=== PATIENT | male | born 1960 | race Caucasian/White ===

== ENCOUNTER → 2020-06-22 09:36 | Outpatient (BNVA) | payer BC, SELFPAY | PROVIDERS: PCP Family Medicine; Referring Provider Internal Medicine Cardiovascular Disease; Visit Provider Internal Medicine | DX: E11.59 Type 2 diabetes mellitus with other circulatory complications (principal); I25.10 Atherosclerotic heart disease of native coronary artery without angina pectoris | CPT/HCPCS: 99204 ==

== ENCOUNTER → 2020-12-21 09:16 | Outpatient (BNVA) | payer BC, SELFPAY | PROVIDERS: PCP Family Medicine; Visit Provider Internal Medicine | DX: E11.59 Type 2 diabetes mellitus with other circulatory complications (principal); I25.10 Atherosclerotic heart disease of native coronary artery without angina pectoris; N18.2 Chronic kidney disease, stage 2 (mild); Z79.4 Long term (current) use of insulin | CPT/HCPCS: 99214 ==

== ENCOUNTER 2021-04-12 10:28 | Emergency (ER) | payer BC, SELFPAY ==
[2021-04-12 10:37] VITALS: BP 150/84; PULSE 87; RESP 16; TEMP 36.6; O2SAT 97; BMI 29.2
--- NOTE | 2021-04-12 10:51 | XR_ITS ---
WS: [id number] XR chest 1V portable [id number] REASON FOR EXAM: dyspnea FINDINGS: Mild tortuosity thoracic aorta. Normal heart size. Calcified granulomatous disease in both hemithoraces. No acute pulmonary parenchymal or pleural abnormality. Bony thorax intact. XR/XR chest 1V portable [id number] IMPRESSION: No acute chest abnormality.
--- NOTE | 2021-04-12 10:52 | ECG_ITS ---
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1960 Requested By: Julio Meneses Order Number: [id number] Reading MD: EVELIA JACOME Measurements Intervals [place] Rate: 83 P: 26 DC: 160 QRS: 4 QRSD: 113 T: 90 QT: 381 QTc: 449 Interpretive Statements SINUS RHYTHM POSSIBLE LEFT VENTRICULAR HYPERTROPHY [VOLTAGE CRITERIA PLUS LAE OR QRS WIDENING] ANTERIOR MYOCARDIAL INFARCTION , OF INDETERMINATE AGE [40+ ms Q WAVE AND/OR ST/T ABNORMALITY IN V3/V4] INFERIOR MYOCARDIAL INFARCTION , PROBABLY OLD [40+ ms Q WAVE AND/OR ST/T ABNORMALITY IN II/aVF] No previous ECG available for comparison Electronically Signed On 04-12-2021 18:15:03 THERAPIST PHYSICAL by EVELIA JACOME [id number]
--- NOTE | 2021-04-12 10:52 | CT_ITS ---
WS: [id number] CT HEAD TECHNIQUE: Noncontrast CT of the head obtained from the skullbase to the vertex. CLINICAL INFORMATION: Symptoms of Acute Stroke COMPARISON: None. DLP: 1057.[address] scans at [facility] use at least one of these dose optimization techniques: automated e xposure control; mA and/or kV adjustment per patient size (includes targeted exams where dose is matc hed to clinical indication); or iterative reconstruction. FINDINGS: No evidence of intracranial hemorrhage or mass effect. Ventricular system and basal cisterns are velasquez nt. Mild small vessel changes with mild parenchymal volume loss. Chronic lacunar infarct left caudate . Lacunar infarct right ricardo radiata likely chronic. Normal posterior fossa. No extra-axial fluid c ollections. No evidence of mass or mass effect. Paranasal sinuses and mastoid air cells are well aerated. .Normal visualized soft tissues. CT/CT head wo con* [id number] IMPRESSION: 1. No evidence of intracranial hemorrhage or mass effect. 2. Mild small vessel changes with mild parenchymal volume loss. 3. Chronic appearing lacunar infarcts left caudate and right ricardo radiata 4. No other significant findings Notified Julio Glasgow DO at 04/12/2021 11:33 AM.
[2021-04-12 12:02] LABS: Basophils # 0.1 10^3/uL (0.0-0.1); Basophils % 0.7 %; Eosinophils # 0.5 10^3/uL (0.0-0.8); Eosinophils % 5.5 %; Hematocrit 40.6 % (42.0-52.0); Hemoglobin 12.9 g/dL (11.7-16.6); Lymphocytes # 1.6 10^3/uL (0.8-4.8); Lymphocytes % 18.2 %; Mean Corpuscular HGB Conc 31.8 g/dL (30.0-36.0); Mean Corpuscular Hemoglobin 28.7 pg (28.0-34.0); Mean Corpuscular Volume 90.2 fl (80-94); Mean Platelet Volume 9.5 fL (7.4-10.4); Monocytes # 0.7 10^3/uL (0.2-0.9); Monocytes % 7.8 %; Neutrophils # 6.08 10^3/uL (1.8-7.7); Neutrophils % 67.6 %; Nucleated Red Blood Cells % 0 %; Platelet Count 345 10^3/cmm (130-400); Red Cell Distribution Width 13.4 % (12.1-15.1)
--- NOTE | 2021-04-12 12:16 | ED_ITS ---
HPI - Neuro Symptoms/Deficit General: Chief Complaint: Neuro Symptoms/Deficit Stated Complaint: RIGHT HAND/ FOOT COLD NOT WORKING, SLURRED SPEACH Time Seen by Provider: 04/12/21 10:51 History of Present Illness: HPI Narrative: 60-year-old male presents to the e mergency room with a right-sided weakness of the face arm and leg most significant in the arm. He has a little slurring of his words as well. This began suddenly a little over 2 days ago. Symptoms have been waxing and waning since then he comes in today not because it is particularly worsened but because they have persistence. He is not previously distracted he is aware of patient does have a history of hypertension and diabetes. He is awake and alert and ambulatory see stroke score. He has not noticed anything that makes it better or worse he does take aspirin daily. Significant other is present with him at the bedside states he still has a little bit of slurring of his words. Onset (ago): day(s) (2) Timing confirmed by: spouse Location: speech, right arm and right leg History of same: No Severity: moderate Quality: weak Relieving factors: none Exacerbating factors: none Context: gradual onset On Anticoagulants: No Associated symptoms: Reports weakness; Deny chest pain, cough, diaphoresis, fevers/chills, headache(s), anorexia, malaise, nausea, seizures, short of breath, syncope, tingling, vertigo or vomiting Treatments Prior to Arrival: Aspirin (81 mg daily) Review of Systems Const: Denies: malaise or diaphoresis ENMT: Denies: throat pain, ear or mastoid pain, nasal discharge or nasal congestion Card: Denies: chest pain or syncope Resp: Denies: dyspnea, productive cough or non-productive cough GI: Denies: nausea or vomiting : Denies: flank pain, dysuria, urinary frequency or urinary urgency Skin/Breast: Denies: rash or pruritus Neuro: Denies: headache(s) or vertigo PFSH ED PFSH: Medical History Coronary atherosclerosis Diabetes mellitus HTN (hypertension) Hyperlipidemia Surgical History History of back surgery S/P PTCA (percutaneous transluminal coronary angioplasty) X3 Family History Mother Myocardial infarction Father Myocardial infarction Brother Myocardial infarction Grandfather Heart disease Grandmother Heart disease Social History History of recent travel: No NIH stroke score NIHSS: Level Of Consciousness - 1a: 0 Level Of Consciousness Questions - 1b: Both Correct Level Of Consciousness Commands - 1c: Both Correct Best Gaze - 2: Normal Visual [place] - 3: No Visual Loss Facial Palsy - 4: Partial Paralysis Motor Arm Right - 5: Drift Motor Arm Left - 5: No Drift Motor Leg Right - 6: Drift Motor Leg Left - 6: No Drift Limb Ataxia - 7: Present In Two Limbs Sensory - 8: Mild To Moderate Loss Best Language - 9: No Aphasia Dysarthia - 10: Mild/Moderate Dysarthia Extinction And Inattention - 11: 0 Score: Total Score: 8 Physical Exam Const: COMMON NORMALS: no acute distress GENERAL APPEARANCE: cooperative and comfortable ORIENTATION/CONSCIOUSNESS: Yes awake, Yes oriented to person, Yes oriented to place and Yes oriented to time HENMT: COMMON NORMALS: normocephalic, atraumatic and hearing grossly normal bilaterally HEAD & SCALP: normocephalic and atraumatic Neck/C-Spine: COMMON NORMALS: no JVD Resp: COMMON NORMALS: normal respiratory effort, No retractions, No use of accessory muscles and clear to auscultation bilaterally AUSCULTATION: clear to auscultation bilaterally Cardio: COMMON NORMALS: no JVD, regular rate, regular rhythm and No murmurs present (Cardio) RATE: regular rate RHYTHM: regular rhythm GI: COMMON NORMALS: Soft to palpation and No hepatosplenomegaly present AUSCULTATION: Yes normoactive bowel sounds PALPATION: Yes Soft to palpation, No Tenderness to palpation present (GI), No Guarding due to palpation present (GI) and Yes No hepatosplenomegaly present Extremity: COMMON NORMALS: normal to inspection, capillary refill normal, no clubbing, cyanosis or edema, no calf tenderness and no pedal edema Neuro: SENSORIUM/ORIENTATION: Yes oriented to person, Yes oriented to place and Yes oriented to time Skin: COMMON NORMALS: no rashes or lesions noted GENERAL SKIN EXAM: no rashes or lesions noted Course Vital Signs: Vital signs: Vital Signs Temperature 97.8 F 04/12/21 10:37 Pulse Rate 82 04/12/21 14:20 Respiratory Rate 17 04/12/21 14:20 Blood Pressure 134/89 04/12/21 14:20 Pulse Oximetry 94 04/12/21 14:20 MDM - Neuro Symptoms/Deficit MDM Narrative: Medical decision making narrative: Labs and imaging reviewed. Discussed with Dr. Owen who is on-call. She recommends in cases like this that she will frequently increase the aspirin which we did. Additionally were going to change him from hydrochlorothiazide to amlodipine. He does have a stroke score of 8 but he is fairly functional at this point. Unfortunately is already 2 days outs is not really much that can be done in terms of admission to the hospital. We will make arrangements to get outpatient work-up and have him follow-up with Dr. Owen also referred to PT. Lab Data: Labs: Lab Results 04/12/21 04/12/21 04/12/21 11:50 11:52 11:52 WBC 9.0 10^3/uL 10^3/ uL (4.0-10.0) RBC 4.50 10^6/uL 10^6 /uL (4.1-5.3) Hgb 12.9 g/dL g/dL (11.7-16.6) Hct 40.6 % L % (42.0-52.0) MCV 90.2 fl fl (80-94) MCH 28.7 pg pg (28.0-34.0) MCHC 31.8 g/dL g/dL (30.0-36.0) RDW 13.4 % % (12.1-15.1) Plt Count 345 10^3/cmm 10^3 /cmm (130-400) MPV 9.5 fL fL (7.4-10.4) Neut % (Auto) 67.6 % % Lymph % (Auto) 18.2 % % [place] % (Auto) 7.8 % % Eos % (Auto) 5.5 % % Baso % (Auto) 0.7 % % Neut # (Auto) 6.08 10^3/uL 10^3 /uL (1.8-7.7) Lymph # (Auto) 1.6 10^3/uL 10^3/ uL (0.8-4.8) [place] # (Auto) 0.7 10^3/uL 10^3/ uL (0.2-0.9) Eos # (Auto) 0.5 10^3/uL 10^3/ uL (0.0-0.8) Baso # (Auto) 0.1 10^3/uL 10^3/ uL (0.0-0.1) Nucleated RBC % (a uto) 0 % % Nucleated RBCs # 0.0 /100WBC /100W BC PT 13.40 SECONDS SEC ONDS (12.1-14.9) INR 0.99 (0.8-1.2) APTT 28.8 SECONDS SECO NDS (23.9-36.7) Sodium Potassium Chloride Carbon Dioxide Anion Gap BUN Creatinine GFR Calculation Glucose POC Glucose 124 mg/dL H mg/dL (70-110) Calculated Osmolal ity Calcium Total Bilirubin AST ALT Alkaline Phosphata se Total Protein Albumin Globulin 04/12/21 11:52 WBC RBC Hgb Hct MCV MCH MCHC RDW Plt Count MPV Neut % (Auto) Lymph % (Auto) [place] % (Auto) Eos % (Auto) Baso % (Auto) Neut # (Auto) Lymph # (Auto) [place] # (Auto) Eos # (Auto) Baso # (Auto) Nucleated RBC % (a uto) Nucleated RBCs # PT INR APTT Sodium 142 mmol/L mmol/L (136-145) Potassium 3.5 mmol/L mmol/L (3.5-5.1) Chloride 105 mmol/L mmol/L (98-107) Carbon Dioxide 22 mmol/L mmol/L (22-29) Anion Gap 18.5 (5-19) BUN 21 mg/dL mg/dL (8-23) Creatinine 1.5 mg/dL H mg/dL (0.7-1.2) GFR Calculation 47.7 mL/min L mL/ min (90-130) Glucose 126 mg/dL H mg/dL (65-115) POC Glucose Calculated Osmolal ity 299 mOsm/kg H mOs m/kg (285-295) Calcium 8.8 mg/dL mg/dL (8.5-10.5) Total Bilirubin 0.3 mg/dL mg/dL (0.15-1.2) AST 17 U/L U/L (0-40) ALT 18 U/L U/L (0-41) Alkaline Phosphata se 44 IU/L IU/L (40-130) Total Protein 6.9 g/dL g/dL (6.6-8.7) Albumin 4.3 g/dL g/dL (3.5-5.2) Globulin 2.6 g/dL g/dL (1.3-4.6) Discharge Plan Discharge Patient Disposition: Home Clinical Impression: CVA (cerebral vascular accident), HTN (hypertension), Hyperlipidemia, Diabetes mellitus, Coronary artery disease due to type 2 diabetes mellitus, Chronic kidney disease, stage II (mild) Condition: Stable Prescriptions: New amlodipine 5 mg tablet 5 mg PO DAILY Qty: 30 RF: 0 aspirin 325 mg capsule 325 mg PO DAILY Qty: 30 RF: 0 Discontinued aspirin [Adult Low Dose Aspirin] 81 mg tablet,delayed release (DR/EC) 81 mg PO QAM RF: 0 hydrochlorothiazide 25 mg tablet 25 mg PO QAM RF: 0 No Action atorvastatin 40 mg tablet 40 mg PO BEDTIME RF: 0 clopidogrel [Plavix] 75 mg tablet 75 mg PO QAM RF: 0 isosorbide mononitrate 30 mg tablet extended release 24 hr 30 mg PO QAM RF: 0 metformin 850 mg tablet 850 mg PO BID RF: 0 multivitamin Tablet 1 tab PO QAM RF: 0 pantoprazole 20 mg tablet,delayed release (DR/EC) 20 mg PO QAM RF: 0 metoprolol tartrate 50 mg tablet See Rx Instructions .ROUTE .COMPLEX RF: 0 Nitrostat 0.3 mg Tablet, Sublingual 0.3 mg SUBLINGUAL Q5M PRN (Reason: Chest Pain) RF: 0 Aleve 220 mg Tablet 440 mg PO Q12H PRN (Reason: Pain) RF: 0 losartan 100 mg tablet 100 mg PO QAM RF: 0 Basaglar KwikPen U-100 Insulin 100 unit/mL (3 mL) insulin pen 60 unit SUBCUT QAM RF: 0 fenofibrate nanocrystallized 145 mg tablet 145 mg PO QAM RF: 0 Victoza 3-Jesús 0.6 mg/0.1 mL (18 mg/3 mL) pen injector 1.8 mg SUBCUT QAM RF: 0 Discharge Orders: Discharge ED (Routine); Ordered 04/12/21 Ordered By: Julio Glasgow Referrals: Nikolas Baxter MD [Primary Care Provider] - Discharge Diet: Usual diet Discharge Activity: Resume usual activity Patient Instructions: Opioid Safety Activity Restrictions/Additional Instructions: assistant inventory manager will make arrangements for you for you to have an MRI of the head with and without contrast, echocardiogram, carotid ultrasound, and 48-hour Holter monitor. You should follow-up with your primary care doctor within the week to reevaluate and to follow-up on the results of these tests. Coding Level of Care Code ED Addiction Medicine Physician for Chg Fwd Exam Comprehensive
[2021-04-12 12:21] LABS: INR 0.99 (0.8-1.2); Partial Thromboplastin Time 28.8 SECONDS (23.9-36.7)
[2021-04-12 12:37] LABS: Alanine Aminotransferase 18 U/L (0-41); Albumin Level 4.3 g/dL (3.5-5.2); Alkaline Phosphatase 44 IU/L (40-130); Anion Gap 18.5 (5-19); Aspartate Amino Transferase 17 U/L (0-40); Blood Urea Nitrogen 21 mg/dL (8-23); Calcium 8.8 mg/dL (8.5-10.5); Carbon Dioxide 22 mmol/L (22-29); Chloride 105 mmol/L (98-107); Globulin 2.6 g/dL (1.3-4.6); Glomerular Filtration Rate 47.7 mL/min (90-130); Glucose 126 mg/dL (65-115); Osmolality Calculated 299 mOsm/kg (285-295); Potassium 3.5 mmol/L (3.5-5.1); Sodium 142 mmol/L (136-145); Total Bilirubin 0.3 mg/dL (0.15-1.2); Total Protein 6.9 g/dL (6.6-8.7)
[2021-04-12 13:38] LABS: Glucose Point of Care 124 mg/dL (70-110)
[2021-04-12 14:20] VITALS: BP 134/89; PULSE 82; RESP 17; O2SAT 94
--- NOTE | 2021-04-15 11:12 | DCPLANNER ---
telephonic case manager had message to schedule an outpatient CVA, MRI, echo and carotid duplex, and 48 hour holter. telephonic case manager faxed signed order to centralized scheduling and to [facility]. Centralized scheduling and heart care will call patient with appointment information.
--- NOTE | 2021-04-16 11:40 | DCPLANNER ---
Addendum entered by Leslie Deleon 06/27/21 07:50: Patient had an MRI Scheduled for 05.16.21 - patient did attend appointment Patient had an echo, a carotid duplex scheduled for 05.30.21 - patient did attend both appointments. Addendum entered by Leslie Deleon 04/26/21 14:13: Patient has an MRI scheduled for April at 11:45. Patient has an echo scheduled for Sunday, May 30, 2021 at 9:30 Patient has a carotid duplex scheduled for Sunday, May 30, 2021 at 10:15. Patient had a holter monitor appointment scheduled for 04.25.21 at [facility] - patient did attend appointment. Addendum entered by Leslie Deleon 04/26/21 11:49: Patient was seen and evaluated with therapy services. Original Note: manager gallery had message to refer patient to physical therapy, occupational therapy and speech therapy. manager gallery fazed signed order to the [facility]. Patients information will be printed and reviewed, clinic will call patient with appointment information.
== END 2021-04-12 14:21 | disposition home or self-care (01) ==
PROVIDERS: Emergency Provider Family Medicine; PCP Family Medicine
DX: I63.9 Cerebral infarction, unspecified (principal); E78.49 Other hyperlipidemia; I25.10 Atherosclerotic heart disease of native coronary artery without angina pectoris; I12.9 Hypertensive chronic kidney disease with stage 1 through stage 4 chronic kidney disease, or unspecified chronic kidney disease; E11.22 Type 2 diabetes mellitus with diabetic chronic kidney disease; N18.2 Chronic kidney disease, stage 2 (mild); Z79.84 Long term (current) use of oral hypoglycemic drugs; Z79.02 Long term (current) use of antithrombotics/antiplatelets
CPT/HCPCS: 36416; 70450; 71045; 80053; 82962; 85025; 85610; 85730; 93005; 99283

== ENCOUNTER 2021-04-25 06:00 | Outpatient (RCR) | payer BC, SELFPAY | END 2021-04-29 23:59 | disposition home or self-care (01) | LOC: TPT 06:00 | PROVIDERS: PCP Family Medicine; Referring Provider Family Medicine; Visit Provider Family Medicine | DX: I69.90 Unspecified sequelae of unspecified cerebrovascular disease (principal) | CPT/HCPCS: 97163 ==

== ENCOUNTER 2021-04-30 06:00 | Outpatient (RCR) | payer BC, SELFPAY | END 2021-05-27 23:59 | disposition home or self-care (01) | LOC: TPT 06:00 | PROVIDERS: PCP Family Medicine; Referring Provider Family Medicine; Visit Provider Family Medicine | DX: I69.30 Unspecified sequelae of cerebral infarction (principal) | CPT/HCPCS: 97110 ==

== ENCOUNTER 2021-05-28 06:00 | Outpatient (RCR) | payer BC, SELFPAY | END 2021-05-30 23:59 | disposition home or self-care (01) | LOC: TPT 06:00 | PROVIDERS: PCP Family Medicine; Referring Provider Family Medicine; Visit Provider Family Medicine | DX: I69.90 Unspecified sequelae of unspecified cerebrovascular disease (principal) | CPT/HCPCS: 97110; 97164 ==

== ENCOUNTER 2021-05-28 08:18 | Outpatient (CLI) | payer BC, SELFPAY ==
--- NOTE | 2021-05-28 08:46 | USCV_ITS ---
Fuad Priest Age: 60 Gender: M : 1960 Exam Date: 05/28/2021 09:46 Ordering Phys: Julio Glasgow DO Technologist: Jose L Duran Exam Location: [facility] [place] Indication: cva Risk Factors: Previous Vascular Surgery: Right Brachial BP: / Left Brachial BP: / Right Left Velocity (cm/s) Spectral Plaque Velocity (cm/s) Spectral Plaque Syst/Diast Broadening Syst/Diast Broadening 84.00/ 11.70 Prox CCA 83.20 / 18.40 66.70/ 13.20 Mid CCA 76.90 / 21.70 70.30/ 16.40 Distal CCA 88.70 / 25.60 76.50/ 17.20 Prox ICA 88.60 / 28.70 52.90/ 15.60 Mid ICA 88.60 / 25.60 57.10/ 18.70 Distal ICA 58.00 / 18.00 101.80 ECA 91.70 0.79 ICA/CCA 1.15 Antegrade Vertebral Antegrade 47.00/ 14.40 cm/s 29.90/ 12.80 cm/s Tri Subclavian Tri 68.90 66.80 FINDINGS Minimal intimal thickening in the common carotid and internal carotid arteries bilaterally. Anterior flow in the vertebral arteries bilaterally. Normal Doppler flow velocities in all the extracranial vessels mentioned above CONCLUSIONS Minimal intimal thickening in the common carotid and internal carotid arteries bilaterally. No unstable plaques or any significant stenosis, based on the above findings Dr Devonte Corbett MD [facility] (Electronically Signed) Final Date: 29 May 2021 08:44 S
--- NOTE | 2021-05-28 08:46 | USCV_ITS ---
Fuad Priest Age: 60 Gender: M : 1960 Exam Date: 05/28/2021 09:08 Ordering Phys: Julio Glasgow DO Technologist: Jose L Duran Exam Location: [facility] [place] Indication: cva BP: 122 / 77 HR: 88 Rhythm: Sinus Technical Quality: Adequate MEASUREMENTS (Male / Female) Normal Values 2D ECHO LV Diastolic Diameter PLAX 5.0 cm 4.2 - 5.9 / 3.9 - 5.3 cm LV Systolic Diameter PLAX 3.9 cm IVS Diastolic Thickness 1.2 cm 0.6 - 1.0 / 0.6 - 0.9 cm IVS Systolic Thickness 1.6 cm LVPW Diastolic Thickness 1.1 cm 0.6 - 1.0 / 0.6 - 0.9 cm LVPW Systolic Thickness 1.9 cm LVOT Diameter 2.1 cm LV Ejection Fraction 2D Teich 43.1 % LV Ejection Fraction MOD 2C 64.0 % LV Ejection Fraction 2C AL 64.2 % LA Diameter 3.5 cm LA Width 4.0 cm LA Height 4.8 cm RA Width 3.1 cm RA Height 4.1 cm Aorta at Sinotubular Diameter 2.7 cm M-MODE Aortic Annulus Diameter 3.0 cm LA Ao Ratio MM 1.1 MV E Point Septal Separation 0.9 cm DOPPLER AV Peak Velocity 165.0 cm/s LVOT Peak Velocity 94.0 cm/s AV Area Cont Eq vti 2.2 cm squared AV Area Cont Eq pk 1.9 cm squared MV Area PHT 4.3 cm squared Mitral E to A Ratio 0.7 MV E' Velocity 52.0 cm/s Mitral E to LV E' Septal Ratio 12.7 Right Atrial Pressure 3.0 mmHg RV Acceleration Time 0.1 s RV Ejection Time 0.3 s RV AcT/ET 0.4 FINDINGS Left Ventricle Mild diffuse dyskinesia of the left ventricle with an ejection fraction of around 50%. Grade I/IV diastolic dysfunction (abnormal relaxation filling pattern), normal to mildly elevated filling pressures. Right Ventricle The right ventricle is normal in size and function. Right Atrium The right atrium is normal in size. Left Atrium Mildly increased left atrial size. Mitral Valve Thickened mitral valve. Mild mitral annular calcification. Trace mitral valve regurgitation. Aortic Valve Thickened aortic valve. Tricuspid Valve No gross abnormalities noted Pulmonic Valve Pulmonic valve not well visualized. Pericardium Normal pericardium without effusion. Aorta Normal ascending aorta dimension. CONCLUSIONS Mild diffuse dyskinesia of the left ventricle with an ejection fraction of around 50%. Grade I/IV diastolic dysfunction (abnormal relaxation filling pattern), normal to mildly elevated filling pressures. Mildly increased left atrial size. Thickened mitral valve. Mild mitral annular calcification. Trace mitral valve regurgitation. Thickened aortic valve. There is no pericardial effusion. There are no intracardiac masses. No previous study is available for comparison. Dr Devonte Corbett MD [facility] (Electronically Signed) Final Date: 28 May 2021 17:41 S
== END 2021-05-28 08:19 | disposition home or self-care (01) ==
PROVIDERS: PCP Family Medicine; Visit Provider Family Medicine
DX: I63.9 Cerebral infarction, unspecified (principal); I08.0 Rheumatic disorders of both mitral and aortic valves; I65.23 Occlusion and stenosis of bilateral carotid arteries
CPT/HCPCS: 93306; 93880

== ENCOUNTER 2021-06-05 13:24 | Outpatient (CLI) | payer BC, SELFPAY ==
--- NOTE | 2021-06-05 13:39 | MR_ITS ---
WS: [id number] MRI HEAD WITH CONTRAST TECHNIQUE: Sagittal T1, T2 axial, T2 axial FLAIR, axial susceptibility weighted imaging, axial diffus ion weighted images, and coronal T2 images were obtained. Pre and post-T1 axial and post T1 coronal i mages. ADC and FSPGR images. CLINICAL INFORMATION: CVA COMPARISON: CT head April 12, 2021 FINDINGS: No evidence of restricted diffusion to suggest acute ischemia. Ventricular system and basal cisterns are patent. Tiny focus of partially restricted diffusion in the LEFT medullary olive measuring 3 mm. Small amount of associated T2 hyperintensity in this area. This may represent T2 shine through. No en hancement. This likely represents late subacute to chronic ischemia. No significant brainstem atrophy . No other foci of restricted diffusion to suggest acute ischemia. Tiny chronic lacunar infarcts LEFT c erebellum. Normal vascular flow voids at the skull base. No extra-axial fluid collections. Chronic la cunar infarcts in the LEFT ricardo radiata and RIGHT lateral basal ganglia. This is unchanged since th e prior CT. Mild mucosal thickening in the paranasal sinuses. Mastoid air cells well aerated. Normal vascular santo w voids at the skull base. No hemosiderin on susceptibly weighted images. Normal optic chiasm and pit uitary infundibulum. Mild symmetric atrophy temporal lobes and hippocampal formations. No abnormal gadolinium enhancement. Normal visualized dural venous sinuses. MR/MR head wo/w con [id number] IMPRESSION: 1. Tiny 3 mm focus of partially restricted diffusion in the anterior LEFT medu llary olive suspicious for subacute to early chronic ischemia. No enhancement. No brainstem atrophy. 2. Otherwise no evidence of restricted diffusion to suggest acute ischemia. 3. Mild small vessel changes with mild parenchymal volume loss. 4. Chronic lacunar infarcts in the LEFT ricardo radiata and RIGHT lateral basal ganglia unchanged since the prior CT. 5. Chronic lacunar infarcts in the LEFT cerebellum. 6. No abnormal gadolinium enhancement. 7. Mild symmetric atrophy temporal lobes and hippocampal formations.
[2021-06-05] MEDS: gadobenate dimeglumine 20 mL vial IV (15:46)
== END 2021-06-05 13:25 | disposition home or self-care (01) ==
LOC: RAD 13:27
PROVIDERS: PCP Family Medicine; Visit Provider Family Medicine
DX: I63.81 Other cerebral infarction due to occlusion or stenosis of small artery (principal); G31.9 Degenerative disease of nervous system, unspecified
CPT/HCPCS: 70553

== ENCOUNTER → 2021-06-17 10:22 | Outpatient (BNVA) | payer BC, SELFPAY | PROVIDERS: PCP Family Medicine; Visit Provider Family Medicine | DX: E11.9 Type 2 diabetes mellitus without complications (principal); N18.2 Chronic kidney disease, stage 2 (mild); I25.10 Atherosclerotic heart disease of native coronary artery without angina pectoris; E78.5 Hyperlipidemia, unspecified; Z76.89 Persons encountering health services in other specified circumstances; I12.9 Hypertensive chronic kidney disease with stage 1 through stage 4 chronic kidney disease, or unspecified chronic kidney disease | CPT/HCPCS: 80053; 80061; 83036; 85025 ==

== ENCOUNTER 2021-08-13 02:39 | Emergency (ER) | payer BC, SELFPAY ==
[2021-08-13 02:42] VITALS: BP 166/89; PULSE 87; RESP 16; TEMP 36.7; O2SAT 93; BMI 30.8
[2021-08-13 03:20] VITALS: BP 166/90; PULSE 92; RESP 20; O2SAT 94
--- NOTE | 2021-08-13 03:20 | W.ED.SOB ---
HPI - SOB/Dyspnea General: Chief Complaint: Shortness of Breath/Dyspnea Stated Complaint: SOB Time Seen by Provider: 08/13/21 03:20 History of Present Illness: HPI Narrative: Is a 60-year-old gentleman with history of hypertension, hyperlipidemia, stroke, CAD, diabetes who presents to the emergency department due to shortness of breath. He reports onset of symptoms while drinking a glass of milk. He had a choking episode and subsequently had gurgling sensation in his chest. Initially intensity of symptoms were moderate to severe however is now slowly beginning to improve. Prior to this he was at his baseline health. He does have a history of stroke which may be contributing. No other specific changes in health, exacerbating, or alleviating factors identified. Onset (ago): hour(s) Context: choking/aspiration Review of Systems General: Reports: 10 or more systems reviewed and unremarkable except in HPI and below PFSH ED PFSH: Medical History Coronary atherosclerosis Diabetes mellitus HTN (hypertension) Hyperlipidemia Surgical History History of back surgery S/P PTCA (percutaneous transluminal coronary angioplasty) X3 Family History Mother Myocardial infarction Father Myocardial infarction Brother Myocardial infarction Grandfather Heart disease Grandmother Heart disease Social History Smoking and tobacco status: never smoked Alcohol intake: never History of recent travel: No Physical Exam Const: COMMON NORMALS: alert GENERAL APPEARANCE: cooperative and well developed HENMT: COMMON NORMALS: normocephalic and atraumatic HEAD & SCALP: normocephalic and atraumatic THROAT: posterior oropharynx normal Eye: COMMON NORMALS: conjunctivae normal CONJUNCTIVA: Yes conjunctivae normal SCLERA: sclerae normal Neck/C-Spine: COMMON NORMALS: supple GENERAL: Yes trachea midline Resp: EFFORT & INSPECTION: Yes able to speak in complete sentences AUSCULTATION: rhonchi lower bilaterally Cardio: COMMON NORMALS: regular rate and regular rhythm RATE: regular rate RHYTHM: regular rhythm GI: COMMON NORMALS: Soft to palpation PALPATION: Yes Soft to palpation and No Tenderness to palpation present (GI) PERCUSSION: normal to percussion Extremity: GENERAL: Yes normal exam except as noted and No edema Neuro: COMMON NORMALS: moves all extremities SENSORIUM/ORIENTATION: Yes alert and No Orientation impaired Psych: COMMON NORMALS: mental status grossly normal and Normal thought process present THOUGHT PROCESS: Normal thought process present Course ED course: - Patient was seen and evaluated by me at bedside - Patient placed on cardiac monitors, IV access obtained - Initial evaluation notable for exam as above - xrays personally interpreted by me - Imaging notable for patchy bibasilar infiltrate concerning for pneumonia given clinical context - Upon serial reexamination after treatment the patient was improved - Based on patient history, evaluation, and testing as interpreted the most likely cause of the patient's condition is aspiration pneumonia - The results of ED evaluation were discussed with the patient including prescriptions and/or symptomatic cares (if applicable) including appropriate and responsible use, followup plan, and return precautions. The patient verbalized understanding and felt safe for discharge. - Patient discharged in satisfactory condition. Note: Click bubbles or prepopulated noel in note writing are used for assistance with data collection and billing and are inherently more limited than narrative and other text portions of this note. Please use narrative for additional clinical history and defer to narrative/free test for any case of contradictory information. If information appears in only free text or click bubble it should be considered present or absent as reported. Please contact note contract technical writer for clarifications of clinical information or contradictory information. MDM is a brief summary, contradictory or erroneous seeming information should be clarified and full note should be reviewed. Vital Signs: Vital signs: Vital Signs Temperature 98.0 F 08/13/21 02:42 Pulse Rate 80 08/13/21 06:02 Respiratory Rate 18 08/13/21 06:02 Blood Pressure 185/115 08/13/21 06:02 Pulse Oximetry 98 08/13/21 06:02 MDM - SOB/Dyspnea Medical Decision Making 60-year-old male presenting after choking episode with concern over aspiration pneumonia. Clinical exam consistent with such. Patient is not tachycardic and not requiring supplemental oxygen. Patient comfortable with outpatient management, will be prescribed antibiotics. Medical Records I reviewed the patient's medical records. Lab Data I reviewed the patient's lab results. Labs/Radiology: Radiology Impressions Chest X-Ray 08/13/21 03:33 IMPRESSION: Pulmonary vascular congestion with patchy bibasilar airspace opacities, which may reflect atelectasis versus aspiration or pneumonia. Discharge Plan Discharge Patient Disposition: Home Clinical Impression: Aspiration pneumonitis, Shortness of breath Condition: Stable Prescriptions: New amoxicillin-pot clavulanate 875-125 mg tablet 1 tab PO BID Qty: 20 0RF albuterol sulfate 90 mcg/actuation HFA aerosol inhaler 2 inh inhalation Q4H PRN (Reason: shortness of breath or wheezing) Qty: 8.5 0RF No Action atorvastatin 40 mg tablet 40 mg PO BEDTIME 0RF clopidogrel [Plavix] 75 mg tablet 75 mg PO QAM 0RF isosorbide mononitrate 30 mg tablet extended release 24 hr 30 mg PO QAM 0RF metformin 850 mg tablet 850 mg PO BID 0RF multivitamin Tablet 1 tab PO QAM 0RF pantoprazole 20 mg tablet,delayed release (DR/EC) 20 mg PO QAM 0RF metoprolol tartrate 50 mg tablet See Rx Instructions PO BID Qty: 270 2RF Rx Instructions: TAKE 2 TABLETS IN THE MORNING AND 1 TABLET IN THE EVENING Nitrostat 0.3 mg Tablet, Sublingual 0.3 mg SUBLINGUAL Q5M PRN (Reason: Chest Pain) 0RF Aleve 220 mg Tablet 440 mg PO Q12H PRN (Reason: Pain) 0RF losartan 100 mg tablet 100 mg PO QAM 0RF fenofibrate nanocrystallized 145 mg tablet 145 mg PO QAM 0RF Victoza 3-Jesús 0.6 mg/0.1 mL (18 mg/3 mL) pen injector 1.8 mg SUBCUT QAM 0RF amlodipine 5 mg tablet 5 mg PO DAILY Qty: 30 0RF aspirin 325 mg capsule 325 mg PO DAILY Qty: 30 0RF Basaglar KwikPen U-100 Insulin 100 unit/mL (3 mL) insulin pen 55 unit SUBCUT QAM 0RF Discharge Orders: Discharge ED (Routine); Ordered 08/13/21 Ordered By: Vasile Kidd Referrals: John Paul Fox DO [Primary Care Provider] - Discharge Diet: Usual diet Discharge Activity: Increase activity as tolerated Patient Instructions: Pneumonitis (ED), How to Use an Incentive Spirometer (ED), Shortness of Breath (ED) Activity Restrictions/Additional Instructions: Thank you for visiting the emergency department. You were seen and evaluated for concern of choking episode. You likely have inflammation/infection along tissue related to aspiration. Will be given a prescription for antibiotics, inhaler, and also please use an incentive spirometer. Please follow-up with your primary care provider. Return to the emergency department for worsening symptoms or anything else that you are concerned about and feel needs emergency department evaluation. Coding Level of Care Code ED Professor Of Art for Rob Haile
--- NOTE | 2021-08-13 03:33 | XRR_ITS ---
PROCEDURE INFORMATION: Exam: XR Chest Exam date and time: 08/13/2021 4:02 AM Age: 60 years old Clinical indication: Dyspnea; Patient HX: Choked on milk, since has a gurgling sound when breathing; Additional info: Aspiration TECHNIQUE: Imaging protocol: XR of the chest. Views: 2 views. COMPARISON: CR XR chest 1V portable [id number] 04/12/2021 11:23 AM FINDINGS: Lungs: Patchy bibasilar airspace opacities. Pulmonary vascular congestion. Pleural spaces: Unremarkable. No pleural effusion. No pneumothorax. Heart/Mediastinum: Unremarkable. No cardiomegaly. Bones/joints: Unremarkable. XR/XR chest 2V* [id number] IMPRESSION: Pulmonary vascular congestion with patchy bibasilar airspace opacities, which may reflect atelectasis versus aspiration or pneumonia.
--- NOTE | 2021-08-13 03:33 | ECG_ITS ---
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 Measurements Intervals [place] Rate: 90 P: 31 ND: 175 QRS: -3 QRSD: 117 T: 103 QT: 390 QTc: 478 Interpretive Statements SINUS RHYTHM LEFT VENTRICULAR HYPERTROPHY AND ST-T CHANGE [VOLTAGE CRITERIA PLUS ST/T ABNORMALITY] POSSIBLE ANTERIOR MYOCARDIAL INFARCTION , OF INDETERMINATE AGE [30 ms Q WAVE IN V3/V4, OR R < 0.2 mV IN V4] Compared to ECG 04/12/2021 10:58:44 ST (T wave) deviation now present Myocardial infarct finding still present Electronically Signed On 08-13-2021 17:16:59 CDT by Tony Donnelly M.D. [id number]
[2021-08-13 06:02] VITALS: BP 185/115; PULSE 80; RESP 18; O2SAT 98
== END 2021-08-13 06:03 | disposition home or self-care (01) ==
PROVIDERS: Emergency Provider Emergency Medicine; PCP Family Medicine
DX: R06.02 Shortness of breath (principal); J69.0 Pneumonitis due to inhalation of food and vomit; E11.9 Type 2 diabetes mellitus without complications; I10 Essential (primary) hypertension; E78.5 Hyperlipidemia, unspecified; Z79.82 Long term (current) use of aspirin
CPT/HCPCS: 71046; 93005; 99283

== ENCOUNTER 2021-09-04 07:00 | Inpatient (IN) | payer BC, SELFPAY ==
[2021-09-04] VITALS (14 sets, daily range): BP systolic 106–141; BP diastolic 59–84; PULSE 89–113; RESP 13–27; TEMP 36.8; O2SAT 92–98; BMI 41.5; BMI 30.7
--- NOTE | 2021-09-04 07:22 | ECG_ITS ---
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 Measurements Intervals [place] Rate: 88 P: 27 UT: 164 QRS: 4 QRSD: 117 T: 91 QT: 374 QTc: 455 Interpretive Statements SINUS RHYTHM POSSIBLE LEFT ATRIAL ENLARGEMENT [-0.1mV P-WAVE IN V1/V2] POSSIBLE ANTERIOR MYOCARDIAL INFARCTION , OF INDETERMINATE AGE [30 ms Q WAVE IN V3/V4, OR R < 0.2 mV IN V4] POSSIBLE INFERIOR MYOCARDIAL INFARCTION , OF INDETERMINATE AGE [30 ms Q WAVE IN II/aVF] Compared to ECG 08/13/2021 03:21:33 Left ventricular hypertrophy no longer present ST (T wave) deviation no longer present Myocardial infarct finding still present Electronically Signed On 09-04-2021 20:13:17 CDT by Devonte Corbett M.D. [id number]
--- NOTE | 2021-09-04 07:22 | XR_ITS ---
WS: [id number] Exam: XR chest 1V portable [id number] Date/Time of Exam: 09/04/2021 7:41 AM Reason For Exam: Chest pain Comparison 08/13/2021. The lungs are clear and fully expanded. Mild cardiac enlargement. No pleural effusions. The mediastin um and osseous thorax are unremarkable. XR/XR chest 1V portable [id number] IMPRESSION: 1. Mild cardiac enlargement. No acute process.
--- NOTE | 2021-09-04 07:38 | ED_ITS ---
HPI - Chest Pain General: Chief Complaint: Chest Pain Stated Complaint: chest pain Time Seen by Provider: 09/04/21 07:02 Source: patient Mode of arrival: ambulatory Limitations: no limitations History of Present Illness: 61-year-old male presents emergency room with complaint of chest pain. Patient has a known history of coronary disease previously had stents he is also had a stroke a few months ago with right-sided weakness that has largely resolved. Over the last 3 days he has used 10 nitroglycerin tablets. He has noticed increasing frequency of onset of chest pain with exertion and decreasing levels of exertion required to bring about his chest pain. The intensity is remained the same and with each episode he is able to take a single nitro tablet and it resolves and only recurs if he really exerts himself but has gotten to the point where he cannot walk more than 50 feet even inside of his home without precipitating an episode of chest pain. Pain does not radiate he does get etc. exceedingly short of breath for his level of activity as well. Gets mildly nauseous. Patient has a history of hypertension and diabetes. His last stents were somewhere in the range of 10+ years ago. He has not been following up with cardiology recently. He was recently treated with outpatient antibiotics for a pneumonia which seems to have mostly resolved he does not have any shortness of breath while at rest. He also has noted recent onset of orthopnea. He last took a nitro around 6 AM today MD complaint: chest pain Pertinent past history: coronary artery disease Onset (ago): day(s) (3) Timing of current episode: episodic Prior episodes: Yes Onset: during exertion Pain location: substernal and left chest Severity: moderate Quality: tightness, aching and heaviness Relieving factors: nitroglycerin Exacerbating factors: exertion Context: recent illness Associated symptoms: Reports dyspnea; Deny abdominal pain, diaphoresis, fever(s), nausea, palpitations or vomiting Treatment prior to arrival: nitroglycerin Review of Systems Const: Reports: fatigue and malaise; Denies: fever(s), chills or diaphoresis ENMT: Denies: throat pain, ear or mastoid pain, nasal discharge or nasal congestion Card: Reports: chest pain and orthopnea; Denies: palpitations, irregular heart rhythm, edema or dyspnea on exertion Resp: Reports: dyspnea; Denies: productive cough, non-productive cough or wheezing GI: Denies: abdominal pain, nausea or vomiting : Denies: flank pain, difficulty urinating, dysuria, urinary frequency or urinary urgency Skin/Breast: Denies: rash or pruritus PFSH ED PFSH: Medical History Cardiac arrest due to underlying cardiac condition Cerebrovascular accident (CVA) associated with severe acute respiratory syndrome coronavirus 2 (SARS-CoV-2) infection Chronic kidney disease, stage II (mild) Coronary atherosclerosis Diabetes mellitus GERD (gastroesophageal reflux disease) HTN (hypertension) Hyperlipidemia Surgical History History of back surgery S/P PTCA (percutaneous transluminal coronary angioplasty) X3 Family History Mother Myocardial infarction Father Myocardial infarction Brother Myocardial infarction Grandfather Heart disease Grandmother Heart disease Social History Smoking and tobacco status: never smoked Alcohol intake: never History of recent travel: No Physical Exam Const: GENERAL APPEARANCE: cooperative and comfortable OR IENTATION/CONSCIOUSNESS: Yes awake, Yes oriented to person, Yes oriented to place and Yes oriented to time HENMT: COMMON NORMALS: normocephalic, atraumatic and hearing grossly normal bilaterally HEAD & SCALP: normocephalic and atraumatic Neck/C-Spine: COMMON NORMALS: no JVD Resp: COMMON NORMALS: normal respiratory effort, No retractions, No use of accessory muscles and clear to auscultation bilaterally AUSCULTATION: clear to auscultation bilaterally Cardio: COMMON NORMALS: no JVD, regular rate, regular rhythm and No murmurs present (Cardio) RATE: regular rate RHYTHM: regular rhythm GI: COMMON NORMALS: Soft to palpation and No hepatosplenomegaly present AUSCULTATION: Yes normoactive bowel sounds PALPATION: Yes Soft to palpation, No Tenderness to palpation present (GI), No Guarding due to palpation present (GI) and Yes No hepatosplenomegaly present Extremity: COMMON NORMALS: normal to inspection, capillary refill normal, no clubbing, cyanosis or edema, no calf tenderness and no pedal edema Neuro: SENSORIUM/ORIENTATION: Yes oriented to person, Yes oriented to place and Yes oriented to time Skin: COMMON NORMALS: no rashes or lesions noted GENERAL SKIN EXAM: no rashes or lesions noted Course Vital Signs: Vital signs: Vital Signs Temperature 98.3 F 09/13/21 15:29 Pulse Rate 92 09/13/21 15:29 Respiratory Rate 16 09/13/21 15:29 Blood Pressure 119/77 09/13/21 15:29 Pulse Oximetry 90 09/13/21 15:29 MDM - Chest Pain Medical Decision Making Patient has escalating angina discussed with hospitalist. Troponin is elevated as well we will consult cardiology admit orders written Medical Records I reviewed the patient's medical records. Lab Data I reviewed the patient's lab results. : 09/12/21 10:00 09/13/21 03:04 Radiology Impressions Chest X-Ray 09/08/21 09:24 IMPRESSION: Mild hazy atelectasis in the lung bases. The aeration of the lungs has improved since previous radiograph. Laboratory Results WBC 11.1 10^3/uL (4.0-10.0) H 09/04/21 07:50 RBC 2.78 10^6/uL (4.1-5.3) L 09/04/21 07:50 Hgb 8.0 g/dL (11.7-16.6) L 09/04/21 07:50 Hct 24.9 % (42.0-52.0) L 09/04/21 07:50 MCV 89.6 fl (80-94) 09/04/21 07:50 MCH 28.8 pg (28.0-34.0) 09/04/21 07:50 MCHC 32.1 g/dL (30.0-36.0) 09/04/21 07:50 RDW 14.5 % (12.1-15.1) 09/04/21 07:50 Plt Count 348 10^3/cmm (130-400) 09/04/21 07:50 MPV 10.2 fL (7.4-10.4) 09/04/21 07:50 Neut % (Auto) 69.4 % 09/04/21 07:50 Lymph % (Auto) 18.5 % 09/04/21 07:50 [place] % (Auto) 8.4 % 09/04/21 07:50 Eos % (Auto) 2.7 % 09/04/21 07:50 Baso % (Auto) 0.6 % 09/04/21 07:50 Reticulocyte % (Auto) 3.6 % (0.5-2.0) H 09/04/21 07:50 Neut # (Auto) 7.72 10^3/uL (1.8-7.7) H 09/04/21 07:50 Lymph # (Auto) 2.1 10^3/uL (0.8-4.8) 09/04/21 07:50 [place] # (Auto) 0.9 10^3/uL (0.2-0.9) 09/04/21 07:50 Eos # (Auto) 0.3 10^3/uL (0.0-0.8) 09/04/21 07:50 Baso # (Auto) 0.1 10^3/uL (0.0-0.1) 09/04/21 07:50 Nucleated RBC % (auto) 0 % 09/04/21 07:50 Nucleated RBCs # 0.0 /100WBC 09/04/21 07:50 Haptoglobin 216.0 mg/L (30-200) H 09/04/21 07:50 APTT 31.2 SECONDS (23.9-36.7) 09/04/21 07:50 Sodium 141 mmol/L (136-145) 09/04/21 07:50 Potassium 3.9 mmol/L (3.5-5.1) 09/04/21 07:50 Chloride 106 mmol/L (98-107) 09/04/21 07:50 Carbon Dioxide 24 mmol/L (22-29) 09/04/21 07:50 Anion Gap 14.9 (5-19) 09/04/21 07:50 BUN 29 mg/dL (8-23) H 09/04/21 07:50 Creatinine 1.6 mg/dL (0.7-1.2) H 09/04/21 07:50 GFR Calculation 44.2 mL/min (90-130) L 09/04/21 07:50 Glucose 97 mg/dL (65-115) 09/04/21 07:50 POC Glucose 80 mg/dL (70-110) 09/04/21 11:11 Calculated Osmolality 298 mOsm/kg (285-295) H 09/04/21 07:50 Calcium 9.3 mg/dL (8.5-10.5) 09/04/21 07:50 Iron 34 ug/dL (59-158) L 09/04/21 07:50 TIBC 363 mcg/dl 09/04/21 07:50 % Saturation 9.3 % (20-50) L 09/04/21 07:50 Unsat Iron Binding 329 ug/dL (112-347) 09/04/21 07:50 Total Bilirubin 0.4 mg/dL (0.15-1.2) 09/04/21 07:50 AST 20 U/L (0-40) 09/04/21 07:50 ALT 13 U/L (0-41) 09/04/21 07:50 Alkaline Phosphatase 35 IU/L (40-130) L 09/04/21 07:50 Troponin T Baseline 239 ng/L (0-15) H* 09/04/21 07:50 Troponin T 120 Minute 246.2 ng/L (0-15) H 09/04/21 09:50 Delta Troponin T 7.2 ABS# (0-10) 09/04/21 09:50 Troponin T Hi Sens 6Hr 250.9 ng/L (0-15) H 09/04/21 14:40 Troponin T Hi Sens 6Hr Delta 11.9 ng/L (0-12) 09/04/21 14:40 Total Protein 6.7 g/dL (6.6-8.7) 09/04/21 07:50 Albumin 4.3 g/dL (3.5-5.2) 09/04/21 07:50 Globulin 2.4 g/dL (1.3-4.6) 09/04/21 07:50 Vitamin B12 570 pg/mL (232-1245) 09/04/21 07:50 Folate 19.7 ng/mL (4.5-32.2) 09/04/21 09:50 TSH 1.89 uIU/mL (0.27-4.20) 09/04/21 09:50 Blood Type O Positive 09/04/21 09:50 Rho(D) Type Positive 09/04/21 09:50 Antibody Screen Negative 09/04/21 09:50 Crossmatch See Detail 09/04/21 09:50 Discharge Plan Discharge Patient Disposition: Admitted As Inpatient Admit Provider: Nas Marks Clinical Impression: NSTEMI (non-ST elevated myocardial infarction), Diabetes mellitus, Chronic kidney disease, stage II (mild), HTN (hypertension) Condition: Stable Discharge Diet: Cardiac, Diabetic and Soft Mechanical Discharge Activity: Resume usual activity and Increase activity as tolerated Coding Level of Care Code ED Sales And Merchandising Associate for Juniorg Fwd Exam Comprehensive
[2021-09-04 08:01] LABS: Basophils # 0.1 10^3/uL (0.0-0.1); Basophils % 0.6 %; Eosinophils # 0.3 10^3/uL (0.0-0.8); Eosinophils % 2.7 %; Hematocrit 24.9 % (42.0-52.0); Lymphocytes # 2.1 10^3/uL (0.8-4.8); Lymphocytes % 18.5 %; Mean Corpuscular HGB Conc 32.1 g/dL (30.0-36.0); Mean Corpuscular Hemoglobin 28.8 pg (28.0-34.0); Mean Corpuscular Volume 89.6 fl (80-94); Mean Platelet Volume 10.2 fL (7.4-10.4); Monocytes # 0.9 10^3/uL (0.2-0.9); Monocytes % 8.4 %; Neutrophils # 7.72 10^3/uL (1.8-7.7); Neutrophils % 69.4 %; Nucleated Red Blood Cells % 0 %; Platelet Count 348 10^3/cmm (130-400); Red Blood Count 2.78 10^6/uL (4.1-5.3); Red Cell Distribution Width 14.5 % (12.1-15.1); White Blood Count 11.1 10^3/uL (4.0-10.0)
[2021-09-04] MEDS: aspirin 81 mg Chew Tablet 324 MG PO (08:03)
[2021-09-04 08:25] LABS: Alanine Aminotransferase 13 U/L (0-41); Albumin Level 4.3 g/dL (3.5-5.2); Alkaline Phosphatase 35 IU/L (40-130); Anion Gap 14.9 (5-19); Aspartate Amino Transferase 20 U/L (0-40); Blood Urea Nitrogen 29 mg/dL (8-23); Calcium 9.3 mg/dL (8.5-10.5); Carbon Dioxide 24 mmol/L (22-29); Chloride 106 mmol/L (98-107); Globulin 2.4 g/dL (1.3-4.6); Glomerular Filtration Rate 44.2 mL/min (90-130); Glucose 97 mg/dL (65-115); Osmolality Calculated 298 mOsm/kg (285-295); Potassium 3.9 mmol/L (3.5-5.1); Sodium 141 mmol/L (136-145); Total Bilirubin 0.4 mg/dL (0.15-1.2); Total Protein 6.7 g/dL (6.6-8.7)
[2021-09-04 08:27] LABS: Troponin(5th) Baseline 239 ng/L (0-15)
--- NOTE | 2021-09-04 09:19 | PC.NURSE ---
This RN received report from STELLA Berumen at this time. This RN will assume care at this time.
--- NOTE | 2021-09-04 09:22 | ECG_ITS ---
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 Measurements Intervals [place] Rate: 88 P: 9 MN: 161 QRS: -7 QRSD: 120 T: 131 QT: 377 QTc: 457 Interpretive Statements SINUS RHYTHM POSSIBLE LEFT ATRIAL ENLARGEMENT [-0.1mV P-WAVE IN V1/V2] POSSIBLE ANTERIOR MYOCARDIAL INFARCTION , OF INDETERMINATE AGE [30 ms Q WAVE IN V3/V4, OR R < 0.2 mV IN V4] INFERIOR MYOCARDIAL INFARCTION , OF INDETERMINATE AGE [40+ ms Q WAVE AND/OR ST/T ABNORMALITY IN II/aVF] MODERATE T-WAVE ABNORMALITY, CONSIDER LATERAL ISCHEMIA [-0.1+ mV T-WAVE IN I/aVL/V5/V6] Compared to ECG 09/04/2021 07:19:09 T-wave abnormality now present Possible ischemia now present Myocardial infarct finding still present Electronically Signed On 09-04-2021 20:19:36 CDT by Devonte Corbett M.D. [id number]
[2021-09-04 09:23] LABS: Iron 34 ug/dL (59-158); Percent Saturation 9.3 % (20-50); Total Iron Binding Capacity 363 mcg/dl; Unsaturated Iron Binding 329 ug/dL (112-347)
[2021-09-04] MEDS: nitroglycerin 1 gm/inch oint Pkt 0.5 INCH TOPICAL (09:29)
[2021-09-04] MEDS: pantoprazole 40 mg SDV IVP ×2 (09:29→19:57)
--- NOTE | 2021-09-04 09:33 | PC.NURSE ---
Rounded on pt at this time. Pt aaox4 pt has family at bedside and admitting doctor at bedside. Will continue to monitor.
[2021-09-04 09:38] LABS: Vitamin B12 570 pg/mL (232-1245)
--- NOTE | 2021-09-04 09:50 | P.CONIM_ITS ---
Providers/Reason For Consult Consulting Physician/Specialty*: Cardiovascular medicine Reason for Consult*: Chest pain, elevated troponin Requesting Physician: Debbie Attending Physician: Selina Primary Care Provider: John Paul Fox DO History of Present Illness History of Present Illness Fuad Priest is a 61 year old male with who has a history of coronary artery disease and had 3 stents placed several years ago while he was living in [place]. He is also a diabetic with dyslipidemia. He was well until 3 days ago when he started getting short of breath and having chest pain with very little exertion. It was relieved with rest and nitroglycerin. He has no stamina. He has been short of breath when he tries to lie flat. He has had multiple nitroglycerin over the last several days. He tells me that he has lisa en at least 10 in the last 3 days. He also told me that he has had some blood per rectum a week or so ago. He had 3 episodes of this. He has been given Nitropaste, 4 aspirin and is being started on heparin. His first troponin is 239. His EKG is unremarkable and is stable from previous tracings. It shows some left ventricular hypertrophy with an old anterior wall WA and a possible old inferior wall WA. His last echo was May 28 of this year showing mild global hypokinesis with an ejection fraction of 50%. Today his hemoglobin is 8 which is down by 4 points from several months ago. His creatinine is also 1.6 with a glomerular filtration rate of 44. He is free of any pain now after having been given aspirin, Nitropaste. The heparin has yet to be started. He is on amlodipine, aspirin, Plavix, statin, long-acting nitrate, angiotensin receptor héctor and a beta-héctor at home. He apparently had a stroke not too long ago but has recovered fully. He is also about a week and a half out from an episode of pneumonia. Review of Systems Narrative: His review of systems is negative with the exception of what is available in the history of present illness. Medications/Allergies Home Medications Medication Instructions Recorded Confirmed Last Taken Type atorvastatin 40 mg tablet 40 mg PO BEDTIME 05/12/19 09/04/21 09/03/21 History clopidogrel 75 mg tablet (Plavix) 75 mg PO QAM 05/12/19 09/04/21 09/04/21 04:45 History isosorbide mononitrate 30 mg 30 mg PO QAM 05/12/19 09/04/21 09/04/21 04:45 History tablet,extended release 24 hr metformin 850 mg tablet 850 mg PO BID 05/12/19 09/04/21 09/04/21 04:54 History multivitamin 1 tab PO QAM 05/12/19 09/04/21 09/04/21 History pantoprazole 20 mg tablet,delayed 20 mg PO QAM 05/12/19 09/04/21 09/04/21 04:45 History release fenofibrate nanocrystallized 145 145 mg PO QAM 04/12/21 09/04/21 09/04/21 04:54 History mg tablet liraglutide 0.6 mg/0.1 mL (18 mg/3 1.8 mg SUBCUT QAM 04/12/21 09/04/21 09/04/21 History mL) subcutaneous pen injector ([email or web address] 3-Jesús) losartan 100 mg tablet 100 mg PO QAM 04/12/21 09/04/21 09/04/21 04:45 History naproxen sodium 220 mg tablet 440 mg PO Q12H PRN 04/12/21 09/04/21 04/11/21 History (Aleve) nitroglycerin 0.3 mg sublingual 0.3 mg SUBLINGUAL Q5M PRN 04/12/21 09/04/21 09/04/21 06:00 History tablet (Nitrostat) insulin glargine 100 unit/mL (3 55 unit SUBCUT QAM ml 07/16/21 09/04/21 09/04/21 History mL) subcutaneous pen (Cj Frazier U-100 Insulin) metoprolol tartrate 50 mg tablet See Rx Instructions PO BID #270 tab 07/29/21 09/04/21 09/04/21 04:45 Rx 100 mg albuterol sulfate 90 mcg/actuation 2 puff INHALATION Q4H PRN 09/04/21 09/04/21 Unknown History aerosol inhaler amlodipine 5 mg tablet 5 mg PO QAM 09/04/21 09/04/21 09/04/21 04:45 History aspirin 325 mg tablet 325 mg PO QAM 09/04/21 09/04/21 09/04/21 04:45 History cholecalciferol (vitamin D3) 125 125 mcg PO QAM 09/04/21 09/04/21 09/04/21 History mcg (5,000 unit) tablet (Vitamin D3) Allergies Allergy/AdvReac Type Severity Reaction Status Date / Time No Known Allergies Allergy Verified 09/04/21 09:07 PFSH Acute PFSH: Medical History (Updated 09/04/21 @ 09:57 by Kingsley Bolton MD) Cerebrovascular accident (CVA) associated with severe acute respiratory syndrome coronavirus 2 (SARS-CoV-2) infection Coronary atherosclerosis Diabetes mellitus HTN (hypertension) Hyperlipidemia Unstable angina Surgical History (Updated 09/04/21 @ 09:57 by Kingsley Bolton MD) History of back surgery S/P PTCA (percutaneous transluminal coronary angioplasty) X3 Family History Mother Myocardial infarction Father Myocardial infarction Brother Myocardial infarction Grandfather Heart disease Grandmother Heart disease Social History Smoking and tobacco status: never smoked Alcohol intake: never History of recent travel: No Vitals/I&O/Wt Last Vital Signs Temp 98.2 F 09/04/21 07:07 Pulse 94 09/04/21 08:03 Resp 13 09/04/21 08:03 BP 118/68 09/04/21 08:03 Pulse Ox 98 09/04/21 08:03 Weight last 48 hrs Weight 220 lb Physical Exam Narrative: GENERAL: Currently is comfortable at rest without any chest pain and no shortness of breath HEENT: Exam within normal limits. NECK: Supple without jugular vein distention. The carotid upstroke is normal without bruits. BACK: Exam normal. LUNGS: Clear. HEART: Regular rate and rhythm. ABDOMEN: Benign without organomegaly or tenderness. EXTREMITIES: No edema. NEUROLOGIC: Exam normal. SKIN: Unremarkable. Data : 09/04/21 07:50 09/04/21 07:50 A&P Assessment and plan (1) Chronic kidney disease, stage II (mild): Status: Acute (2) Coronary atherosclerosis: Status: Acute Qualifiers: Coronary Disease-Associated Artery/Lesion type: wrangell artery Three Affiliated vs. transplanted heart: wrangell heart Associated angina: without angina Qualified Code(s): I25.10 - Atherosclerotic heart disease of wrangell coronary artery without angina pectoris (3) Diabetes mellitus: Status: Acute (4) Hyperlipidemia: Status: Acute (5) HTN (hypertension): Status: Acute (6) Unstable angina: Status: Acute (7) S/P PTCA (percutaneous transluminal coronary angioplasty): Status: Acute Plan He will be admitted and placed on the standard medications for unstable angina. He will need coronary angiography but prior to that he needs some red blood cells. Once we get his hemoglobin up, he will undergo angiography and then subsequently an evaluation of his GI tract may take place. Tentatively, I have scheduled him for angiography for tomorrow morning at 830. 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 transplanted heart: wrangell heart Associated angina: without angina Diabetes mellitus E11.9 Hyperlipidemia E78.5 HTN (hypertension) I10 Unstable angina I20.0 S/P PTCA (percutaneous transluminal coronary angioplasty) Z98.61
[2021-09-04] MEDS: sodium chloride 0.9% 1,000 ML 50 ML IV ×2 (10:15→19:58)
[2021-09-04 10:26] LABS: Troponin 5 2HR 246.2 ng/L (0-15); Troponin 5 2HR Delta 7.2 ABS# (0-10)
[2021-09-04] MEDS: diphenhydrAMINE 50 mg Capsule PO (10:30)
[2021-09-04 11:14] LABS: Glucose Point of Care 80 mg/dL (70-110)
[2021-09-04 11:20] LABS: Reticulocyte % 3.6 % (0.5-2.0)
[2021-09-04] MEDS: heparin 5,000 unit/mL INJ 1 mL IV (11:20)
[2021-09-04 11:23] LABS: Folate Level 19.7 ng/mL (4.5-32.2)
--- NOTE | 2021-09-04 11:25 | PM.HP ---
Providers/Chief Complaint Primary Care Provider: John Paul Fox DO Chief Complaint: chest pain History of Present Illness Fuad Priest is a 61 year old male presenting to the emergency department with complaints of chest discomfort. He reports that his substernal, pressure, radiating to his jaw, alleviated with rest as well as sublingual nitroglycerin. It is reproduced with exertion. He has had escalating episodes over the last 3 days. He was recently in the emergency department with pneumonia, August 13. Prior to that he had had a stroke in March of this year. He reports no chest discomfort at this current point in time. He had a dark stool in the last week that appeared to have blood in it. He denies any prior history of bleeding. Last colonoscopy was 6 years ago and had no significant findings. He has not had a history of an EGD or an ulcer. He has been taking Aleve lately, once a day for arthritic complaints. In the emergency department a unit of blood has been ordered. Nitroglycerin paste has been applied. Heparin drip is been ordered, Protonix ordered. Review of Systems General: Reports: 10 or more systems reviewed and unremarkable except in HPI and below Const: Denies: fever(s) or chills Eyes: Denies: change in vision ENMT: Denies: throat pain Card: Reports: chest pain and dyspnea on exertion Resp: Reports: dyspnea GI: Reports: hematochezia and melena; Denies: abdominal pain, nausea or vomiting : Denies: flank pain Musc: Denies: neck pain Skin/Breast: Denies: rash Neuro: Denies: headache(s) Psych: Denies: anxiety Endo: Denies: polyuria Dennis/Lymph: Denies: easy bruising All/Imm: Denies: urticaria Medications/Allergies Home Medications Medication Instructions Recorded Confirmed Last Taken Type atorvastatin 40 mg tablet 40 mg PO BEDTIME 05/12/19 09/04/21 09/03/21 History clopidogrel 75 mg tablet (Plavix) 75 mg PO QAM 05/12/19 09/04/21 09/04/21 04:45 History isosorbide mononitrate 30 mg 30 mg PO QAM 05/12/19 09/04/21 09/04/21 04:45 History tablet,extended release 24 hr metformin 850 mg tablet 850 mg PO BID 05/12/19 09/04/21 09/04/21 04:54 History multivitamin 1 tab PO QAM 05/12/19 09/04/21 09/04/21 History pantoprazole 20 mg tablet,delayed 20 mg PO QAM 05/12/19 09/04/21 09/04/21 04:45 History release fenofibrate nanocrystallized 145 145 mg PO QAM 04/12/21 09/04/21 09/04/21 04:54 History mg tablet liraglutide 0.6 mg/0.1 mL (18 mg/3 1.8 mg SUBCUT QAM 04/12/21 09/04/21 09/04/21 History mL) subcutaneous pen injector (Victoza 3-Jesús) losartan 100 mg tablet 100 mg PO QAM 04/12/21 09/04/21 09/04/21 04:45 History naproxen sodium 220 mg tablet 440 mg PO Q12H PRN 04/12/21 09/04/21 04/11/21 History (Aleve) nitroglycerin 0.3 mg sublingual 0.3 mg SUBLINGUAL Q5M PRN 04/12/21 09/04/21 09/04/21 06:00 History tablet (Nitrostat) insulin glargine 100 unit/mL (3 55 unit SUBCUT QAM ml 07/16/21 09/04/21 09/04/21 History mL) subcutaneous pen (Basaglar KwikPen U-100 Insulin) metoprolol tartrate 50 mg tablet See Rx Instructions PO BID #270 tab 07/29/21 09/04/21 09/04/21 04:45 Rx 100 mg albuterol sulfate 90 mcg/actuation 2 puff INHALATION Q4H PRN 09/04/21 09/04/21 Unknown History aerosol inhaler amlodipine 5 mg tablet 5 mg PO QAM 09/04/21 09/04/21 09/04/21 04:45 History aspirin 325 mg tablet 325 mg PO QAM 09/04/21 09/04/21 09/04/21 04:45 History cholecalciferol (vitamin D3) 125 125 mcg PO QAM 09/04/21 09/04/21 09/04/21 History mcg (5,000 unit) tablet (Vitamin D3) Allergies Allergy/AdvReac Type Severity Reaction Status Date / Time No Known Allergies Allergy Verified 09/04/21 09:07 PFSH Acute PFSH: Medical History (Updated 09/04/21 @ 11:36 by Nas Marks MD) Cerebrovascular accident (CVA) associated with severe acute respiratory syndrome coronavirus 2 (SARS-CoV-2) infection Chronic kidney disease, stage II (mild) Coronary atherosclerosis Diabetes mellitus GERD (gastroesophageal reflux disease) HTN (hypertension) Hyperlipidemia Unstable angina Surgical History History of back surgery S/P PTCA (percutaneous transluminal coronary angioplasty) X3 Family History Mother Myocardial infarction Father Myocardial infarction Brother Myocardial infarction Grandfather Heart disease Grandmother Heart disease Social History (Updated 09/04/21 @ 11:31 by Nas Marks MD) Smoking and tobacco status: never smoked Alcohol intake: never Substance/Drug Use: never History of recent travel: No Vitals/I&O/Wt Last Vital Signs Temp 98.2 F 09/04/21 07:07 Pulse 94 09/04/21 08:03 Resp 13 09/04/21 08:03 BP 118/68 09/04/21 08:03 Pulse Ox 98 09/04/21 08:03 Weight last 48 hrs Weight 99.79 kg Physical Exam Narrative: General no distress, conversant, denies pain HEENT: Pupils equally round. Atraumatic normocephalic. Oropharynx clear. Neck is supple no lymphadenopathy thyromegaly Cardiovascular regular rate and rhythm without murmur, no S3 or S4 Lungs clear no wheezing or crackles Abdomen is soft nontender positive bowel sounds. No obvious organomegaly exams deferred Extremities no cyanosis clubbing or edema Skin no rash Neuro no focal deficits. Data : 09/04/21 07:50 09/04/21 07:50 Other Labs: EKG demonstrate heart rate of 88, normal axis, left atrial enlargement, flipped T waves laterally Echocardiogram EF 50% 1/4 diastolic dysfunction Chest x-ray no infiltrate Haptoglobin 216 LFTs normal with the exception of alk phos at 35 slightly low Baseline troponin 239 with repeat to 46 Percent iron saturation 9.3% Calcium 9.3 Vitamin B12 and folate normal A&P Assessment and plan (1) NSTEMI (non-ST elevated myocardial infarction): Patient presenting with unstable angina features. He has past history of atherosclerotic disease. Troponin is quite high. Continue aspirin, Plavix, statin, beta-héctor. Nitroglycerin ointment added. Heparin drip, cautiously secondary to anemia. He had a stool with blood within the last week. Transfuse 1 unit packed red blood cells, with repeat hemoglobin following. Secondary to unstable angina, significant anemia, potential bleed on heparin drip he will be placed in the ICU initially. Status: Acute (2) Unstable angina: See above Status: Acute (3) Anemia: Significant anemia. Past colonoscopy 6 to 7 years ago reported to be normal. He has been taking anti-inflammatories. This is likely to be upper GI bleeding. Stop anti-inflammatories entirely. Initiate Protonix 40 mg IV every 12 hours Transfusion secondary to unstable angina, 1 unit with repeat hemoglobin following. Transfuse more as needed if recurrent chest discomfort and hemoglobin less than 9. Check stool Hemoccult, monitor closely for any recurrent bleeding. Status: Acute (4) Chronic kidney disease, stage II (mild): Hold anti-inflammatory Continue ARB for now, reevaluating lab tomorrow prior to administration. Status: Acute (5) Diabetes mellitus: Sliding scale insulin, consistent carb diet Status: Acute Plan History of hypertension, hyperlipidemia, CVA. Continue chronic medications Multiple other medical problems as outlined in past medical history Full code Heparin will suffice for DVT prophylaxis Attestations Medical Necessity Statement*: Will need greater than 2 midnight stay secondary to non-ST elevation myocardial infarction, anemia with need for transfusion and cardiac evaluation. Coding Level of Care Code Acute [employer] for [facility] Diagnoses NSTEMI (non-ST elevated myocardial infarction) I21.4 Unstable angina I20.0 Anemia D64.9 Chronic kidney disease, stage II (mild) N18.2 Diabetes mellitus E11.9
--- NOTE | 2021-09-04 13:22 | ECG_ITS ---
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 Measurements Intervals [place] Rate: 99 P: 38 NE: 150 QRS: 10 QRSD: 119 T: 108 QT: 370 QTc: 476 Interpretive Statements SINUS RHYTHM MODERATE INTRAVENTRICULAR CONDUCTION DELAY [110+ ms QRS DURATION] ST DEVIATION AND MODERATE T-WAVE ABNORMALITY, CONSIDER LATERAL ISCHEMIA [-0.1+ mV T-WAVE IN I/aVL/V5/V6] Compared to ECG 09/04/2021 10:21:49 Intraventricular conduction delay now present Myocardial infarct finding no longer present T-wave abnormality still present Possible ischemia still present Electronically Signed On 09-04-2021 20:20:19 CDT by Devonte Corbett M.D. [id number]
[2021-09-04 13:53] LABS: Thyroid Stimulating Hormone 1.89 uIU/mL (0.27-4.20)
[2021-09-04] MEDS: heparin drip 25,000 UNIT/500 ML PREMIX 55.88 UNIT IV (14:29)
[2021-09-04 15:08] LABS: Troponin 5 6HR 250.9 ng/L (0-15); Troponin 5 6HR Delta 11.9 ng/L (0-12)
[2021-09-04 16:59] LABS: Partial Thromboplastin Time 31.2 SECONDS (23.9-36.7)
--- NOTE | 2021-09-04 19:54 | PC.NURSE ---
To floor Pt brought to floor via gurney by ER staff. Pt ambulated from gurney to bed with supervision. PT is denying chest pain and shortness of breath. Pt is alert and oriented. VSS. Pt oriented to room and call light is in reach.
[2021-09-04] MEDS: nitroglycerin 1 gm/inch oint Pkt 1 INCH TOPICAL ×2 (19:57→23:57)
[2021-09-04] MEDS: atorvastatin 40 mg Tablet PO (19:57)
[2021-09-04] MEDS: metoprolol tartrate 50 mg Tablet PO (19:58)
[2021-09-04 20:23] LABS: Glucose Point of Care 143 mg/dL (70-110)
--- NOTE | 2021-09-04 20:41 | PC.NURSE ---
Patient becoming very restless and anxious. Informed Dr Bhat as he is present in ICU at this time. Received verbal order to give Restoril 15mg PO for sleep and restlessness. RBVO
[2021-09-04] MEDS: temazepam 15 mg Capsule PO (20:57)
--- NOTE | 2021-09-04 21:46 | PC.NURSE ---
Patient remain anxious at this time. Reports feeling sensitive to all the alarms here in ICU . Unable to relax as yet. Restoril given as ordered and documented. Instructed patient on Restoril uses and side effects. Patient verbalized complete understanding. Will continue to monitor.
[2021-09-04 22:29] LABS: Hematocrit 25.5 % (42.0-52.0); Hemoglobin 8.5 g/dL (11.7-16.6)
[2021-09-04 22:39] LABS: Partial Thromboplastin Time 59.5 SECONDS (23.9-36.7)
[2021-09-05] VITALS (66 sets, daily range): BP systolic 74–142; BP diastolic 14–96; PULSE 89–152; RESP 16–32; O2SAT 80–100
[2021-09-05] MEDS: amlodipine 5 mg Tablet PO (05:19)
[2021-09-05] MEDS: fenofibrate 145 mg Tablet PO (05:20)
[2021-09-05] MEDS: metoprolol tartrate 50 mg Tablet 100 MG PO (05:20)
[2021-09-05] MEDS: clopidogrel 75 mg Tablet PO (05:20)
[2021-09-05] MEDS: pantoprazole 40 mg SDV IVP ×2 (05:20→18:11)
[2021-09-05] MEDS: nitroglycerin 1 gm/inch oint Pkt 1 INCH TOPICAL (05:21)
[2021-09-05] MEDS: losartan 50 mg Tablet 100 MG PO (05:21)
[2021-09-05] MEDS: heparin drip 25,000 UNIT/500 ML PREMIX 28 UNIT IV (05:22)
[2021-09-05 06:29] LABS: Basophils # 0.1 10^3/uL (0.0-0.1); Basophils % 0.6 %; Eosinophils # 0.4 10^3/uL (0.0-0.8); Eosinophils % 3.6 %; Hematocrit 29.6 % (42.0-52.0); Hemoglobin 9.2 g/dL (11.7-16.6); Lymphocytes # 1.9 10^3/uL (0.8-4.8); Lymphocytes % 16.8 %; Mean Corpuscular HGB Conc 31.1 g/dL (30.0-36.0); Mean Corpuscular Hemoglobin 28.6 pg (28.0-34.0); Mean Corpuscular Volume 91.9 fl (80-94); Mean Platelet Volume 10.8 fL (7.4-10.4); Monocytes # 0.9 10^3/uL (0.2-0.9); Monocytes % 8.2 %; Neutrophils # 7.72 10^3/uL (1.8-7.7); Neutrophils % 70.4 %; Nucleated Red Blood Cells % 0 %; Platelet Count 371 10^3/cmm (130-400); Red Blood Count 3.22 10^6/uL (4.1-5.3)
[2021-09-05 06:49] LABS: Partial Thromboplastin Time 45.8 SECONDS (23.9-36.7)
--- NOTE | 2021-09-05 08:00 | PC.NURSE ---
Nurse willy BNP d/t previous hemolyzed specimen. Willy nicely. Specimen unremarkable.
--- NOTE | 2021-09-05 09:14 | XACV_ITS ---
Exam Room: [facility] Ht: 130 cm Wt: 100 kg BSA: 1.98 m2 Gender: Male : 1960 Any Known Allergies: No known allergies Exam Priority: Routine Indication(s): - Non-ST elevation VT Procedure(s): Procedure Description: Diagnostic procedure Procedure Description: PCI procedure Procedure Description: Left Heart Catheterization Procedure Description: Left ventriculography Procedure Description: Drug Eluting Coronary Stent Procedure Description: Miscellaneous Procedure Description: ACT Procedure Description: Coronary Angiography Diagnostic Cath Status: Urgent Diagnostic Findings * This patient has a history of coronary disease with at least 1 stent placed in the LAD in the distant past. He has been having increasing angina over the last several weeks along with rather profound shortness of breath with minimal exercise. He came into the emergency room yesterday with shortness of breath at rest and chest pain with walking only 2 or 3 steps. He also had a 4 g drop in his hemoglobin from 12 g to 8 g over the last several weeks. He did admit having some blood per rectum about a week ago. He described it as purple. We gave him some red blood cells and planned coronary angiography today. He did have a positive troponin. * His right coronary artery is occluded shortly after its origin. It is assumed to be a nondominant vessel given the large size of the circumflex and the circumflex appearance is that of a dominant vessel. There is no collateral flow to the distal right coronary artery from the LAD or the circumflex. * His left main is largely uneventful. The circumflex appears to be the dominant vessel and gives off a very large proximal marginal branch and then several small distal marginal branches. There are minor luminal irregularities of the circumflex but no significant lesions. * The LAD is significantly diseased in the ostial and proximal portion prior to where there is a previously placed stent in the midportion. The stent is patent with some in-stent restenosis in the distal portion. Beyond the stent there is just a trickle of blood flow to the distal LAD. The distal LAD is a very small vessel probably less than 1 mm in diameter. The flow in the LAD is extremely poor. PCI Status: Urgent PCI LVEF Assessed: Yes PCI Indication: NSTE - ACS Interventional Findings * Patient is not a surgical candidate since there is no collateral flow to the distal right and it cannot be visualized. The circumflex does not need to be bypassed given no significant lesions. The LAD is too small to bypass since beyond the stent it is a tiny little vessel. I therefore chose to try to stent the more proximal LAD, proximal to the existing stent to get better inflow. This was the only hope he had for some improvement. Additionally, his left ventricular function is so poor that this adds to any negative consideration for open heart surgery. * I was concerned about the outflow from the mid LAD. I had initially I thought about a bare-metal stent (primarily due to an unknown bleeding episode in his GI tract), but given the sluggishness of flow I chose a drug-eluting stent hoping to keep it open. The procedure went relatively well. I placed a 30 mm x 3 mm stent. There seemed to be reasonable flow through the stents but once again poor flow to the mid to distal LAD. Patient tolerated this well but appeared to be getting more short of breath likely due to volume overload from the contrast material. We sat him up fairly quickly and removed the sheath from the radial artery. As soon as he got in the chair he began to complain of chest pain, severe shortness of breath and became diaphoretic. It was clear that he either had flash pulmonary edema or had occluded the vessel. * After this and because of the significant worsening of shortness of breath and respiratory distress, I had anesthesia intubate him so that we could lie him flat and look at the vessel again. Once this was accomplished I placed the sheath in the right groin and visualized the LAD. It was occluded within the existing stents. I did a plain old balloon angioplasty on several occasions and opened the stent. I also performed a balloon angioplasty distal to the stent to try to get the smaller vessel open with some distal flow. This seemed to work initially but the blood clot returned and the vessel closed. He then became bradycardic and had a cardiac arrest. We did CPR and were able to get back a rhythm and rate. I tried several more times to balloon angioplasty the area of closure. I would intermittently get flow reestablished but then it would close again. Finally, I started him on some Aggrastat and ended the procedure. He had 1 more episode of cardiac arrest prior to leaving the catheterization laboratory.. * I kept his informed throughout the entire procedure while we were in the catheterization laboratory and also on the way to the ICU. * During the resuscitation, in addition to the Aggrastat, he received several doses of epinephrine and was started on a norepinephrine drip. Decision for PCI with Surgical Consult: No PCI for Multi-vessel Disease: No Conclusions 1. Severe underlying two-vessel coronary artery disease with recent non-ST segment elevation VT in the distribution of the LAD. Severe left ventricular dysfunction with ejection fraction 25% and elevated end-diastolic pressure of at least 50 mmHg. Stenting of the LAD resulted in acute closure of the LAD, significant congestive heart failure, flash pulmonary edema and cardiac arrest. Patient was resuscitated and taken to the ICU. Family made aware. Recommendations * Medical therapy after resuscitation. Interventional RX Recommendation: PCI w/o planned CABG Diagnostic RX Recommendation: PCI w/o planned CABG Anticoagulation: Heparin LV EDP: 50 mmHg Ventriculography Ejection Fraction: 25.0 % Left Ventriculography Findings: * Severe hypokinesis of the anterolateral wall, anterobasal wall, mid inferior wall and inferior base. Pressures Phase:Rest AO : 159 / 93 ( 100 ) @ 10:56:00 AM 149 / 59 ( 82 ) @ 10:56:00 AM 173 / 84 ( 102 ) @ 10:56:00 AM / ( 6 ) @ 11:02:00 AM 130 / 74 ( 99 ) @ 11:05:00 AM 139 / 100 ( 113 ) @ 11:05:00 AM / ( 3 ) @ 11:09:00 AM 106 / 83 ( 95 ) @ 11:21:00 AM 105 / 94 ( 97 ) @ 11:24:00 AM 1 / -1 ( 0 ) @ 12:00:00 PM 0 / -1 ( 0 ) @ 12:00:00 PM 106 / 75 ( 88 ) @ 12:04:00 PM 70 / 59 ( 65 ) @ 12:13:00 PM 74 / 64 ( 69 ) @ 12:13:00 PM 75 / 64 ( 69 ) @ 12:13:00 PM 84 / 71 ( 77 ) @ 12:18:00 PM 91 / 71 ( 80 ) @ 12:21:00 PM 83 / 65 ( 73 ) @ 12:24:00 PM 52 / 37 ( 48 ) @ 12:29:00 PM 36 / 32 ( 34 ) @ 12:32:00 PM 124 / 112 ( 119 ) @ 12:35:00 PM 171 / 139 ( 156 ) @ 12:38:00 PM 30 / 1 ( 9 ) @ 12:42:00 PM LV : 137 / 17 / 55 @ 10:54:00 AM 142 / 32 / 61 @ 10:55:00 AM 148 / 36 / 43 @ 10:55:00 AM 145 / 47 / 18 @ 10:56:00 AM 142 / 42 / 71 @ 11:04:00 AM 114 / 10 / 48 @ 11:05:00 AM 139 / 41 / 76 @ 11:05:00 AM Valves Phase:DefaultPhase AV : 0.0 @ 11:54:05 AM AV Mean Gradient: 0.0 @ 11:54:05 AM Clinical Evaluation EBL: 5mL-10mL Procedural Details Procedure Consent Obtained. Admit Source: In Patient. Current Diagnosis : NSTEMI. Pre-Procedure Time Out. Identified patient by full name and date of as verbalized by the patient/guarantor. Does the consent match the physician's order: Yes. The risks, benefits, and alternatives of sedation and/or procedure were discussed by physician. The patient agrees to continue. Procedure started. [facility] Clinical Fraility Score: 3: Managing Well. Senior Accountant Analyst Indications: New Onset Angina. Chest Pain Symptom Assessment: Atypical Angina. Cardiovascular Instability: No, stable. Correct patient, site and procedure confirmed by cath team. Current diagnosis: NSTEMI. PERRLA. Strong, equal hand customer service dispatcher bilaterally. Lungs clear x 5 lobes. IV Site on Arrival: 18 gauge in the right anticubital. IV Fluids: 0.9% NaCl at KVO. 0 mL infused prior to laboratory director. Pre Procedural Pulses: bilateral dorsalis pedis was Doppled. Pre Procedural Pulses: bilateral posterior tibial was Doppled. Pre Procedural Pulses: bilateral radial was 3+. Oxygen started at 3liters/min via nasal canula. right groin was prepped with chloroprep then draped in the usual sterile fashion. right radial was prepped with chloroprep then draped in the usual sterile fashion. Physician notified. IV Site on Arrival: 20 gauge in the left forearm. Baseline sample Acquired. HR: 93 BPM. Equipment: 5F - Femoral. Heparinized Saline (2 units/mL), 1000 mL bag. Cardiac Cath Pack. ACIST Manifold Kit Model BT 2000. Equipment: 6F - Radial. Physician arrived. Physician scrubbed in. Immediate Pre-Procedure Time Out. Correct Patient: Yes; Correct Procedure: Yes; Correct Site: Yes; Correct Patient Position: Yes; Correct Supplies: Yes; Dried Flammable Prep: Yes; Blood Products Available: N/A;. Lidocaine 1% infiltrated to the right radial. Arterial access obtained. A 6 martiniquais TIG catheter in over wire. EDP Sample taken: LV 137/17,55; HR: 101 BPM; SpO2: 98%. EDP Sample taken: LV 148/36,43; HR: 111 BPM; SpO2: 96%. EDP Sample taken: LV 142/32,61; HR: 97 BPM; SpO2: 96%. Pullback taken: LV 145/47,18; AO 173/84(102); Mean: 0mmHg, Peak to Peak: 0mmHg, SEP: 41sec/min; HR: 105 BPM; SpO2: 97%. Multiple views taken of right coronary artery. Catheter redirected to the LCA. Multiple views taken of left coronary artery. Catheter removed over the standard wire. A 6 martiniquais Angled Pig catheter in over wire. EDP Sample taken: LV 142/42,71; HR: 108 BPM; SpO2: 96%. LV gram performed in SUÁREZ @ 10 mL/second for a total of 30 mL. Patient EF: Abnormal. EDP Sample taken: LV 139/41,76; HR: 100 BPM; SpO2: 93%. Pullback taken: LV 114/10,48; AO 139/100(113); Mean: 0mmHg, Peak to Peak: 0mmHg, SEP: 1sec/min; HR: 93 BPM; SpO2: 93%. Catheter removed over the standard wire. Physician review of films. A CRD 6F JR4 100cm Diagnostic Catheter was advanced over the wire and used for Right coronary angiography. Multiple views taken of right coronary artery. Catheter removed over the standard wire. 6 martiniquais XB 3.5 guide catheter was inserted over the wire. Guide seated in the LCA. Inventory is CRD 6 FR XB 3.5 GUIDE. Inventory is TR 180cm Runthrough NS extra floppy 0.014 wire. Inventory: Endoflator. Runthrough guidewire was advanced through the guide catheter to lesion in the prox LAD. Guidewire advanced across lesion. Inflation number : 1 A AB TREK 3.00X25 RX BALLOON was prepped and advanced across the Prox LAD , then inflated to 12 JULISSA for 0:26 seconds. Results checked. Inflation number: 2 The AB TREK 3.00X25 RX BALLOON was reinflated across the Prox LAD, to 12 JULISSA for 0:23 seconds. Results checked. Balloon out. Inflation Number : 3 A MDT R GEOVANI 3.0X30 NICOLE -Lot Number# [id number] was prepped and advanced across the Prox LAD. The stent was deployed at 12 JULISSA for 0:31 seconds. EXP 12-30-23. Results checked. Stent balloon out. Wire out. Results checked. Guide catheter out. Physician review of films. Physician scrubbed out. A TR Band was successful obtaining hemostatsis at the Right Radial artery insertion site. TR band placed. Hemostasis obtained. Post Procedure: Pulses reassessed and unchanged. PERRLA. Strong, equal hand customer service dispatcher bilaterally. No VTE prophylaxis required. Medication's Wasted: Nitro = 49.8 mg. Medication's Wasted: Heparin = 1000 UNITS. Medication's Wasted: Lidocaine 1% = 3 mL. Total IV fluids: 70 mL. Contrast type used: Visipaque 320 mgI/mL, 100 mL bottle. [id number]. Post-op diagnosis: NONSTEMI. Complications: NONE. Estimated blood loss: 5mL-10mL. Responsiveness - Normal response to verbal stimuli; alert and oriented, PERRLA. Airway - Unaffected, no intervention required; spontaneous ventilation. Circulation: W/N/L, pulses unchanged. Nausea/Vomiting: No. Procedure completed. Patient transferred by wheelchair to ICU. Vital chart was stopped. Patient devloped crushing chest pain. Placed back on the table for emergen cath. Patient redraped and rescrubbed. Anesthesia here to sedate and monitor the patient. 16 fr Auguste Placed per nursing. Anesthesia to intubate. Procedure started. RT arrived for 12 LEAD ekg and manage vent settings. Physician scrubbed in. Lidocaine 1% infiltrated to the right groin. Inventory: engine pilot x2. XB3.5 guide. Arterial access obtained. 6 martiniquais XB 3.5 guide catheter was inserted over the wire. Invetory: Lamar wire. Lamar guidewire was advanced through the guide catheter to lesion in the prox LAD. Guidewire advanced across lesion. Inflation number : 4 A AB TREK 3.00X20 RX BALLOON was prepped and advanced across the Prox LAD , then inflated to 12 JULISSA for 0:11 seconds. Inflation number: 5 The AB TREK 3.00X20 RX BALLOON was reinflated across the Prox LAD, to 12 JULISSA for 0:12 seconds. Inflation number: 6 The AB TREK 3.00X20 RX BALLOON was reinflated across the Prox LAD, to 12 JULISSA for 0:15 seconds. Results checked. Balloon out over the wire. Inflation number : 1 A AB TREK 2.50X30 RX BALLOON was prepped and advanced across the Mid LAD1 , then inflated to 10 JULISSA for 0:11 seconds. Inflation number: 2 The AB TREK 2.50X30 RX BALLOON was reinflated across the Mid LAD, to 10 JULISSA for 0:11 seconds. Inflation number: 3 The AB TREK 2.50X30 RX BALLOON was reinflated across the Mid LAD, to 10 JULISSA for 0:11 seconds. Inflation number: 4 The AB TREK 2.50X30 RX BALLOON was reinflated across the Mid LAD, to 8 JULISSA for 0:11 seconds. Inflation number: 5 The AB TREK 2.50X30 RX BALLOON was reinflated across the Mid LAD, to 8 JULISSA for 0:15 seconds. Results checked. Balloon out over the wire. Results checked. ACT drawn. Results 290 seconds. Therapeutic limits - pre-heparin administration 90-150 seconds and monitoring heparin during a vascular procedure >250 seconds. Results checked. Inflation number: 6 The AB TREK 2.50X30 RX BALLOON was reinflated across the Mid LAD, to 10 JULISSA for 0:31 seconds. Results checked. Balloon out over the wire. Inflation number: 7 The AB TREK 3.00X20 RX BALLOON was reinflated across the Prox LAD, to 12 JULISSA for 0:20 seconds. Inflation number: 8 The AB TREK 3.00X20 RX BALLOON was reinflated across the Prox LAD, to 12 JULISSA for 0:21 seconds. Results checked. CPR STARTED. Pulse check. Organized rhythm with a pulse. MD out to update . MD scrubbed back in. Attempting to gain accurate o2 sat. Circular Saw Edge Fuser here to record at this point. ABG drawn. Sent with RT for analysis. Balloon and wire out. Guide catheter out. Physician review of films. Physician scrubbed out. MD discussion with the . A Suture was successful obtaining hemostatsis at the Right Femoral artery insertion site. Sheath(s) sutured into position with 2-0 silk and sterile 4x4's and Op-site applied over the site. No oozing or signs and symptoms of hematoma noted. Arterial sheath flushed and connected to tranducer and pressure bag with heparinized saline. Post Procedure: Pulses reassessed and unchanged. PERRLA. Strong, equal hand customer service dispatcher bilaterally. No VTE prophylaxis required. Fluoro: 16:09. [id number]. Responsiveness - PERRLA. Intubated per Anesthesia. ASSESSED BY ANESTHESIA. Airway - Intubated. Maintained and assessed per Anesthesia. Circulation: W/N/L, pulses unchanged. Nausea/Vomiting: No. Procedure completed. Patient transferred by bed to ICU. Vital chart was stopped. Access Site Site: Right Radial artery Sheath Size: 6 Fr Hemostasis Method: TR Band Hemostasis Success: Successful Site: Right Femoral artery Sheath Size: 6 Fr Hemostasis Method: Suture Hemostasis Success: Successful Intra/Post-Procedure Events Cardiac Arrest: Yes Procedure Medications Start: 9:45 AM Stop: 9:45 AM Medication: Versed Amount: 1 mg Route: I.V. Start: 9:45 AM Stop: 9:45 AM Medication: Fentanyl Amount: 50 mcg Route: I.V. Start: 9:48 AM Stop: 9:48 AM Medication: Versed Amount: 1 mg Route: I.V. Start: 9:53 AM Stop: 9:53 AM Medication: Nitrogylcerin Amount: 200 mcg Route: I.A. Start: 10:00 AM Stop: 10:00 AM Medication: Fentanyl Amount: 25 mcg Route: I.V. Start: 10:01 AM Stop: 10:01 AM Medication: Versed Amount: 1 mg Route: I.V. Start: 10:06 AM Stop: 10:06 AM Medication: Heparin Amount: 5000 units Route: I.V. Start: 10:26 AM Stop: 10:26 AM Medication: Versed Amount: 1 mg Route: I.V. Start: 10:34 AM Stop: 10:34 AM Medication: Fentanyl Amount: 25 mcg Route: I.V. Start: 10:35 AM Stop: 10:35 AM Medication: Lasix (furosemide) Amount: 40 mg Route: I.V. Start: 11:07 AM Stop: 11:07 AM Medication: Heparin Amount: 3000 units Route: I.V. Start: 11:32 AM Stop: 11:32 AM Medication: Atropine Amount: 1 mg Route: I.V. Start: 11:34 AM Stop: 11:34 AM Medication: Epinephrine Amount: 1 mg Route: I.V. Start: 11:40 AM Stop: 11:40 AM Medication: Aggrastat 12.5 mg/250 mL Amount: 50 ml Route: I.V. bolus Start: 11:41 AM Stop: 11:41 AM Medication: Aggrastat 12.5 mg/250 mL Amount: 17.9 ml/hr Route: I.VKrysta wills I, the attending physician, have reviewed and verified all procedure medications. Yes, all medications given per verbal order History/Risk Factors Hypertension: Yes Dyslipidemia: Yes Peripheral Arterial Disease (PAD): No Myocardial Infarction (VT): Yes Obesity: Yes Renal Disease: No Tobacco Use: Never Prior Interventions PCI: Yes CABG: No Valve Surgery: No Report Signatures Finalized by Dr. Kingsley Bolton MD on 09/05/2021 01:27 PM
[2021-09-05 09:34] LABS: Glucose Point of Care 107 mg/dL (70-110)
--- NOTE | 2021-09-05 09:37 | PC.NURSE ---
Giuseppe, Technical Illustrator RN, arrived to transport pt for cath. Informed Giuseppe that lab called less than 3 minutes ago to report second BNP draw hemolyzed also and lab en route to redraw. Last Creatine drawn yesterday AM. Results provided.
--- NOTE | 2021-09-05 10:47 | ECG_ITS ---
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 Measurements Intervals Callahan Rate: P: VA: QRS: QRSD: T: QT: QTc: Interpretive Statements NO FURTHER INTERPRETATION POSSIBLE ATYPICAL ECG WARNING: DATA QUALITY MAY AFFECT INTERPRETATION Compared to ECG 09/04/2021 13:53:13 Sinus rhythm no longer present Intraventricular conduction delay no longer present T-wave abnormality no longer present Possible ischemia no longer present Electronically Signed On 09-06-2021 17:02:14 CDT by Tony Donnelly M.D. [id number]
--- NOTE | 2021-09-05 11:36 | PM.PN ---
Subjective Subjective: Fuad was seen early this morning. He denied any chest discomfort overnight. Was awaiting his angiogram. No shortness of breath. Denies any wheezing. Medications: Reviewed: Yes Vitals/I&O/Wt Last Vital Signs Temp 98.2 F 09/04/21 11:45 Pulse 100 09/05/21 08:30 Resp 16 09/05/21 08:30 BP 116/68 09/05/21 06:00 Pulse Ox 94 09/05/21 08:30 09/04/21 09/05/21 09/05/21 22:59 06:59 14:59 Intake Total 492.391 / 492.391 251.342 / 743.733 Output Total 600 / 600 Balance 492.391 / 492.391 -348.658 / 143.733 Weight last 48 hrs Weight 99.79 kg Weight 99.79 kg Weight 99.79 kg Physical Exam Narrative: General no distress Neck is supple no lymphadenopathy thyromegaly Cardiovascular regular rate and rhythm without murmur, no S3 or S4 Lungs clear no wheezing or crackles Abdomen is soft nontender positive bowel sounds. No obvious organomegaly Extremities no cyanosis clubbing or edema Skin no rash Data : 09/05/21 06:13 09/04/21 07:50 Micro: Microbiology 09/05/21 04:40 Occult Blood (FIT) - Final Stool Routine Collection A&P Assessment and plan (1) NSTEMI (non-ST elevated myocardial infarction): Patient presenting with unstable angina features. He has past history of atherosclerotic disease. Troponin is quite high. Continue aspirin, Plavix, statin, beta-héctor. Nitroglycerin given as well. Heparin drip, cautiously secondary to anemia. He had a stool with blood within the last week. He was transfused 1 unit of packed red blood cells on September 04 Secondary to unstable angina, significant anemia, potential bleed on heparin drip he was placed in the ICU. Ornamental Bronze Worker has been consulted. Angiogram being performed today. Status: Acute (2) Unstable angina: See above Status: Acute (3) Anemia: Significant anemia. Past colonoscopy 6 to 7 years ago reported to be normal. He has been taking anti-inflammatories. This is likely to be upper GI bleeding. Stop anti-inflammatories entirely. Initiate Protonix 40 mg IV every 12 hours Transfusion secondary to unstable angina, 1 unit Hemoglobin responded appropriately. Stool Hemoccult negative. Percent iron saturation low. Status: Acute (4) Chronic kidney disease, stage II (mild): Hold anti-inflammatory Hold ARB currently Status: Acute (5) Diabetes mellitus: Sliding scale insulin, consistent carb diet Status: Acute Plan History of hypertension, hyperlipidemia, CVA. Continue chronic medications Multiple other medical problems as outlined in past medical history Full code Heparin will suffice for DVT prophylaxis Attestations Medical Necessity Statement*: Needs continued hospital stay for definitive evaluation of unstable angina. Coding Level of Care Code Acute Veneer Manufacturer for Chg Fwd Diagnoses NSTEMI (non-ST elevated myocardial infarction) I21.4 Unstable angina I20.0 Anemia D64.9 Chronic kidney disease, stage II (mild) N18.2 Diabetes mellitus E11.9
[2021-09-05 11:43] LABS: ABG PCO2 41.1 mmHg (35-45); ABG PH Result 7.21 (7.35-7.45); Arterial Blood Gas Hematocrit 26.8 % (42-52); Base Excess ABG -10.5 mmol/L (-2.0-2.0); Blood Gas Sample Type Arterial; Carboxyhemoglobin 0.7 %THgb (0.4-20.1); HCO3 ABG 16.6 mmol/L (22-26); HGB O2 Sat 97.4 % (95-100); Ionized Calcium Level - ABG 1.2 mmol/L (1.1-1.4); Methemoglobin 0.6 % (0.4-1.5); Oxygen Saturation ABG 98.7; Potassium Level - ABG 5.5 mmol/L (3.5-5.0); Total Hemoglobin 8.7 g/dL (14-18)
[2021-09-05 11:44] LABS: Alveolar-Arterial Oxygen Gradi 70.1 mmHg (5-10); Blood Gas Operator Identificat CAK; Blood Gas Sample Site Not specified; Oxygen Device VENT
--- NOTE | 2021-09-05 12:14 | XRR_ITS ---
PROCEDURE INFORMATION: Exam: XR Chest Exam date and time: 09/05/2021 12:19 PM Age: 61 years old Clinical indication: Device placement; Ett placement (vent status); Additional info: Verification of vent placement TECHNIQUE: Imaging protocol: XR of the chest. Views: 1 view. COMPARISON: CR XR chest 1V portable [id number] 09/04/2021 7:35 AM FINDINGS: Tubes, catheters and devices: Endotracheal tube 6 cm above the celine. Lungs: There is bilateral perihilar and right lower lobe interstitial congestion. Pleural spaces: Left lower lobe opacity possible pleural effusion. No pneumothorax. Heart/Mediastinum: Unremarkable. No cardiomegaly. Bones/joints: Unremarkable. XR/XR chest 1V portable [id number] IMPRESSION: 1. Bilateral perihilar and right lower lobe interstitial congestion new since prior 2. Endotracheal tube is above the celine. 3. Left lower lobe opacity possible pleural effusion
--- NOTE | 2021-09-05 12:14 | ANES.PREANE2 ---
Pre-Anesthetic Assessment Height/Weight: Height 1.8 m Weight 99.79 kg Temp Pulse Resp BP Pulse Ox 98.2 F 100 16 116/68 94 09/04/21 11:45 09/05/21 08:30 09/05/21 08:30 09/05/21 06:00 09/05/21 08:30 Operation Date: 09/05/21 08:30 Proposed Procedures p Cardiac Catheterization, Left Ventriculography, coronary angiography(Left) - Kingsley Bolton MD Anesthetic Plan ASA status: 5E Other Pertinent Information Called to hospital laboratory technician for emergent intubation of patient having acute NV after intervention. Patient intubated, RSI with propofol, succinylcholine, and phenylephrine. MAP kept above 65 with normal rate and rhythm. During case patient coded. Senior Administrative Services Officer aborted and started CPR w/ ROSC after 2 minutes compression, epinephrine, atropine. Patient taken to the ICU on ventilator with full monitors, phenylephrine drip, and hand ventilated by respiratory therapist. On arrival to ICU patient became asystolic again. CPR initiated in ICU. Medications/Allergies Home Medications Medication Instructions Recorded Confirmed Last Taken Type atorvastatin 40 mg tablet 40 mg PO BEDTIME 05/12/19 09/04/21 09/03/21 History clopidogrel 75 mg tablet (Plavix) 75 mg PO QAM 05/12/19 09/04/21 09/04/21 04:45 History isosorbide mononitrate 30 mg 30 mg PO QAM 05/12/19 09/04/21 09/04/21 04:45 History tablet,extended release 24 hr metformin 850 mg tablet 850 mg PO BID 05/12/19 09/04/21 09/04/21 04:54 History multivitamin 1 tab PO QAM 05/12/19 09/04/21 09/04/21 History pantoprazole 20 mg tablet,delayed 20 mg PO QAM 05/12/19 09/04/21 09/04/21 04:45 History release fenofibrate nanocrystallized 145 145 mg PO QAM 04/12/21 09/04/21 09/04/21 04:54 History mg tablet liraglutide 0.6 mg/0.1 mL (18 mg/3 1.8 mg SUBCUT QAM 04/12/21 09/04/21 09/04/21 History mL) subcutaneous pen injector (Victoza 3-Jesús) losartan 100 mg tablet 100 mg PO QAM 04/12/21 09/04/21 09/04/21 04:45 History naproxen sodium 220 mg tablet 440 mg PO Q12H PRN 04/12/21 09/04/21 04/11/21 History (Aleve) nitroglycerin 0.3 mg sublingual 0.3 mg SUBLINGUAL Q5M PRN 04/12/21 09/04/21 09/04/21 06:00 History tablet (Nitrostat) insulin glargine 100 unit/mL (3 55 unit SUBCUT QAM ml 07/16/21 09/04/21 09/04/21 History mL) subcutaneous pen (Basaglar KwikPen U-100 Insulin) metoprolol tartrate 50 mg tablet See Rx Instructions PO BID #270 tab 07/29/21 09/04/21 09/04/21 04:45 Rx 100 mg albuterol sulfate 90 mcg/actuation 2 puff INHALATION Q4H PRN 09/04/21 09/04/21 Unknown History aerosol inhaler amlodipine 5 mg tablet 5 mg PO QAM 09/04/21 09/04/21 09/04/21 04:45 History aspirin 325 mg tablet 325 mg PO QAM 09/04/21 09/04/21 09/04/21 04:45 History cholecalciferol (vitamin D3) 125 125 mcg PO QAM 09/04/21 09/04/21 09/04/21 History mcg (5,000 unit) tablet (Vitamin D3) Allergies Allergy/AdvReac Type Severity Reaction Status Date / Time No Known Allergies Allergy Verified 09/04/21 09:07 Current Medications Generic Name Dose Route Start Last Admin Trade Name Freq PRN Reason Stop Dose Admin Amlodipine Besylate 5 mg 09/05/21 06:00 09/05/21 05:19 Amlodipine 5 Mg Tablet PO 5 mg QAM ISSAC Administration Atorvastatin Calcium 40 mg 09/04/21 21:00 09/04/21 19:57 Atorvastatin 40 Mg Tablet PO 40 mg BEDTIME ISSAC Administration Clopidogrel Bisulfate 75 mg 09/05/21 06:00 09/05/21 05:20 Clopidogrel 75 Mg Tablet PO 75 mg QAM ISSAC Administration Heparin Sodium (Porcine) 0 unit 09/04/21 08:48 09/04/21 11:20 Heparin 5,000 Unit/Ml Inj 1 Ml IV 5,000 unit PRN PRN Administration Heparin weight-base protocol Protocol Heparin Sodium/Sodium Chloride 25,000 unit in 500 mls @ 0 mls/hr 09/04/21 09:00 09/05/21 05:30 Heparin Drip IV 0 unit/kg/hr .Q0M ISSAC 0 mls/hr Titration Protocol Per Protocol Sodium Chloride 1,000 mls @ 50 mls/hr 09/04/21 18:32 09/04/21 19:58 Sodium Chloride 0.9% IV 50 mls/hr .Q20H ISSAC Administration Insulin Human Lispro 0 unit 09/04/21 18:32 09/05/21 09:43 Insulin Lispro 100 Unit/1 Ml SUBCUT Not Given WM&BEDTIME ISSAC Protocol Metoprolol Tartrate 100 mg 09/05/21 06:00 09/05/21 05:20 Metoprolol Tartrate 50 Mg Tablet PO 100 mg QAM ISSAC Administration Metoprolol Tartrate 50 mg 09/04/21 21:00 09/04/21 19:58 Metoprolol Tartrate 50 Mg Tablet PO 50 mg BEDTIME ISSAC Administration Nitroglycerin 1 inch 09/04/21 18:32 09/05/21 05:21 Nitroglycerin 1 Gm/Inch Oint Pkt TOPICAL 1 inch Q6H ISSAC Administration Pantoprazole Sodium 40 mg 09/04/21 18:32 09/05/21 05:20 Pantoprazole 40 Mg Sdv IVP 40 mg Q12H ISSAC Administration PFSH Anesthesia Medical History (Updated 09/04/21 @ 11:36 by Nas Marks MD) Cerebrovascular accident (CVA) associated with severe acute respiratory syndrome coronavirus 2 (SARS-CoV-2) infection Chronic kidney disease, stage II (mild) Coronary atherosclerosis Diabetes mellitus GERD (gastroesophageal reflux disease) HTN (hypertension) Hyperlipidemia Unstable angina Surgical History History of back surgery S/P PTCA (percutaneous transluminal coronary angioplasty) X3 Family History Mother Myocardial infarction Father Myocardial infarction Brother Myocardial infarction Grandfather Heart disease Grandmother Heart disease Social History (Updated 09/04/21 @ 11:31 by Nas Marks MD) Smoking and tobacco status: never smoked Alcohol intake: never Substance/Drug Use: never History of recent travel: No Data Anesthesia : 09/05/21 06:13 09/04/21 07:50 Short CBC 09/04/21 09/04/21 09/05/21 Range/Units 07:50 22:13 06:13 WBC 11.1 H 11.0 H (4.0-10.0) 10^3/uL Hgb 8.0 L 8.5 L 9.2 L (11.7-16.6) g/dL Hct 24.9 L 25.5 L 29.6 L (42.0-52.0) % MCV 89.6 91.9 (80-94) fl Plt Count 348 371 (130-400) 10^3/cmm Neut % (Auto) 69.4 70.4 % Neut # (Auto) 7.72 H 7.72 H (1.8-7.7) 10^3/uL BMP 09/04/21 09/05/21 09/05/21 07:50 06:13 08:35 Sodium 141 Cancelled Cancelled Potassium 3.9 Cancelled Cancelled Chloride 106 Cancelled Cancelled Carbon Dioxide 24 Cancelled Cancelled BUN 29 H Cancelled Cancelled Creatinine 1.6 H Cancelled Cancelled Glucose 97 Cancelled Cancelled Calcium 9.3 Cancelled Cancelled Cardiac Enzymes 09/04/21 09/04/21 09/04/21 Range/Units 07:50 09:50 14:40 Troponin T Baseline 239 H* (0-15) ng/L Troponin T 120 Minute 246.2 H (0-15) ng/L Delta Troponin T 7.2 (0-10) ABS# Troponin T Hi Sens 6Hr 250.9 H (0-15) ng/L Troponin T Hi Sens 6Hr Delta 11.9 (0-12) ng/L Liver Function 09/04/21 Range/Units 07:50 Total Bilirubin 0.4 (0.15-1.2) mg/dL AST 20 (0-40) U/L ALT 13 (0-41) U/L Alkaline Phosphatase 35 L (40-130) IU/L Albumin 4.3 (3.5-5.2) g/dL Blood Bank 09/04/21 09:50 Blood Type O Positive Rho(D) Type Positive Antibody Screen Negative Coags 09/04/21 09/04/21 09/05/21 07:50 22:13 06:13 APTT 31.2 59.5 H D 45.8 H ABG 09/05/21 11:33 Specimen Type Arterial Sample Site Not specified ABG pH 7.21 L ABG pCO2 41.1 ABG pO2 122.0 H ABG HCO3 16.6 L ABG O2 Saturation 98.7 ABG Base Excess -10.5 L A-a O2 Gradient 70.1 H O2 Delivery Device Vent FiO2 100.0 Tidal Volume 0.50 PEEP 5.0 Microbiology 09/05/21 04:40 Occult Blood (FIT) - Final Stool Routine Collection Cardiac Studies: Echocardiogram 05/28/21 Holter Monitor 04/25/21
[2021-09-05 12:40] LABS: ABG PCO2 44.3 mmHg (35-45); ABG PH Result 7.26 (7.35-7.45); Alveolar-Arterial Oxygen Gradi 77.2 mmHg (5-10); Arterial Blood Gas Hematocrit 26.1 % (42-52); Blood Gas Operator Identificat glc; Blood Gas Sample Site Femoral, right; Blood Gas Sample Type Arterial; Carboxyhemoglobin 0.8 %THgb (0.4-20.1); HCO3 ABG 19.7 mmol/L (22-26); HGB O2 Sat 89.2 % (95-100); Ionized Calcium Level - ABG 1.1 mmol/L (1.1-1.4); Methemoglobin 0.3 % (0.4-1.5); Oxygen Device AMBU; Oxygen Saturation ABG 90.3; Potassium Level - ABG 3.9 mmol/L (3.5-5.0); Total Hemoglobin 8.5 g/dL (14-18)
[2021-09-05 13:07] LABS: Anion Gap 21.4 (5-19); Blood Urea Nitrogen 22 mg/dL (8-23); Calcium 7.3 mg/dL (8.5-10.5); Carbon Dioxide 20 mmol/L (22-29); Chloride 107 mmol/L (98-107); Glomerular Filtration Rate 44.2 mL/min (90-130); Glucose 189 mg/dL (65-115); Osmolality Calculated 308 mOsm/kg (285-295); Potassium 3.4 mmol/L (3.5-5.1); Sodium 145 mmol/L (136-145)
--- NOTE | 2021-09-05 13:55 | PM.CCNAC ---
Critical Care Event Note The patient had a code activation, in the angiogram suite. I visited with the electronics processor, as well as anesthesiologist that were there. He had been intubated during this timeframe, and had 1 to 2 minutes of CPR, treated for PEA with epinephrine. LAD stent that I just been placed had gone down, required ballooning but distally the vessel did not have blood flow. Ejection fraction was significantly decreased around 35%. On transitioning over to the ICU, asystole was identified and code was reinitiated. Please see code sheet. During this time rhythm was PEA, and he received multiple rounds of epinephrine. He also received bicarbonate. Chest x-ray done after code demonstrated no pneumothorax. Upon ROSC, he required initiation of norepinephrine and epinephrine drips. ABG performed demonstrated some metabolic acidosis. Following stabilization, a central line was placed emergently in the left groin. I was able to verbally discuss the risks and benefits with his briefly. I discussed that as he was on Aggrastat following the procedure there would be high risk of bleeding. Decision was made to go forth, and central line left groin placed with ultrasound without any obvious complication. Now awaiting repeat laboratory. Plan on repeating ABG in 1 to 2 hours. Monitor neurologic status closely for any for meaningful response. Secondary to his multiple comorbidities, concern of occluded LAD, GI bleeding on presentation with anemia requiring transfusion, on anticoagulants, he was not thought to be a candidate for postcode hypothermia. The high probability of a clinically significant, sudden or life threatening deterioration of the patient's [cardiovascular, respiratory system(s) required my full and direct attention, intervention and personal management. The critical care time is as shown. This time is in addition to time spent performing any reported procedures but includes the following: [x] Data and vital sign review and interpretation [x] Patient assessment, examination and intervention [x] Documentation [x] Medication orders and management Critical Care Time Code activated: Yes Critical Care Time (min): 95 Procedures Central Line Placement^ Left Femoral: Time out performed: Yes Patient placed on monitor/pulse ox: Yes prep: mask, gown and gloves Central line prep: Chlorhexidine scrub Ultrasound used for placement: Yes Central line lumen inserted: triple Post procedure: sutured in place, good blood return, all ports aspirated, flushed, capped and sterile dressing applied Patient tolerated procedure: well and no complications Complications: none Coding Level of Care Code Acute [employer] Counter Person for Chg Fwd
[2021-09-05] MEDS: sodium chloride 0.9% 1,000 ML 50 ML IV (14:36)
--- NOTE | 2021-09-05 14:40 | PC.NURSE ---
Epi gtt off @ 8072.
[2021-09-05 15:08] LABS: Glucose Point of Care 185 mg/dL (70-110)
[2021-09-05 15:32] LABS: Basophils % 0.2 %; Eosinophils % 0.1 %; Hemoglobin 8.7 g/dL (11.7-16.6); Lymphocytes # 1.1 10^3/uL (0.8-4.8); Lymphocytes % 4.8 %; Mean Corpuscular HGB Conc 32.2 g/dL (30.0-36.0); Mean Corpuscular Hemoglobin 29.1 pg (28.0-34.0); Mean Corpuscular Volume 90.3 fl (80-94); Mean Platelet Volume 10.2 fL (7.4-10.4); Monocytes # 1.3 10^3/uL (0.2-0.9); Monocytes % 5.7 %; Neutrophils # 20.39 10^3/uL (1.8-7.7); Neutrophils % 88.5 %; Nucleated Red Blood Cells % 0 %; Platelet Count 460 10^3/cmm (130-400); Red Blood Count 2.99 10^6/uL (4.1-5.3); Red Cell Distribution Width 14.7 % (12.1-15.1); White Blood Count 23.1 10^3/uL (4.0-10.0)
[2021-09-05 15:51] LABS: Alanine Aminotransferase 150 U/L (0-41); Albumin Level 3.5 g/dL (3.5-5.2); Alkaline Phosphatase 41 IU/L (40-130); Anion Gap 20.1 (5-19); Aspartate Amino Transferase 169 U/L (0-40); Blood Urea Nitrogen 24 mg/dL (8-23); Calcium 8.1 mg/dL (8.5-10.5); Carbon Dioxide 22 mmol/L (22-29); Chloride 104 mmol/L (98-107); Globulin 2.3 g/dL (1.3-4.6); Glomerular Filtration Rate 41.2 mL/min (90-130); Glucose 261 mg/dL (65-115); Magnesium 1.7 mg/dL (1.7-2.3); Osmolality Calculated 307 mOsm/kg (285-295); Potassium 4.1 mmol/L (3.5-5.1); Sodium 142 mmol/L (136-145); Total Bilirubin 0.4 mg/dL (0.15-1.2); Total Protein 5.8 g/dL (6.6-8.7)
[2021-09-05] MEDS: propofol 1,000 MG/100 ML INJ 11.98 MG IV (16:00)
--- NOTE | 2021-09-05 16:01 | PC.CHAP ---
Pastoral Care Encounter/Spiritual Assessment Type of Contact [] Declined fountain attendant visit [] Patient/Family/Request visit [] Outpatient visit [] Follow-up visit [] Physician referral [X] Code/Alert [] Routine visit [] Staff referral [] Actively dying [] Patient sleeping [X] Family support [] [] Out of room [] Palliative care [] [] Receiving care in room [] Pre-surgical visit [] Trauma [] Long length of stay [X] ICU visit [] Other: Relational/Emotional Strength [] Patient feels connected with others/family/visitors/staff [] Distress [] Loneliness/isolation [] Abandonment Spirituality of Patient [] Person of [place] [] Attends Mormon of their [place] [] Believes in Prayer [] Reads Bible or Caodaism materials [] There are Spiritual issues to be addressed Wound Care Specialist Interventions [X] Prayer [X] Active listening [X] Non-anxious presence [X] Spiritual/emotional support [] Crisis/trauma care [] Spiritual counseling [] Bereavement support [] Provided bereavement packet [] Provided Bible/devotional materials [] Provided toy/stuffed animal, coloring book to patient or family member [] Provided Communion [] Anointing/Dale [] Salvation [] Completed spiritual assessment [] Other: Impact on Illness or Injury [] Angry [] Fearful [] Anxious [] Often cries [] Exhaustion [] Unable to work [] Unable to attend zoroastrianism [] Unable to walk/stand [] Unable to read [] Unable to drive [] Unable to eat/drink [] Unable to sleep [] Unable to be with family [X] Patient intubated [X] Other: Patient coded during procedure, back in ICU.. Summary Wound Care Specialist responded to code, in ICU waiting room. Patient's in-laws soon arrived and one daughter on her way from [place]. Daughter arrived late afternoon. Wound Care Specialist spend much of the afternoon with family. Prayed with family for God's will to be done. Patient and family people of sailaja. Wound Care Specialist inquired of any needs, none at the time of fountain attendant going off duty. Encourage family with words of hope and offer to contact fountain attendant if needs arise. Time spent with patient Off and on about 4 hours.
[2021-09-05 16:48] LABS: ABG PCO2 34.4 mmHg (35-45); ABG PH Result 7.37 (7.35-7.45); PO2 ABG 71.8 mmHg (80.0-100.0)
[2021-09-05 16:49] LABS: Base Excess ABG -5.1 mmol/L (-2.0-2.0); HCO3 ABG 19.7 mmol/L (22-26); Oxygen Saturation ABG 94.7
[2021-09-05 16:50] LABS: Blood Gas Drawn By KINCH; Blood Gas Vent Mode AC/VC
[2021-09-05 16:52] LABS: Alveolar-Arterial Oxygen Gradi 31.3 mmHg (5-10); Arterial Blood Gas Hematocrit 26.1 % (42-52); Blood Gas Allen Test Pos; Blood Gas Operator Identificat CAK; Blood Gas Sample Site ARTLINE; Blood Gas Sample Type Arterial; Carboxyhemoglobin 0.8 %THgb (0.4-20.1); HGB O2 Sat 93.5 % (95-100); Ionized Calcium Level - ABG 1.2 mmol/L (1.1-1.4); Methemoglobin 0.5 % (0.4-1.5); Oxygen Device VENT; Total Hemoglobin 8.5 g/dL (14-18)
[2021-09-05 17:36] LABS: Glucose Point of Care 197 mg/dL (70-110)
[2021-09-05] MEDS: insulin lispro 100 unit/1 mL SUBCUT ×2 (18:09→22:53)
--- NOTE | 2021-09-05 19:00 | PC.NURSE ---
Current IV rates: Levophed-3 mcg/min Propofol-30 mcg/kg/min Fentanyl-30 mcgs/hr All infusing in left femoral central line. NS at 50 mls/hr infusing in right AC. Left inner FA-PIID.
--- NOTE | 2021-09-05 20:05 | XRR_ITS ---
PROCEDURE INFORMATION: Exam: XR Chest Exam date and time: 09/05/2021 8:11 PM Age: 61 years old Clinical indication: Device placement; Ng tube; Additional info: Og placement TECHNIQUE: Imaging protocol: XR of the chest. Views: 1 view. COMPARISON: CR XR chest 1V portable [id number] 09/05/2021 12:19 PM FINDINGS: Tubes, catheters and devices: Endotracheal tube tip seen in place 2.9 cm above the celine. Enteric tube tip below the diaphragm over the gastric bubble. Lungs: Patchy bilateral ground-glass airspace opacities may reflect pulmonary edema. Pleural spaces: Unremarkable. No pleural effusion. No pneumothorax. Heart/Mediastinum: Cardiomegaly. Bones/joints: Unremarkable. XR/XR chest 1V portable [id number] IMPRESSION: 1. Endotracheal tube tip seen in place 2.9 cm above the celine. 2. Enteric tube tip below the diaphragm over the gastric bubble. 3. Cardiomegaly. 4. Patchy bilateral ground-glass airspace opacities may reflect pulmonary edema.
--- NOTE | 2021-09-05 20:25 | PC.NURSE ---
Levophed bagged scanned at 2020 in hopes to document this shift's titrations but software not allowing. Bag currently hanging and scanned at this time is same bag hung during CODE.
--- NOTE | 2021-09-05 20:26 | PC.NURSE ---
CODE 1153-Pt arriving to ICU from label sewer via bed accompanied by labor relations specialist team and anesthesia. 1155-Pt arriving in ICU 8-[place]tole. Chest compression started. Code blue called overhead. 1156-No pulse palpable. Dr Marks arrived to lead code. 1156-1 mg Epi administered per Dr Marks. 1158-Pulse check. No pulse detected. Compressions resumed. 1159-1 mg Epi administered. 1 amp of BiCarb administered. 1200-PEA. Compressions resumed. 1201-1 mg Epi administered. 1202-Pulse check indicated no pulse detected. Compressions resumed. 1203-1 mg Epi administered. 1204-Pulse check indicated no pulse detected. Compressions resumed. 1205-1 amp of BiCarb administered. 1206-Pulse check. Femoral pulse palpated. Carotid palpated. 1207-BP197/145. HR 152. 1215-Norepi gtt started at 5mcg/min. 1218-Norepi gtt rate increased to 7.5 mcg/min. BP 96/64. HR 131. 1219-Norepi gtt rate increased to 10 mcg/min. 1220-1 amp of BiCarb administered. Norepi gtt rate increased to 12.5 mcg/min. BP 101/82. HR 119. 1222-250 ml NS bolus administered. Norepi gtt rate increased to 15 mcg/min. 1229-Ept gtt started at 2 mcg/min.
[2021-09-05 22:16] LABS: Glucose Point of Care 179 mg/dL (70-110)
[2021-09-05] MEDS: atorvastatin 40 mg Tablet PO (22:53)
[2021-09-05] MEDS: propofol 1,000 MG/100 ML INJ 17.96 MG IV (23:01)
[2021-09-06] VITALS (104 sets, daily range): BP systolic 97–132; BP diastolic 62–88; PULSE 100–123; RESP 18–32; TEMP 36.7–37.4; O2SAT 87–95
[2021-09-06] MEDS: propofol 1,000 MG/100 ML INJ 14.97 MG IV ×4 (02:09→17:43)
[2021-09-06 03:26] LABS: ABG PCO2 33.5 mmHg (35-45); ABG PH Result 7.44 (7.35-7.45); Arterial Blood Gas Hematocrit 23.6 % (42-52); Base Excess ABG -1.4 mmol/L (-2.0-2.0); Blood Gas Allen Test Pos; Blood Gas Sample Type Arterial; HCO3 ABG 22.6 mmol/L (22-26); PO2 ABG 55.9 mmHg (80.0-100.0)
[2021-09-06 03:27] LABS: Blood Gas Operator Identificat MONRO; Blood Gas Sample Site Not specified; Oxygen Device VENT
[2021-09-06 06:00] LABS: Basophils % 0.1 %; Hematocrit 23.2 % (42.0-52.0); Hemoglobin 7.6 g/dL (11.7-16.6); Lymphocytes # 0.9 10^3/uL (0.8-4.8); Lymphocytes % 6.7 %; Mean Corpuscular HGB Conc 32.8 g/dL (30.0-36.0); Mean Corpuscular Hemoglobin 28.7 pg (28.0-34.0); Mean Corpuscular Volume 87.5 fl (80-94); Mean Platelet Volume 10.5 fL (7.4-10.4); Monocytes # 1.2 10^3/uL (0.2-0.9); Monocytes % 8.7 %; Neutrophils # 11.39 10^3/uL (1.8-7.7); Neutrophils % 84.2 %; Nucleated Red Blood Cells % 0 %; Platelet Count 331 10^3/cmm (130-400); Red Blood Count 2.65 10^6/uL (4.1-5.3); Red Cell Distribution Width 14.8 % (12.1-15.1); White Blood Count 13.5 10^3/uL (4.0-10.0)
[2021-09-06 06:24] LABS: Alanine Aminotransferase 123 U/L (0-41); Albumin Level 3.4 g/dL (3.5-5.2); Alkaline Phosphatase 35 IU/L (40-130); Anion Gap 16.9 (5-19); Aspartate Amino Transferase 236 U/L (0-40); Blood Urea Nitrogen 27 mg/dL (8-23); Calcium 8.2 mg/dL (8.5-10.5); Carbon Dioxide 22 mmol/L (22-29); Chloride 108 mmol/L (98-107); Globulin 2.1 g/dL (1.3-4.6); Glomerular Filtration Rate 36.2 mL/min (90-130); Glucose 152 mg/dL (65-115); Osmolality Calculated 304 mOsm/kg (285-295); Potassium 3.9 mmol/L (3.5-5.1); Sodium 143 mmol/L (136-145); Total Bilirubin 0.2 mg/dL (0.15-1.2); Total Protein 5.5 g/dL (6.6-8.7)
[2021-09-06] MEDS: pantoprazole 40 mg SDV IVP ×2 (06:33→17:43)
[2021-09-06] MEDS: clopidogrel 75 mg Tablet PO (06:33)
--- NOTE | 2021-09-06 07:00 | XRR_ITS ---
PROCEDURE INFORMATION: Exam: XR Chest Exam date and time: 09/06/2021 4:38 AM Age: 61 years old Clinical indication: Condition or disease; Lung condition and disease; Respiratory failure; Status not specified; Patient HX: F/u resp failure. Intubated. TECHNIQUE: Imaging protocol: XR of the chest. Views: 1 view. COMPARISON: CR (CHEST, ) 09/05/2021 8:11 PM FINDINGS: Tubes, catheters and devices: Endotracheal and feeding tubes. The endotracheal tube terminates 3.1 cm above the celine. Lungs: Interstitial prominence and asymmetric airspace disease, right greater than left. Pleural spaces: Pleural effusions with asymmetric obscuration of the left hemidiaphragm. Heart/Mediastinum: Cardiomegaly and mediastinal widening. Bones/joints: Degenerative change. XR/XR chest 1V portable [id number] IMPRESSION: 1. Interstitial prominence and asymmetric airspace disease, right greater than left. 2. Pleural effusions with asymmetric obscuration of the left hemidiaphragm. 3. Additional findings as described above.
--- NOTE | 2021-09-06 07:34 | P.CONIM_ITS ---
Providers/Reason For Consult Consulting Physician/Specialty*: Karen Alegria DO, telenephrology Reason for Consult*: Acute kidney injury, chronic kidney disease Requesting Physician: Nas Marks MD Attending Physician: Nas Marks MD Primary Care Provider: John Paul Fox DO History of Present Illness History of Present Illness Fuad Priest is a 61 year old male presented for evaluation of chest pain, dark stools. + NSTEMI. Cardiac cath, cardiac arrest. Initially on pressors, now off. Review of Systems Narrative: unable to obtain Medications/Allergies Home Medications Medication Instructions Recorded Confirmed Last Taken Type atorvastatin 40 mg tablet 40 mg PO BEDTIME 05/12/19 09/04/21 09/03/21 History clopidogrel 75 mg tablet (Plavix) 75 mg PO QAM 05/12/19 09/04/21 09/04/21 04:45 History isosorbide mononitrate 30 mg 30 mg PO QAM 05/12/19 09/04/21 09/04/21 04:45 History tablet,extended release 24 hr metformin 850 mg tablet 850 mg PO BID 05/12/19 09/04/21 09/04/21 04:54 History multivitamin 1 tab PO QAM 05/12/19 09/04/21 09/04/21 History pantoprazole 20 mg tablet,delayed 20 mg PO QAM 05/12/19 09/04/21 09/04/21 04:45 History release fenofibrate nanocrystallized 145 145 mg PO QAM 04/12/21 09/04/21 09/04/21 04:54 History mg tablet liraglutide 0.6 mg/0.1 mL (18 mg/3 1.8 mg SUBCUT QAM 04/12/21 09/04/21 09/04/21 History mL) subcutaneous pen injector (Victoza 3-Jesús) losartan 100 mg tablet 100 mg PO QAM 04/12/21 09/04/21 09/04/21 04:45 History naproxen sodium 220 mg tablet 440 mg PO Q12H PRN 04/12/21 09/04/21 04/11/21 History (Aleve) nitroglycerin 0.3 mg sublingual 0.3 mg SUBLINGUAL Q5M PRN 04/12/21 09/04/21 09/04/21 06:00 History tablet (Nitrostat) insulin glargine 100 unit/mL (3 55 unit SUBCUT QAM ml 07/16/21 09/04/21 09/04/21 History mL) subcutaneous pen (Basaglar KwikPen U-100 Insulin) metoprolol tartrate 50 mg tablet See Rx Instructions PO BID #270 tab 07/29/21 09/04/21 09/04/21 04:45 Rx 100 mg albuterol sulfate 90 mcg/actuation 2 puff INHALATION Q4H PRN 09/04/21 09/04/21 Unknown History aerosol inhaler amlodipine 5 mg tablet 5 mg PO QAM 09/04/21 09/04/21 09/04/21 04:45 History aspirin 325 mg tablet 325 mg PO QAM 09/04/21 09/04/21 09/04/21 04:45 History cholecalciferol (vitamin D3) 125 125 mcg PO QAM 09/04/21 09/04/21 09/04/21 History mcg (5,000 unit) tablet (Vitamin D3) Allergies Allergy/AdvReac Type Severity Reaction Status Date / Time No Known Allergies Allergy Verified 09/04/21 09:07 Current Medications Generic Name Dose Route Start Last Admin Trade Name Freq PRN Reason Stop Dose Admin Aspirin 81 mg 09/05/21 09:00 09/05/21 14:26 Aspirin 81 Mg Ec Tablet PO Not Given DAILY ISSAC Atorvastatin Calcium 40 mg 09/04/21 21:00 09/05/21 22:53 Atorvastatin 40 Mg Tablet PO 40 mg BEDTIME ISSAC Administration Clopidogrel Bisulfate 75 mg 09/05/21 06:00 09/06/21 06:33 Clopidogrel 75 Mg Tablet PO 75 mg QAM ISSAC Administration Heparin Sodium (Porcine) 0 unit 09/04/21 08:48 09/04/21 11:20 Heparin 5,000 Unit/Ml Inj 1 Ml IV 5,000 unit PRN PRN Administration Heparin weight-base protocol Protocol Heparin Sodium/Sodium Chloride 25,000 unit in 500 mls @ 0 mls/hr 09/04/21 09:00 09/05/21 05:30 Heparin Drip IV 0 unit/kg/hr .Q0M ISSAC 0 mls/hr Titration Protocol Per Protocol Propofol 1,000 mg in 100 mls @ 0 mls/hr 09/05/21 11:45 09/06/21 02:09 Diprivan IV 25 mcg/kg/min .Q0M ISSAC 14.97 mls/hr Administration Protocol Per Protocol Fentanyl 2,500 mcg/ Sodium 250 mls @ 0 mls/hr 09/05/21 11:45 09/06/21 01:05 Chloride IV 35 mcg/hr .Q0M ISSAC 3.5 mls/hr Titration Protocol Per Protocol Norepinephrine Bitartrate 4 mg 254 mls @ 0 mls/hr 09/05/21 12:00 09/05/21 20:50 / Dextrose IV 3 mcg/min .Q0M ISSAC 11.43 mls/hr Titration Protocol Per Protocol Insulin Human Lispro 0 unit 09/04/21 18:32 09/05/21 22:53 Insulin Lispro 100 Unit/1 Ml SUBCUT 4 unit WM&BEDTIME ISSAC Administration Protocol Pantoprazole Sodium 40 mg 09/04/21 18:32 09/06/21 06:33 Pantoprazole 40 Mg Sdv IVP 40 mg Q12H ISSAC Administration PFSH Acute PFSH: Medical History (Updated 09/06/21 @ 12:12 by Karen Alegria DO) Cardiac arrest due to underlying cardiac condition Cerebrovascular accident (CVA) associated with severe acute respiratory syndrome coronavirus 2 (SARS-CoV-2) infection Chronic kidney disease, stage II (mild) Coronary atherosclerosis Diabetes mellitus GERD (gastroesophageal reflux disease) HTN (hypertension) Hyperlipidemia Unstable angina Surgical History History of back surgery S/P PTCA (percutaneous transluminal coronary angioplasty) X3 Family History Mother Myocardial infarction Father Myocardial infarction Brother Myocardial infarction Grandfather Heart disease Grandmother Heart disease Social History Smoking and tobacco status: never smoked Alcohol intake: never Substance/Drug Use: never History of recent travel: No Vitals/I&O/Wt Last Vital Signs Temp 98.2 F 09/04/21 11:45 Pulse 108 H 09/06/21 06:15 Resp 20 H 09/06/21 06:00 BP 119/77 09/06/21 06:15 Pulse Ox 92 09/06/21 06:15 09/05/21 09/06/21 09/06/21 22:59 06:59 14:59 Intake Total 107.62 / 1039.287 79.085 / 1118.372 Output Total 1000 / 1000 300 / 1300 Balance -892.38 / 39.287 -220.915 / -181.628 Weight last 48 hrs Weight 107.955 kg Weight 99.79 kg Weight 99.79 kg Data : 09/06/21 05:00 09/06/21 05:00 Micro: Microbiology 09/05/21 04:40 Occult Blood (FIT) - Final Stool Routine Collection ABG Interpretation 1: 09/05/21 09/05/21 09/05/21 11:33 12:14 16:35 ABG pH 7.21 L 7.26 L 7.37 ABG pCO2 41.1 44.3 34.4 L ABG pO2 122.0 H 66.0 L 71.8 L ABG HCO3 16.6 L 19.7 L 19.7 L ABG O2 Saturation 98.7 90.3 94.7 ABG Base Excess -10.5 L -7.0 L -5.1 L 09/06/21 03:14 ABG pH 7.44 ABG pCO2 33.5 L ABG pO2 55.9 L ABG HCO3 22.6 ABG O2 Saturation ABG Base Excess -1.4 My Interpretation: Mild resp alkalosis A&P Assessment and plan (1) Acute kidney injury: Status: Acute Plan evaluated via telemedicine with assistance of RN at bedside 1. Acute kidney injury: ischemic, contrast, recent use of NSAIDs. Nonoliguric, current urine output 45 ml/hr 2. Chronic kidney disease: baseline serum Cr 1.5 mg/dL 3. Anemia: iron deficient Recommend: discontinue ARB for now. Continue supportive care. Consult Attestations Medical Necessity Statement: critically ill in ICU Time Spent in Patient Care: 16 - 35 minutes Coding Level of Care Code Acute Locomotive Operator for [facility] Fwd Diagnoses Acute kidney injury N17.9
--- NOTE | 2021-09-06 08:18 | PM.PN ---
Subjective Subjective: Jayesh had an eventful day yesterday. He went to the [facility] and had a stent placed in his proximal LAD. He is not a surgical candidate due to the small nature of the LAD with virtually no flow from the mid vessel down. His right coronary artery is closed and his circumflex is open. Going in he had an ejection fraction of about 25 to 30% with global hypokinesis and evidence of heart failure. Before he left the [facility] the stent occluded and he had chest pain, pulmonary edema and had a cardiac arrest. The arrest occurred twice in the [facility] and then twice upon arriving back in the ICU. Multiple rounds of ACLS protocols were initiated. Patient ended up 1 vasoactive amines to control blood pressure. Rather remarkably he has survived this. Yesterday afternoon he was moving and opening his eyes and following some commands. Overnight the epinephrine and norepinephrine had been weaned off. The patient is making good urine output. He is still intubated but is awake and will respond to commands. Blood pressure and heart rate have been stable. This morning's blood pressure 119/77 with a heart rate of 108. Currently the drips are propofol and fentanyl. Vitals/I&O/Wt Last Vital Signs Temp 98.2 F 09/04/21 11:45 Pulse 108 H 09/06/21 06:15 Resp 21 H 09/06/21 08:04 BP 119/77 09/06/21 06:15 Pulse Ox 93 09/06/21 08:04 09/05/21 09/06/21 09/06/21 22:59 06:59 14:59 Intake Total 107.62 / 1039.287 79.085 / 1118.372 Output Total 1000 / 1000 300 / 1300 Balance -892.38 / 39.287 -220.915 / -181.628 Weight last 48 hrs Weight 238 lb Weight 220 lb Weight 220 lb Physical Exam Narrative: GENERAL: In general he remains intubated and sedated but will move, open his eyes and follow some simple commands. HEENT: Exam within normal limits. NECK: Supple without jugular vein distention. The carotid upstroke is normal without bruits. BACK: Exam normal. LUNGS: Clear. HEART: Regular rate and rhythm. ABDOMEN: Benign without organomegaly or tenderness. EXTREMITIES: No edema. NEUROLOGIC: Exam not done.. SKIN: Unremarkable. Data : 09/06/21 05:00 09/06/21 05:00 Micro: Microbiology 09/05/21 04:40 Occult Blood (FIT) - Final Stool Routine Collection A&P Assessment and plan (1) Anemia: Status: Acute (2) NSTEMI (non-ST elevated myocardial infarction): Status: Acute (3) Chronic kidney disease, stage II (mild): Status: Acute (4) S/P PTCA (percutaneous transluminal coronary angioplasty): Status: Acute (5) Unstable angina: Status: Acute (6) Coronary artery disease due to type 2 diabetes mellitus: Status: Acute (7) Diabetes mellitus: Status: Acute (8) Coronary atherosclerosis: Status: Acute Qualifiers: Coronary Disease-Associated Artery/Lesion type: [place] artery [place] vs. transplanted heart: [place] heart Associated angina: without angina Qualified Code(s): I25.10 - Atherosclerotic heart disease of [place] coronary artery without angina pectoris (9) Hyperlipidemia: Status: Acute (10) HTN (hypertension): Status: Acute (11) Cardiac arrest due to underlying cardiac condition: Status: Acute Plan Routine post cardiac arrest care. Attestations Medical Necessity Statement*: ICU care required for post cardiac arrest management Coding Level of Care Code Established Pt Acute Project Consultant for [facility] Patient Type Established History Comprehensive Exam Comprehensive Medical Decision Making High Complexity Diagnoses Anemia D64.9 NSTEMI (non-ST elevated myocardial infarction) I21.4 Chronic kidney disease, stage II (mild) N18.2 S/P PTCA (percutaneous transluminal coronary angioplasty) Z98.61 Unstable angina I20.0 Coronary artery disease due to type 2 diabetes mellitus E11.59; I25.10 Diabetes mellitus E11.9 Coronary atherosclerosis I25.10 Coronary Disease-Associated Artery/Lesion type: [place] artery [place] vs. transplanted heart: [place] heart Associated angina: without angina Hyperlipidemia E78.5 HTN (hypertension) I10 Cardiac arrest due to underlying cardiac condition I46.2
[2021-09-06] MEDS: FUROsemide 10 mg/mL SDV 10mL 60 MG IVP (09:08)
[2021-09-06] MEDS: aspirin 81 mg EC Tablet PO (09:08)
[2021-09-06 09:38] LABS: Glucose Point of Care 157 mg/dL (70-110)
[2021-09-06] MEDS: insulin lispro 100 unit/1 mL SUBCUT ×4 (09:40→21:19)
--- NOTE | 2021-09-06 10:26 | PC.CHAP ---
Pastoral Care Encounter/Spiritual Assessment Type of Contact [] Declined production mechanic tin cans visit [] Patient/Family/Request visit [] Outpatient visit [] Follow-up visit [] Physician referral [] Code/Alert [x] Routine visit [] Staff referral [] Actively dying [x] Patient sleeping [] Family support [] [] Out of room [] Palliative care [] [x] Receiving care in room [] Pre-surgical visit [] Trauma [] Long length of stay [x] ICU visit [x] Other: vent Relational/Emotional Strength [] Patient feels connected with others/family/visitors/staff [] Distress [] Loneliness/isolation [] Abandonment Spirituality of Patient [] Person of [place] [] Attends Orthodox of their [place] [] Believes in Prayer [] Reads Bible or Pentecostal materials [] There are Spiritual issues to be addressed Wrap Checker Interventions [x] Prayer [] Active listening [] Non-anxious presence [] Spiritual/emotional support [] Crisis/trauma care [] Spiritual counseling [] Bereavement support [] Provided bereavement packet [] Provided Bible/devotional materials [] Provided toy/stuffed animal, coloring book to patient or family member [] Provided Communion [] Anointing/[place] [] Salvation [x] Completed spiritual assessment [] Other: Impact on Illness or Injury [] Angry [] Fearful [] Anxious [] Often cries [] Exhaustion [] Unable to work [] Unable to attend yarsanism [] Unable to walk/stand [] Unable to read [] Unable to drive [] Unable to eat/drink [] Unable to sleep [] Unable to be with family [] Patient intubated [] Other: Summary Time spent with patient
--- NOTE | 2021-09-06 10:35 | ANE.PACU2 ---
Inpatient post-anesthesia follow up: Vital signs: Temperature 98.2 F Pulse Rate 108 Respiratory Rate 21 Blood Pressure 119/77 Pulse Oximetry 93 Oxygen Delivery Me thod [ Room Air Current Rate & Del matt] Oxygen Delivery Me thod Mechanical Ventila tion Oxygen Flow Rate 2 Fraction of Inspir ed Oxygen 40 Additional Comments: Doing remarkably well after ROSC.
--- NOTE | 2021-09-06 10:45 | P.PN_ITS ---
Subjective Subjective: Fuad is sedated on the ventilator. I discussed his case with nursing in detail, and we will discuss his case again with family when they are available. Nursing indicates that he is able to follow some directions, and can awaken when sedation is lessened. Events of yesterday noted. Medications: Reviewed: Yes Vitals/I&O/Wt Last Vital Signs Temp 98.2 F 09/04/21 11:45 Pulse 116 H 09/06/21 10:30 Resp 21 H 09/06/21 08:04 BP 118/79 09/06/21 10:30 Pulse Ox 92 09/06/21 10:30 09/05/21 09/06/21 09/06/21 22:59 06:59 14:59 Intake Total 107.62 / 1039.287 79.085 / 1118.372 100 / 100 Output Total 1000 / 1000 300 / 1300 Balance -892.38 / 39.287 -220.915 / -181.628 100 / 100 Weight last 48 hrs Weight 107.955 kg Weight 99.79 kg Weight 99.79 kg Physical Exam Narrative: General intubated and sedated. Urine output adequate at 1300 mils HEENT: Endotracheal tube and orogastric tube noted Neck is supple no lymphadenopathy thyromegaly Cardiovascular tachycardic, without murmur Lungs clear no wheezing or crackles Abdomen is soft nontender positive bowel sounds. No obvious organomegaly : Auguste noted. Extremities no cyanosis clubbing or edema. Central line left groin. Skin no rash Neurologic: Can move all 4 extremities when awakened, and follow some directions Data : 09/06/21 05:00 09/06/21 05:00 Micro: Microbiology 09/05/21 04:40 Occult Blood (FIT) - Final Stool Routine Collection A&P Assessment and plan (1) Cardiac arrest due to underlying cardiac condition: After undergoing angiogram yesterday patient had cardiac arrest and ACLS protocols were initiated. This occurred in [facility], and again in the ICU. Multiple doses of epinephrine, bicarbonate and were given for PEA. He was intubated, and drips of epinephrine and norepinephrine were required. Following code sedation was held, and patient was able to follow directions and respond appropriately to stimulation. Coronary anatomy, evidence of angiogram as documented by cardiology. Etiology of arrest was likely LAD closure, pulmonary edema. Status: Acute (2) Respiratory failure: On ventilator, FiO2 40% with 8 of PEEP with adequate oxygenation currently. Not appropriate for extubation secondary to significant pulmonary edema seen on chest x-ray which I reviewed. 60 mg of Lasix will be given IV. To see if appropriate diuresis occurs. Likely will need blood transfusion today, which could complicate fluid overload as well. Status: Acute (3) NSTEMI (non-ST elevated myocardial infarction): Patient presenting with unstable angina features. He has past history of atherosclerotic disease. Troponin is quite high. Continue aspirin, Plavix, statin. Beta-héctor held secondary to hypotension Continue heparin drip cautiously He was transfused 1 unit of packed red blood cells on September 04 Appreciate cardiology consultation Angiogram was performed September 05 with deployment of LAD stent. See notation regarding cardiac arrest above. Ejection fraction estimated to be around 30%, but may have worsened with the of cardiac events described above. Status: Acute (4) Unstable angina: See above Status: Acute (5) Anemia: Significant anemia. Past colonoscopy 6 to 7 years ago reported to be normal. He has been taking anti-inflammatories. This is likely to be upper GI bleeding. I stopped anti-inflammatories on admission. Continue Protonix 40 mg IV every 12 hours Transfusion secondary to unstable angina, 1 unit on admission Hemoglobin 7.6 this morning in the setting of fluid overload. We will try to diurese and repeat hemoglobin early this afternoon. May need another transfusion considering underlying cardiac disease and recent code. Stool Hemoccult negative when tested here, but he clearly gives a history of blood in his stool 4 to 5 days prior to admission. Percent iron saturation low. Status: Acute (6) Chronic kidney disease, stage II (mild): Hold anti-inflammatory Hold ARB currently Now with component of acute kidney injury following code. Nephrology has been consulted to follow along, help with fluid management, and intervene if needed. Status: Acute (7) Diabetes mellitus: Sliding scale insulin, consistent carb diet Status: Acute Plan History of hypertension, hyperlipidemia, CVA. Continue chronic medications Multiple other medical problems as outlined in past medical history Full code Heparin will suffice for DVT prophylaxis Attestations Medical Necessity Statement*: Needs continued hospitalization secondary respiratory failure, cardiac arrest, anemia, non-ST elevation myocardial i nfarction. Critical Care Time: The high probability of a clinically significant, sudden or life threatening deterioration of the patient's [cardiac, renal, pulmonary system(s) required my full and direct attention, intervention and personal management. The critical care time is as shown. This time is in addition to time spent performing any reported procedures but includes the following: [x] Data and vital sign review and interpretation [x] Patient assessment, examination and intervention [x] Documentation [x] Medication orders and management Critical Care Time (min): 40 Coding Level of Care Code Acute Reed Polisher for [facility] Diagnoses NSTEMI (non-ST elevated myocardial infarction) I21.4 Unstable angina I20.0 Anemia D64.9 Chronic kidney disease, stage II (mild) N18.2 Diabetes mellitus E11.9 Cardiac arrest due to underlying cardiac condition I46.2 Respiratory failure J96.90
[2021-09-06 11:30] LABS: Glucose Point of Care 168 mg/dL (70-110)
[2021-09-06 13:26] LABS: Hematocrit 23.9 % (42.0-52.0); Hemoglobin 7.8 g/dL (11.7-16.6)
[2021-09-06 13:43] LABS: Anion Gap 17.5 (5-19); Blood Urea Nitrogen 25 mg/dL (8-23); Calcium 8.2 mg/dL (8.5-10.5); Carbon Dioxide 24 mmol/L (22-29); Chloride 103 mmol/L (98-107); Glomerular Filtration Rate 38.6 mL/min (90-130); Glucose 149 mg/dL (65-115); Osmolality Calculated 299 mOsm/kg (285-295); Potassium 3.5 mmol/L (3.5-5.1); Sodium 141 mmol/L (136-145)
[2021-09-06] MEDS: sodium chloride 0.9% (100 ml) 100 ML 25 ML (15:56)
[2021-09-06 17:34] LABS: Glucose Point of Care 141 mg/dL (70-110)
[2021-09-06] MEDS: atorvastatin 40 mg Tablet PO (20:51)
[2021-09-06 21:07] LABS: Glucose Point of Care 153 mg/dL (70-110)
[2021-09-06] MEDS: propofol 1,000 MG/100 ML INJ 20.96 MG IV (23:40)
[2021-09-07] VITALS (99 sets, daily range): BP systolic 95–133; BP diastolic 60–83; PULSE 118–128; RESP 10–26; TEMP 37.2–37.7; O2SAT 86–100
[2021-09-07 03:29] LABS: Basophils # 0.1 10^3/uL (0.0-0.1); Basophils % 0.3 %; Eosinophils # 0.1 10^3/uL (0.0-0.8); Eosinophils % 0.4 %; Hematocrit 25.5 % (42.0-52.0); Hemoglobin 8.4 g/dL (11.7-16.6); Lymphocytes # 1.3 10^3/uL (0.8-4.8); Lymphocytes % 8.5 %; Mean Corpuscular HGB Conc 32.9 g/dL (30.0-36.0); Mean Corpuscular Hemoglobin 28.3 pg (28.0-34.0); Mean Corpuscular Volume 85.9 fl (80-94); Mean Platelet Volume 10.2 fL (7.4-10.4); Monocytes # 1.6 10^3/uL (0.2-0.9); Monocytes % 10.3 %; Neutrophils # 12.36 10^3/uL (1.8-7.7); Nucleated Red Blood Cells % 0 %; Platelet Count 304 10^3/cmm (130-400); Red Blood Count 2.97 10^6/uL (4.1-5.3); Red Cell Distribution Width 15.4 % (12.1-15.1); White Blood Count 15.5 10^3/uL (4.0-10.0)
[2021-09-07 03:32] LABS: ABG PH Result 7.42 (7.35-7.45); Arterial Blood Gas Hematocrit 21.9 % (42-52); Base Excess ABG -2.1 mmol/L (-2.0-2.0); Blood Gas Sample Site Not specified; Blood Gas Sample Type Arterial; HCO3 ABG 22.1 mmol/L (22-26); Oxygen Device VENT; PO2 ABG 63.3 mmHg (80.0-100.0)
[2021-09-07 03:47] LABS: Alanine Aminotransferase 108 U/L (0-41); Albumin Level 3.5 g/dL (3.5-5.2); Alkaline Phosphatase 37 IU/L (40-130); Anion Gap 17.9 (5-19); Aspartate Amino Transferase 269 U/L (0-40); Carbon Dioxide 22 mmol/L (22-29); Chloride 106 mmol/L (98-107); Globulin 2.6 g/dL (1.3-4.6); Glomerular Filtration Rate 34.1 mL/min (90-130); Glucose 172 mg/dL (65-115); Potassium 3.9 mmol/L (3.5-5.1); Sodium 142 mmol/L (136-145); Total Bilirubin 0.3 mg/dL (0.15-1.2); Total Protein 6.1 g/dL (6.6-8.7)
[2021-09-07] MEDS: propofol 1,000 MG/100 ML INJ 23.95 MG IV ×2 (04:14→09:22)
[2021-09-07 04:35] LABS: Blood Urea Nitrogen 27 mg/dL (8-23); Calcium 8.4 mg/dL (8.5-10.5); Osmolality Calculated 303 mOsm/kg (285-295)
[2021-09-07] MEDS: clopidogrel 75 mg Tablet PO (05:50)
[2021-09-07] MEDS: pantoprazole 40 mg SDV IVP ×2 (05:51→17:35)
--- NOTE | 2021-09-07 07:00 | XRR_ITS ---
PROCEDURE INFORMATION: Exam: XR Chest Exam date and time: 09/07/2021 4:06 AM Age: 61 years old Clinical indication: Shortness of breath; Patient HX: F/u resp failure. Patient intubated. TECHNIQUE: Imaging protocol: XR of the chest. Views: 1 view. COMPARISON: CR XR chest 1V portable [id number] 09/06/2021 4:38 AM FINDINGS: Tubes, catheters and devices: Transcutaneous pacemaker leads overlie the right hemithorax and left heart border. An endotracheal tube is placed with its tip approximately 3.5 cm from the celine. EKG leads overlie the chest. A nasogastric tube is present with its tip at least in the proximal stomach. Lungs: Hazy and strandy opacities are present lower hemithoraces bilaterally and there is indistinctness of the pulmonary vasculature, findings compatible with cardiac decompensation or volume overload. Pleural spaces: The hemidiaphragms are obscured likely secondary to bilateral pleural effusions. Heart/Mediastinum: See Lungs finding. Bones/joints: Unremarkable. XR/XR chest 1V portable [id number] IMPRESSION: 1. Indistinct pulmonary vasculature and hazy and patchy opacities predominant the lower hemithoraces, findings suggesting cardiac decompensation or volume overload. 2. Probable small bilateral pleural effusions 3. Endotracheal tube tip 3.5 cm from the celine. Nasogastric tube at least in proximal stomach.
--- NOTE | 2021-09-07 07:24 | PM.PN ---
Subjective Subjective: remains intubated Vitals/I&O/Wt Last Vital Signs Temp 99.2 F 09/07/21 05:59 Pulse 121 H 09/07/21 06:00 Resp 16 09/07/21 05:52 BP 113/73 09/07/21 05:30 Pulse Ox 93 09/07/21 05:52 09/06/21 09/07/21 09/07/21 22:59 06:59 14:59 Intake Total 1556.770 / 1851.103 184.789 / 2035.892 Output Total 1750 / 1750 150 / 1900 Balance -193.230 / 101.103 34.789 / 135.892 Weight last 48 hrs Weight 105.959 kg Weight 107.955 kg Data : 09/07/21 03:12 09/07/21 03:12 Micro: Microbiology 09/06/21 00:14 Gram Stain - Final Sputum - Endotracheal Tube Aspirate CXR: Radiologist's impression: Lungs: Hazy and strandy opacities are present lower hemithoraces bilaterally and there is indistinctness of the pulmonary vasculature, findings compatible with cardiac decompensation or volume overload. Pleural spaces: The hemidiaphragms are obscured likely secondary to bilateral pleural effusions. A&P Assessment and plan (1) Respiratory failure: Status: Acute Plan evaluated via telemedicine with assistance of RN at bedside 1. Acute kidney injury: ischemic, contrast, recent use of NSAIDs. Nonoliguric. 2. Chronic kidney disease: baseline serum Cr 1.5 mg/dL 3. Anemia: iron deficient 4. pulmonary edema, CAD Recommend: continue intermittent IV lasix Attestations Medical Necessity Statement*: critically ill in ICU Time Spent in Patient Care: 16 - 35 minutes Coding Level of Care Code Acute Bacteriologist Pharmaceutical for [facility] Fwd Diagnoses Respiratory failure J96.90
[2021-09-07 07:26] LABS: Glucose Point of Care 173 mg/dL (70-110)
[2021-09-07] MEDS: FUROsemide 10 mg/mL SDV 4mL 40 MG IVP ×2 (07:48→20:43)
[2021-09-07] MEDS: insulin lispro 100 unit/1 mL SUBCUT ×4 (07:48→20:44)
[2021-09-07] MEDS: aspirin 81 mg EC Tablet PO (07:49)
[2021-09-07 10:51] LABS: Bilirubin Urine Neg (Negative); Blood Urine 3+ (Negative); Glucose Urine UA Norm (Normal); Ketones Urine 1+ (Negative); Leukocyte Esterase Urine Negative (Negative); Nitrate Urine Negative (Negative); Protein Urine Neg (Negative); Urine Appearance Clear (CLEAR); Urine Color Yellow (Yellow); Urobilinogen Urine Norm (Negative); pH Urine 5 (5-7)
[2021-09-07 10:53] LABS: Bacteria Urine 2+ /hpf; Mucus Urine 1+ /hpf; RBC Urine 25-40 /hpf (0-2); Squamous Epithelial Cell Urine RARE /hpf (0-5); WBC Urine 0-4 /hpf (0-5)
[2021-09-07 10:56] LABS: Add Urine Culture? Yes
[2021-09-07 11:23] LABS: Glucose Point of Care 186 mg/dL (70-110)
--- NOTE | 2021-09-07 14:20 | PM.PN ---
Subjective Subjective: Seen and examined this morning. Patient is intubated sedated in the ICU. He does awaken and follow commands. Also answers questions in yes or no by nodding his head. He states he is in pain. We will go up on the fentanyl little bit. 450 urine output overnight. Responded well to Lasix. Vitals/I&O/Wt Last Vital Signs Temp 99.0 F 09/07/21 12:45 Pulse 120 H 09/07/21 12:45 Resp 14 09/07/21 13:38 BP 118/75 09/07/21 12:45 Pulse Ox 95 09/07/21 13:38 09/06/21 09/07/21 09/07/21 22:59 06:59 14:59 Intake Total 1556.770 / 1851.103 184.789 / 2035.892 281.698 / 281.698 Output Total 1750 / 1750 150 / 1900 Balance -193.230 / 101.103 34.789 / 135.892 281.698 / 281.698 Weight last 48 hrs Weight 105.959 kg Weight 107.955 kg Physical Exam Narrative: General: Intubated sedated Cardio: Sinus tachycardia, normal S1-S2, Respiratory: Good bilateral air entry, no wheezes no rhonchi appreciated, clear to auscultation bilaterally GI: Abdomen soft, nontender, nondistended, bowel sounds + Extremities: Trace edema bilateral lower extremities, central line left groin Data : 09/07/21 03:12 09/07/21 03:12 Micro: Microbiology 09/06/21 00:14 Gram Stain - Final Sputum - Endotracheal Tube Aspirate Sputum Culture - Preliminary A&P Assessment and plan (1) Acute kidney injury: Status: Acute (2) Respiratory failure: Status: Acute (3) Cardiac arrest due to underlying cardiac condition: Status: Acute (4) Anemia: Status: Acute (5) NSTEMI (non-ST elevated myocardial infarction): Status: Acute (6) Chronic kidney disease, stage II (mild): Status: Acute (7) S/P PTCA (percutaneous transluminal coronary angioplasty): Status: Acute (8) Unstable angina: Status: Acute (9) Establishing care with new doctor, encounter for: Status: Acute (10) Coronary artery disease due to type 2 diabetes mellitus: Status: Acute (11) Diabetes mellitus: Status: Acute (12) Coronary atherosclerosis: Status: Acute Qualifiers: Coronary Disease-Associated Artery/Lesion type: [place] artery [place] vs. transplanted heart: [place] heart Associated angina: without angina Qualified Code(s): I25.10 - Atherosclerotic heart disease of [place] coronary artery without angina pectoris (13) Hyperlipidemia: Status: Acute (14) HTN (hypertension): Status: Acute Plan #Cardiac arrest secondary to NSTEMI, CAD #Vent dependent respiratory failure #Anemia, GI bleed, blood in stool #JOSE on CKD after ACLS code #Diabetes mellitus #History of stroke March 2021 ? Patient came to the hospital complaining of chest discomfort which was substernal. Nitro was applied heparin drip was started. Patient was admitted for NSTEMI. He did receive 1 unit of blood. He was placed in ICU initially. He went for angiogram the next day. During the procedure patient had cardiac arrest. ACLS code was run and he was treated for PEA with epinephrine. LAD stent had just been placed had gone down and required ballooning but distally the vessel did not have blood flow. EF 35%. On transitioning over to ICU asystole was identified and code was reinitiated. ROSC was achieved. Patient was in a metabolic acidosis postcode. He was intubated. He was following commands and therefore hypothermia was not initiated. He required vasopressors which are now turned off. Due to increasing pulmonary edema and oliguria patient was not extubated yesterday. Nephrology was consulted. Lasix was given. -Today patient's chest x-ray still shows significant volume overload. Urine output however has improved. He had 450 cc urine output overnight. Nephrology has recommended to use intermittent Lasix as patient is responding well to it. ? Continue sliding scale insulin for diabetes ? Keep patient intubated today. Once volume status improves I will do a weaning trial. We did put him on pressure support earlier today and he seemed to be doing okay on it. ? We will repeat echo closer to discharge to assess EF. He will most likely require LifeVest at discharge ? Cardiology on board and following the case closely. Recommendations appreciated ? Hemoglobin 8.4 today. Continue to monitor. ? We will update family today ? RN updated Full code Attestations Medical Necessity Statement*: Intubated sedated in ICU. Coding Level of Care Code Acute Child Health Associate for [facility] Diagnoses Acute kidney injury N17.9 Respiratory failure J96.90 Cardiac arrest due to underlying cardiac condition I46.2 Anemia D64.9 NSTEMI (non-ST elevated myocardial infarction) I21.4 Chronic kidney disease, stage II (mild) N18.2 S/P PTCA (percutaneous transluminal coronary angioplasty) Z98.61 Unstable angina I20.0 Establishing care with new doctor, encounter for Z76.89 Coronary artery disease due to type 2 diabetes mellitus E11.59; I25.10 Diabetes mellitus E11.9 Coronary atherosclerosis I25.10 Coronary Disease-Associated Artery/Lesion type: [place] artery [place] vs. transplanted heart: [place] heart Associated angina: without angina Hyperlipidemia E78.5 HTN (hypertension) I10
[2021-09-07] MEDS: propofol 1,000 MG/100 ML INJ 17.96 MG IV ×2 (16:10→22:27)
[2021-09-07 17:18] LABS: Glucose Point of Care 186 mg/dL (70-110)
--- NOTE | 2021-09-07 18:15 | P.PN_ITS ---
Subjective Subjective: Cardiology coverage Patient presented with acute coronary syndrome, that is post PCI of the LAD ,status post repeated cardiac resuscitation Patient remains intubated. Has been having recurrent decompensated heart failure. Currently seems to be stable hemodynamically. Seems to be responding to the verbal commands appropriately, while awake Telemetry shows normal sinus rhythm Medications: Medication Review Details: Current Medications Acetaminophen (Acetaminophen 325 Mg Tablet) 650 mg PO Q6H PRN PRN Reason: MILD PAIN Albuterol Sulfate (Albuterol 8 Gm Mdi) 2 puff INHALATION Q4H PRN PRN Reason: shortness of breath or wheezing Albuterol/Ipratropium (Ipratropium-Albuterol 3 Ml Neb) 3 ml INHALATION Q4H PRN PRN Reason: SHORTNESS OF BREATH Aspirin (Aspirin 81 Mg Ec Tablet) 81 mg PO DAILY [facility] Last Admin: 09/07/21 07:49 Dose: 81 mg Documented by: Atorvastatin Calcium (Atorvastatin 40 Mg Tablet) 40 mg PO BEDTIME [facility] Last Admin: 09/06/21 20:51 Dose: 40 mg Documented by: Clopidogrel Bisulfate (Clopidogrel 75 Mg Tablet) 75 mg PO QAM [facility] Last Admin: 09/07/21 05:50 Dose: 75 mg Documented by: Dextrose (Dextrose 50% Syringe 50 Ml) 25 ml IVP ONCE PRN; Protocol PRN Reason: hypoglycemia protocol Dextrose (Dextrose 50% Syringe 50 Ml) 50 ml IVP PRN PRN; Protocol PRN Reason: hypoglycemia protocol Furosemide (Furosemide 10 Mg/Ml Sdv 4ml) 40 mg IVP Q12H [facility] Last Admin: 09/07/21 07:48 Dose: 40 mg Documented by: Glucagon (Glucagon 1 Mg/Ml Inj 1 Ml) 1 mg IM ONCE PRN; Protocol PRN Reason: Adult Acute Hypoglycemia Prot. Heparin Sodium (Porcine) (Heparin 5,000 Unit/Ml Inj 1 Ml) 0 unit IV PRN PRN; Protocol PRN Reason: Heparin weight-base protocol Last Admin: 09/04/21 11:20 Dose: 5,000 unit Documented by: Heparin Sodium/Sodium Chloride (Heparin Drip) 25,000 unit in 500 mls @ 0 mls/hr IV .Q0M [facility]; Protocol Last Titration: 09/05/21 05:30 Dose: 0 unit/kg/hr, 0 mls/hr Documented by: Dextrose (D5w) 500 mls @ 100 mls/hr IV ONCE PRN; Protocol PRN Reason: Adult Acute Hypoglycemia Prot Propofol (Diprivan) 1,000 mg in 100 mls @ 0 mls/hr IV .Q0M ISSAC; Protocol Last Admin: 09/07/21 16:10 Dose: 30 mcg/kg/min, 17.96 mls/hr Documented by: Fentanyl 2,500 mcg/ Sodium (Chloride) 250 mls @ 0 mls/hr IV .Q0M ISSAC; Protocol Last Admin: 09/07/21 13:03 Dose: 75 mcg/hr, 7.5 mls/hr Documented by: Norepinephrine Bitartrate 4 mg (/ Dextrose) 254 mls @ 0 mls/hr IV .Q0M ISSAC; Protocol Last Titration: 09/06/21 07:00 Dose: 0 mcg/min, 0 mls/hr Documented by: Insulin Human Lispro (Insulin Lispro 100 Unit/1 Ml) 0 unit SUBCUT WM&BEDTIME ISSAC; Protocol Last Admin: 09/07/21 17:27 Dose: 6 unit Documented by: Ondansetron HCl (Ondansetron 2 Mg/Ml Sdv 2 Ml) 4 mg IVP Q6H PRN PRN Reason: NAUSEA AND VOMITING Pantoprazole Sodium (Pantoprazole 40 Mg Sdv) 40 mg IVP Q12H [facility] Last Admin: 09/07/21 17:35 Dose: 40 mg Documented by: Vitals/I&O/Wt Last Vital Signs Temp 99.0 F 09/07/21 12:45 Pulse 121 H 09/07/21 16:45 Resp 14 09/07/21 18:05 BP 122/77 09/07/21 16:45 Pulse Ox 97 09/07/21 18:05 09/07/21 09/07/21 09/07/21 06:59 14:59 22:59 Intake Total 184.789 / 2035.892 293.083 / 293.083 Output Total 150 / 1900 600 / 600 Balance 34.789 / 135.892 293.083 / 293.083 -600 / -306.917 Weight last 48 hrs Weight 233 lb 9.6 oz Weight 238 lb Physical Exam Narrative: GENERAL: The patient is intubated and somewhat sedated. Opens his eyes to the verbal commands HEENT: Moderate pallor with no icterus or lymphadenopathy.Oral cavity: There are no mucous membrane lesions. NECK: Trachea appears to be central. No masses noted. No JVD or thyromegaly appreciated. RESPIRATORY: Chest is symmetrical. No intercostals muscle retraction or any accessory muscle activation. There is no chest wall tenderness. Breath sounds are heard bilaterally. No rales or rhonchi heard. No evidence of any consolidation. BREASTS: Deferred. HEART: The heart sounds are normal. No S3 or S4. Short systolic murmur in the left sternal border. No diastolic murmur No pericardial rub ABDOMEN: No vessel pulsations or distention. No tenderness. No organomegaly appreciated. Bowel sounds are normally heard. : Deferred. RECTAL: Deferred. LYMPHATIC: No lymphadenopathy noted in the neck. EXTREMITIES: No edema or cyanosis. No clubbing. MUSCULOSKELETAL: No acute joint deformities or swelling SKIN: There are no significant rashes or ecchymosis NEUROPSYCHIATRIC: The patient is intubated and sedated. Moves all extremities. Data : 09/07/21 03:12 09/07/21 03:12 Micro: Microbiology 09/06/21 00:14 Gram Stain - Final Sputum - Endotracheal Tube Aspirate Sputum Culture - Preliminary A&P Assessment and plan (1) NSTEMI (non-ST elevated myocardial infarction): Status post PCI of the LAD. Cardiac catheterization revealed a nondominant ri ght coronary artery. Mild disease in circumflex artery. High-grade lesion in the LAD, status post PCI. Currently seems to be stable hemodynamically. May currently on the current medications Status: Acute (2) Respiratory failure: This could be multifactorial. CHF is a major contributing factor. We will continue the careful diuresis. Possible extubation tomorrow Status: Acute (3) Cardiac arrest due to underlying cardiac condition: Currently the patient has stable rhythm and vital signs. Myocardial to current measures. Status: Acute (4) Acute kidney injury superimposed on chronic kidney disease: The kidney function seems to have stabilized. Status: Acute (5) Diabetes mellitus: Continue with aggressive treatment measures. Status: Acute (6) Hyperlipidemia: May continue on the current medications. Status: Acute (7) HTN (hypertension): Currently normotensive. Status: Acute Plan Other problems are GI bleed Anemia Leukocytosis I will continue on the current measures. We will closely monitor the hemoglobin. May need GI work-up once extubated Attestations Medical Necessity Statement*: Patient requires continued hospital stay for close monitoring and further management Coding Level of Care Code Acute Software Design Manager for Chg Fwd History Expanded Problem Focused Exam Detailed Medical Decision Making Moderate Complexity Diagnoses NSTEMI (non-ST elevated myocardial infarction) I21.4 Cardiac arrest due to underlying cardiac condition I46.2 Acute kidney injury superimposed on chronic kidney disease N17.9; N18.9 Diabetes mellitus E11.9 Hyperlipidemia E78.5 HTN (hypertension) I10 Respiratory failure J96.90
[2021-09-07 20:41] LABS: Glucose Point of Care 169 mg/dL (70-110)
[2021-09-07] MEDS: atorvastatin 40 mg Tablet PO (20:43)
--- NOTE | 2021-09-07 22:58 | USCV_ITS ---
Fuad Priest Age: 61 Gender: M : 1960 Exam Date: 09/07/2021 23:24 Ordering Phys: Marky Bhat MD Technologist: Delfino Fernandes Exam Location: [facility]_ Indication: no pedal pulse Risk Factors: Previous Vascular Surgery: RIGHT LEFT BP: 109.0 / 71.00 BP: 91.00/ 66.00 0 Waveform Velocity (cm/s) Velocity (cm/s) Waveform 82.0 Iliac Prox 74.9 76.9 Iliac Mid 76.2 61.5 Iliac Distal 73.6 58.0 DIP FILLER 69.7 64.1 SFA Prox 56.5 SFA Mid 41.9 65.7 35.9 SFA Dist 40.8 30.9 POP 78.9 81.5 VALVE SETTER 80.2 34.2 DPA 30.8 1.0 LIAT 1.0 FINDINGS Triphasic arterial Doppler waveforms bilaterally Normal Doppler flow velocities bilaterally Resting LIAT 1.0 on both sides CONCLUSIONS No evidence of any significant arterial obstruction, based on the above findings. Dr Devonte Corbett MD [facility] (Electronically Signed) Final Date: 08 September 2021 09:29 S
[2021-09-08] VITALS (93 sets, daily range): BP systolic 77–141; BP diastolic 58–91; PULSE 110–127; RESP 10–26; TEMP 36.9–37.2; O2SAT 88–100; BMI 31.9
[2021-09-08 03:43] LABS: Basophils # 0.1 10^3/uL (0.0-0.1); Basophils % 0.4 %; Eosinophils # 0.2 10^3/uL (0.0-0.8); Eosinophils % 1.3 %; Hematocrit 24.6 % (42.0-52.0); Hemoglobin 7.7 g/dL (11.7-16.6); Lymphocytes # 1.2 10^3/uL (0.8-4.8); Lymphocytes % 9.1 %; Mean Corpuscular HGB Conc 31.3 g/dL (30.0-36.0); Mean Corpuscular Hemoglobin 27.9 pg (28.0-34.0); Mean Corpuscular Volume 89.1 fl (80-94); Mean Platelet Volume 10.4 fL (7.4-10.4); Monocytes # 1.2 10^3/uL (0.2-0.9); Monocytes % 9.1 %; Neutrophils # 10.61 10^3/uL (1.8-7.7); Neutrophils % 79.4 %; Nucleated Red Blood Cells % 0 %; Platelet Count 277 10^3/cmm (130-400); Red Blood Count 2.76 10^6/uL (4.1-5.3); Red Cell Distribution Width 15.4 % (12.1-15.1); White Blood Count 13.4 10^3/uL (4.0-10.0)
[2021-09-08 04:03] LABS: Alanine Aminotransferase 74 U/L (0-41); Albumin Level 3.2 g/dL (3.5-5.2); Alkaline Phosphatase 37 IU/L (40-130); Anion Gap 19.7 (5-19); Aspartate Amino Transferase 128 U/L (0-40); Blood Urea Nitrogen 34 mg/dL (8-23); Calcium 8.6 mg/dL (8.5-10.5); Carbon Dioxide 23 mmol/L (22-29); Chloride 106 mmol/L (98-107); Globulin 2.9 g/dL (1.3-4.6); Glomerular Filtration Rate 30.6 mL/min (90-130); Glucose 167 mg/dL (65-115); Magnesium 2.2 mg/dL (1.7-2.3); Osmolality Calculated 311 mOsm/kg (285-295); Potassium 3.7 mmol/L (3.5-5.1); Sodium 145 mmol/L (136-145); Total Bilirubin 0.3 mg/dL (0.15-1.2); Total Protein 6.1 g/dL (6.6-8.7)
[2021-09-08] MEDS: propofol 1,000 MG/100 ML INJ 17.96 MG IV ×2 (04:38→10:07)
[2021-09-08] MEDS: pantoprazole 40 mg SDV IVP ×2 (05:43→17:34)
[2021-09-08] MEDS: clopidogrel 75 mg Tablet PO (05:43)
[2021-09-08 06:07] LABS: Glucose Point of Care 181 mg/dL (70-110)
[2021-09-08 07:03] LABS: Glucose Point of Care 182 mg/dL (70-110)
--- NOTE | 2021-09-08 07:28 | P.PN_ITS ---
Subjective Subjective: remains sedated on ventilator Vitals/I&O/Wt Last Vital Signs Temp 98.5 F 09/08/21 05:30 Pulse 110 H 09/08/21 05:30 Resp 15 09/08/21 06:00 BP 125/81 09/07/21 22:15 Pulse Ox 95 09/08/21 06:00 09/07/21 09/08/21 09/08/21 22:59 06:59 14:59 Intake Total 100 / 393.083 100 / 493.083 Output Total 900 / 900 250 / 1150 Balance -800 / -506.917 -150 / -656.917 Weight last 48 hrs Weight 103.873 kg Weight 105.959 kg Physical Exam Extremity: NARRATIVE EXTREMITY EXAM: no edema Data : 09/08/21 03:15 09/08/21 03:15 Micro: Microbiology 09/06/21 00:14 Gram Stain - Final Sputum - Endotracheal Tube Aspirate Sputum Culture - Preliminary A&P Assessment and plan (1) Acute kidney injury superimposed on chronic kidney disease: Status: Acute Plan evaluated via telemedicine with assistance of RN at bedside 1. Acute kidney injury: stable: ischemic, contrast, recent use of NSAIDs. Nonoliguric. I/O neg 2. Chronic kidney disease: baseline serum Cr 1.5 mg/dL 3. Anemia: iron deficient 4. pulmonary edema, CAD Recommend: continue intermittent IV lasix Attestations Medical Necessity Statement*: critically ill in ICU Coding Level of Care Code Acute Legal Secretary Receptionist for [facility] Fwd Diagnoses Acute kidney injury superimposed on chronic kidney disease N17.9; N18.9
[2021-09-08] MEDS: FUROsemide 10 mg/mL SDV 4mL 40 MG IVP ×2 (08:01→18:32)
[2021-09-08] MEDS: aspirin 81 mg EC Tablet PO (08:01)
[2021-09-08] MEDS: insulin lispro 100 unit/1 mL SUBCUT ×4 (08:02→21:33)
--- NOTE | 2021-09-08 09:24 | XRR_ITS ---
PROCEDURE INFORMATION: Exam: XR Chest Exam date and time: 09/08/2021 9:26 AM Age: 61 years old Clinical indication: Pain and device placement; Ett placement (vent status); Chest pressure; Additional info: Chest pain TECHNIQUE: Imaging protocol: XR of the chest. Views: 1 view. COMPARISON: CR (CHEST, ) 09/07/2021 4:06 AM FINDINGS: Tubes, catheters and devices: An endotracheal tube and nasogastric tube project in satisfactory position. Lungs: There is mild hazy atelectasis in the lung bases which has significantly improved. Pleural spaces: Unremarkable. No pleural effusion. No pneumothorax. Heart/Mediastinum: Unremarkable. No cardiomegaly. Bones/joints: Unremarkable. XR/XR chest 1V portable [id number] IMPRESSION: Mild hazy atelectasis in the lung bases. The aeration of the lungs has improved since previous radiograph.
[2021-09-08 10:37] LABS: Glucose Point of Care 187 mg/dL (70-110)
--- NOTE | 2021-09-08 13:01 | P.PN_ITS ---
Subjective Subjective: Intubated sedated. Urine output 1150 overnight. Negative balance now. X-ray appears better. Vitals/I&O/Wt Last Vital Signs Temp 98.6 F 09/08/21 09:41 Pulse 113 H 09/08/21 12:15 Resp 10 L 09/08/21 11:41 BP 110/72 09/08/21 12:15 Pulse Ox 96 09/08/21 12:15 09/07/21 09/08/21 09/08/21 22:59 06:59 14:59 Intake Total 100 / 393.083 100 / 493.083 272.481 / 272.481 Output Total 900 / 900 250 / 1150 Balance -800 / -506.917 -150 / -656.917 272.481 / 272.481 Weight last 48 hrs Weight 103.873 kg Weight 105.959 kg Physical Exam Narrative: General: Intubated sedated Cardio: S inus tachycardia, normal S1-S2, Resp iratory: Good bila teral air entry, n o wheezes no rhonc hi appreciated, cl ear to auscultatio n bilaterally GI: Abdomen soft, nont jarvis, nondistende d, bowel sounds + Extremities: Trace edema bilateral l ower extremities, central line left groin Data : 09/08/21 03:15 09/08/21 03:15 Micro: Microbiology 09/06/21 00:14 Gram Stain - Final Sputum - Endotracheal Tube Aspirate Sputum Culture - Final 09/07/21 08:55 Urine Culture - Preliminary Urine,Clean Catch A&P Assessment and plan (1) Acute kidney injury superimposed on chronic kidney disease: Status: Acute (2) Acute kidney injury: Status: Acute (3) Respiratory failure: Status: Acute (4) Cardiac arrest due to underlying cardiac condition: Status: Acute (5) Anemia: Status: Acute (6) NSTEMI (non-ST elevated myocardial infarction): Status: Acute (7) Chronic kidney disease, stage II (mild): Status: Acute (8) S/P PTCA (percutaneous transluminal coronary angioplasty): Status: Acute (9) Unstable angina: Status: Acute (10) Coronary artery disease due to type 2 diabetes mellitus: Status: Acute (11) Hyperlipidemia: Status: Acute (12) HTN (hypertension): Status: Acute Plan #Cardiac arrest secondary to NSTEMI, CAD #Vent dependent respiratory failure #Anemia, GI bleed, blood in stool #JOSE on CKD after ACLS code #Diabetes mellitus #History of stroke March 2021 ? Patient came to the hospital complaining of chest discomfort which was substernal.? Nitro was applied heparin drip was started.? Patient was admitted for NSTEMI.? He did receive 1 unit of blood.? He was placed in ICU initially.? He went for angiogram the next day.? During the procedure patient had cardiac arrest.? ACLS code was run and he was treated for PEA with epinephrine.? LAD s tent had just been placed had gone down and required ballooning but distally the vessel did not have blood flow.? EF 35%.? On transitioning over to ICU asystole was identified and code was reinitiated.? ROSC was achieved.? Patient was in a metabolic acidosis postcode.? He was intubated.? He was following commands and therefore hypothermia was not initiated.? He required vasopressors which are now turned off.? Due to increasing pulmonary edema and oliguria patient was not extubated yesterday.? Nephrology was consulted.? Lasix was given. -Today patient's chest x-ray appears but confused appears improved compared to yesterday. Urine output has also improved. 1150 in last 24 hours. In negative balance now. ? Plan to wean sedation, weaning trial and potentially extubation today. ? We will repeat echo closer to discharge to assess EF.? He will most likely require LifeVest at discharge ? Cardiology on board and following the case closely.? Recommendations appreciated ? Hemoglobin 8.4 today.? Continue to monitor. ? We will update family today ? RN updated Full code Attestations Medical Necessity Statement*: Intubated sedated eyes intubated, sedated in ICU Coding Level of Care Code Acute Porcelain Turner for [facility] Fwd Diagnoses Acute kidney injury superimposed on chronic kidney disease N17.9; N18.9 Acute kidney injury N17.9 Respiratory failure J96.90 Cardiac arrest due to underlying cardiac condition I46.2 Anemia D64.9 NSTEMI (non-ST elevated myocardial infarction) I21.4 Chronic kidney disease, stage II (mild) N18.2 S/P PTCA (percutaneous transluminal coronary angioplasty) Z98.61 Unstable angina I20.0 Coronary artery disease due to type 2 diabetes mellitus E11.59; I25.10 Hyperlipidemia E78.5 HTN (hypertension) I10
--- NOTE | 2021-09-08 16:00 | PC.RESP ---
pt extubated to 4lpm nc
[2021-09-08 17:03] LABS: Glucose Point of Care 190 mg/dL (70-110)
--- NOTE | 2021-09-08 20:16 | P.PN_ITS ---
Subjective Subjective: Patient remains intubated. Seems to be responding to verbal commands. Telemetry shows sinus tachycardia. Vital signs are stable. He is on FiO2 35%. Medications: Medication Review Details: Current Medications Acetaminophen (Acetaminophen 325 Mg Tablet) 650 mg PO Q6H PRN PRN Reason: MILD PAIN Albuterol Sulfate (Albuterol 8 Gm Mdi) 2 puff INHALATION Q4H PRN PRN Reason: shortness of breath or wheezing Albuterol/Ipratropium (Ipratropium-Albuterol 3 Ml Neb) 3 ml INHALATION Q4H PRN PRN Reason: SHORTNESS OF BREATH Aspirin (Aspirin 81 Mg Ec Tablet) 81 mg PO DAILY [facility] Last Admin: 09/08/21 08:01 Dose: 81 mg Documented by: Atorvastatin Calcium (Atorvastatin 40 Mg Tablet) 40 mg PO BEDTIME [facility] Last Admin: 09/07/21 20:43 Dose: 40 mg Documented by: Clopidogrel Bisulfate (Clopidogrel 75 Mg Tablet) 75 mg PO QAM [facility] Last Admin: 09/08/21 05:43 Dose: 75 mg Documented by: Dextrose (Dextrose 50% Syringe 50 Ml) 25 ml IVP ONCE PRN; Protocol PRN Reason: hypoglycemia protocol Dextrose (Dextrose 50% Syringe 50 Ml) 50 ml IVP PRN PRN; Protocol PRN Reason: hypoglycemia protocol Furosemide (Furosemide 10 Mg/Ml Sdv 4ml) 40 mg IVP Q12H [facility] Last Admin: 09/08/21 18:32 Dose: 40 mg Documented by: Glucagon (Glucagon 1 Mg/Ml Inj 1 Ml) 1 mg IM ONCE PRN; Protocol PRN Reason: Adult Acute Hypoglycemia Prot. Heparin Sodium (Porcine) (Heparin 5,000 Unit/Ml Inj 1 Ml) 0 unit IV PRN PRN; Protocol PRN Reason: Heparin weight-base protocol Last Admin: 09/04/21 11:20 Dose: 5,000 unit Documented by: Heparin Sodium/Sodium Chloride (Heparin Drip) 25,000 unit in 500 mls @ 0 mls/hr IV .Q0M ISSAC; Protocol Last Titration: 09/05/21 05:30 Dose: 0 unit/kg/hr, 0 mls/hr Documented by: Dextrose (D5w) 500 mls @ 100 mls/hr IV ONCE PRN; Protocol PRN Reason: Adult Acute Hypoglycemia Prot Propofol (Diprivan) 1,000 mg in 100 mls @ 0 mls/hr IV .Q0M ISSAC; Protocol Last Titration: 09/08/21 14:45 Dose: 0 mcg/kg/min, 0 mls/hr Documented by: Fentanyl 2,500 mcg/ Sodium (Chloride) 250 mls @ 0 mls/hr IV .Q0M ISSAC; Protocol Last Titration: 09/08/21 12:45 Dose: 0 mcg/hr, 0 mls/hr Documented by: Norepinephrine Bitartrate 4 mg (/ Dextrose) 254 mls @ 0 mls/hr IV .Q0M ISSAC; Protocol Last Titration: 09/06/21 07:00 Dose: 0 mcg/min, 0 mls/hr Documented by: Insulin Human Lispro (Insulin Lispro 100 Unit/1 Ml) 0 unit SUBCUT WM&BEDTIME [facility]; Protocol Last Admin: 09/08/21 16:59 Dose: 6 unit Documented by: Ondansetron HCl (Ondansetron 2 Mg/Ml Sdv 2 Ml) 4 mg IVP Q6H PRN PRN Reason: NAUSEA AND VOMITING Pantoprazole Sodium (Pantoprazole 40 Mg Sdv) 40 mg IVP Q12H [facility] Last Admin: 09/08/21 17:34 Dose: 40 mg Documented by: Vitals/I&O/Wt Last Vital Signs Temp 98.6 F 09/08/21 09:41 Pulse 121 H 09/08/21 19:55 Resp 18 09/08/21 19:55 BP 141/83 09/08/21 18:00 Pulse Ox 92 09/08/21 19:55 09/08/21 09/08/21 09/08/21 06:59 14:59 22:59 Intake Total 100 / 493.083 350.511 / 350.511 Output Total 250 / 1150 650 / 650 Balance -150 / -656.917 350.511 / 350.511 -650 / -299.489 Weight last 48 hrs Weight 229 lb Weight 233 lb 9.6 oz Physical Exam Narrative: GENERAL: The patient is intubated and sedated HEENT: Moderate pallor with no icterus or lymphadenopathy.Oral cavity: There are no mucous membrane lesions. NECK: Trachea appears to be central. No masses noted. No JVD or thyromegaly appreciated. RESPIRATORY: Chest is symmetrical. No intercostals muscle retraction or any accessory muscle activation. There is no chest wall tenderness. Breath sounds are heard bilaterally. No rales or rhonchi heard. No evidence of any consolidation. BREASTS: Deferred. HEART: The heart sounds are normal. No S3 or S4. Short systolic murmur in the left sternal border. No diastolic murmur No pericardial rub ABDOMEN: No vessel pulsations or distention. No tenderness. No organomegaly appreciated. Bowel sounds are normally heard. : Deferred. RECTAL: Deferred. LYMPHATIC: No lymphadenopathy noted in the neck. EXTREMITIES: No edema or cyanosis. No clubbing. MUSCULOSKELETAL: No acute joint deformities or swelling SKIN: There are no significant rashes or ecchymosis NEUROPSYCHIATRIC: The patient is intubated and sedated. Data : 09/08/21 03:15 09/08/21 03:15 Micro: Microbiology 09/06/21 00:14 Gram Stain - Final Sputum - Endotracheal Tube Aspirate Sputum Culture - Final 09/07/21 08:55 Urine Culture - Preliminary Urine,Clean Catch A&P Assessment and plan (1) NSTEMI (non-ST elevated myocardial infarction): Status post PCI of the LAD. Cardiac catheterization revealed a nondominant right coronary artery. Mild disease in circumflex artery. High-grade lesion in the LAD, status post PCI. Currently seems to be stable hemodynamically. May currently on the current medications Status: Acute (2) Respiratory failure: Possible extubation today. Urination is good Status: Acute (3) Cardiac arrest due to underlying cardiac condition: Currently the patient has stable rhythm and vital signs. We will continue on the current measures Status: Acute (4) Acute kidney injury superimposed on chronic kidney disease: The kidney function seems to have stabilized. Status: Acute (5) Diabetes mellitus: Continue with aggressive treatment measures. Status: Acute (6) Hyperlipidemia: May continue on the current medications. Status: Acute (7) Anemia: Hemoglobin seems to be stable. May require further work-up Status: Acute Plan Other problems are GI bleed Leukocytosis Repeat echocardiogram once he is extubated. Consider GDMT based on the echo findings Attestations Medical Necessity Statement*: Patient requires continued hospital stay for close monitoring and further management Coding Level of Care Code Acute Transitional Nurse for Chg Fwd History Expanded Problem Focused Exam Detailed Medical Decision Making Moderate Complexity Diagnoses NSTEMI (non-ST elevated myocardial infarction) I21.4 Respiratory failure J96.90 Cardiac arrest due to underlying cardiac condition I46.2 Acute kidney injury superimposed on chronic kidney disease N17.9; N18.9 Diabetes mellitus E11.9 Hyperlipidemia E78.5 Anemia D64.9
[2021-09-08 21:32] LABS: Glucose Point of Care 194 mg/dL (70-110)
[2021-09-09] VITALS (100 sets, daily range): BP systolic 113–168; BP diastolic 67–100; PULSE 80–121; RESP 14–32; TEMP 36.7–36.9; O2SAT 88–100
[2021-09-09 04:08] LABS: Basophils % 0.2 %; Eosinophils # 0.3 10^3/uL (0.0-0.8); Hematocrit 24.9 % (42.0-52.0); Hemoglobin 7.8 g/dL (11.7-16.6); Lymphocytes # 0.9 10^3/uL (0.8-4.8); Lymphocytes % 7.3 %; Mean Corpuscular HGB Conc 31.3 g/dL (30.0-36.0); Mean Corpuscular Hemoglobin 27.7 pg (28.0-34.0); Mean Corpuscular Volume 88.3 fl (80-94); Mean Platelet Volume 10.4 fL (7.4-10.4); Monocytes # 1.2 10^3/uL (0.2-0.9); Monocytes % 9.4 %; Neutrophils # 10.08 10^3/uL (1.8-7.7); Neutrophils % 80.6 %; Nucleated Red Blood Cells % 0 %; Platelet Count 285 10^3/cmm (130-400); Red Blood Count 2.82 10^6/uL (4.1-5.3); Red Cell Distribution Width 14.9 % (12.1-15.1); White Blood Count 12.5 10^3/uL (4.0-10.0)
[2021-09-09 04:32] LABS: Alanine Aminotransferase 54 U/L (0-41); Albumin Level 3.4 g/dL (3.5-5.2); Alkaline Phosphatase 45 IU/L (40-130); Anion Gap 19.6 (5-19); Aspartate Amino Transferase 69 U/L (0-40); Blood Urea Nitrogen 38 mg/dL (8-23); Calcium 8.9 mg/dL (8.5-10.5); Carbon Dioxide 25 mmol/L (22-29); Chloride 107 mmol/L (98-107); Globulin 3.1 g/dL (1.3-4.6); Glomerular Filtration Rate 38.6 mL/min (90-130); Glucose 177 mg/dL (65-115); Magnesium 2.4 mg/dL (1.7-2.3); Osmolality Calculated 319 mOsm/kg (285-295); Potassium 3.6 mmol/L (3.5-5.1); Sodium 148 mmol/L (136-145); Total Bilirubin 0.5 mg/dL (0.15-1.2); Total Protein 6.5 g/dL (6.6-8.7)
[2021-09-09 07:29] LABS: Glucose Point of Care 182 mg/dL (70-110)
[2021-09-09] MEDS: pantoprazole 40 mg SDV IVP ×2 (07:37→17:47)
[2021-09-09] MEDS: FUROsemide 10 mg/mL SDV 4mL 40 MG IVP (07:37)
[2021-09-09] MEDS: insulin lispro 100 unit/1 mL SUBCUT ×3 (07:37→21:24)
--- NOTE | 2021-09-09 08:22 | PM.PN ---
Subjective Subjective: thirsty, hungry. extubated. throat pain. dec edema. no n/v/f/cp. + cough w/ yellow sputum Medications: Reviewed: Yes Medication Review Details: Current Medications Acetaminophen (Acetaminophen 325 Mg Tablet) 650 mg PO Q6H PRN PRN Reason: MILD PAIN Albuterol Sulfate (Albuterol 8 Gm Mdi) 2 puff INHALATION Q4H PRN PRN Reason: shortness of breath or wheezing Albuterol/Ipratropium (Ipratropium-Albuterol 3 Ml Neb) 3 ml INHALATION Q4H PRN PRN Reason: SHORTNESS OF BREATH Aspirin (Aspirin 81 Mg Ec Tablet) 81 mg PO DAILY [facility] Last Admin: 09/09/21 08:08 Dose: Not Given Documented by: Atorvastatin Calcium (Atorvastatin 40 Mg Tablet) 40 mg PO BEDTIME [facility] Last Admin: 09/08/21 21:32 Dose: Not Given Documented by: Clopidogrel Bisulfate (Clopidogrel 75 Mg Tablet) 75 mg PO QAM [facility] Last Admin: 09/09/21 07:31 Dose: Not Given Documented by: Dextrose (Dextrose 50% Syringe 50 Ml) 25 ml IVP ONCE PRN; Protocol PRN Reason: hypoglycemia protocol Dextrose (Dextrose 50% Syringe 50 Ml) 50 ml IVP PRN PRN; Protocol PRN Reason: hypoglycemia protocol Furosemide (Furosemide 10 Mg/Ml Sdv 4ml) 40 mg IVP Q12H [facility] Last Admin: 09/09/21 07:37 Dose: 40 mg Documented by: Glucagon (Glucagon 1 Mg/Ml Inj 1 Ml) 1 mg IM ONCE PRN; Protocol PRN Reason: Adult Acute Hypoglycemia Prot. Heparin Sodium (Porcine) (Heparin 5,000 Unit/Ml Inj 1 Ml) 0 unit IV PRN PRN; Protocol PRN Reason: Heparin weight-base protocol Last Admin: 09/04/21 11:20 Dose: 5,000 unit Documented by: Heparin Sodium/Sodium Chloride (Heparin Drip) 25,000 unit in 500 mls @ 0 mls/hr IV .Q0M ISSAC; Protocol Last Titration: 09/05/21 05:30 Dose: 0 unit/kg/hr, 0 mls/hr Documented by: Dextrose (D5w) 500 mls @ 100 mls/hr IV ONCE PRN; Protocol PRN Reason: Adult Acute Hypoglycemia Prot Propofol (Diprivan) 1,000 mg in 100 mls @ 0 mls/hr IV .Q0M ISSAC; Protocol Last Titration: 09/08/21 14:45 Dose: 0 mcg/kg/min, 0 mls/hr Documented by: Fentanyl 2,500 mcg/ Sodium (Chloride) 250 mls @ 0 mls/hr IV .Q0M ISSAC; Protocol Last Titration: 09/08/21 12:45 Dose: 0 mcg/hr, 0 mls/hr Documented by: Norepinephrine Bitartrate 4 mg (/ Dextrose) 254 mls @ 0 mls/hr IV .Q0M ISSAC; Protocol Last Titration: 09/06/21 07:00 Dose: 0 mcg/min, 0 mls/hr Documented by: Insulin Human Lispro (Insulin Lispro 100 Unit/1 Ml) 0 unit SUBCUT WM&BEDTIME [facility]; Protocol Last Admin: 09/09/21 07:37 Dose: 6 unit Documented by: Ondansetron HCl (Ondansetron 2 Mg/Ml Sdv 2 Ml) 4 mg IVP Q6H PRN PRN Reason: NAUSEA AND VOMITING Pantoprazole Sodium (Pantoprazole 40 Mg Sdv) 40 mg IVP Q12H [facility] Last Admin: 09/09/21 07:37 Dose: 40 mg Documented by: Vitals/I&O/Wt Last Vital Signs Temp 98.2 F 09/09/21 08:00 Pulse 111 H 09/09/21 08:00 Resp 19 H 09/09/21 08:00 BP 150/86 09/09/21 08:00 Pulse Ox 97 09/09/21 08:00 09/08/21 09/09/21 09/09/21 22:59 06:59 14:59 Output Total 1550 / 1550 600 / 2150 Balance -1550 / -1199.489 -600 / -1799.489 Weight last 48 hrs Weight 102.965 kg Weight 103.873 kg Physical Exam Narrative: comfortable sitting up w/ nc02. nard vs noted heent- nc/at, eomi, anicteric neck supple lungs clear heart reg abd soft, nt, nd, + bs ext 1+ b/l leg edema neuro- a,a, o x 3 Data : 09/09/21 03:25 09/09/21 03:25 Micro: Microbiology 09/06/21 00:14 Gram Stain - Final Sputum - Endotracheal Tube Aspirate Sputum Culture - Final 09/07/21 08:55 Urine Culture - Preliminary Urine,Clean Catch A&P Assessment and plan (1) Acute kidney injury superimposed on chronic kidney disease: Status: Acute Plan evaluated via telemedicine with assistance of RN at bedside 1. Acute kidney injury: stable: ischemic, contrast, recent use of NSAIDs. Nonoliguric. I/O neg -cr improving 2. Chronic kidney disease stage 3a : baseline serum Cr 1.5 mg/dL. 3. hypernatremia - d/c lasix -please start water by mouth or iv -if sob- use metolazone or lasix and water 4. Anemia: iron deficient 5. HTN 6. DM control 7. CAD and CHFrEF Recommend: continue intermittent IV lasix Attestations Medical Necessity Statement*: s/p Cardiac arrest, JOSE, CHF Time Spent in Patient Care: 16 - 35 minutes (>than 50% of time spent in counselling and/or direct pt care on unit). 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
[2021-09-09 09:29] LABS: NT Pro B Type Natriuretic Pept 5625 pg/mL (0-125); Procalcitonin 0.48 ng/mL (0-0.5)
[2021-09-09] MEDS: sodium chloride 0.45% 1,000 ML 50 ML IV (10:24)
[2021-09-09] MEDS: metoprolol tartrate 1 mg/1 mL SDV 5 mL 5 MG IVP (10:25)
[2021-09-09] MEDS: iron sucrose 200 MG in sodium chloride 0.9% (100 ml) 100 ML 220 MG IV (10:40)
--- NOTE | 2021-09-09 11:55 | PC.CHAP ---
Pastoral Care Encounter/Spiritual Assessment Type of Contact [] Declined business travel consultant visit [] Patient/Family/Request visit [] Outpatient visit [] Follow-up visit [] Physician referral [] Code/Alert [x] Routine visit [] Staff referral [] Actively dying [x] Patient sleeping [] Family support [] [] Out of room [] Palliative care [] [] Receiving care in room [] Pre-surgical visit [] Trauma [] Long length of stay [x] ICU visit [] Other: Relational/Emotional Strength [] Patient feels connected with others/family/visitors/staff [] Distress [] Loneliness/isolation [] Abandonment Spirituality of Patient [] Person of Sailaja [] Attends Christianity of their Sailaja [] Believes in Prayer [] Reads Bible or Jain materials [] There are Spiritual issues to be addressed Copra Sampler Interventions [x] Prayer [] Active listening [] Non-anxious presence [] Spiritual/emotional support [] Crisis/trauma care [] Spiritual counseling [] Bereavement support [] Provided bereavement packet [] Provided Bible/devotional materials [] Provided toy/stuffed animal, coloring book to patient or family member [] Provided Communion [] Anointing/[place] [] Salvation [x] Completed spiritual assessment [] Other: Impact on Illness or Injury [] Angry [] Fearful [] Anxious [] Often cries [] Exhaustion [] Unable to work [] Unable to attend caodaism [] Unable to walk/stand [] Unable to read [] Unable to drive [] Unable to eat/drink [] Unable to sleep [] Unable to be with family [] Patient intubated [] Other: Summary Time spent with patient
[2021-09-09 12:15] LABS: Glucose Point of Care 273 mg/dL (70-110)
--- NOTE | 2021-09-09 12:23 | P.PN_ITS ---
Subjective Subjective: He is sitting in bed Medications: Reviewed: Yes Vitals/I&O/Wt Last Vital Signs Temp 98.2 F 09/09/21 08:00 Pulse 110 H 09/09/21 12:15 Resp 17 09/09/21 12:15 BP 145/83 09/09/21 12:15 Pulse Ox 95 09/09/21 12:15 09/08/21 09/09/21 09/09/21 22:59 06:59 14:59 Intake Total 110 / 110 Output Total 1550 / 1550 600 / 2150 Balance -1550 / -1199.489 -600 / -1799.489 110 / 110 Weight last 48 hrs Weight 227 lb Weight 229 lb Physical Exam Const: COMMON NORMALS: no acute distress, patient oriented x3 and alert G ENERAL APPEARANCE: cooperative, comfortable, well kempt and well hydrated HENMT: COMMON NORMALS: hearing grossly normal bilaterally and external ears normal FACE & SINUS: normal facial exam EXTERNAL EAR: Yes external ears normal Eye: COMMON NORMALS: EOMs intact bilaterally and no scleral icterus GENERAL EYE: appearance normal, both eyes and all related structures ALIGNMENT: Yes alignment normal Neck/C-Spine: COMMON NORMALS: supple and no JVD GENERAL: Yes normal visual inspection CAROTIDS: Yes normal carotid upstroke Chest: COMMONS NORMALS: normal inspection of the chest and normal palpation of entire chest wall CHEST: Yes Symmetrical chest wall rise and No tenderness Resp: COMMON NORMALS: clear to auscultation bilaterally EFFORT & INSPECTION: Yes able to speak in complete sentences and No respiratory distress AUSCULTATION: clear to auscultation bilaterally, no crackles, no rales, no rhonchi and no wheezes Cardio: COMMON NORMALS: no JVD, regular rate, regular rhythm, S1 normal heart sound present, S2 normal heart sound present and Peripheral pulses 2+ throughout PALPATION: normal PMI RATE: regular rate RHYTHM: regular rhythm HEART SOUNDS: S1 normal heart sound present, S2 normal heart sound present, no click, no gallops and no murmurs BRUITS: no carotid bruits PERIPHERAL PULSES: Peripheral pulses 2+ throughout, radial pulses present, posterior tibial pulses present and dorsalis pedis present GI: COMMON NORMALS: Soft to palpation AUSCULTATION: Yes normoactive bowel sounds PALPATION: Yes Soft to palpation, No Tenderness to palpation present (GI) and No Rigid due to palpation Extremity: GENERAL: No clubbing, No cyanosis, Yes edema and No pallor Neuro: COMMON NORMALS: patient oriented x3 and no focal motor deficits SENSORIUM/ORIENTATION: Yes alert Psych: COMMON NORMALS: Normal thought process present and speech normal AP PEARANCE: Yes well kempt SPEECH: Yes normal speech MOOD & AFFECT: Yes euthymic mood THOUGHT PROCESS: Normal thought process present THOUGHT CONTENT: Yes Normal thought content present Data : 09/09/21 03:25 09/09/21 17:20 Micro: Microbiology 09/07/21 08:55 Urine Culture - Final Urine,Clean Catch 09/06/21 00:14 Gram Stain - Final Sputum - Endotracheal Tube Aspirate Sputum Culture - Final A&P Assessment and plan (1) NSTEMI (non-ST elevated myocardial infarction): Status post PCI of the LAD. Cardiac catheterization revealed a nondominant right coronary artery. Mild disease in circumflex artery. High-grade lesion in the LAD, status post PCI. Currently seems to be stable hemodynamically. -started on low dose metoprolol. Status: Acute (2) Respiratory failure: Extubation yesterday. Urination good Status: Acute (3) Cardiac arrest due to underlying cardiac condition: Currently the patient has stable rhythm and vital signs. We will continue on the current measures Status: Acute (4) Acute kidney injury superimposed on chronic kidney disease: The kidney function seems to be improving. Status: Acute (5) Diabetes mellitus: Continue with aggressive treatment measures. Status: Acute (6) Hyperlipidemia: May continue on the current medications. Status: Acute (7) Anemia: Hemoglobin seems to be stable. May require further work-up Status: Acute Plan Other problems are GI bleed Leukocytosis Repeat echocardiogram once he is extubated. Consider GDMT based on the echo findings Attestations Medical Necessity Statement*: As per primary team Coding Level of Care Code Acute Guest Relations Associate for [facility] Fwd Diagnoses NSTEMI (non-ST elevated myocardial infarction) I21.4 Respiratory failure J96.90 Cardiac arrest due to underlying cardiac condition I46.2 Acute kidney injury superimposed on chronic kidney disease N17.9; N18.9 Diabetes mellitus E11.9 Hyperlipidemia E78.5 Anemia D64.9
[2021-09-09] MEDS: metoprolol tartrate 25 mg Tablet PO ×2 (12:44→21:24)
[2021-09-09 15:07] LABS: Glucose Point of Care 343 mg/dL (70-110)
--- NOTE | 2021-09-09 16:29 | PM.PN ---
Subjective Subjective: Hospital course, labs appreciated. Examination today sitting up in bed, awake and alert. Asking for something to eat states he is extremely hungry. Asked having cough with minimal swallowing. Denies any pain. Denies any nausea, vomiting, headache. Off pressors. On 2 L saturating 95%. Vitals/I&O/Wt Last Vital Signs Temp 98.2 F 09/09/21 08:00 Pulse 107 H 09/09/21 14:30 Resp 24 H 09/09/21 14:30 BP 125/76 09/09/21 14:30 Pulse Ox 95 09/09/21 14:30 09/09/21 09/09/21 09/09/21 06:59 14:59 22:59 Intake Total 350 / 350 Output Total 600 / 2150 1300 / 1300 Balance -600 / -1799.489 350 / 350 -1300 / -950 Weight last 48 hrs Weight 102.965 kg Weight 103.873 kg Physical Exam Narrative: General: No acute distress, AO x3, weak HEENT: PERRLA, pupils bilaterally equal and reactive Chest: Normal vesicular breath sounds, no added sounds, equal good air entry bilaterally CVS: S1-S2 regular, soft pansystolic murmur at apex, tachycardia, no gallops, no rubs Abdomen: Soft, nontender, no organomegaly, bowel sounds present Neuro: No focal deficits, no facial deformity, AO x3, power 3 /5 in right side Data : 09/09/21 03:25 09/09/21 03:25 Micro: Microbiology 09/07/21 08:55 Urine Culture - Final Urine,Clean Catch A&P Assessment and plan (1) Acute kidney injury superimposed on chronic kidney disease: Nephrology on board. Medical reconciliation done for nephrotoxic drugs. Renal functions trending down to stabilizing. Monitor electrolytes. Poor oral intake. Gentle IV hydration with half NS at 50 cc/h while monitoring for fluid overload. Hold off on further diuresis for today. Repeat BMP in evening. Status: Acute (2) Hypernatremia: Half NS at 50 cc/h for 1 bag. Monitor BMP in evening at 6 PM. Status: Acute (3) NSTEMI (non-ST elevated myocardial infarction): Post PCI. Denies any chest pain. Cardiology on board. Continue with aspirin, Plavix, statin. Start on metoprolol 25 mg twice daily today. Status: Acute (4) S/P PTCA (percutaneous transluminal coronary angioplasty): Status: Acute (5) Anemia: IV iron 200 mg daily for 5 days for 1 g of overall. Iron panel done earlier this admission appreciated. Will transfuse if hemoglobin trends below 8. Status: Acute (6) Respiratory failure: Resolved. Extubated /. Oxygen supplementation keeping saturation over 90%. Status: Acute (7) Cardiac arrest due to underlying cardiac condition: PT/OT/ST Out of bed to chair Status: Acute (8) Chronic kidney disease, stage II (mild): Status: Acute (9) Coronary artery disease due to type 2 diabetes mellitus: Status: Acute (10) Hyperlipidemia: Status: Acute (11) HTN (hypertension): Goal blood pressure less than 140/90 mmHg with mean over 65. Start metoprolol as above. Monitor and titrate medications accordingly. Status: Acute Plan Auguste catheter: Will replace if more than 10 days. Central line in left femoral. Will replace to peripherally for more than 7 days. Analgesia: Tylenol as needed. Glycemic control: Insulin sliding scale at high-dose protocol every 6 hours Nutrition: As per swallow evaluation CODE STATUS: Full code PUD prophylaxis: Protonix DVT prophylaxis: Start on heparin 5000 every 12 hourly. Discharge planning: Home with home health versus SNF once medically stable as per physical therapy evaluation. 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
--- NOTE | 2021-09-09 17:20 | PC.CHAP ---
Pastoral Care Encounter/Spiritual Assessment Type of Contact [] Declined broommaking supervisor visit [] Patient/Family/Request visit [] Outpatient visit [x] Follow-up visit [] Physician referral [] Code/Alert [] Routine visit [] Staff referral [] Actively dying [] Patient sleeping [] Family support [] [] Out of room [] Palliative care [] [] Receiving care in room [] Pre-surgical visit [] Trauma [] Long length of stay [x] ICU visit [] Other: Relational/Emotional Strength [x] Patient feels connected with others/family/visitors/staff [] Distress [] Loneliness/isolation [] Abandonment Spirituality of Patient [x] Person of Sailaja [] Attends Mandaeism of their Sailaja [x] Believes in Prayer [] Reads Bible or Sabianist materials [] There are Spiritual issues to be addressed Earrings Fabricator Interventions [x] Prayer [x] Active listening [x] Non-anxious presence [x] Spiritual/emotional support [] Crisis/trauma care [] Spiritual counseling [] Bereavement support [] Provided bereavement packet [] Provided Bible/devotional materials [] Provided toy/stuffed animal, coloring book to patient or family member [] Provided Communion [] Anointing/[place] [] Salvation [x] Completed spiritual assessment [] Other: Impact on Illness or Injury [] Angry [] Fearful [] Anxious [] Often cries [] Exhaustion [] Unable to work [] Unable to attend sikh [] Unable to walk/stand [] Unable to read [] Unable to drive [] Unable to eat/drink [] Unable to sleep [] Unable to be with family [] Patient intubated [] Other: Summary Patient was sitting up in bed, He wanted to thank God for being with him during his ordeal. Earrings Fabricator and patient joined hands and broommaking supervisor prayed pray of thankfulness and ask for healing and strength for patient. inquired of any other needs, none at this time. Time spent with patient 10 min
[2021-09-09] MEDS: heparin 5,000 unit/mL INJ 1 mL 5000 UNIT SUBCUT (17:47)
[2021-09-09 17:51] LABS: Anion Gap 16.5 (5-19); Blood Urea Nitrogen 38 mg/dL (8-23); Calcium 8.6 mg/dL (8.5-10.5); Carbon Dioxide 27 mmol/L (22-29); Chloride 106 mmol/L (98-107); Glomerular Filtration Rate 47.6 mL/min (90-130); Glucose 255 mg/dL (65-115); Osmolality Calculated 320 mOsm/kg (285-295); Potassium 3.5 mmol/L (3.5-5.1); Sodium 146 mmol/L (136-145)
[2021-09-09] MEDS: atorvastatin 40 mg Tablet PO (21:24)
[2021-09-09 22:08] LABS: Glucose Point of Care 273 mg/dL (70-110)
[2021-09-10] VITALS (62 sets, daily range): BP systolic 104–145; BP diastolic 65–86; PULSE 91–110; RESP 13–27; TEMP 36.7–37.1; O2SAT 92–100
[2021-09-10 02:21] LABS: Glucose Point of Care 177 mg/dL (70-110)
[2021-09-10] MEDS: insulin lispro 100 unit/1 mL SUBCUT ×4 (02:22→21:16)
[2021-09-10 04:19] LABS: Basophils # 0.1 10^3/uL (0.0-0.1); Basophils % 0.6 %; Eosinophils # 0.5 10^3/uL (0.0-0.8); Eosinophils % 4.2 %; Hematocrit 26.4 % (42.0-52.0); Hemoglobin 8.4 g/dL (11.7-16.6); Lymphocytes # 0.9 10^3/uL (0.8-4.8); Lymphocytes % 8.1 %; Mean Corpuscular HGB Conc 31.8 g/dL (30.0-36.0); Mean Corpuscular Hemoglobin 28.1 pg (28.0-34.0); Mean Corpuscular Volume 88.3 fl (80-94); Mean Platelet Volume 10.2 fL (7.4-10.4); Monocytes # 1.3 10^3/uL (0.2-0.9); Monocytes % 12.3 %; Neutrophils # 8.05 10^3/uL (1.8-7.7); Neutrophils % 74.4 %; Nucleated Red Blood Cells % 0.2 %; Platelet Count 303 10^3/cmm (130-400); Red Blood Count 2.99 10^6/uL (4.1-5.3); Red Cell Distribution Width 14.5 % (12.1-15.1); White Blood Count 10.8 10^3/uL (4.0-10.0)
[2021-09-10 04:36] LABS: Alanine Aminotransferase 41 U/L (0-41); Albumin Level 3.3 g/dL (3.5-5.2); Alkaline Phosphatase 59 IU/L (40-130); Anion Gap 14.4 (5-19); Aspartate Amino Transferase 38 U/L (0-40); Blood Urea Nitrogen 37 mg/dL (8-23); Calcium 8.9 mg/dL (8.5-10.5); Carbon Dioxide 28 mmol/L (22-29); Chloride 107 mmol/L (98-107); Chol HDL Ratio 3.84 mg/dL (1.0-5.00); Cholesterol 142 mg/dL (0-200); Globulin 3.3 g/dL (1.3-4.6); Glomerular Filtration Rate 51.5 mL/min (90-130); Glucose 174 mg/dL (65-115); HDL Cholesterol 37 mg/dL (60-100); LDL Cholesterol Calculated 66 mg/dL (50-129); Magnesium 2.7 mg/dL (1.7-2.3); Osmolality Calculated 315 mOsm/kg (285-295); Phosphorus 2.8 mg/dL (2.5-4.5); Potassium 3.4 mmol/L (3.5-5.1); Sodium 146 mmol/L (136-145); Total Bilirubin 0.3 mg/dL (0.15-1.2); Total Protein 6.6 g/dL (6.6-8.7); Triglycerides 196 mg/dL (0-150); VLDL Cholestrol Calculation 39 mg/dL (0-30)
[2021-09-10 04:40] LABS: Estmated Average Glucose 143; Hemoglobin A1C 6.6 % (4.0-6.0)
[2021-09-10] MEDS: heparin 5,000 unit/mL INJ 1 mL 5000 UNIT SUBCUT ×2 (06:05→17:34)
[2021-09-10] MEDS: pantoprazole 40 mg SDV IVP ×2 (06:05→17:34)
--- NOTE | 2021-09-10 08:12 | P.PN_ITS ---
Subjective Subjective: feels better. is starting to eat and drink. no n/v/f/c/vincent/d/leg pains Medications: Reviewed: Yes Medication Review Details: Current Medications Acetaminophen (Acetaminophen 325 Mg Tablet) 650 mg PO Q6H PRN PRN Reason: MILD PAIN Albuterol Sulfate (Albuterol 8 Gm Mdi) 2 puff INHALATION Q4H PRN PRN Reason: shortness of breath or wheezing Albuterol/Ipratropium (Ipratropium-Albuterol 3 Ml Neb) 3 ml INHALATION Q4H PRN PRN Reason: SHORTNESS OF BREATH Aspirin (Aspirin 81 Mg Ec Tablet) 81 mg PO DAILY [facility] Last Admin: 09/09/21 08:08 Dose: Not Given Documented by: Atorvastatin Calcium (Atorvastatin 40 Mg Tablet) 40 mg PO BEDTIME [facility] Last Admin: 09/09/21 21:24 Dose: 40 mg Documented by: Clopidogrel Bisulfate (Clopidogrel 75 Mg Tablet) 75 mg PO QAM [facility] Last Admin: 09/09/21 07:31 Dose: Not Given Documented by: Dextrose (Dextrose 50% Syringe 50 Ml) 25 ml IVP ONCE PRN; Protocol PRN Reason: hypoglycemia protocol Dextrose (Dextrose 50% Syringe 50 Ml) 50 ml IVP PRN PRN; Protocol PRN Reason: hypoglycemia protocol Glucagon (Glucagon 1 Mg/Ml Inj 1 Ml) 1 mg IM ONCE PRN; Protocol PRN Reason: Adult Acute Hypoglycemia Prot. Heparin Sodium (Porcine) (Heparin 5,000 Unit/Ml Inj 1 Ml) 5,000 unit SUBCUT Q12H [facility] Last Admin: 09/10/21 06:05 Dose: 5,000 unit Documented by: Dextrose (D5w) 500 mls @ 100 mls/hr IV ONCE PRN; Protocol PRN Reason: Adult Acute Hypoglycemia Prot Iron Sucrose 200 mg/ Sodium (Chloride) 110 mls @ 220 mls/hr IV Q24H [facility] Stop: 09/13/21 10:29 Last Infusion: 09/09/21 11:10 Dose: Infused Documented by: Potassium Chloride/Sodium Chloride (Sodium Chlor 0.45% +Kcl 20 Meq) 20 meq in 1,000 mls @ 50 mls/hr IV .Q20H [facility] Stop: 09/11/21 03:44 Insulin Human Lispro (Insulin Lispro 100 Unit/1 Ml) 0 unit SUBCUT Q6H [facility]; Protocol Last Admin: 09/10/21 02:22 Dose: 6 unit Documented by: Metoprolol Tartrate (Metoprolol Tartrate 25 Mg Tablet) 50 mg PO BID@0900,2100 ISSAC Ondansetron HCl (Ondansetron 2 Mg/Ml Sdv 2 Ml) 4 mg IVP Q6H PRN PRN Reason: NAUSEA AND VOMITING Pantoprazole Sodium (Pantoprazole 40 Mg Sdv) 40 mg IVP Q12H [facility] Last Admin: 09/10/21 06:05 Dose: 40 mg Documented by: Vitals/I&O/Wt Last Vital Signs Temp 98.4 F 09/09/21 19:00 Pulse 102 H 09/10/21 08:00 Resp 22 H 09/10/21 08:00 BP 132/84 09/10/21 08:00 Pulse Ox 99 09/10/21 08:00 09/09/21 09/10/21 09/10/21 22:59 06:59 14:59 Intake Total 960 / 1310 480 / 1790 Output Total 1300 / 1300 750 / 2050 Balance -340 / 10 -270 / -260 Weight last 48 hrs Weight 101.469 kg Weight 102.965 kg Physical Exam Narrative: comfortable sitting up w/ nc02. nard vs noted heent- nc/at, eomi, anicteric neck supple lungs clear heart reg, tavhycardia abd soft, nt, nd, + bs ext- minimal b/l leg edema neuro- a,a, o x 3 Data : 09/10/21 03:49 09/10/21 03:49 Micro: Microbiology 09/07/21 08:55 Urine Culture - Final Urine,Clean Catch A&P Assessment and plan (1) Acute kidney injury superimposed on chronic kidney disease: Status: Acute Plan evaluated via telemedicine with assistance of RN at bedside 1. Acute kidney injury: stable: ischemic, contrast, recent use of NSAIDs. Nonoliguric. I/O neg -cr improving 2. Chronic kidney disease stage 3a : baseline serum Cr 1.5 mg/dL. -back to baseline 3. hypernatremia - monitor w/ fluids and off of lasix 4. Anemia: iron deficient 5. HTN- well controlled 6. DM control 7. CAD and CHFrEF will see prn time spent 30 min Attestations Medical Necessity Statement*: pascale, hypernatremia- per hiospitalist Time Spent in Patient Care: 16 - 35 minutes (>than 50% of time spent in counselling and/or direct pt care on unit) . 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
[2021-09-10 08:25] LABS: Glucose Point of Care 173 mg/dL (70-110)
[2021-09-10] MEDS: sodium chlor 0.45% +KCl 20 mEq 20 MEQ/1,000 ML BAG 50 MEQ IV (08:28)
[2021-09-10] MEDS: clopidogrel 75 mg Tablet PO (08:28)
[2021-09-10] MEDS: metoprolol tartrate 25 mg Tablet 50 MG PO ×2 (08:28→21:16)
[2021-09-10] MEDS: aspirin 81 mg EC Tablet PO (08:28)
--- NOTE | 2021-09-10 09:45 | PC.CHAP ---
Pastoral Care Encounter/Spiritual Assessment Type of Contact [] Declined solo truck driver visit [] Patient/Family/Request visit [] Outpatient visit [] Follow-up visit [] Physician referral [] Code/Alert [x] Routine visit [] Staff referral [] Actively dying [] Patient sleeping [] Family support [] [] Out of room [] Palliative care [] [] Receiving care in room [] Pre-surgical visit [] Trauma [] Long length of stay [x] ICU visit [] Other: Relational/Emotional Strength [] Patient feels connected with others/family/visitors/staff [] Distress [] Loneliness/isolation [] Abandonment Spirituality of Patient [] Person of Sailaja [] Attends Christianity of their Sailaja [] Believes in Prayer [] Reads Bible or Hindu materials [] There are Spiritual issues to be addressed [employer] S[employer]er Interventions [x] Prayer [x] Active listening [x] Non-anxious presence [x] Spiritual/emotional support [] Crisis/trauma care [] Spiritual counseling [] Bereavement support [] Provided bereavement packet [] Provided Bible/devotional materials [] Provided toy/stuffed animal, coloring book to patient or family member [] Provided Communion [] Anointing/[place] [] Salvation [x] Completed spiritual assessment [] Other: Impact on Illness or Injury [] Angry [] Fearful [] Anxious [] Often cries [] Exhaustion [] Unable to work [] Unable to attend sikhism [] Unable to walk/stand [] Unable to read [] Unable to drive [] Unable to eat/drink [] Unable to sleep [] Unable to be with family [] Patient intubated [] Other: Summary patient setting up in chair... speaking with clarity and feeling stronger... Time spent with patient 5 min
[2021-09-10] MEDS: iron sucrose 200 MG in sodium chloride 0.9% (100 ml) 100 ML 220 MG IV (09:54)
--- NOTE | 2021-09-10 10:30 | PM.PN ---
Subjective Subjective: No acute events overnight. He states he is feeling a lot better. Feeling stronger. Denies any nausea, vomiting, headache. Today states he is feeling hungry and wants to eat. On morning examination patient sitting up in her chair. Medications: Reviewed: Yes Vitals/I&O/Wt Last Vital Signs Temp 98.4 F 09/09/21 19:00 Pulse 91 09/10/21 10:15 Resp 18 09/10/21 10:15 BP 111/77 09/10/21 10:15 Pulse Ox 96 09/10/21 10:15 09/09/21 09/10/21 09/10/21 22:59 06:59 14:59 Intake Total 960 / 1310 480 / 1790 366.667 / 366.667 Output Total 1300 / 1300 750 / 2050 Balance -340 / 10 -270 / -260 366.667 / 366.667 Weight last 48 hrs Weight 101.469 kg Weight 102.965 kg Physical Exam Narrative: General: No acute distress, AO x3, weak HEENT: PERRLA, pupils bilaterally equal and reactive Chest: Normal vesicular breath sounds, no added sounds, equal good air entry bilaterally CVS: S1-S2 regular, soft pansystolic murmur at apex, tachycardia, no gallops, no rubs Abdomen: Soft, nontender, no organomegaly, bowel sounds present Neuro: No focal deficits, no facial deformity, AO x3, power 3 /5 in right side Data : 09/10/21 03:49 09/10/21 03:49 Micro: Microbiology 09/07/21 08:55 Urine Culture - Final Urine,Clean Catch A&P Assessment and plan (1) Acute kidney injury superimposed on chronic kidney disease: Nephrology on board. Medical reconciliation done for nephrotoxic drugs. Renal functions trending down to stabilizing. Improving to 1.4. Monitor electrolytes. Poor oral intake. Continue with gentle IV hydration with half NS at 50 cc/h while monitoring for fluid overload. Hold off on further diuresis for today. BMP every morning Status: Acute (2) Hypernatremia: Half NS at 50 cc/h for 1 bag. Resolving. Most likely secondary to poor oral intake. Status: Acute (3) NSTEMI (non-ST elevated myocardial infarction): Post PCI. Denies any chest pain. Cardiology on board. Continue with aspirin, Plavix, statin. Increase metoprolol to 50 mg twice daily. Status: Acute (4) S/P PTCA (percutaneous transluminal coronary angioplasty): Status: Acute (5) Anemia: IV iron 200 mg daily for 5 days for 1 g of overall. Iron panel done earlier this admission appreciated. Will transfuse if hemoglobin trends below 8. Status: Acute (6) Respiratory failure: Resolved. Extubated 09/08. Oxygen supplementation keeping saturation over 90%. Status: Acute (7) Cardiac arrest due to underlying cardiac condition: PT/OT/ST Out of bed to chair Status: Acute (8) Chronic kidney disease, stage II (mild): Status: Acute (9) Coronary artery disease due to type 2 diabetes mellitus: Status: Acute (10) Hyperlipidemia: Status: Acute (11) HTN (hypertension): Goal blood pressure less than 140/90 mmHg with mean over 65. Start metoprolol as above. Monitor and titrate medications accordingly. Status: Acute Plan Auguste catheter: Will replace if more than 10 days. Central line in left femoral. Will replace to peripherally for more than 7 days. Analgesia: Tylenol as needed. Glycemic control: Insulin sliding scale at high-dose protocol every 6 hours Nutrition: As per swallow evaluation CODE STATUS: Full code PUD prophylaxis: Protonix DVT prophylaxis: Start on heparin 5000 every 12 hourly. Discharge planning: Most likely home with home health. Discussed with patient for possibility of discharge to SNF if he does not improve significantly with physical therapy. For now patient is agreeable. Case management alerted. Transfer out of ICU to [facility]. Plan for day: Out of bed to chair. Diet advance as per swallow evaluation. Physical therapy. Increase metoprolol to 50 mg twice daily. Continue with half NS with 20 mg of potassium at 50 cc/h. Transfer out of ICU. Attestations Medical Necessity Statement*: Requires further for management of postcardiac arrest care in setting of recent non-ST elevation [place] post PCI, resolving acute kidney injury while safe discharge planning is sought. Time Spent in Patient Care: Greater than 35 minutes Coding Level of Care Code Acute Inspector Tester Sorter for [facility] Fwd Diagnoses Acute kidney injury superimposed on chronic kidney disease N17.9; N18.9 Hypernatremia E87.0 NSTEMI (non-ST elevated myocardial infarction) I21.4 S/P PTCA (percutaneous transluminal coronary angioplasty) Z98.61 Anemia D64.9 Respiratory failure J96.90 Cardiac arrest due to underlying cardiac condition I46.2 Chronic kidney disease, stage II (mild) N18.2 Coronary artery disease due to type 2 diabetes mellitus E11.59; I25.10 Hyperlipidemia E78.5 HTN (hypertension) I10
--- NOTE | 2021-09-10 13:06 | P.PN_ITS ---
Subjective Subjective: He is laying in bed, He has started eating some, no chest pain Medications: Reviewed: Yes Vitals/I&O/Wt Last Vital Signs Temp 98.4 F 09/09/21 19:00 Pulse 100 09/10/21 12:15 Resp 21 H 09/10/21 12:15 BP 123/77 09/10/21 12:15 Pulse Ox 94 09/10/21 12:15 09/09/21 09/10/21 09/10/21 22:59 06:59 14:59 Intake Total 960 / 1310 480 / 1790 476.667 / 476.667 Output Total 1300 / 1300 750 / 2050 Balance -340 / 10 -270 / -260 476.667 / 476.667 Weight last 48 hrs Weight 223 lb 11.2 oz Weight 227 lb Physical Exam Const: COMMON NORMALS: no acute distress, patient oriented x3 and alert GENERAL APPEARANCE: cooperative, comfortable, well kempt and well hydrated HENMT: COMMON NORMALS: hearing grossly normal bilaterally and external ears normal FACE & SINUS: normal facial exam EXTERNAL EAR: Yes external ears normal Eye: COMMON NORMALS: EOMs intact bilaterally and no scleral icterus GENERAL EYE: appearance normal, both eyes and all related structures ALIGNMENT: Yes alignment normal Neck/C-Spine: COMMON NORMALS: supple and no JVD GENERAL: Yes normal visual inspection CAROTIDS: Yes normal carotid upstroke Chest: COMMONS NORMALS: normal inspection of the chest and normal palpation of entire chest wall CHEST: Yes Symmetrical chest wall rise and No tenderness Resp: COMMON NORMALS: clear to auscultation bilaterally AUSCULTATION: clear to auscultation bilaterally, no crackles, no rales, no rhonchi and no wheezes Cardio: COMMON NORMALS: no JVD, regular rate, regular rhythm, S1 normal heart sound present, S2 normal heart sound present and Peripheral pulses 2+ throughout PALPATION: normal PMI RATE: regular rate RHYTHM: regular rhythm HEART SOUNDS: S1 normal heart sound present, S2 normal heart sound present and no murmurs BRUITS: no carotid bruits PERIPHERAL PULSES: Peripheral pulses 2+ throughout, radial pulses present, posterior tibial pulses present and dorsalis pedis present GI: COMMON NORMALS: Soft to palpation AUSCULTATION: Yes normoactive bowel sounds PALPATION: Yes Soft to palpation and No Tenderness to palpation present (GI) Extremity: GENERAL: No cyanosis, No edema and No pallor Neuro: COMMON NORMALS: patient oriented x3 and no focal motor deficits SE NSORIUM/ORIENTATION: Yes alert Psych: COMMON NORMALS: Normal thought process present and speech normal APPEARANCE: Yes well kempt SPEECH: Yes normal speech MOOD & AFFECT: Yes euthymic mood THOUGHT PROCESS: Normal thought process present THOUGHT CONTENT: Yes Normal thought content present Data : 09/10/21 03:49 09/10/21 03:49 Micro: Microbiology 09/07/21 08:55 Urine Culture - Final Urine,Clean Catch A&P Assessment and plan (1) NSTEMI (non-ST elevated myocardial infarction): Status post PCI of the LAD. Cardiac catheterization revealed a nondominant righ t coronary artery. Mild disease in circumflex artery. High-grade lesion in the LAD, status post PCI. Currently seems to be stable hemodynamically. -tolerating metoprolol. -continue DAPT, statin. Status: Acute (2) Ischemic cardiomyopathy: LVEF=25% on [facility], plan for limited echo -may change to metoprolol succinate tomorrow -consider adding ACEI/ARB once renal function normalizes. -He will need life vest before discharge. Status: Acute (3) Cardiac arrest due to underlying cardiac condition: Currently the patient has stable rhythm and vital signs. We will continue on the current measures Status: Acute (4) Acute kidney injury superimposed on chronic kidney disease: The kidney function seems to be improving. Status: Acute (5) Diabetes mellitus: Continue with aggressive treatment measures. Status: Acute (6) Hyperlipidemia: May continue on the current medications. Status: Acute (7) Anemia: Hemoglobin seems to be stable. May require further work-up Status: Acute Plan Other problems are GI bleed Leukocytosis Attestations Medical Necessity Statement*: Needs hospital stay for NSTEMI, CHF. s/p cardiac arrest Coding Level of Care Code Acute Manager E Commerce for [facility] Fwd Exam Comprehensive Diagnoses NSTEMI (non-ST elevated myocardial infarction) I21.4 Cardiac arrest due to underlying cardiac condition I46.2 Acute kidney injury superimposed on chronic kidney disease N17.9; N18.9 Diabetes mellitus E11.9 Hyperlipidemia E78.5 Anemia D64.9 Ischemic cardiomyopathy I25.5
[2021-09-10 13:52] LABS: Glucose Point of Care 262 mg/dL (70-110)
[2021-09-10 19:31] LABS: Glucose Point of Care 231 mg/dL (70-110)
--- NOTE | 2021-09-10 20:49 | PC.NURSE ---
Patient transferred to room 260 by wheelchair. Patient handoff to nurse JYOTHI Horn
[2021-09-10 21:05] LABS: Glucose Point of Care 220 mg/dL (70-110)
[2021-09-10] MEDS: atorvastatin 40 mg Tablet PO (21:16)
[2021-09-11] VITALS (11 sets, daily range): BP systolic 120–158; BP diastolic 74–101; PULSE 74–105; RESP 17–18; TEMP 36.6–37.3; O2SAT 91–98
--- NOTE | 2021-09-11 00:13 | PC.NURSE ---
Patient was requesting to have his pereyra catheter removed because it was leaking around the balloon and giving him some discomfort. This nurse was unable to find an order for insertion of pereyra catheter. I spoke to ICU inside finisher, Mabel, to see if she was aware why they had placed the catheter downstairs. STELLA Monroe also looked through the patient's orders and could not find the insertion order as well and stated it may have been placed after his code. Upon reading through the patient's reports, this nurse had found patient had some JOSE on CKD, but Dr. Gonzalez had wrote in his report today that patient was currently at his baseline. This nurse relayed the information to Dr. Pulido and he stated to remove the patient's catheter and do a voiding trial. The catheter was removed 09/11/21 at 0005. The balloon was intact, however seem like it had been stretched out from being overinflated or re-inflated multiple times. The patient did report some discomfort and moaned in pain while removing catheter. The patient instantly had to void after the catheter had been removed, and was slightly blood streaked.
--- NOTE | 2021-09-11 00:43 | USCV_ITS ---
Fuad Priest Age: 61 Gender: M : 1960 Exam Date: 09/11/2021 00:57 Ordering Phys: Lizzeth Sifuentes MD ([email or web address]) Technologist: [email or web address] Exam Location: [facility] [place] Indication: Congestive heart failure, NSTEMI BP: 136 / 83 HR: 101 Rhythm: Sinus Technical Quality: Adequate MEASUREMENTS (Male / Female) Normal Values 2D ECHO LV Diastolic Diameter PLAX 5.1 cm 4.2 - 5.9 / 3.9 - 5.3 cm LV Systolic Diameter PLAX 4.9 cm IVS Diastolic Thickness 0.9 cm 0.6 - 1.0 / 0.6 - 0.9 cm IVS Systolic Thickness 1.0 cm LVPW Diastolic Thickness 1.1 cm 0.6 - 1.0 / 0.6 - 0.9 cm LVPW Systolic Thickness 1.2 cm LVOT Diameter 1.9 cm LV Ejection Fraction 2D Teich 11.4 % LV Ejection Fraction MOD 2C 32.6 % LV Ejection Fraction 2C AL 31.9 % LA Diameter 3.2 cm RA Width 4.8 cm RA Height 5.1 cm Aorta at Sinotubular Diameter 2.2 cm IVC Diameter 2.7 cm M-MODE Aortic Annulus Diameter 2.4 cm LA Ao Ratio MM 1.6 DOPPLER AV Peak Velocity 126.5 cm/s LVOT Peak Velocity 79.0 cm/s AV Area Cont Eq vti 2.0 cm squared AV Area Cont Eq pk 1.8 cm squared MV Peak Velocity 107.0 cm/s MV Area PHT 5.5 cm squared Mitral E to A Ratio 0.9 MV E' Velocity 51.0 cm/s Mitral E to MV E' Ratio 19.5 Mitral E to LV E' Lateral Ratio 19.1 Mitral E to LV E' Septal Ratio 19.9 TR Peak Velocity 105.5 cm/s TR Peak Gradient 4.5 mmHg TR Mean Velocity 81.3 cm/s TR Mean Gradient 2.8 mmHg TR Velocity Time Integral 23.7 cm Right Atrial Pressure 10.0 mmHg Pulmonary Artery Systolic Pressu 14.5 mmHg PV Peak Velocity 78.0 cm/s RV Acceleration Time 0.1 s RV Ejection Time 0.3 s RV AcT/ET 0.5 FINDINGS Left Ventricle Mildly dilated left ventricular cavity. Severely decreased left ventricular systolic function. Left ventricular ejection fraction is estimated at 25%. Severe global hypokinesis with relative sparing of basal inferolateral wall. Anteroseptal and apical browne seem to be akinetic. grade II diastolic dysfunction, moderately elevated filling pressures. Right Ventricle Normal right ventricular size and systolic function. Right Atrium Normal right atrial size. Right atrial pressure estimated at 8 mmHg. Left Atrium Left atrium not well visualized. Probably upper normal left atrial size. Mitral Valve Moderate mitral annular calcification. No mitral valve stenosis. Mild mitral valve regurgitation. Aortic Valve Mildly thickened and calcified aortic valve. No aortic valve stenosis. No aortic valve regurgitation. Tricuspid Valve Tricuspid valve not well visualized. Trace tricuspid valve regurgitation. Pulmonic Valve Pulmonic valve not well visualized. No pulmonary valve stenosis. Pericardium No pericardial effusion. Aorta Normal-sized aortic root. IVC Dilated IVC with normal respiratory variation. CONCLUSIONS 1. This is a technically difficult study. Optison was used per protocol. 2. Mildly dilated left ventricular cavity (LVEDD=6 cm). Severely decreased left ventricular systolic function. Left ventricular ejection fraction is estimated at 25%. Severe global hypokinesis with relative sparing of basal inferolateral wall. Anteroseptal and apical browne seem to be akinetic. Grade II diastolic dysfunction, moderately elevated filling pressures. 3. Normal right ventricular size and systolic function. 4. When compared to previous study dated 05/28/2021; left ventricular systolic function has decreased significantly. Lizzeth Sifuentes MD (Electronically Signed) Final Date: 11 September 2021 10:19 S
[2021-09-11 03:37] LABS: Glucose Point of Care 150 mg/dL (70-110)
[2021-09-11] MEDS: insulin lispro 100 unit/1 mL SUBCUT ×5 (04:01→22:02)
[2021-09-11] MEDS: heparin 5,000 unit/mL INJ 1 mL 5000 UNIT SUBCUT ×2 (04:02→18:14)
[2021-09-11 04:46] LABS: Basophils # 0.1 10^3/uL (0.0-0.1); Basophils % 0.8 %; Eosinophils # 0.5 10^3/uL (0.0-0.8); Eosinophils % 5.2 %; Hematocrit 25.1 % (42.0-52.0); Lymphocytes # 1.3 10^3/uL (0.8-4.8); Lymphocytes % 12.6 %; Mean Corpuscular HGB Conc 31.9 g/dL (30.0-36.0); Mean Corpuscular Hemoglobin 27.9 pg (28.0-34.0); Mean Corpuscular Volume 87.5 fl (80-94); Mean Platelet Volume 10.3 fL (7.4-10.4); Monocytes # 1.2 10^3/uL (0.2-0.9); Monocytes % 11.7 %; Nucleated Red Blood Cells % 0.4 %; Platelet Count 341 10^3/cmm (130-400); Red Blood Count 2.87 10^6/uL (4.1-5.3); Red Cell Distribution Width 14.3 % (12.1-15.1); White Blood Count 10.3 10^3/uL (4.0-10.0)
[2021-09-11 05:06] LABS: Alanine Aminotransferase 41 U/L (0-41); Albumin Level 3.1 g/dL (3.5-5.2); Alkaline Phosphatase 49 IU/L (40-130); Anion Gap 15.5 (5-19); Aspartate Amino Transferase 36 U/L (0-40); Blood Urea Nitrogen 34 mg/dL (8-23); Calcium 9.1 mg/dL (8.5-10.5); Carbon Dioxide 25 mmol/L (22-29); Chloride 105 mmol/L (98-107); Globulin 3.3 g/dL (1.3-4.6); Glomerular Filtration Rate 51.5 mL/min (90-130); Glucose 169 mg/dL (65-115); Osmolality Calculated 306 mOsm/kg (285-295); Potassium 3.5 mmol/L (3.5-5.1); Sodium 142 mmol/L (136-145); Total Bilirubin 0.4 mg/dL (0.15-1.2); Total Protein 6.4 g/dL (6.6-8.7)
[2021-09-11] MEDS: pantoprazole 40 mg SDV IVP ×2 (06:17→18:15)
[2021-09-11] MEDS: clopidogrel 75 mg Tablet PO (06:20)
[2021-09-11 06:30] LABS: Glucose Point of Care 170 mg/dL (70-110)
[2021-09-11] MEDS: metoprolol tartrate 25 mg Tablet 50 MG PO (08:18)
[2021-09-11] MEDS: aspirin 81 mg EC Tablet PO (08:19)
--- NOTE | 2021-09-11 10:23 | PM.PN ---
Subjective Subjective: He is laying in bed, He has started eating some, no chest pain overnight. He was transferred out of unit. c/o feeling tired; no events on telemetry Medications: Reviewed: Yes Medication Review Details: Current Medications Acetaminophen (Acetaminophen 325 Mg Tablet) 650 mg PO Q6H PRN PRN Reason: MILD PAIN Albuterol Sulfate (Albuterol 8 Gm Mdi) 2 puff INHALATION Q4H PRN PRN Reason: shortness of breath or wheezing Albuterol/Ipratropium (Ipratropium-Albuterol 3 Ml Neb) 3 ml INHALATION Q4H PRN PRN Reason: SHORTNESS OF BREATH Aspirin (Aspirin 81 Mg Ec Tablet) 81 mg PO DAILY [facility] Last Admin: 09/11/21 08:19 Dose: 81 mg Documented by: Atorvastatin Calcium (Atorvastatin 40 Mg Tablet) 40 mg PO BEDTIME [facility] Last Admin: 09/10/21 21:16 Dose: 40 mg Documented by: Clopidogrel Bisulfate (Clopidogrel 75 Mg Tablet) 75 mg PO QAM [facility] Last Admin: 09/11/21 06:20 Dose: 75 mg Documented by: Dextrose (Dextrose 50% Syringe 50 Ml) 25 ml IVP ONCE PRN; Protocol PRN Reason: hypoglycemia protocol Dextrose (Dextrose 50% Syringe 50 Ml) 50 ml IVP PRN PRN; Protocol PRN Reason: hypoglycemia protocol Glucagon (Glucagon 1 Mg/Ml Inj 1 Ml) 1 mg IM ONCE PRN; Protocol PRN Reason: Adult Acute Hypoglycemia Prot. Heparin Sodium (Porcine) (Heparin 5,000 Unit/Ml Inj 1 Ml) 5,000 unit SUBCUT Q12H [facility] Last Admin: 09/11/21 04:02 Dose: 5,000 unit Documented by: Dextrose (D5w) 500 mls @ 100 mls/hr IV ONCE PRN; Protocol PRN Reason: Adult Acute Hypoglycemia Prot Iron Sucrose 200 mg/ Sodium (Chloride) 110 mls @ 220 mls/hr IV Q24H [facility] Stop: 09/13/21 10:29 Last Infusion: 09/10/21 10:24 Dose: Infused Documented by: Sodium Chloride (Sodium Chloride 0.45%) 1,000 mls @ 50 mls/hr IV .Q20H [facility] Stop: 09/12/21 06:14 Insulin Human Lispro (Insulin Lispro 100 Unit/1 Ml) 0 unit SUBCUT Q6H [facility]; Protocol Last Admin: 09/11/21 08:19 Dose: 6 unit Documented by: Isosorbide Mononitrate (Isosorbide Mononitrate Er 30 Mg Tablet) 30 mg PO QAM [facility] Losartan Potassium (Losartan 50 Mg Tablet) 25 mg PO DAILY [facility] Metoprolol Tartrate (Metoprolol Tartrate 25 Mg Tablet) 50 mg PO BID@0900,2100 [facility] Last Admin: 09/11/21 08:18 Dose: 50 mg Documented by: Ondansetron HCl (Ondansetron 2 Mg/Ml Sdv 2 Ml) 4 mg IVP Q6H PRN PRN Reason: NAUSEA AND VOMITING Pantoprazole Sodium (Pantoprazole 40 Mg Sdv) 40 mg IVP Q12H [facility] Last Admin: 09/11/21 06:17 Dose: 40 mg Documented by: Vitals/I&O/Wt Last Vital Signs Temp 98.6 F 09/11/21 07:54 Pulse 93 09/11/21 10:21 Resp 18 09/11/21 10:21 BP 158/101 09/11/21 07:54 Pulse Ox 98 09/11/21 10:21 09/10/21 09/11/21 09/11/21 22:59 06:59 14:59 Intake Total 480 / 956.667 360 / 360 Output Total 600 / 600 Balance -120 / 356.667 360 / 360 Weight last 48 hrs Weight 223 lb 11.2 oz Physical Exam Const: COMMON NORMALS: no acute distress, patient oriented x3 and alert GENERAL APPEARANCE: cooperative, comfortable, well kempt and well hydrated HENMT: COMMON NORMALS: hearing grossly normal bilaterally and external ears normal FACE & SINUS: normal facial exam EXTERNAL EAR: Yes external ears normal Eye: COMMON NORMALS: EOMs intact bilaterally and no scleral icterus GENERAL EYE: appearance normal, both eyes and all related structures ALIGNMENT: Yes alignment normal Neck/C-Spine: COMMON NORMALS: supple and no JVD GENERAL: Yes normal visual inspection CAROTIDS: Yes normal carotid upstroke Chest: COMMONS NORMALS: normal inspection of the chest and normal palpation of entire chest wall CHEST: Yes Symmetrical chest wall rise and No tenderness Resp: COMMON NORMALS: clear to auscultation bilaterally AUSCULTATION: clear to auscultation bilaterally, no crackles, no rales, no rhonchi and no wheezes Cardio: COMMON NORMALS: no JVD, regular rate, regular rhythm, S1 normal heart sound present, S2 normal heart sound present and Peripheral pulses 2+ throughout PALPATION: normal PMI RATE: regular rate RHYTHM: regular rhythm HEART SOUNDS: S1 normal heart sound present, S2 normal heart sound present and no murmurs BRUITS: no carotid bruits PERIPHERAL PULSES: Peripheral pulses 2+ throughout, radial pulses present, posterior tibial pulses present and dorsalis pedis present GI: COMMON NORMALS: Soft to palpation AUSCULTATION: Yes normoactive bowel sounds PALPATION: Yes Soft to palpation and No Tenderness to palpation present (GI) Extremity: GENERAL: No cyanosis, No edema and No pallor Neuro: COMMON NORMALS: patient oriented x3 and no focal motor deficits SENSORIUM/ORIENTATION: Yes alert Psych: COMMON NORMALS: Normal thought process present and speech normal APPEARANCE: Yes well kempt SPEECH: Yes normal speech MOOD & AFFECT: Yes euthymic mood THOUGHT PROCESS: Normal thought process present THOUGHT CONTENT: Yes Normal thought content present Data : 09/11/21 04:25 09/11/21 04:25 A&P Assessment and plan (1) NSTEMI (non-ST elevated myocardial infarction): Status post PCI of the LAD. Cardiac catheterization revealed a nondominant right coronary artery. Mild disease in circumflex artery. High-grade lesion in the LAD, status post PCI. Currently seems to be stable hemodynamically. -tolerating metoprolol. -continue DAPT, statin. Status: Acute (2) Ischemic cardiomyopathy: LVEF=25% on [facility] and echo -change to metoprolol succinate today and low dose losartan added -He will need life vest before discharge. Status: Acute (3) Cardiac arrest due to underlying cardiac condition: Currently the patient has stable rhythm and vital signs. We will continue on the current measures Status: Acute (4) Acute kidney injury superimposed on chronic kidney disease: The kidney function seems to have stablizied. Status: Acute (5) Diabetes mellitus: Continue with aggressive treatment measures. Status: Acute (6) Hyperlipidemia: May continue on the current medications. Status: Acute (7) Anemia: Hemoglobin seems to be stable. May require further work-up Status: Acute Plan Deconditioning Mild leucocytosis GI bleed Attestations Medical Necessity Statement*: Possible discharge in 1-2 days Coding Level of Care Code Acute Scrapper for [facility] Diagnoses NSTEMI (non-ST elevated myocardial infarction) I21.4 Ischemic cardiomyopathy I25.5 Cardiac arrest due to underlying cardiac condition I46.2 Acute kidney injury superimposed on chronic kidney disease N17.9; N18.9 Diabetes mellitus E11.9 Hyperlipidemia E78.5 Anemia D64.9
[2021-09-11 11:13] LABS: Glucose Point of Care 289 mg/dL (70-110)
[2021-09-11] MEDS: iron sucrose 200 MG in sodium chloride 0.9% (100 ml) 100 ML 220 MG IV (11:17)
[2021-09-11] MEDS: losartan 50 mg Tablet 25 MG PO (11:17)
[2021-09-11] MEDS: sodium chloride 0.45% 1,000 ML 50 ML IV (11:18)
--- NOTE | 2021-09-11 12:54 | PM.PN ---
Subjective Subjective: No acute events overnight. Today morning seen with friend at bedside on MedSurg floor. Patient states he is feeling a lot better. Denies any nausea, vomiting, headache. Continues to do better with physical and speech therapy. Has remained hemodynamically stable and afebrile on room air. Blood pressure slightly elevated today. Vitals/I&O/Wt Last Vital Signs Temp 97.9 F 09/11/21 11:51 Pulse 74 09/11/21 11:51 Resp 18 09/11/21 11:51 BP 120/78 09/11/21 11:51 Pulse Ox 98 09/11/21 11:51 09/10/21 09/11/21 09/11/21 22:59 06:59 14:59 Intake Total 480 / 956.667 470 / 470 Output Total 600 / 600 Balance -120 / 356.667 470 / 470 Weight last 48 hrs Weight 102.92 kg Weight 101.469 kg Physical Exam Narrative: General: No acute distress, AO x3, weak HEENT: PERRLA, pupils bilaterally equal and reactive Chest: Normal vesicular breath sounds, no added sounds, equal good air entry bilaterally CVS: S1-S2 regular, soft pansystolic murmur at apex, tachycardia, no gallops, no rubs Abdomen: Soft, nontender, no organomegaly, bowel sounds present Neuro: No focal deficits, no facial deformity, AO x3, power 3 /5 in right side Data : 09/11/21 04:25 09/11/21 04:25 A&P Assessment and plan (1) Acute kidney injury superimposed on chronic kidney disease: Nephrology on board. Medical reconciliation done for nephrotoxic drugs. Renal functions trending down to stabilizing. Improving to 1.4. Monitor electrolytes. Oral intake improving. Half NS at 75 cc for 500cc for 1 more day. BMP every morning Status: Acute (2) Hypernatremia: Half NS at 50 cc/h for 1 bag. Resolving. Most likely secondary to poor oral intake. Status: Acute (3) NSTEMI (non-ST elevated myocardial infarction): Post PCI. Denies any chest pain. Cardiology on board. Continue with aspirin, Plavix, statin. Increase metoprolol to 50 mg twice daily. Status: Acute (4) S/P PTCA (percutaneous transluminal coronary angioplasty): Status: Acute (5) Anemia: IV iron 200 mg daily for 5 days for 1 g of overall. Iron panel done earlier this admission appreciated. Will transfuse if hemoglobin trends below 8. Status: Acute (6) Respiratory failure: Resolved. Extubated 09/08. Oxygen supplementation keeping saturation over 90%. Status: Acute (7) Cardiac arrest due to underlying cardiac condition: PT/OT/ST Out of bed to chair Status: Acute (8) Chronic kidney disease, stage II (mild): Status: Acute (9) Coronary artery disease due to type 2 diabetes mellitus: Status: Acute (10) Hyperlipidemia: Status: Acute (11) HTN (hypertension): Goal blood pressure less than 140/90 mmHg with mean over 65. Start metoprolol as above. Monitor and titrate medications accordingly. Status: Acute Plan Analgesia: Tylenol as needed. Glycemic control: Insulin sliding scale at high-dose protocol every 6 hours Nutrition: As per swallow evaluation CODE STATUS: Full code PUD prophylaxis: Protonix DVT prophylaxis: Start on heparin 5000 every 12 hourly. Discharge planning: Discussed in detail with patient again asked requested by caregiver. Discussed again regarding SNF versus home health. Patient would like to continue with the plan of home health for now. Counseled that if he thinks about assisted as an outpatient he can always reach back to us or to his primary care provider. Plan to discharge within next 24 hours. Plan for day: Continue physical therapy, speech therapy. Advance diet accordingly. Continue with metoprolol 50 mg twice daily. Add losartan 25 mg daily for now. Monitor blood pressure. If continues to remain over target of 140/90 mmHg we will add home dose of Imdur. Appreciate echocardiogram. Patient will most likely need LifeVest to be arranged prior to discharge. Switch insulin sliding scale to before meals and at bedtime. Attestations Medical Necessity Statement*: Requires further hospitalization for post cardiac arrest care in a patient with non-ST elevation SD post PCI while safe discharge planning is sought. 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
[2021-09-11 17:08] LABS: Glucose Point of Care 249 mg/dL (70-110)
--- NOTE | 2021-09-11 19:23 | PC.NURSE ---
Report to Justina ROE at this time.
[2021-09-11 21:28] LABS: Glucose Point of Care 229 mg/dL (70-110)
[2021-09-11] MEDS: atorvastatin 40 mg Tablet PO (22:01)
[2021-09-11] MEDS: metoprolol succinate ER (24 HR) 50 mg Tablet PO (22:01)
[2021-09-12] VITALS (13 sets, daily range): BP systolic 126–151; BP diastolic 76–84; PULSE 75–110; RESP 16–18; TEMP 36.5–36.9; O2SAT 92–97
[2021-09-12] MEDS: clopidogrel 75 mg Tablet PO (05:47)
[2021-09-12] MEDS: heparin 5,000 unit/mL INJ 1 mL 5000 UNIT SUBCUT ×2 (05:47→17:24)
[2021-09-12] MEDS: pantoprazole 40 mg SDV IVP ×2 (06:12→19:24)
[2021-09-12 06:20] LABS: Glucose Point of Care 154 mg/dL (70-110)
[2021-09-12] MEDS: losartan 50 mg Tablet 25 MG PO (09:57)
[2021-09-12] MEDS: aspirin 81 mg EC Tablet PO (09:57)
[2021-09-12] MEDS: metoprolol succinate ER (24 HR) 50 mg Tablet PO ×2 (09:57→20:09)
[2021-09-12 10:22] LABS: Basophils # 0.1 10^3/uL (0.0-0.1); Basophils % 0.6 %; Eosinophils # 0.5 10^3/uL (0.0-0.8); Eosinophils % 4.5 %; Hematocrit 26.2 % (42.0-52.0); Hemoglobin 8.4 g/dL (11.7-16.6); Lymphocytes % 9.3 %; Mean Corpuscular HGB Conc 32.1 g/dL (30.0-36.0); Mean Corpuscular Hemoglobin 28.2 pg (28.0-34.0); Mean Corpuscular Volume 87.9 fl (80-94); Mean Platelet Volume 10.4 fL (7.4-10.4); Monocytes # 1.2 10^3/uL (0.2-0.9); Monocytes % 10.7 %; Neutrophils # 7.96 10^3/uL (1.8-7.7); Neutrophils % 73.6 %; Nucleated Red Blood Cells # 0.1 /100WBC; Nucleated Red Blood Cells % 0.5 %; Platelet Count 326 10^3/cmm (130-400); Red Blood Count 2.98 10^6/uL (4.1-5.3); Red Cell Distribution Width 14.3 % (12.1-15.1); White Blood Count 10.8 10^3/uL (4.0-10.0)
[2021-09-12] MEDS: insulin lispro 100 unit/1 mL SUBCUT ×4 (10:24→20:14)
[2021-09-12 10:35] LABS: Alanine Aminotransferase 34 U/L (0-41); Albumin Level 3.1 g/dL (3.5-5.2); Alkaline Phosphatase 64 IU/L (40-130); Anion Gap 16.7 (5-19); Aspartate Amino Transferase 30 U/L (0-40); Blood Urea Nitrogen 25 mg/dL (8-23); Calcium 9.1 mg/dL (8.5-10.5); Carbon Dioxide 24 mmol/L (22-29); Chloride 101 mmol/L (98-107); Globulin 3.4 g/dL (1.3-4.6); Glomerular Filtration Rate 56.1 mL/min (90-130); Glucose 234 mg/dL (65-115); Magnesium 1.7 mg/dL (1.7-2.3); Osmolality Calculated 298 mOsm/kg (285-295); Phosphorus 3.4 mg/dL (2.5-4.5); Potassium 3.7 mmol/L (3.5-5.1); Sodium 138 mmol/L (136-145); Total Bilirubin 0.5 mg/dL (0.15-1.2); Total Protein 6.5 g/dL (6.6-8.7)
[2021-09-12] MEDS: iron sucrose 200 MG in sodium chloride 0.9% (100 ml) 100 ML 220 MG IV (11:07)
[2021-09-12 12:08] LABS: Glucose Point of Care 243 mg/dL (70-110)
--- NOTE | 2021-09-12 15:37 | PM.PN ---
Subjective Subjective: No acute vents overnight. Patient has remained hemodynamically stable and afebrile. Continues to remain on room air. Today states he is slightly winded on talking more than yesterday. Working well with physical therapy. Spouse at bedside. Today both the spouse and the patient tells me that he is willing and wants to go to SNF for further rehabitation as if he falls at home is possible not be able to pick him up. Vitals/I&O/Wt Last Vital Signs Temp 98.5 F 09/12/21 12:00 Pulse 91 09/12/21 12:00 Resp 16 09/12/21 12:00 BP 127/80 09/12/21 12:00 Pulse Ox 97 09/12/21 12:00 09/12/21 09/12/21 09/12/21 06:59 14:59 22:59 Intake Total 500 / 1210 590 / 590 Output Total 840 / 840 Balance -340 / 370 590 / 590 Weight last 48 hrs Weight 103.011 kg Weight 102.92 kg Physical Exam Narrative: General: No acute distress, AO x3, weak HEENT: PERRLA, pupils bilaterally equal and reactive Chest: Normal vesicular breath sounds, no added sounds, equal good air entry bilaterally CVS: S1-S2 regular, soft pansystolic murmur at apex, tachycardia, no gallops, no rubs Abdomen: Soft, nontender, no organomegaly, bowel sounds present Neuro: No focal deficits, no facial deformity, AO x3, power 3 /5 in right side Data : 09/12/21 10:00 09/12/21 10:00 A&P Assessment and plan (1) Acute kidney injury superimposed on chronic kidney disease: Nephrology on board. Medical reconciliation done for nephrotoxic drugs. Renal functions trending down to stabilizing Monitor electrolytes. Oral intake improving. Stop IV fluids BMP every morning Status: Acute (2) NSTEMI (non-ST elevated myocardial infarction): Post PCI. Denies any chest pain. Cardiology on board. Continue with aspirin, Plavix, statin. Increase metoprolol to 50 mg twice daily. Status: Acute (3) S/P PTCA (percutaneous transluminal coronary angioplasty): Status: Acute (4) Anemia: IV iron 200 mg daily for 5 days for 1 g of overall. Day 4/5 today. Iron panel done earlier this admission appreciated. Will transfuse if hemoglobin trends below 8. Status: Acute (5) Respiratory failure: Resolved. Extubated 09/08. Oxygen supplementation keeping saturation over 90%. Status: Acute (6) Cardiac arrest due to underlying cardiac condition: PT/OT/ST Out of bed to chair Status: Acute (7) Chronic kidney disease, stage II (mild): Status: Acute (8) Coronary artery disease due to type 2 diabetes mellitus: Status: Acute (9) Hyperlipidemia: Status: Acute (10) HTN (hypertension): Goal blood pressure less than 140/90 mmHg with mean over 65. Continue metoprolol, Cozaar. Monitor and titrate medications accordingly. Status: Acute (11) Hypernatremia: Resolved. Status: Acute (12) Ischemic cardiomyopathy: Echocardiogram shows an EF of 25%. Will adjust heart failure regimen as per vitals and kidney functions. Will need LifeVest on discharge. Lasix 40 mg daily. Status: Acute Plan Analgesia: Tylenol as needed. Glycemic control: Insulin sliding scale at high-dose protocol every 6 hours Nutrition: As per swallow evaluation CODE STATUS: Full code PUD prophylaxis: Protonix DVT prophylaxis: Start on heparin 5000 every 12 hourly. Discharge planning: Today patient states he would rather go to SNF then home with home health as if he causes possible number to pick him up. Case management alerted. Will need LifeVest on discharge. Plan to discharge to SNF once accepted. Plan for day: Plan for the day. Continue to monitor blood pressures. Continue metoprolol 50 mg twice daily, Cozaar 25 mg daily. Add Lasix 40 mg daily. Monitor BMP. Patient will need LifeVest on discharge given EF of 25%. Attestations Medical Necessity Statement*: Requires further hospitalization for post cardiac arrest care in a patient with non-ST elevation DC post PCI while safe discharge planning is sought. 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
[2021-09-12] MEDS: FUROsemide 40 mg Tablet PO (15:47)
--- NOTE | 2021-09-12 16:05 | P.PN_ITS ---
Subjective Subjective: He is laying in bed, No chest pain overnight. No events on telemetry Medications: Reviewed: Yes Medication Review Details: Current Medications Acetaminophen (Acetaminophen 325 Mg Tablet) 650 mg PO Q6H PRN PRN Reason: MILD PAIN Albuterol Sulfate (Albuterol 8 Gm Mdi) 2 puff INHALATION Q4H PRN PRN Reason: shortness of breath or wheezing Albuterol/Ipratropium (Ipratropium-Albuterol 3 Ml Neb) 3 ml INHALATION Q4H PRN PRN Reason: SHORTNESS OF BREATH Aspirin (Aspirin 81 Mg Ec Tablet) 81 mg PO DAILY [facility] Last Admin: 09/11/21 08:19 Dose: 81 mg Documented by: Atorvastatin Calcium (Atorvastatin 40 Mg Tablet) 40 mg PO BEDTIME [facility] Last Admin: 09/10/21 21:16 Dose: 40 mg Documented by: Clopidogrel Bisulfate (Clopidogrel 75 Mg Tablet) 75 mg PO QAM [facility] Last Admin: 09/11/21 06:20 Dose: 75 mg Documented by: Dextrose (Dextrose 50% Syringe 50 Ml) 25 ml IVP ONCE PRN; Protocol PRN Reason: hypoglycemia protocol Dextrose (Dextrose 50% Syringe 50 Ml) 50 ml IVP PRN PRN; Protocol PRN Reason: hypoglycemia protocol Glucagon (Glucagon 1 Mg/Ml Inj 1 Ml) 1 mg IM ONCE PRN; Protocol PRN Reason: Adult Acute Hypoglycemia Prot. Heparin Sodium (Porcine) (Heparin 5,000 Unit/Ml Inj 1 Ml) 5,000 unit SUBCUT Q12H [facility] Last Admin: 09/11/21 04:02 Dose: 5,000 unit Documented by: Dextrose (D5w) 500 mls @ 100 mls/hr IV ONCE PRN; Protocol PRN Reason: Adult Acute Hypoglycemia Prot Iron Sucrose 200 mg/ Sodium (Chloride) 110 mls @ 220 mls/hr IV Q24H [facility] Stop: 09/13/21 10:29 Last Infusion: 09/10/21 10:24 Dose: Infused Documented by: Sodium Chloride (Sodium Chloride 0.45%) 1,000 mls @ 50 mls/hr IV .Q20H [facility] Stop: 09/12/21 06:14 Insulin Human Lispro (Insulin Lispro 100 Unit/1 Ml) 0 unit SUBCUT Q6H [facility]; Protocol Last Admin: 09/11/21 08:19 Dose: 6 unit Documented by: Isosorbide Mononitrate (Isosorbide Mononitrate Er 30 Mg Tablet) 30 mg PO QAM [facility] Losartan Potassium (Losartan 50 Mg Tablet) 25 mg PO DAILY [facility] Metoprolol Tartrate (Metoprolol Tartrate 25 Mg Tablet) 50 mg PO BID@0900,2100 [facility] Last Admin: 09/11/21 08:18 Dose: 50 mg Documented by: Ondansetron HCl (Ondansetron 2 Mg/Ml Sdv 2 Ml) 4 mg IVP Q6H PRN PRN Reason: NAUSEA AND VOMITING Pantoprazole Sodium (Pantoprazole 40 Mg Sdv) 40 mg IVP Q12H [facility] Last Admin: 09/11/21 06:17 Dose: 40 mg Documented by: Vitals/I&O/Wt Last Vital Signs Temp 98.5 F 09/12/21 12:00 Pulse 91 09/12/21 12:00 Resp 16 09/12/21 12:00 BP 127/80 09/12/21 12:00 Pulse Ox 97 09/12/21 12:00 09/12/21 09/12/21 09/12/21 06:59 14:59 22:59 Intake Total 500 / 1210 590 / 590 Output Total 840 / 840 Balance -340 / 370 590 / 590 Weight last 48 hrs Weight 227 lb 1.6 oz Weight 226 lb 14.4 oz Physical Exam Const: COMMON NORMALS: no acute distress, patient oriented x3 and alert GENERAL APPEARANCE: cooperative, comfortable, well kempt and well hydrated HENMT: COMMON NORMALS: hearing grossly normal bilaterally and external ears normal FACE & SINUS: normal facial exam EXTERNAL EAR: Yes external ears normal Eye: COMMON NORMALS: EOMs intact bilaterally and no scleral icterus GENERAL EYE: appearance normal, both eyes and all related structures ALIGNMENT: Yes alignment normal Neck/C-Spine: COMMON NORMALS: supple and no JVD GENERAL: Yes normal visual inspection CAROTIDS: Yes normal carotid upstroke Chest: COMMONS NORMALS: normal inspection of the chest and normal palpation of entire chest wall CHEST: Yes Symmetrical chest wall rise and No tenderness Resp: COMMON NORMALS: clear to auscultation bilaterally EFFORT & I NSPECTION: Yes able to speak in complete sentences and No respiratory distress AUSCULTATION: clear to auscultation bilaterally, no crackles, no rales, no rhonchi and no wheezes Cardio: COMMON NORMALS: no JVD, regular rate, regular rhythm, S1 normal heart sound present, S2 normal heart sound present and Peripheral pulses 2+ throughout PALPATION: normal PMI RATE: regular rate RHYTHM: regular rhythm HEART SOUNDS: S1 normal heart sound present, S2 normal heart sound present and no murmurs BRUITS: no carotid bruits PERIPHERAL PULSES: Peripheral pulses 2+ throughout, radial pulses present, posterior tibial pulses present and dorsalis pedis present GI: COMMON NORMALS: Soft to palpation AUSCULTATION: Yes normoactive bowel sounds PALPATION: Yes Soft to palpation and No Tenderness to palpation present (GI) Extremity: GENERAL: No cyanosis, No edema and No pallor Neuro: COMMON NORMALS: patient oriented x3 and no focal motor deficits SENSORIUM/ORIENTATION: Yes alert Psych: COMMON NORMALS: Normal thought process present and speech normal APPEARANCE: Yes well kempt SPEECH: Yes normal speech MOOD & AFFECT: Yes euthymic mood THOUGHT PROCESS: Normal thought process present THOUGHT CONTENT: Yes Normal thought content present Data : 09/12/21 10:00 09/12/21 10:00 A&P Assessment and plan (1) NSTEMI (non-ST elevated myocardial infarction): Status post PCI of the LAD. Cardiac catheterization revealed a nondominant right coronary artery. Mild disease in circumflex artery. High-grade lesion in the LAD, status post PCI. Currently seems to be stable hemodynamically. -tolerating metoprolol. -continue DAPT, statin. Status: Acute (2) Ischemic cardiomyopathy: LVEF=25% on LHC and echo -change to metoprolol succinate today and low dose losartan added -He will need life vest before discharge. Status: Acute (3) Cardiac arrest due to underlying cardiac condition: Currently the patient has stable rhythm and vital signs. We will continue on the current measures Status: Acute (4) Acute kidney injury superimposed on chronic kidney disease: The kidney function seems to have stablizied. Status: Acute (5) Diabetes mellitus: Continue with aggressive treatment measures. Status: Acute (6) Hyperlipidemia: May continue on the current medications. Status: Acute (7) Anemia: Hemoglobin seems to be stable. 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 Diagnoses NSTEMI (non-ST elevated myocardial infarction) I21.4 Ischemic cardiomyopathy I25.5 Cardiac arrest due to underlying cardiac condition I46.2 Acute kidney injury superimposed on chronic kidney disease N17.9; N18.9 Diabetes mellitus E11.9 Hyperlipidemia E78.5 Anemia D64.9
[2021-09-12 17:12] LABS: Glucose Point of Care 244 mg/dL (70-110)
[2021-09-12] MEDS: atorvastatin 40 mg Tablet PO (20:09)
[2021-09-12] MEDS: trazodone 150 mg Tablet 75 MG PO (20:10)
[2021-09-12 20:18] LABS: Glucose Point of Care 276 mg/dL (70-110)
[2021-09-13] VITALS (11 sets, daily range): BP systolic 119–144; BP diastolic 72–85; PULSE 87–103; RESP 16–18; TEMP 36.5–37; O2SAT 90–98
[2021-09-13 04:31] LABS: Alanine Aminotransferase 37 U/L (0-41); Alkaline Phosphatase 65 IU/L (40-130); Anion Gap 15.5 (5-19); Aspartate Amino Transferase 25 U/L (0-40); Blood Urea Nitrogen 23 mg/dL (8-23); Calcium 8.9 mg/dL (8.5-10.5); Carbon Dioxide 26 mmol/L (22-29); Chloride 103 mmol/L (98-107); Globulin 2.9 g/dL (1.3-4.6); Glomerular Filtration Rate 61.6 mL/min (90-130); Glucose 218 mg/dL (65-115); Osmolality Calculated 302 mOsm/kg (285-295); Potassium 3.5 mmol/L (3.5-5.1); Sodium 141 mmol/L (136-145); Total Bilirubin 0.3 mg/dL (0.15-1.2); Total Protein 5.9 g/dL (6.6-8.7)
[2021-09-13] MEDS: clopidogrel 75 mg Tablet PO (06:36)
[2021-09-13] MEDS: pantoprazole 40 mg SDV IVP ×2 (06:36→22:25)
[2021-09-13 06:37] LABS: Glucose Point of Care 220 mg/dL (70-110)
[2021-09-13] MEDS: heparin 5,000 unit/mL INJ 1 mL 5000 UNIT SUBCUT ×2 (06:37→17:49)
[2021-09-13] MEDS: FUROsemide 40 mg Tablet PO (07:58)
[2021-09-13] MEDS: insulin lispro 100 unit/1 mL SUBCUT ×4 (07:59→21:50)
[2021-09-13] MEDS: metoprolol succinate ER (24 HR) 50 mg Tablet PO (08:02)
[2021-09-13] MEDS: aspirin 81 mg EC Tablet PO (08:02)
[2021-09-13] MEDS: losartan 50 mg Tablet 25 MG PO (08:02)
[2021-09-13] MEDS: iron sucrose 200 MG in sodium chloride 0.9% (100 ml) 100 ML 220 MG IV (11:23)
[2021-09-13 12:01] LABS: Glucose Point of Care 266 mg/dL (70-110)
--- NOTE | 2021-09-13 13:00 | P.DS_ITS ---
Discharge Providers Date of Admission: 09/04/21 18:31 Date of Discharge: September 13, 2021 Attending Provider at Admission: Nas Marks MD Attending Provider at Discharge: Myles Quarles MD Consults: Cardiology: Dr. Bolton/Dr. Sifuentes Nephrology Primary Care Provider: John Paul Fox DO Diagnoses at Discharge Discharge Diagnosis (1) NSTEMI (non-ST elevated myocardial infarction): Status: Acute (2) Ischemic cardiomyopathy: Status: Acute (3) Cardiac arrest due to underlying cardiac condition: Status: Acute (4) Acute kidney injury superimposed on chronic kidney disease: Status: Acute (5) Diabetes mellitus: Status: Acute (6) Hyperlipidemia: Status: Acute (7) Anemia: Status: Acute Reason for Visit Reason for Visit: chest pain Brief History: History as per HPI: Admitted on 09/04. Fuad Priest is a 61 year old male with who has a history of coronary artery disease and had 3 stents placed several years ago while he was living in [place].? He is also a diabetic with dyslipidemia.? He was well until 3 days ago when he started getting short of breath and having chest pain with very little exertion.? It was relieved with rest and nitroglycerin.? He has no stamina.? He has been short of breath when he tries to lie flat.? He has had multiple nitroglycerin over the last several days.? He tells me that he has taken at least 10 in the last 3 days.? He also told me that he has had some blood per rectum a week or so ago.? He had 3 episodes of this.? He has been given Nitropaste, 4 aspirin and is being started on heparin.? His first troponin is 239.? His EKG is unremarkable and is stable from previous tracings.? It shows some left ventricular hypertrophy with an old anterior wall NV and a possible old inferior wall NV.? His last echo was May 28 of this year showing mild global hypokinesis with an ejection fraction of 50%. Hospital Course Hospital Course Patient admitted to hospital further evaluation and management of non-ST elevation NV. He was started on dual antiplatelet, heparin drip and beta- héctor. Cardiology was consulted. On admission he was found to have borderl ine low hemoglobin for which he was transfused 1 unit of PRBC. Patient underwent cardiac angiogram on 09/05 where he was found to have severe underlying two-vessel coronary disease in the distribution of the LAD with severe left ventricular dysfunction with an EF of 25% with elevated EDP of 50 mmHg. Underwent PCI to LAD as he was not a surgical candidate due to the small nature of the LAD with virtually no flow to mid vessel. Before he left the [employer] patient had stent occlusion after which he went into flash pulmonary edema and PEA cardiac arrest. Patient had multiple rounds of ACLS protocol CPR. He was intubated started on vasopressors and transferred to ICU. He achieved ROSC after multiple rounds of CPR. Post code he also developed acute kidney injury for which nephrology was consulted. Eventually patient was extubated on 09/08. Since extubation patient has made steady progress in his physical therapy, speech therapy. He has been evaluated by all teams regularly and has been making steady progress. Echocardiogram was done which showed severely dilated LV cavity with EF of 25%, severe global hypokinesia with relative sparing of the basal inferior lateral wall, grade 2 diastolic dysfunction with moderately elevated filling pressures. During the course of the hospitalization his heart failure medications have been adjusted. His creatinine has trended down to normal during hospitalization. He has been working better with physical therapy. On the day of discharge he is able to walk up to 20 feet with physical therapy. He is currently doing well with soft mechanical diet. Multiple safe discharge plans were discussed in detail with patient and patient's caregiver and family. At first patient wanted to go home with home health but later changed his mind and wanted to be placed to SNF. While placement to SNF is awaited patient change his mind again and decided to go to home with home health due to high co-pay. Home health has been arranged. [facility] has been arranged. Physical Exam Narrative: General: No acute distress, AO x3, weak HEENT: PERRLA, pupils bilaterally equal and reactive Chest: Normal vesicular breath sounds, no added sounds, equal good air entry bilaterally CVS: S1-S2 regular, soft pansystolic murmur at apex, tachycardia, no gallops, no rubs Abdomen: Soft, nontender, no organomegaly, bowel sounds present Neuro: No focal deficits, no facial deformity, AO x3, power 3 /5 in right side Discharge Data Studies Completed and Pending Completed Studies During Hospitalization Category Date Time Status SOCIAL MEDIA COORDINATOR request for service Routine Exams 09/05/21 09:14 Completed CXRP [XR chest 1V portable [id number]] Routine Exams 09/05/21 20:05 Completed CXRP [XR chest 1V portable [id number]] Routine Exams 09/08/21 09:24 Completed XR chest 1V portable [id number] Routine Exams 09/05/21 12:14 Completed XR chest 1V portable [id number] Routine Exams 09/06/21 07:00 Completed XR chest 1V portable [id number] Routine Exams 09/07/21 07:00 Completed XR chest 1V portable [id number] Stat Exams 09/04/21 07:22 [place] [id number] Routine Ultrasound 09/07/21 22:58 Completed CV. echo wo/w contrast [id number] Routine Ultrasound 09/11/21 00:43 Completed Radiology Impressions Chest X-Ray 09/08/21 09:24 IMPRESSION: Mild hazy atelectasis in the lung bases. The aeration of the lungs has improved since previous radiograph. Echocardiogram: IVC ?Dilated IVC with normal respiratory variation. ?CONCLUSIONS ?1. This is a technically difficult study.? Optison was used per ?protocol. ?2. Mildly dilated left ventricular cavity (LVEDD=6 cm). Severely ?decreased left ventricular systolic function. Left ventricular ?ejection fraction is estimated at 25%.? Severe global ?hypokinesis with relative sparing of basal inferolateral wall. ?Anteroseptal and apical browne seem to be akinetic. Grade II ?diastolic dysfunction, moderately elevated filling pressures. ?3. Normal right ventricular size and systolic function. ?4. When compared to previous study dated 05/28/2021; left ?ventricular systolic function has decreased significantly. ?Lizzeth Sifuentes MD ?(Electronically Signed) ?Final Date:? ? ? 11 September 2021 ? 10:19 Laboratory Results WBC 10.8 10^3/uL (4.0-10.0) H 09/12/21 10:00 RBC 2.98 10^6/uL (4.1-5.3) L 09/12/21 10:00 Hgb 8.4 g/dL (11.7-16.6) L 09/12/21 10:00 Hct 26.2 % (42.0-52.0) L 09/12/21 10:00 MCV 87.9 fl (80-94) 09/12/21 10:00 MCH 28.2 pg (28.0-34.0) 09/12/21 10:00 MCHC 32.1 g/dL (30.0-36.0) 09/12/21 10:00 RDW 14.3 % (12.1-15.1) 09/12/21 10:00 Plt Count 326 10^3/cmm (130-400) 09/12/21 10:00 MPV 10.4 fL (7.4-10.4) 09/12/21 10:00 Neut % (Auto) 73.6 % 09/12/21 10:00 Lymph % (Auto) 9.3 % 09/12/21 10:00 Archuleta % (Auto) 10.7 % 09/12/21 10:00 Eos % (Auto) 4.5 % 09/12/21 10:00 Baso % (Auto) 0.6 % 09/12/21 10:00 Reticulocyte % (Auto) 3.6 % (0.5-2.0) H 09/04/21 07:50 Neut # (Auto) 7.96 10^3/uL (1.8-7.7) H 09/12/21 10:00 Lymph # (Auto) 1.0 10^3/uL (0.8-4.8) 09/12/21 10:00 Archuleta # (Auto) 1.2 10^3/uL (0.2-0.9) H 09/12/21 10:00 Eos # (Auto) 0.5 10^3/uL (0.0-0.8) 09/12/21 10:00 Baso # (Auto) 0.1 10^3/uL (0.0-0.1) 09/12/21 10:00 Nucleated RBC % (auto) 0.5 % 09/12/21 10:00 Nucleated RBCs # 0.1 /100WBC 09/12/21 10:00 Haptoglobin 216.0 mg/L (30-200) H 09/04/21 07:50 APTT 45.8 SECONDS (23.9-36.7) H 09/05/21 06:13 Specimen Type Arterial 09/07/21 03:25 Sample Site Not specified 09/07/21 03:25 ABG pH 7.42 (7.35-7.45) 09/07/21 03:25 ABG pCO2 34.0 mmHg (35-45) L 09/07/21 03:25 ABG pO2 63.3 mmHg (80.0-100.0) L 09/07/21 03:25 ABG HCO3 22.1 mmol/L (22-26) 09/07/21 03:25 ABG O2 Saturation 94.7 09/05/21 16:35 ABG Base Excess -2.1 mmol/L (-2.0-2.0) L 09/07/21 03:25 Regino Test N/a 09/07/21 03:25 A-a O2 Gradient 31.3 mmHg (5-10) H 09/05/21 16:35 Hematocrit 21.9 % (42-52) L 09/07/21 03:25 Hgb O2 Saturation 93.5 % (95-100) L 09/05/21 16:35 Carboxyhemoglobin 0.8 %THgb (0.4-20.1) 09/05/21 16:35 Methemoglobin 0.5 % (0.4-1.5) 09/05/21 16:35 Total Hemoglobin 8.5 g/dL (14-18) L 09/05/21 16:35 Sodium 143.0 mmol/L (131-143) 09/05/21 16:35 Potassium 4.0 mmol/L (3.5-5.0) 09/05/21 16:35 Glucose 244.0 mg/dL (70-115) H 09/05/21 16:35 Ionized Calcium 1.2 mmol/L (1.1-1.4) 09/05/21 16:35 Respiration Rate 20.0 % 09/05/21 16:35 O2 Delivery Device Vent 09/07/21 03:25 O2 Liters/Min 15.0 % 09/05/21 12:14 Vent Mode Ac/vc 09/05/21 16:35 FiO2 40.0 % 09/07/21 03:25 Tidal Volume 0.50 09/07/21 03:25 PEEP 8.0 cmH20 09/07/21 03:25 Specimen Drawn By Harsh 09/05/21 16:35 Indirect Sales Representative ID Hinja 09/07/21 03:25 Sodium 141 mmol/L (136-145) 09/13/21 03:04 Potassium 3.5 mmol/L (3.5-5.1) 09/13/21 03:04 Chloride 103 mmol/L (98-107) 09/13/21 03:04 Carbon Dioxide 26 mmol/L (22-29) 09/13/21 03:04 Anion Gap 15.5 (5-19) 09/13/21 03:04 BUN 23 mg/dL (8-23) 09/13/21 03:04 Creatinine 1.2 mg/dL (0.7-1.2) 09/13/21 03:04 GFR Calculation 61.6 mL/min (90-130) L 09/13/21 03:04 Glucose 218 mg/dL (65-115) H 09/13/21 03:04 POC Glucose 266 mg/dL (70-110) H 09/13/21 11:59 Estimat Average Glucose 143 09/10/21 03:49 Hemoglobin A1c 6.6 % (4.0-6.0) H 09/10/21 03:49 Calculated Osmolality 302 mOsm/kg (285-295) H 09/13/21 03:04 Calcium 8.9 mg/dL (8.5-10.5) 09/13/21 03:04 Phosphorus 3.4 mg/dL (2.5-4.5) 09/12/21 10:00 Magnesium 1.7 mg/dL (1.7-2.3) 09/12/21 10:00 Iron 34 ug/dL (59-158) L 09/04/21 07:50 TIBC 363 mcg/dl 09/04/21 07:50 % Saturation 9.3 % (20-50) L 09/04/21 07:50 Unsat Iron Binding 329 ug/dL (112-347) 09/04/21 07:50 Total Bilirubin 0.3 mg/dL (0.15-1.2) 09/13/21 03:04 AST 25 U/L (0-40) 09/13/21 03:04 ALT 37 U/L (0-41) 09/13/21 03:04 Alkaline Phosphatase 65 IU/L (40-130) 09/13/21 03:04 Troponin T Baseline 239 ng/L (0-15) H* 09/04/21 07:50 Troponin T 120 Minute 246.2 ng/L (0-15) H 09/04/21 09:50 Delta Troponin T 7.2 ABS# (0-10) 09/04/21 09:50 Troponin T Hi Sens 6Hr 250.9 ng/L (0-15) H 09/04/21 14:40 Troponin T Hi Sens 6Hr Delta 11.9 ng/L (0-12) 09/04/21 14:40 NT-Pro-B Natriuret Pep 5625 pg/mL (0-125) H 09/09/21 03:25 Total Protein 5.9 g/dL (6.6-8.7) L 09/13/21 03:04 Albumin 3.0 g/dL (3.5-5.2) L 09/13/21 03:04 Globulin 2.9 g/dL (1.3-4.6) 09/13/21 03:04 Triglycerides 196 mg/dL (0-150) H 09/10/21 03:49 Cholesterol 142 mg/dL (0-200) 09/10/21 03:49 LDL Cholesterol, Calc 66 mg/dL (50-129) 09/10/21 03:49 Total VLDL Cholesterol 39 mg/dL (0-30) H 09/10/21 03:49 HDL Cholesterol 37 mg/dL (60-100) L 09/10/21 03:49 Cholesterol/HDL Ratio 3.84 mg/dL (1.0-5.00) 09/10/21 03:49 Vitamin B12 570 pg/mL (232-1245) 09/04/21 07:50 Folate 19.7 ng/mL (4.5-32.2) 09/04/21 09:50 Procalcitonin 0.48 ng/mL (0-0.5) 09/09/21 03:25 TSH 1.89 uIU/mL (0.27-4.20) 09/04/21 09:50 Urine Color Yellow (Yellow) 09/07/21 08:55 Urine Appearance Clear (CLEAR) 09/07/21 08:55 Urine pH 5 (5-7) 09/07/21 08:55 Ur Specific Kinder 1.020 (1.005-1.030) 09/07/21 08:55 Urine Protein Neg (Negative) 09/07/21 08:55 Urine Glucose (UA) Norm (Normal) 09/07/21 08:55 Urine Ketones 1+ (Negative) H 09/07/21 08:55 Urine Blood 3+ (Negative) H 09/07/21 08:55 Urine Nitrate Negative (Negative) 09/07/21 08:55 Urine Bilirubin Neg (Negative) 09/07/21 08:55 Urine Urobilinogen Norm mg/dL (Negative) 09/07/21 08:55 Ur Leukocyte Esterase Negative (Negative) 09/07/21 08:55 Urine RBC 25-40 /hpf (0-2) H 09/07/21 08:55 Urine WBC 0-4 /hpf (0-5) H 09/07/21 08:55 Ur Squamous Epith Cells Rare /hpf (0-5) 09/07/21 08:55 Uric Acid Crystals 5-10 /hpf H 09/07/21 08:55 Amorphous Sediment Not Reportable 09/07/21 08:55 Urine Bacteria 2+ /hpf (NONE) H 09/07/21 08:55 Urine Mucus 1+ /hpf 09/07/21 08:55 Blood Type O Positive 09/04/21 09:50 Rho(D) Type Positive 09/04/21 09:50 Antibody Screen Negative 09/04/21 09:50 Crossmatch See Detail 09/04/21 09:50 Procedures Performed Cardiac angiogram and PCI: Conclusions ? 1. Severe underlying two-vessel coronary artery disease with recent non-ST segment elevation NV in the distribution of the LAD.? Severe left ventricular dysfunction with ejection fraction 25% and elevated end-diastolic pressure of at least 50 mmHg.? Stenting of the LAD resulted in acute closure of the LAD, significant congestive heart failure, flash pulmonary edema and cardiac arrest.? Patient was resuscitated and taken to the ICU.? Family made aware. Recommendations ? * Medical therapy after resuscitation. Interventional RX Recommendation: ? ? PCI w/o planned CABG Diagnostic RX Recommendation: ? ? PCI w/o planned CABG Anticoagulation: ? ? Heparin LV EDP: ? ? 50 mmHg Ventriculography Ejection Fraction: ? ? 25.0 % Left Ventriculography Findings: ? * Severe hypokinesis of the anterolateral wall, anterobasal wall, mid inferior wall and inferior base. Pressures ? ? Phase:Rest ? ? AO :? 159 / 93 ( 100 )? @ 10:56:00 AM ? 149 / 59 ( 82 )? @ 10:56:00 AM ? 173 / 84 ( 102 )? @ 10:56:00 AM ? / ( 6 )? @ 11:02:00 AM ? 130 / 74 ( 99 )? @ 11:05:00 AM ? 139 / 100 ( 113 )? @ 11:05:00 AM ? / ( 3 )? @ 11:09:00 AM ? 106 / 83 ( 95 )? @ 11:21:00 AM ? 105 / 94 ( 97 )? @ 11:24:00 AM ? 1 / -1 ( 0 )? @ 12:00:00 PM ? 0 / -1 ( 0 )? @ 12:00:00 PM ? 106 / 75 ( 88 )? @ 12:04:00 PM ? 70 / 59 ( 65 )? @ 12:13:00 PM ? 74 / 64 ( 69 )? @ 12:13:00 PM ? 75 / 64 ( 69 )? @ 12:13:00 PM ? 84 / 71 ( 77 )? @ 12:18:00 PM ? 91 / 71 ( 80 )? @ 12:21:00 PM ? 83 / 65 ( 73 )? @ 12:24:00 PM ? 52 / 37 ( 48 )? @ 12:29:00 PM ? 36 / 32 ( 34 )? @ 12:32:00 PM ? 124 / 112 ( 119 )? @ 12:35:00 PM ? 171 / 139 ( 156 )? @ 12:38:00 PM ? 30 / 1 ( 9 )? @ 12:42:00 PM ? ? LV :? 137 / 17 / 55? @ 10:54:00 AM ? 142 / 32 / 61? @ 10:55:00 AM ? 148 / 36 / 43? @ 10:55:00 AM ? 145 / 47 / 18? @ 10:56:00 AM ? 142 / 42 / 71? @ 11:04:00 AM ? 114 / 10 / 48? @ 11:05:00 AM ? 139 / 41 / 76? @ 11:05:00 AM Valves ? ? Phase:DefaultPhase ? ? AV :? 0.0? @ 11:54:05 AM ? ? AV Mean Gradient:? 0.0? @ 11:54:05 AM Vitals Last Vital Signs Temp 98.1 F 09/13/21 11:42 Pulse 92 09/13/21 11:42 Resp 18 09/13/21 11:42 BP 122/76 09/13/21 11:42 Pulse Ox 90 09/13/21 11:42 Discharge Plan Discharge Patient Disposition: Home Health Service Condition: Stable Prescriptions: New losartan 50 mg Tablet 25 mg PO DAILY Qty: 30 0RF furosemide 40 mg Tablet 40 mg PO DAILY@0800 Qty: 30 0RF metoprolol succinate 50 mg Tablet Extended Release 24 Hr 75 mg PO 0900,2100 Qty: 90 0RF aspirin 81 mg Tablet,Delayed Release (Dr/Ec) 81 mg PO DAILY Qty: 30 0RF Celexa 20 mg tablet 20 mg PO DAILY Qty: 30 0RF Protonix 40 mg tablet,delayed release (DR/EC) 40 mg PO BID 14 Days Qty: 28 0RF Carafate 1 gram tablet 1 g PO BID 28 Days Qty: 56 0RF spironolactone 25 mg tablet 12.5 mg PO DAILY Qty: 30 0RF Continued atorvastatin 40 mg tablet 40 mg PO BEDTIME 0RF clopidogrel [Plavix] 75 mg tablet 75 mg PO QAM 0RF metformin 850 mg tablet 850 mg PO BID 0RF multivitamin Tablet 1 tab PO QAM 0RF nitroglycerin [Nitrostat] 0.3 mg Tablet, Sublingual 0.3 mg SUBLINGUAL Q5M PRN (Reason: Chest Pain) 0RF fenofibrate nanocrystallized 145 mg tablet 145 mg PO QAM 0RF Victoza 3-Jesús 0.6 mg/0.1 mL (18 mg/3 mL) pen injector 1.8 mg SUBCUT QAM 0RF Basaglar KwikPen U-100 Insulin 100 unit/mL (3 mL) insulin pen 55 unit SUBCUT QAM 0RF cholecalciferol (vitamin D3) [Vitamin D3] 125 mcg (5,000 unit) Tablet 125 mcg PO QAM 0RF albuterol sulfate 90 mcg/actuation HFA aerosol inhaler 2 puff inhalation Q4H PRN (Reason: shortness of breath or wheezing) 0RF Changed Cj Frazier U-100 Insulin 100 unit/mL (3 mL) insulin pen 40 unit SUBCUT QAM Qty: 0 0RF Discontinued isosorbide mononitrate 30 mg tablet extended release 24 hr 30 mg PO QAM 0RF pantoprazole 20 mg tablet,delayed release (DR/EC) 20 mg PO QAM 0RF metoprolol tartrate 50 mg tablet See Rx Instructions PO BID Qty: 270 2RF Rx Instructions: TAKE 2 TABLETS (100mg) IN THE MORNING AND 1 TABLET (50mg) IN THE EVENING naproxen sodium [Aleve] 220 mg Tablet 440 mg PO Q12H PRN (Reason: Pain) 0RF losartan 100 mg tablet 100 mg PO QAM 0RF aspirin 325 mg Tablet 325 mg PO QAM 0RF amlodipine 5 mg tablet 5 mg PO QAM 0RF Discharge Orders: Discharge Order (Routine); Ordered 09/13/21 Ordered By: Myles Quarles Ref[facility]: [facility]) [Outside] John Paul Fox DO [Primary Care Provider] - 4-7 days Kelsey Becerra FNP [Nurse Practitioner] - 4-7 days Lizzeth Sifuentes MD [Physician] - 2 weeks Discharge Diet: Cardiac, Diabetic and Soft Mechanical Discharge Activity: Resume usual activity and Increase activity as tolerated Patient Instructions: Opioid Safety Activity Restrictions/Additional Instructions: Continue taking mechanical soft cardiac diabetic diet. Increase your activity daily. Home health with physical therapy has been arranged for you. Please continue to wear your LifeVest. Please follow-up with cardiology nurse practitioner within next [address] Sifuentes from cardiology within next 1 month. Please try to restrict your fluid intake up to 1.5 to 2 L/day. Restrict your salt intake up to 2 g. Please abstain from smoking, alcohol intake. Multiple medication changes have been done. Going forward for now until directed otherwise by your medical outpatient team take metoprolol succinate 75 mg 2 times daily, Cozaar 25 mg 1 time daily, Lasix 40 mg 1 time daily, spironolactone 12.5 mg 1 time daily, aspirin 81 mg daily, Plavix 75 mg daily. Discharge Attestations Time Spent in Discharge Care*: greater than 30 min Specific Discharge Activities: educating patient, educating and/or supporting family/caregiver, discussing with pcp/other providers, discussing with pillowcase cleaner/social workers/dc planners, documenting/other paperwork and evaluating patient/reviewing data Status at Discharge: Cognitive status at discharge: cognitively intact , Behavioral status at discharge: cooperative , Functional status at discharge: uses cane/walker , Overall status at discharge: patient is progressing back to baseline Quality Metrics Clinical Quality Measures [ Acute Myocardial Infaction { Clinical Trial Participant: No; Contraindication to aspirin: None; Aspirin prescribed; Contraindication to statin: None; Statin prescribed; Contraindication to PCI: None; PCI performed;}] Coding Level of Care Code Acute Chg FW DC note History Comprehensive Exam Comprehensive Medical Decision Making High Complexity Diagnoses NSTEMI (non-ST elevated myocardial infarction) I21.4 Ischemic cardiomyopathy I25.5 Cardiac arrest due to underlying cardiac condition I46.2 Acute kidney injury superimposed on chronic kidney disease N17.9; N18.9 Diabetes mellitus E11.9 Hyperlipidemia E78.5 Anemia D64.9 Time Spent (min) 90
--- NOTE | 2021-09-13 13:43 | P.PN_ITS ---
Subjective Subjective: He feels well but has a lot of questions about what was done during angiogram. Why was his chest not cracked open. Why was artificial heart not placed? Medications: Reviewed: Yes Vitals/I&O/Wt Last Vital Signs Temp 98.1 F 09/13/21 11:42 Pulse 92 09/13/21 11:42 Resp 18 09/13/21 11:42 BP 122/76 09/13/21 11:42 Pulse Ox 90 09/13/21 11:42 09/12/21 09/13/21 09/13/21 22:59 06:59 14:59 Intake Total 240 / 830 1070 / 1070 Output Total 200 / 200 350 / 550 300 / 300 Balance 40 / 630 -350 / 280 770 / 770 Weight last 48 hrs Weight 278 lb 3.2 oz Weight 227 lb 1.6 oz Physical Exam Const: COMMON NORMALS: no acute distress, patient oriented x3 and alert GENERAL APPEARANCE: cooperative, comfortable, well kempt and well hydrated HENMT: COMMON NORMALS: hearing grossly normal bilaterally and external ears normal FACE & SINUS: normal facial exam EXTERNAL EAR: Yes external ears normal Eye: COMMON NORMALS: EOMs intact bilaterally and no scleral icterus GENERAL EYE: appearance normal, both eyes and all related structures ALIGNMENT: Yes alignment normal Neck/C-Spine: COMMON NORMALS: supple and no JVD GENERAL: Yes normal visual inspection CAROTIDS: Yes normal carotid upstroke Chest: COMMONS NORMALS: normal inspection of the chest and normal palpation of entire chest wall CHEST: Yes Symmetrical chest wall rise and No tenderness Resp: COMMON NORMALS: clear to auscultation bilaterally EFFORT & INSPECTION: Yes able to speak in complete sentences and No respiratory distress AUSCULTATION: clear to auscultation bilaterally, no crackles, no rales, no rhonchi and no wheezes Cardio: COMMON NORMALS: no JVD, regular rate, regular rhythm, S1 normal heart sound present, S2 normal heart sound present and Peripheral pulses 2+ throughout PALPATION: normal PMI RATE: regular rate RHYTHM: regular rhythm HEART SOUNDS: S1 normal heart sound present, S2 normal heart sound present and no murmurs BRUITS: no carotid bruits PERIPHERAL PULSES: Peripheral pulses 2+ throughout, radial pulses present, posterior tibial pulses present and dorsalis pedis present GI: COMMON NORMALS: Soft to palpation AUSCULTATION: Yes normoactive bowel sounds PALPATION: Yes Soft to palpation and No Tenderness to palpation present (GI) Extremity: GENERAL: No cyanosis, No edema and No pallor Neuro: COMMON NORMALS: patient oriented x3 and no focal motor deficits SENSORIUM/ORIENTATION: Yes alert Psych: COMMON NORMALS: Normal thought process present and speech normal APPEARANCE: Yes well kempt SPEECH: Yes normal speech MOOD & AFFECT: Yes euthymic mood THOUGHT PROCESS: Normal thought process present THOUGHT CONTENT: Yes Normal thought content present Data : 09/12/21 10:00 09/13/21 03:04 A&P Assessment and plan (1) NSTEMI (non-ST elevated myocardial infarction): Status post PCI of the LAD. Cardiac catheterization revealed a nondominant right coronary artery. Mild disease in circumflex artery. High-grade lesion in the LAD, status post PCI. Currently seems to be stable hemodynamically. -tolerating metoprolol. -continue DAPT, statin. Status: Acute (2) Ischemic cardiomyopathy: LVEF=25% on LHC and echo -On metoprolol succinate, losartan and aldactone added. -Awaiting life vest before discharge. Status: Acute (3) Cardiac arrest due to underlying cardiac condition: Currently the patient has stable rhythm and vital signs. We will continue on the current measures Status: Acute (4) Acute kidney injury superimposed on chronic kidney disease: The kidney function seems to have stablizied. Status: Acute (5) Diabetes mellitus: Continue with aggressive treatment measures. Status: Acute (6) Hyperlipidemia: May continue on the current medications. Status: Acute (7) Anemia: Hemoglobin seems to be stable. May require further work-up Status: Acute Plan Deconditioning Mild leucocytosis GI bleed Attestations Medical Necessity Statement*: As per primary team Coding Level of Care Code Acute Clothes Model for [facility] Fwd Exam Comprehensive Diagnoses NSTEMI (non-ST elevated myocardial infarction) I21.4 Ischemic cardiomyopathy I25.5 Cardiac arrest due to underlying cardiac condition I46.2 Acute kidney injury superimposed on chronic kidney disease N17.9; N18.9 Diabetes mellitus E11.9 Hyperlipidemia E78.5 Anemia D64.9
[2021-09-13 16:33] LABS: Glucose Point of Care 304 mg/dL (70-110)
[2021-09-13] MEDS: metoprolol succinate ER (24 HR) 50 mg Tablet 75 MG PO (21:49)
[2021-09-13] MEDS: atorvastatin 40 mg Tablet PO (21:50)
[2021-09-13] MEDS: insulin glargine 100 units/1 mL 20 UNIT SUBCUT (21:50)
[2021-09-13 22:22] LABS: Glucose Point of Care 315 mg/dL (70-110)
[2021-09-14] VITALS (9 sets, daily range): BP systolic 125–148; BP diastolic 78–88; PULSE 88–104; RESP 16–18; TEMP 36.9–37; O2SAT 90–100
[2021-09-14] MEDS: trazodone 150 mg Tablet 75 MG PO (01:08)
[2021-09-14] MEDS: heparin 5,000 unit/mL INJ 1 mL 5000 UNIT SUBCUT ×2 (06:26→17:34)
[2021-09-14] MEDS: clopidogrel 75 mg Tablet PO (06:26)
[2021-09-14 06:37] LABS: Glucose Point of Care 140 mg/dL (70-110)
[2021-09-14] MEDS: aspirin 81 mg EC Tablet PO (08:22)
[2021-09-14] MEDS: FUROsemide 40 mg Tablet PO (08:22)
[2021-09-14] MEDS: losartan 50 mg Tablet 25 MG PO (08:22)
[2021-09-14] MEDS: metoprolol succinate ER (24 HR) 50 mg Tablet 75 MG PO ×2 (08:22→21:49)
[2021-09-14] MEDS: pantoprazole 40 mg SDV IVP ×2 (08:23→21:51)
[2021-09-14 11:48] LABS: Glucose Point of Care 231 mg/dL (70-110)
[2021-09-14] MEDS: insulin lispro 100 unit/1 mL SUBCUT ×3 (11:54→21:53)
--- NOTE | 2021-09-14 16:07 | P.PN_ITS ---
Subjective Subjective: Had been discharged yesterday but could not Giurgius patient could not get LifeVest fitted or approved. No acute events otherwise overnight. Has remained hemodynamically stable and afebrile. Currently seen sitting in chair. States feeling better. Working better with physical therapy. Vitals/I&O/Wt Last Vital Signs Temp 98.4 F 09/14/21 12:00 Pulse 97 09/14/21 14:00 Resp 17 09/14/21 12:00 BP 125/79 09/14/21 12:00 Pulse Ox 100 09/14/21 12:00 09/14/21 09/14/21 09/14/21 06:59 14:59 22:59 Intake Total 240 / 240 Output Total 300 / 1100 200 / 200 Balance -300 / 1050 40 / 40 Weight last 48 hrs Weight 106.339 kg Weight 126.189 kg Physical Exam Narrative: General: No acute distress, AO x3, weak HEENT: PERRLA, pupils bilaterally equal and reactive Chest: Normal vesicular breath sounds, no added sounds, equal good air entry bilaterally CVS: S1-S2 regular, soft pansystolic murmur at apex, tachycardia, no gallops, no rubs Abdomen: Soft, nontender, no organomegaly, bowel sounds present Neuro: No focal deficits, no facial deformity, AO x3, power 3 /5 in right side Data : 09/12/21 10:00 09/13/21 03:04 A&P Assessment and plan (1) NSTEMI (non-ST elevated myocardial infarction): Post PCI. Denies any chest pain. Cardiology on board. Continue with aspirin, Plavix, statin. Increase metoprolol to 50 mg twice daily. Status: Acute (2) Ischemic cardiomyopathy: Echocardiogram shows an EF of 25%. Will adjust heart failure regimen as per vitals and kidney functions. Will need LifeVest on discharge. Lasix 40 mg daily. Status: Acute (3) Cardiac arrest due to underlying cardiac condition: PT/OT/ST Out of bed to chair Status: Acute (4) Acute kidney injury superimposed on chronic kidney disease: Nephrology on board. Medical reconciliation done for nephrotoxic drugs. Renal functions trending down to stabilizing Monitor electrolytes. Oral intake improving. Stop IV fluids BMP every morning Status: Acute (5) Diabetes mellitus: Status: Acute (6) Hyperlipidemia: Status: Acute (7) Anemia: Status: Acute Plan Analgesia: Tylenol as needed. Glycemic control: Insulin sliding scale at high-dose protocol every 6 hours Nutrition: As per swallow evaluation CODE STATUS: Full code PUD prophylaxis: Protonix DVT prophylaxis: Start on heparin 5000 every 12 hourly. Discharge planning: Today patient states he would rather go to SNF then home with home health as if he causes possible number to pick him up. Case management alerted. Will need LifeVest on discharge. Plan to discharge to SNF once accepted. Plan for day: Monitor blood pressures, input output. Awaiting LifeVest arrangement. Goal blood pressure less than 140/90 mmHg. If elevated will increase dose of losartan. Repeat CBC and CMP in a.m. 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 Fwd Diagnoses NSTEMI (non-ST elevated myocardial infarction) I21.4 Ischemic cardiomyopathy I25.5 Cardiac arrest due to underlying cardiac condition I46.2 Acute kidney injury superimposed on chronic kidney disease N17.9; N18.9 Diabetes mellitus E11.9 Hyperlipidemia E78.5 Anemia D64.9
[2021-09-14 17:35] LABS: Glucose Point of Care 304 mg/dL (70-110)
[2021-09-14 20:33] LABS: Glucose Point of Care 341 mg/dL (70-110)
[2021-09-14] MEDS: atorvastatin 40 mg Tablet PO (21:50)
[2021-09-14] MEDS: insulin glargine 100 units/1 mL 20 UNIT SUBCUT (21:52)
[2021-09-15] VITALS (13 sets, daily range): BP systolic 114–144; BP diastolic 67–86; PULSE 61–102; RESP 16–19; TEMP 36.5–37; O2SAT 94–98
[2021-09-15 04:20] LABS: Basophils # 0.1 10^3/uL (0.0-0.1); Basophils % 0.5 %; Eosinophils # 0.5 10^3/uL (0.0-0.8); Eosinophils % 3.8 %; Hematocrit 27.2 % (42.0-52.0); Hemoglobin 8.5 g/dL (11.7-16.6); Lymphocytes # 1.7 10^3/uL (0.8-4.8); Lymphocytes % 14.2 %; Mean Corpuscular HGB Conc 31.3 g/dL (30.0-36.0); Mean Corpuscular Hemoglobin 28.1 pg (28.0-34.0); Mean Corpuscular Volume 90.1 fl (80-94); Monocytes # 1.3 10^3/uL (0.2-0.9); Monocytes % 10.7 %; Neutrophils # 8.33 10^3/uL (1.8-7.7); Neutrophils % 69.7 %; Nucleated Red Blood Cells % 0.2 %; Platelet Count 359 10^3/cmm (130-400); Red Blood Count 3.02 10^6/uL (4.1-5.3); Red Cell Distribution Width 15.9 % (12.1-15.1)
[2021-09-15 04:43] LABS: Alanine Aminotransferase 31 U/L (0-41); Albumin Level 3.5 g/dL (3.5-5.2); Alkaline Phosphatase 69 IU/L (40-130); Anion Gap 14.6 (5-19); Aspartate Amino Transferase 19 U/L (0-40); Blood Urea Nitrogen 21 mg/dL (8-23); Calcium 9.3 mg/dL (8.5-10.5); Carbon Dioxide 27 mmol/L (22-29); Chloride 100 mmol/L (98-107); Globulin 2.9 g/dL (1.3-4.6); Glomerular Filtration Rate 56.1 mL/min (90-130); Glucose 126 mg/dL (65-115); Osmolality Calculated 291 mOsm/kg (285-295); Potassium 3.6 mmol/L (3.5-5.1); Sodium 138 mmol/L (136-145); Total Bilirubin 0.4 mg/dL (0.15-1.2); Total Protein 6.4 g/dL (6.6-8.7)
[2021-09-15] MEDS: clopidogrel 75 mg Tablet PO (05:05)
[2021-09-15] MEDS: heparin 5,000 unit/mL INJ 1 mL 5000 UNIT SUBCUT ×2 (05:06→17:01)
[2021-09-15 06:30] LABS: Glucose Point of Care 156 mg/dL (70-110)
[2021-09-15 07:49] LABS: NT Pro B Type Natriuretic Pept 10408 pg/mL (0-125)
[2021-09-15] MEDS: metoprolol succinate ER (24 HR) 50 mg Tablet 100 MG PO ×2 (08:09→21:19)
[2021-09-15] MEDS: losartan 50 mg Tablet 25 MG PO (08:09)
[2021-09-15] MEDS: FUROsemide 40 mg Tablet PO (08:10)
[2021-09-15] MEDS: aspirin 81 mg EC Tablet PO (08:10)
[2021-09-15] MEDS: pantoprazole 40 mg SDV IVP ×2 (08:10→22:28)
[2021-09-15] MEDS: insulin lispro 100 unit/1 mL SUBCUT ×3 (08:10→21:19)
--- NOTE | 2021-09-15 10:24 | P.PN_ITS ---
Subjective Subjective: No new complaints. Feels better with physical therapy. Will possibly get LifeVest approved and fitted on Thursday; Medications: Reviewed: Yes Medication Review Details: Current Medications Acetaminophen (Acetaminophen 325 Mg Tablet) 650 mg PO Q6H PRN PRN Reason: MILD PAIN Albuterol Sulfate (Albuterol 8 Gm Mdi) 2 puff INHALATION Q4H PRN PRN Reason: shortness of breath or wheezing Albuterol/Ipratropium (Ipratropium-Albuterol 3 Ml Neb) 3 ml INHALATION Q4H PRN PRN Reason: SHORTNESS OF BREATH Aspirin (Aspirin 81 Mg Ec Tablet) 81 mg PO DAILY REPLACED BY [facility] Last Admin: 09/11/21 08:19 Dose: 81 mg Documented by: Atorvastatin Calcium (Atorvastatin 40 Mg Tablet) 40 mg PO BEDTIME REPLACED BY [facility] Last Admin: 09/10/21 21:16 Dose: 40 mg Documented by: Clopidogrel Bisulfate (Clopidogrel 75 Mg Tablet) 75 mg PO QAM REPLACED BY [facility] Last Admin: 09/11/21 06:20 Dose: 75 mg Documented by: Dextrose (Dextrose 50% Syringe 50 Ml) 25 ml IVP ONCE PRN; Protocol PRN Reason: hypoglycemia protocol Dextrose (Dextrose 50% Syringe 50 Ml) 50 ml IVP PRN PRN; Protocol PRN Reason: hypoglycemia protocol Glucagon (Glucagon 1 Mg/Ml Inj 1 Ml) 1 mg IM ONCE PRN; Protocol PRN Reason: Adult Acute Hypoglycemia Prot. Heparin Sodium (Porcine) (Heparin 5,000 Unit/Ml Inj 1 Ml) 5,000 unit SUBCUT Q12H REPLACED BY [facility] Last Admin: 09/11/21 04:02 Dose: 5,000 unit Documented by: Dextrose (D5w) 500 mls @ 100 mls/hr IV ONCE PRN; Protocol PRN Reason: Adult Acute Hypoglycemia Prot Iron Sucrose 200 mg/ Sodium (Chloride) 110 mls @ 220 mls/hr IV Q24H REPLACED BY [facility] Stop: 09/13/21 10:29 Last Infusion: 09/10/21 10:24 Dose: Infused Documented by: Sodium Chloride (Sodium Chloride 0.45%) 1,000 mls @ 50 mls/hr IV .Q20H REPLACED BY [facility] Stop: 09/12/21 06:14 Insulin Human Lispro (Insulin Lispro 100 Unit/1 Ml) 0 unit SUBCUT Q6H REPLACED BY [facility]; Protocol Last Admin: 09/11/21 08:19 Dose: 6 unit Documented by: Isosorbide Mononitrate (Isosorbide Mononitrate Er 30 Mg Tablet) 30 mg PO QAM REPLACED BY [facility] Losartan Potassium (Losartan 50 Mg Tablet) 25 mg PO DAILY REPLACED BY [facility] Metoprolol Tartrate (Metoprolol Tartrate 25 Mg Tablet) 50 mg PO BID@0900,2100 REPLACED BY [facility] Last Admin: 09/11/21 08:18 Dose: 50 mg Documented by: Ondansetron HCl (Ondansetron 2 Mg/Ml Sdv 2 Ml) 4 mg IVP Q6H PRN PRN Reason: NAUSEA AND VOMITING Pantoprazole Sodium (Pantoprazole 40 Mg Sdv) 40 mg IVP Q12H REPLACED BY [facility] Last Admin: 09/11/21 06:17 Dose: 40 mg Documented by: Vitals/I&O/Wt Last Vital Signs Temp 98.3 F 09/15/21 07:29 Pulse 84 09/15/21 08:51 Resp 18 09/15/21 08:51 BP 134/78 09/15/21 08:09 Pulse Ox 96 09/15/21 08:51 09/14/21 09/15/21 09/15/21 22:59 06:59 14:59 Intake Total 240 / 240 Output Total 600 / 800 150 / 950 Balance -600 / -560 -150 / -710 240 / 240 Weight last 48 hrs Weight 238 lb 3.2 oz Weight 234 lb 7 oz Physical Exam Const: COMMON NORMALS: no acute distress, patient oriented x3 and alert GENERAL APPEARANCE: cooperative, comfortable, well kempt and well hydrated HENMT: COMMON NORMALS: hearing grossly normal bilaterally and external ears normal FACE & SINUS: normal facial exam EXTERNAL EAR: Yes external ears normal Eye: COMMON NORMALS: EOMs intact bilaterally and no scleral icterus GENERAL EYE: appearance normal, both eyes and all related structures ALIGNMENT: Yes alignment normal Neck/C-Spine: COMMON NORMALS: supple and no JVD GENERAL: Yes normal visual inspection CAROTIDS: Yes normal carotid upstroke Chest: COMMONS NORMALS: normal inspection of the chest and normal palpation of entire chest wall CHEST: Yes Symmetrical chest wall rise and No tenderness Resp: COMMON NORMALS: clear to auscultation bilaterally EFFORT & INSPECTION: Yes able to speak in complete sentences and No respiratory distress AUSCULTATION: clear to auscultation bilaterally, no crackles, no rales, no rhonchi and no wheezes Cardio: COMMON NORMALS: no JVD, regular rate, regular rhythm, S1 normal heart sound present, S2 normal heart sound present and Peripheral pulses 2+ throughout PALPATION: normal PMI RATE: regular rate RHYTHM: regular rhythm HEART SOUNDS: S1 normal heart sound present, S2 normal heart sound present and no murmurs BRUITS: no carotid bruits PERIPHERAL PULSES: Peripheral pulses 2+ throughout, radial pulses present, posterior tibial pulses present and dorsalis pedis present GI: COMMON NORMALS: Soft to palpation AUSCULTATION: Yes normoactive bowel sounds PALPATION: Yes Soft to palpation and No Tenderness to palpation present (GI) Extremity: GENERAL: No cyanosis, No edema and No pallor Neuro: COMMON NORMALS: patient oriented x3 and no focal motor deficits SENSORIUM/ORIENTATION: Yes alert Psych: COMMON NORMALS: Normal thought process present and speech normal APPEARANCE: Yes well kempt SPEECH: Yes normal speech MOOD & AFFECT: Yes euthymic mood THOUGHT PROCESS: Normal thought process present THOUGHT CONTENT: Yes Normal thought content present Data : 09/15/21 03:25 09/15/21 03:25 A&P Assessment and plan (1) NSTEMI (non-ST elevated myocardial infarction): Status post PCI of the LAD. Cardiac catheterization revealed a nondominant right coronary artery. Mild disease in circumflex artery. High-grade lesion in the LAD, status post PCI. Currently seems to be stable hemodynamically. -tolerating metoprolol. will uptitrate -continue DAPT, statin. Status: Acute (2) Ischemic cardiomyopathy: LVEF=25% on LHC and echo -On metoprolol succinate, losartan and aldactone added. -Consider transitioning to Entresto once renal function has stabilized possibly as an outpatient. -Awaiting life vest before discharge. -I will refer him to [facility] heart failure team for further evaluation as an outpatient. This was discussed with patient and he is agreeable. Status: Acute (3) Cardiac arrest due to underlying cardiac condition: Currently the patient has stable rhythm and vital signs. We will continue on the current measures Status: Acute (4) Acute kidney injury superimposed on chronic kidney disease: The kidney function seems to have increased slightly to 1.3 today. Status: Acute (5) Diabetes mellitus: Continue with aggressive treatment measures. Status: Acute (6) Hyperlipidemia: May continue on the current medications. Status: Acute (7) Anemia: Hemoglobin seems to be stable. May require further work-up Status: Acute Plan Deconditioning Mild leucocytosis GI bleed: Attestations Medical Necessity Statement*: Awaiting LifeVest fitting before discharge Coding Level of Care Code Acute Director Product Management for g Fwd Diagnoses NSTEMI (non-ST elevated myocardial infarction) I21.4 Ischemic cardiomyopathy I25.5 Cardiac arrest due to underlying cardiac condition I46.2 Acute kidney injury superimposed on chronic kidney disease N17.9; N18.9 Diabetes mellitus E11.9 Hyperlipidemia E78.5 Anemia D64.9
[2021-09-15 11:25] LABS: Glucose Point of Care 372 mg/dL (70-110)
--- NOTE | 2021-09-15 13:33 | P.PN_ITS ---
Subjective Subjective: No acute events overnight. Patient states he is feeling better. Sitting up in chair. Waiting for LifeVest. Has been hemodynamically stable. Currently on room air. Medications: Reviewed: Yes Vitals/I&O/Wt Last Vital Signs Temp 98.3 F 09/15/21 07:29 Pulse 65 09/15/21 11:19 Resp 18 09/15/21 11:19 BP 117/74 09/15/21 11:19 Pulse Ox 98 09/15/21 11:19 09/14/21 09/15/21 09/15/21 22:59 06:59 14:59 Intake Total 240 / 240 Output Total 600 / 800 150 / 950 Balance -600 / -560 -150 / -710 240 / 240 Weight last 48 hrs Weight 108.046 kg Weight 106.339 kg Physical Exam Narrative: General: No acute distress, AO x3, weak HEENT: PERRLA, pupils bilaterally equal and reactive Chest: Normal vesicular breath sounds, no added sounds, equal good air entry bilaterally CVS: S1-S2 regular, soft pansystolic murmur at apex, tachycardia, no gallops, no rubs Abdomen: Soft, nontender, no organomegaly, bowel sounds present Neuro: No focal deficits, no facial deformity, AO x3, power 3 /5 in right side Data : 09/15/21 03:25 09/15/21 03:25 A&P Assessment and plan (1) NSTEMI (non-ST elevated myocardial infarction): Post PCI. Denies any chest pain. Cardiology on board. Continue with aspirin, Plavix, statin. Increase metoprolol to 50 mg twice daily. Status: Acute (2) Ischemic cardiomyopathy: Echocardiogram shows an EF of 25%. Will adjust heart failure regimen as per vitals and kidney functions. Will need LifeVest on discharge. Lasix 40 mg daily. Status: Acute (3) Cardiac arrest due to underlying cardiac condition: PT/OT/ST Out of bed to chair Status: Acute (4) Acute kidney injury superimposed on chronic kidney disease: Nephrology on board. Medical reconciliation done for nephrotoxic drugs. Renal functions trending down to stabilizing Monitor electrolytes. Oral intake improving. Stop IV fluids BMP every morning Status: Acute (5) Diabetes mellitus: Status: Acute (6) Hyperlipidemia: Status: Acute (7) Anemia: Status: Acute Plan Analgesia: Tylenol as needed. Glycemic control: Insulin sliding scale at high-dose protocol every 6 hours Nutrition: As per swallow evaluation CODE STATUS: Full code PUD prophylaxis: Protonix DVT prophylaxis: Start on heparin 5000 every 12 hourly. Discharge planning: Today patient states he would rather go to SNF then home with home health as if he causes possible number to pick him up. Case managemen t alerted. Will need LifeVest on discharge. Plan to discharge to SNF once accepted. Plan for day: Monitor blood pressures. Dose of Lopressor increased. Awaiting LifeVest fitting. Continue with physical therapy. 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
[2021-09-15 17:28] LABS: Glucose Point of Care 126 mg/dL (70-110)
[2021-09-15 20:41] LABS: Glucose Point of Care 271 mg/dL (70-110)
[2021-09-15] MEDS: atorvastatin 40 mg Tablet PO (21:19)
[2021-09-15] MEDS: insulin glargine 100 units/1 mL 20 UNIT SUBCUT (21:20)
[2021-09-16] VITALS (9 sets, daily range): BP systolic 109–132; BP diastolic 68–80; PULSE 72–98; RESP 16–19; TEMP 36.6–37.1; O2SAT 91–98
[2021-09-16] MEDS: heparin 5,000 unit/mL INJ 1 mL 5000 UNIT SUBCUT ×2 (05:24→17:17)
[2021-09-16] MEDS: clopidogrel 75 mg Tablet PO (05:24)
[2021-09-16 06:55] LABS: Glucose Point of Care 207 mg/dL (70-110)
[2021-09-16] MEDS: metoprolol succinate ER (24 HR) 50 mg Tablet 100 MG PO ×2 (08:37→21:16)
[2021-09-16] MEDS: aspirin 81 mg EC Tablet PO (08:37)
[2021-09-16] MEDS: FUROsemide 40 mg Tablet PO (08:38)
[2021-09-16] MEDS: losartan 50 mg Tablet 25 MG PO (08:38)
[2021-09-16] MEDS: insulin lispro 100 unit/1 mL SUBCUT ×4 (08:40→21:40)
[2021-09-16 09:27] LABS: Basophils # 0.1 10^3/uL (0.0-0.1); Basophils % 0.6 %; Eosinophils # 0.5 10^3/uL (0.0-0.8); Eosinophils % 4.3 %; Hematocrit 30.3 % (42.0-52.0); Hemoglobin 9.4 g/dL (11.7-16.6); Lymphocytes # 1.6 10^3/uL (0.8-4.8); Lymphocytes % 13.9 %; Mean Corpuscular Hemoglobin 28.6 pg (28.0-34.0); Mean Corpuscular Volume 92.1 fl (80-94); Mean Platelet Volume 11.4 fL (7.4-10.4); Monocytes # 1.2 10^3/uL (0.2-0.9); Monocytes % 10.6 %; Neutrophils # 7.97 10^3/uL (1.8-7.7); Neutrophils % 69.3 %; Nucleated Red Blood Cells % 0 %; Platelet Count 331 10^3/cmm (130-400); Red Blood Count 3.29 10^6/uL (4.1-5.3); Red Cell Distribution Width 16.9 % (12.1-15.1); White Blood Count 11.5 10^3/uL (4.0-10.0)
[2021-09-16 09:48] LABS: Slide Review Slide Review Perform
[2021-09-16] MEDS: pantoprazole 40 mg SDV IVP ×2 (10:53→22:26)
[2021-09-16 11:30] LABS: Glucose Point of Care 250 mg/dL (70-110)
--- NOTE | 2021-09-16 13:23 | PM.PN ---
Subjective Subjective: Seen this AM. Patient is awaiting LifeVest. No acute events overnight. In good spirits Vitals/I&O/Wt Last Vital Signs Temp 98.4 F 09/16/21 12:00 Pulse 72 09/16/21 12:00 Resp 16 09/16/21 12:00 BP 126/79 09/16/21 12:00 Pulse Ox 96 09/16/21 12:00 09/15/21 09/16/21 09/16/21 22:59 06:59 14:59 Intake Total 120 / 360 Output Total 450 / 450 350 / 800 225 / 225 Balance -330 / -90 -350 / -440 -225 / -225 Weight last 48 hrs Weight 106.367 kg Weight 108.046 kg Physical Exam Narrative: General: No acute distress, AO x3, sitting up in wheelchair appearing in good spirits and doing well. Chest: Normal vesicular breath sounds, no added sounds, equal good air entry bilaterally CVS: S1-S2 regular, soft pansystolic murmur at apex, Abdomen: Soft, nontender, no organomegaly, bowel sounds present Neuro: No focal deficits, no facial deformity, AO x3, power 3 /5 in right side Data : 09/16/21 08:40 09/15/21 03:25 A&P Assessment and plan (1) Ischemic cardiomyopathy: Status: Acute (2) Hypernatremia: Status: Acute (3) Acute kidney injury superimposed on chronic kidney disease: Status: Acute (4) Anemia: Status: Acute (5) Respiratory failure: Status: Acute (6) Cardiac arrest due to underlying cardiac condition: Status: Acute (7) Anemia: Status: Acute (8) NSTEMI (non-ST elevated myocardial infarction): Status: Acute (9) Chronic kidney disease, stage II (mild): Status: Acute (10) Diabetes mellitus: Status: Acute (11) Coronary artery disease due to type 2 diabetes mellitus: Status: Acute (12) Hyperlipidemia: Status: Acute (13) HTN (hypertension): Status: Acute Plan #Cardiac arrest secondary to NSTEMI, CAD #Vent dependent respiratory failure #Anemia, GI bleed, blood in stool #JOSE on CKD after ACLS code #Diabetes mellitus #History of stroke March 2021 ? Post PCI. Denies chest pain Cardiology on board Continue aspirin Plavix statin Metoprolol 50 twice daily Will need LifeVest at discharge. Awaiting LifeVest placement JOSE improving. Continue to check BMP daily Tylenol as needed for pain Sliding scale insulin Full code Protonix Heparin for DVT prophylaxis Awaiting LifeVest fitting. Continue physical therapy Full code Attestations Medical Necessity Statement*: Anticipate discharge in next 24 to 48 hours after LifeVest fitting complete. 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
[2021-09-16 14:25] LABS: Anion Gap 15.8 (5-19); Blood Urea Nitrogen 21 mg/dL (8-23); Calcium 9.3 mg/dL (8.5-10.5); Carbon Dioxide 25 mmol/L (22-29); Chloride 98 mmol/L (98-107); Glomerular Filtration Rate 56.1 mL/min (90-130); Glucose 237 mg/dL (65-115); Magnesium 1.7 mg/dL (1.7-2.3); Osmolality Calculated 291 mOsm/kg (285-295); Potassium 3.8 mmol/L (3.5-5.1); Sodium 135 mmol/L (136-145)
[2021-09-16] MEDS: spironolactone 25 mg Tablet PO (17:16)
[2021-09-16 17:18] LABS: Glucose Point of Care 183 mg/dL (70-110)
[2021-09-16] MEDS: atorvastatin 40 mg Tablet PO (21:15)
[2021-09-16] MEDS: insulin glargine 100 units/1 mL 20 UNIT SUBCUT (21:40)
[2021-09-17] VITALS (89 sets, daily range): BP systolic 76–123; BP diastolic 40–93; PULSE 53–179; RESP 10–64; TEMP 36.1–36.9; O2SAT 80–100
[2021-09-17 04:44] LABS: Glucose Point of Care 140 mg/dL (70-110)
[2021-09-17] MEDS: heparin 5,000 unit/mL INJ 1 mL 5000 UNIT SUBCUT ×2 (05:04→18:01)
[2021-09-17] MEDS: clopidogrel 75 mg Tablet PO (05:46)
[2021-09-17 06:43] LABS: Glucose Point of Care 289 mg/dL (70-110)
[2021-09-17 06:47] LABS: Anion Gap 18.5 (5-19); Blood Urea Nitrogen 22 mg/dL (8-23); Carbon Dioxide 24 mmol/L (22-29); Chloride 101 mmol/L (98-107); Glomerular Filtration Rate 47.6 mL/min (90-130); Glucose 231 mg/dL (65-115); Magnesium 1.7 mg/dL (1.7-2.3); Osmolality Calculated 299 mOsm/kg (285-295); Potassium 4.5 mmol/L (3.5-5.1); Sodium 139 mmol/L (136-145)
[2021-09-17] MEDS: spironolactone 25 mg Tablet PO (07:56)
[2021-09-17] MEDS: losartan 50 mg Tablet 25 MG PO (07:56)
[2021-09-17] MEDS: metoprolol succinate ER (24 HR) 50 mg Tablet 100 MG PO (07:57)
[2021-09-17] MEDS: FUROsemide 40 mg Tablet PO (07:58)
[2021-09-17] MEDS: aspirin 81 mg EC Tablet PO (07:58)
[2021-09-17] MEDS: insulin lispro 100 unit/1 mL SUBCUT ×2 (07:58→12:01)
--- NOTE | 2021-09-17 08:10 | ECG_ITS ---
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 Measurements Intervals [place] Rate: 120 P: 40 DE: 130 QRS: 17 QRSD: 118 T: 134 QT: 347 QTc: 491 Interpretive Statements SINUS TACHYCARDIA WITH FREQUENT VENTRICULAR PREMATURE COMPLEXES with an 8 beat run of nonsustained ventricular tachycardia LOW QRS VOLTAGE IN PRECORDIAL LEADS [QRS DEFLECTION < 1.0 mV IN CHEST LEADS] POSSIBLE INFERIOR MYOCARDIAL INFARCTION , PROBABLY OLD [30 ms Q WAVE IN II/aVF] ANTEROLATERAL MYOCARDIAL INFARCTION , PROBABLY RECENT [40+ ms Q WAVE IN I/aVL/V3-V6] ACUTE MT Compared to ECG 09/05/2021 09:56:51 Ventricular premature complex(es) now present Low QRS voltage now present Myocardial infarct finding now present Electronically Signed On 09-17-2021 22:26:59 CDT by Devonte Corbett M.D. [email or web address] [email or web address] [email or web address] [id number] f
--- NOTE | 2021-09-17 08:16 | ECG_ITS ---
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 Measurements Intervals [place] Rate: 103 P: 41 IL: 167 QRS: 10 QRSD: 118 T: 107 QT: 373 QTc: 490 Interpretive Statements SINUS TACHYCARDIA WITH FREQUENT VENTRICULAR PREMATURE COMPLEXES LOW QRS VOLTAGE IN PRECORDIAL LEADS [QRS DEFLECTION < 1.0 mV IN CHEST LEADS] POSSIBLE INFERIOR MYOCARDIAL INFARCTION , PROBABLY OLD [30 ms Q WAVE IN II/aVF] ANTEROSEPTAL MYOCARDIAL INFARCTION , OF INDETERMINATE AGE [40+ ms Q WAVE IN V1-V4] Compared to ECG 09/05/2021 09:56:51 Ventricular premature complex(es) now present Low QRS voltage now present Myocardial infarct finding now present Electronically Signed On 09-17-2021 22:27:17 CDT by Devonte Corbett M.D. [id number]
[2021-09-17 08:17] LABS: Glucose Point of Care 340 mg/dL (70-110)
--- NOTE | 2021-09-17 09:18 | PM.PN ---
Subjective Subjective: Patient was doing well this morning and took a shower and walked down the halls. Patient started having PVC couplets and then runs of monomorphic ventricular tachycardia this morning. Patient was given amiodarone 150 mg IV bolus and was started on amiodarone drip. His electrolytes were replaced. Potassium was 4.5 on a.m. labs and magnesium was 1.7. Patient settled for few hours but then started having runs of ventricular tachycardia again. He received another amiodarone bolus followed by lidocaine bolus and drip. Patient denies having any chest discomfort and initially was asymptomatic. Later in the day patient developed bilateral upper arm pain but denies having any chest discomfort. He appears to be somewhat drowsy but is arousable and answering questions appropriately. Last 24 hours urine output 775 ML, slightly positive length of stay I/O. Chest x-ray was done which did not show any significant infiltrate. Decreased breath sounds at bases but otherwise no wheezes or rales were appreciated on exam. Patient has been saturating well on room air. Medications: Reviewed: Yes Vitals/I&O/Wt Last Vital Signs Temp 98.4 F 09/17/21 07:45 Pulse 112 H 09/17/21 08:39 Resp 24 H 09/17/21 08:39 BP 118/80 09/17/21 08:39 Pulse Ox 97 09/17/21 08:39 09/16/21 09/17/21 09/17/21 22:59 06:59 14:59 Intake Total 300 / 300 1096.333 / 1096.333 Output Total 250 / 475 300 / 775 Balance 50 / -175 -300 / -475 1096.333 / 1096.333 Weight last 48 hrs Weight 234 lb 8 oz Physical Exam Const: COMMON NORMALS: no acute distress, patient oriented x3 and alert GENERAL APPEARANCE: cooperative, comfortable, well kempt and well hydrated HENMT: COMMON NORMALS: hearing grossly normal bilaterally and external ears normal FACE & SINUS: normal facial exam EXTERNAL EAR: Yes external ears normal Eye: COMMON NORMALS: EOMs intact bilaterally and no scleral icterus GENERAL EYE: appearance normal, both eyes and all related structures ALIGNMENT: Yes alignment normal Neck/C-Spine: COMMON NORMALS: supple and no JVD GENERAL: Yes normal visual inspection CAROTIDS: Yes normal carotid upstroke Chest: COMMONS NORMALS: normal inspection of the chest and normal palpation of entire chest wall CHEST: Yes Symmetrical chest wall rise and No tenderness Resp: COMMON NORMALS: clear to auscultation bilaterally EFFORT & INSPECTION: Yes able to speak in complete sentences and No respiratory distress AUSCULTATION: clear to auscultation bilaterally, no crackles, no rales, no rhonchi and no wheezes Cardio: COMMON NORMALS: no JVD, regular rate, regular rhythm, S1 normal heart sound present, S2 normal heart sound present and Peripheral pulses 2+ throughout PALPATION: normal PMI RATE: regular rate RHYTHM: regular rhythm HEART SOUNDS: S1 normal heart sound present, S2 normal heart sound present and no murmurs BRUITS: no carotid bruits PERIPHERAL PULSES: Peripheral pulses 2+ throughout, radial pulses present, posterior tibial pulses present and dorsalis pedis present GI: COMMON NORMALS: Soft to palpation AUSCULTATION: Yes normoactive bowel sounds PALPATION: Yes Soft to palpation and No Tenderness to palpation present (GI) Extremity: GENERAL: No cyanosis, No edema and No pallor Neuro: COMMON NORMALS: patient oriented x3 and no focal motor deficits SENSORIUM/ORIENTATION: Yes alert Psych: COMMON NORMALS: Normal thought process present and speech normal APPEARANCE: Yes well kempt SPEECH: Yes normal speech MOOD & AFFECT: Yes euthymic mood THOUGHT PROCESS: Normal thought process present THOUGHT CONTENT: Yes Normal thought content present Data : 09/17/21 13:07 09/17/21 13:07 A&P Assessment and plan (1) Ventricular tachycardia: Incessant VT on amiodarone and lidocaine gtt. -I discussed with our poker room manager but given very small distal LAD with poor flow and [employer] RCA , no benefit from cardiac cath again. May consider IABP short term for incessant VT VT likely scar related. Hi stay after initial few days was uneventful. He just had few PVC's and metoprolol was uptitrated for GDMT -will need ICD placement and consideration for VT ablation and ADHF therapies. -We will transfer him to tertiary care facility for further management Status: Acute (2) NSTEMI (non-ST elevated myocardial infarction): Status post PCI of the LAD. Cardiac catheterization revealed a nondominant right coronary artery. Mild disease in circumflex artery. High-grade lesion in the LAD, status post PCI. Currently seems to be stable hemodynamically. -tolerating metoprolol. will uptitrate -continue DAPT, statin. Status: Acute (3) Ischemic cardiomyopathy: HFrEF (LVEF=25% on LHC and echo) -On metoprolol succinate, losartan and aldactone added. Status: Acute (4) Cardiac arrest due to underlying cardiac condition: Cardiac arrest during LHC. Status: Acute (5) Acute kidney injury superimposed on chronic kidney disease: The kidney function seems to have increased slightly to 1.3 today. Status: Acute (6) Diabetes mellitus: Continue with aggressive treatment measures. Status: Acute (7) Hyperlipidemia: May continue on the current medications. Status: Acute (8) Anemia: Hemoglobin seems to be stable. May require further work-up Status: Acute Plan Deconditioning Mild leucocytosis GI bleed: Attestations Medical Necessity Statement*: plan for transfer today Coding Level of Care Code Acute Cartographic Technician for [facility] Fwd Exam Comprehensive Diagnoses NSTEMI (non-ST elevated myocardial infarction) I21.4 Ischemic cardiomyopathy I25.5 Cardiac arrest due to underlying cardiac condition I46.2 Acute kidney injury superimposed on chronic kidney disease N17.9; N18.9 Diabetes mellitus E11.9 Hyperlipidemia E78.5 Anemia D64.9 Ventricular tachycardia I47.2
--- NOTE | 2021-09-17 09:51 | XR_ITS ---
WS: [id number] Exam: XR chest 1V portable [id number] Date/Time of Exam: 09/17/2021 9:52 AM Reason For Exam: SOB Comparison 09/08/2021. The lungs are fully expanded. No infiltrates or pleural effusions are seen. Lung volumes are decrease d secondary to limited inspiration. Cardiomediastinal silhouette is unremarkable for technique. Bony structures are intact. XR/XR chest 1V portable [id number] IMPRESSION: 1. Low lung volumes secondary to limited inspiration. No acute process noted.
[2021-09-17] MEDS: pantoprazole 40 mg SDV IVP (10:19)
--- NOTE | 2021-09-17 11:39 | PC.OT ---
PER RECENT EVENTS TODAY; OT WILL HOLD TREATMENT SESSION PER DOCTOR; WILL ATTEMPT AGAIN TOMORROW
[2021-09-17] MEDS: amiodarone 200 mg Tablet 400 MG PO (11:42)
[2021-09-17] MEDS: FUROsemide 10 mg/mL SDV 2mL 20 MG IVP (11:42)
[2021-09-17 12:00] LABS: Glucose Point of Care 302 mg/dL (70-110)
[2021-09-17] MEDS: LORazepam 2 mg/mL INJ 1 mL 0.25 MG IV (12:05)
[2021-09-17] MEDS: lidocaine drip 2,000 MG/500 ML PREMIX 15 MG IV (12:20)
--- NOTE | 2021-09-17 12:54 | PC.NURSE ---
pt arrived to icu 7. received report, pt has no c/o chest pain, a/o, at bedside. Dr. concepcion at beside, aware of rhythm. amio at 1 and liocaine at 2mg/min per her request.
--- NOTE | 2021-09-17 12:58 | PC.NURSE ---
Resumed care of patient d/t patient cardiac rhythm change. Patient received a total of 2 amio bolus and 1 lidocaine bolus while this nurse had patient. Patient connect to zoll pads with code cart at bedside. Pt hand off to ICU and report given to STELLA Garcia.
[2021-09-17 13:37] LABS: Basophils # 0.1 10^3/uL (0.0-0.1); Basophils % 0.4 %; Eosinophils # 0.3 10^3/uL (0.0-0.8); Eosinophils % 2.2 %; Hemoglobin 8.5 g/dL (11.7-16.6); Lymphocytes # 1.6 10^3/uL (0.8-4.8); Lymphocytes % 12.1 %; Mean Corpuscular HGB Conc 31.5 g/dL (30.0-36.0); Mean Corpuscular Hemoglobin 28.4 pg (28.0-34.0); Mean Corpuscular Volume 90.3 fl (80-94); Mean Platelet Volume 11.2 fL (7.4-10.4); Monocytes # 1.1 10^3/uL (0.2-0.9); Monocytes % 7.9 %; Neutrophils # 10.16 10^3/uL (1.8-7.7); Neutrophils % 76.1 %; Nucleated Red Blood Cells % 0 %; Platelet Count 367 10^3/cmm (130-400); Red Blood Count 2.99 10^6/uL (4.1-5.3); White Blood Count 13.4 10^3/uL (4.0-10.0)
[2021-09-17 13:49] LABS: Alanine Aminotransferase 25 U/L (0-41); Albumin Level 3.4 g/dL (3.5-5.2); Alkaline Phosphatase 91 IU/L (40-130); Anion Gap 16.1 (5-19); Aspartate Amino Transferase 16 U/L (0-40); Blood Urea Nitrogen 24 mg/dL (8-23); Calcium 9.2 mg/dL (8.5-10.5); Carbon Dioxide 24 mmol/L (22-29); Chloride 99 mmol/L (98-107); Globulin 3.1 g/dL (1.3-4.6); Glomerular Filtration Rate 44.2 mL/min (90-130); Glucose 234 mg/dL (65-115); Osmolality Calculated 292 mOsm/kg (285-295); Potassium 4.1 mmol/L (3.5-5.1); Sodium 135 mmol/L (136-145); Total Bilirubin 0.4 mg/dL (0.15-1.2); Total Protein 6.5 g/dL (6.6-8.7)
--- NOTE | 2021-09-17 13:49 | PM.TDS ---
Transfer Summary Providers Date of Admission: 09/04/21 18:31 Date of Discharge/Transfer: 09/17/21 Attending Provider at Admission: Nas Marks MD Attending Provider at Transfer: Marlen Fernando MD Primary Care Provider: John Paul Fox DO Transfer Plans: Anticipated date of transfer: 09/17/21. Additional transfer facility information: [facility] Dr. Ordonez (Car Hostler) Dr. Webb (Paper Bag Press Operator) Transfer to ICU. Diagnoses at Discharge Discharge Diagnosis (1) NSTEMI (non-ST elevated myocardial infarction): Status: Acute (2) Ischemic cardiomyopathy: Status: Acute (3) Cardiac arrest due to underlying cardiac condition: Status: Acute (4) Acute kidney injury superimposed on chronic kidney disease: Status: Acute (5) Diabetes mellitus: Status: Acute (6) Hyperlipidemia: Status: Acute (7) Anemia: Status: Acute Reason for Visit Reason for Visit chest pain Hospital Course Hospital Course Patient admitted to hospital further evaluation and management of non-ST elevation [place]. He was started on dual antiplatelet, heparin drip and beta-héctor. Cardiology was consulted. On admission he was found to have borderline low hemoglobin for which he was transfused 1 unit of PRBC. Patient underwent cardiac angiogram on 09/05 where he was found to have severe underlying two-vessel coronary disease in the distribution of the LAD with severe left ventricular dysfunction with an EF of 25% with elevated EDP of 50 mmHg. Underwent PCI to LAD as he was not a surgical candidate due to the small nature of the LAD with virtually no flow to mid vessel. Before he left the [facility] patient had stent occlusion after which he went into flash pulmonary edema and PEA cardiac arrest. Patient had multiple rounds of ACLS protocol CPR. He was intubated started on vasopressors and transferred to ICU. He achieved ROSC after multiple rounds of CPR. Post code he also developed acute kidney injury for which nephrology was consulted. Eventually patient was extubated on 09/08. Since extubation patient has made steady progress in his physical therapy, speech therapy. He has been evaluated by all teams regularly and has been making steady progress. Echocardiogram was done which showed severely dilated LV cavity with EF of 25%, severe global hypokinesia with relative sparing of the basal inferior lateral wall, grade 2 diastolic dysfunction with moderately elevated filling pressures. During the course of the hospitalization his heart failure medications have been adjusted. His creatinine has trended down to normal during hospitalization. He has been working better with physical therapy. On the day of discharge he is able to walk up to 20 feet with physical therapy. He is currently doing well with soft mechanical diet. Multiple safe discharge plans were discussed in detail with patient and patient's caregiver and family. At first patient wanted to go home with home health but later changed his mind and wanted to be placed to SNF. While placement to SNF is awaited patient change his mind again and decided to go to home with home health due to high co-pay. Home health has been arranged. [facility] was in the process of being arranged Today patient developed greater than 8 beats of V. tach. CODE BLUE was called initially but patient was asymptomatic. ACLS was not performed. Amiodarone bolus was given and amnio drip was started. Subsequently he started to have more episodes of V. tach. Patient was transferred to ICU for closer monitoring. Arterial line was placed. Lidocaine drip was started by cardiology. Cardiology recommended to transfer patient to higher level of care for evaluation with electrophysiology for possible ablation and AICD placement. Printer Maintainer spoke to family and they are agreeable to transfer patient. I discussed case with bowling floor desk clerk at at this time who accepted the patient. We will transfer patient to the hospital via air EVAC. His blood pressure currently is 107/64, pulse 72, respiratory 17, temperature 97.8, saturation 95% on room air. He is hemodynamically stable at this time. Physical Exam Narrative: General: No acute distress, AO x3, sitting up in bed appearing comfortable at this time. Denies any chest pain or shortness of breath. Chest: Normal vesicular breath sounds, no added sounds, equal good air entry bilaterally CVS: S1-S2 regular, soft pansystolic murmur at apex, Abdomen: Soft, nontender, no organomegaly, bowel sounds present Neuro: No focal deficits, no facial deformity, AO x3, power 3 /5 in right side TS Data Studies Completed and Pending Pending at discharge Category Date Time Status CMP [Comprehensive Metabolic Panel] Stat Lab 09/17/21 13:07 Results Magnesium Stat Lab 09/17/21 13:07 Results Labs from last 24 hours 09/17/21 09/17/21 09/17/21 13:07 13:07 11:48 WBC 13.4 H RBC 2.99 L Hgb 8.5 L Hct 27.0 L MCV 90.3 MCH 28.4 MCHC 31.5 RDW 17.0 H Plt Count 367 MPV 11.2 H Neut % (Auto) 76.1 Lymph % (Auto) 12.1 [place] % (Auto) 7.9 Eos % (Auto) 2.2 Baso % (Auto) 0.4 Neut # (Auto) 10.16 H Lymph # (Auto) 1.6 [place] # (Auto) 1.1 H Eos # (Auto) 0.3 Baso # (Auto) 0.1 Nucleated RBC % (auto) 0 Nucleated RBCs # 0.0 Sodium Pending Potassium 4.1 Chloride 99 Carbon Dioxide 24 Anion Gap 16.1 BUN Pending Creatinine Pending GFR Calculation Pending Glucose Pending POC Glucose 302 H Calculated Osmolality 292 Calcium 9.2 Magnesium 2.0 Total Bilirubin 0.4 AST 16 ALT 25 Alkaline Phosphatase 91 Total Protein Pending Albumin Pending Globulin 3.1 09/17/21 09/17/21 09/17/21 06:39 06:10 04:42 WBC RBC Hgb Hct MCV MCH MCHC RDW Plt Count MPV Neut % (Auto) Lymph % (Auto) [place] % (Auto) Eos % (Auto) Baso % (Auto) Neut # (Auto) Lymph # (Auto) [place] # (Auto) Eos # (Auto) Baso # (Auto) Nucleated RBC % (auto) Nucleated RBCs # Sodium 139 Potassium 4.5 Chloride 101 Carbon Dioxide 24 Anion Gap 18.5 BUN 22 Creatinine 1.5 H GFR Calculation 47.6 L Glucose 231 H POC Glucose 289 H 140 H Calculated Osmolality 299 H Calcium 9.0 Magnesium 1.7 Total Bilirubin AST ALT Alkaline Phosphatase Total Protein Albumin Globulin 09/16/21 09/16/21 09/16/21 21:29 16:59 13:48 WBC RBC Hgb Hct MCV MCH MCHC RDW Plt Count MPV Neut % (Auto) Lymph % (Auto) [place] % (Auto) Eos % (Auto) Baso % (Auto) Neut # (Auto) Lymph # (Auto) [place] # (Auto) Eos # (Auto) Baso # (Auto) Nucleated RBC % (auto) Nucleated RBCs # Sodium 135 L Potassium 3.8 Chloride 98 Carbon Dioxide 25 Anion Gap 15.8 BUN 21 Creatinine 1.3 H GFR Calculation 56.1 L Glucose 237 H POC Glucose 340 H 183 H Calculated Osmolality 291 Calcium 9.3 Magnesium 1.7 Total Bilirubin AST ALT Alkaline Phosphatase Total Protein Albumin Globulin Completed Studies During Hospitalization Category Date Time Status 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 echo wo/w contrast [id number] Routine Ultrasound 09/11/21 00:43 Completed Laboratory Last Values WBC 13.4 10^3/uL (4.0-10.0) H 09/17/21 13:07 RBC 2.99 10^6/uL (4.1-5.3) L 09/17/21 13:07 Hgb 8.5 g/dL (11.7-16.6) L 09/17/21 13:07 Hct 27.0 % (42.0-52.0) L 09/17/21 13:07 MCV 90.3 fl (80-94) 09/17/21 13:07 MCH 28.4 pg (28.0-34.0) 09/17/21 13:07 MCHC 31.5 g/dL (30.0-36.0) 09/17/21 13:07 RDW 17.0 % (12.1-15.1) H 09/17/21 13:07 Plt Count 367 10^3/cmm (130-400) 09/17/21 13:07 MPV 11.2 fL (7.4-10.4) H 09/17/21 13:07 Neut % (Auto) 76.1 % 09/17/21 13:07 Lymph % (Auto) 12.1 % 09/17/21 13:07 [place] % (Auto) 7.9 % 09/17/21 13:07 Eos % (Auto) 2.2 % 09/17/21 13:07 Baso % (Auto) 0.4 % 09/17/21 13:07 Reticulocyte % (Auto) 3.6 % (0.5-2.0) H 09/04/21 07:50 Neut # (Auto) 10.16 10^3/uL (1.8-7.7) H 09/17/21 13:07 Lymph # (Auto) 1.6 10^3/uL (0.8-4.8) 09/17/21 13:07 [place] # (Auto) 1.1 10^3/uL (0.2-0.9) H 09/17/21 13:07 Eos # (Auto) 0.3 10^3/uL (0.0-0.8) 09/17/21 13:07 Baso # (Auto) 0.1 10^3/uL (0.0-0.1) 09/17/21 13:07 Nucleated RBC % (auto) 0 % 09/17/21 13:07 Nucleated RBCs # 0.0 /100WBC 09/17/21 13:07 Haptoglobin 216.0 mg/L (30-200) H 09/04/21 07:50 APTT 45.8 SECONDS (23.9-36.7) H 09/05/21 06:13 Specimen Type Arterial 09/07/21 03:25 Sample Site Not specified 09/07/21 03:25 ABG pH 7.42 (7.35-7.45) 09/07/21 03:25 ABG pCO2 34.0 mmHg (35-45) L 09/07/21 03:25 ABG pO2 63.3 mmHg (80.0-100.0) L 09/07/21 03:25 ABG HCO3 22.1 mmol/L (22-26) 09/07/21 03:25 ABG O2 Saturation 94.7 09/05/21 16:35 ABG Base Excess -2.1 mmol/L (-2.0-2.0) L 09/07/21 03:25 Regino Test N/a 09/07/21 03:25 A-a O2 Gradient 31.3 mmHg (5-10) H 09/05/21 16:35 Hematocrit 21.9 % (42-52) L 09/07/21 03:25 Hgb O2 Saturation 93.5 % (95-100) L 09/05/21 16:35 Carboxyhemoglobin 0.8 %THgb (0.4-20.1) 09/05/21 16:35 Methemoglobin 0.5 % (0.4-1.5) 09/05/21 16:35 Total Hemoglobin 8.5 g/dL (14-18) L 09/05/21 16:35 Sodium 143.0 mmol/L (131-143) 09/05/21 16:35 Potassium 4.0 mmol/L (3.5-5.0) 09/05/21 16:35 Glucose 244.0 mg/dL (70-115) H 09/05/21 16:35 Ionized Calcium 1.2 mmol/L (1.1-1.4) 09/05/21 16:35 Respiration Rate 20.0 % 09/05/21 16:35 O2 Delivery Device Vent 09/07/21 03:25 O2 Liters/Min 15.0 % 09/05/21 12:14 Vent Mode Ac/vc 09/05/21 16:35 FiO2 40.0 % 09/07/21 03:25 Tidal Volume 0.50 09/07/21 03:25 PEEP 8.0 cmH20 09/07/21 03:25 Specimen Drawn By Harsh 09/05/21 16:35 Hoop Rolls Operator ID Hinja 09/07/21 03:25 Sodium 139 mmol/L (136-145) 09/17/21 06:10 Potassium 4.1 mmol/L (3.5-5.1) 09/17/21 13:07 Chloride 99 mmol/L (98-107) 09/17/21 13:07 Carbon Dioxide 24 mmol/L (22-29) 09/17/21 13:07 Anion Gap 16.1 (5-19) 09/17/21 13:07 BUN 22 mg/dL (8-23) 09/17/21 06:10 Creatinine 1.5 mg/dL (0.7-1.2) H 09/17/21 06:10 GFR Calculation 47.6 mL/min (90-130) L 09/17/21 06:10 Glucose 231 mg/dL (65-115) H 09/17/21 06:10 POC Glucose 302 mg/dL (70-110) H 09/17/21 11:48 Estimat Average Glucose 143 09/10/21 03:49 Hemoglobin A1c 6.6 % (4.0-6.0) H 09/10/21 03:49 Calculated Osmolality 292 mOsm/kg (285-295) 09/17/21 13:07 Calcium 9.2 mg/dL (8.5-10.5) 09/17/21 13:07 Phosphorus 3.4 mg/dL (2.5-4.5) 09/12/21 10:00 Magnesium 2.0 mg/dL (1.7-2.3) 09/17/21 13:07 Iron 34 ug/dL (59-158) L 09/04/21 07:50 TIBC 363 mcg/dl 09/04/21 07:50 % Saturation 9.3 % (20-50) L 09/04/21 07:50 Unsat Iron Binding 329 ug/dL (112-347) 09/04/21 07:50 Total Bilirubin 0.4 mg/dL (0.15-1.2) 09/17/21 13:07 AST 16 U/L (0-40) 09/17/21 13:07 ALT 25 U/L (0-41) 09/17/21 13:07 Alkaline Phosphatase 91 IU/L (40-130) 09/17/21 13:07 Troponin T Baseline 239 ng/L (0-15) H* 09/04/21 07:50 Troponin T 120 Minute 246.2 ng/L (0-15) H 09/04/21 09:50 Delta Troponin T 7.2 ABS# (0-10) 09/04/21 09:50 Troponin T Hi Sens 6Hr 250.9 ng/L (0-15) H 09/04/21 14:40 Troponin T Hi Sens 6Hr Delta 11.9 ng/L (0-12) 09/04/21 14:40 NT-Pro-B Natriuret Pep 96554 pg/mL (0-125) H 09/15/21 03:25 Total Protein 6.4 g/dL (6.6-8.7) L 09/15/21 03:25 Albumin 3.5 g/dL (3.5-5.2) 09/15/21 03:25 Globulin 3.1 g/dL (1.3-4.6) 09/17/21 13:07 Triglycerides 196 mg/dL (0-150) H 09/10/21 03:49 Cholesterol 142 mg/dL (0-200) 09/10/21 03:49 LDL Cholesterol, Calc 66 mg/dL (50-129) 09/10/21 03:49 Total VLDL Cholesterol 39 mg/dL (0-30) H 09/10/21 03:49 HDL Cholesterol 37 mg/dL (60-100) L 09/10/21 03:49 Cholesterol/HDL Ratio 3.84 mg/dL (1.0-5.00) 09/10/21 03:49 Vitamin B12 570 pg/mL (232-1245) 09/04/21 07:50 Folate 19.7 ng/mL (4.5-32.2) 09/04/21 09:50 Procalcitonin 0.48 ng/mL (0-0.5) 09/09/21 03:25 TSH 1.89 uIU/mL (0.27-4.20) 09/04/21 09:50 Urine Color Yellow (Yellow) 09/07/21 08:55 Urine Appearance Clear (CLEAR) 09/07/21 08:55 Urine pH 5 (5-7) 09/07/21 08:55 Ur Specific [place] 1.020 (1.005-1.030) 09/07/21 08:55 Urine Protein Neg (Negative) 09/07/21 08:55 Urine Glucose (UA) Norm (Normal) 09/07/21 08:55 Urine Ketones 1+ (Negative) H 09/07/21 08:55 Urine Blood 3+ (Negative) H 09/07/21 08:55 Urine Nitrate Negative (Negative) 09/07/21 08:55 Urine Bilirubin Neg (Negative) 09/07/21 08:55 Urine Urobilinogen Norm mg/dL (Negative) 09/07/21 08:55 Ur Leukocyte Esterase Negative (Negative) 09/07/21 08:55 Urine RBC 25-40 /hpf (0-2) H 09/07/21 08:55 Urine WBC 0-4 /hpf (0-5) H 09/07/21 08:55 Ur Squamous Epith Cells Rare /hpf (0-5) 09/07/21 08:55 Uric Acid Crystals 5-10 /hpf H 09/07/21 08:55 Amorphous Sediment Not Reportable 09/07/21 08:55 Urine Bacteria 2+ /hpf (NONE) H 09/07/21 08:55 Urine Mucus 1+ /hpf 09/07/21 08:55 Blood Type O Positive 09/04/21 09:50 Rho(D) Type Positive 09/04/21 09:50 Antibody Screen Negative 09/04/21 09:50 Crossmatch See Detail 09/04/21 09:50 Radiology Impressions Chest X-Ray 09/17/21 09:51 IMPRESSION: 1. Low lung volumes secondary to limited inspiration. No acute process noted. Recent Clincial Data Last Vital Signs Temp 97.8 F 09/17/21 11:51 Pulse 75 09/17/21 12:45 Resp 26 H 09/17/21 12:45 BP 93/59 09/17/21 12:45 Pulse Ox 98 09/17/21 12:45 Vital Signs Temp Pulse Resp BP Pulse Ox 09/17/21 12:45 75 26 H 93/59 98 09/17/21 12:30 82 29 H 101/63 96 09/17/21 12:23 131 H 23 H 90/57 97 09/17/21 12:22 175 H 22 H 90/57 95 09/17/21 12:21 83 26 H 90/57 97 09/17/21 12:20 118 H 21 H 90/57 97 09/17/21 12:19 123 H 25 H 90/57 98 09/17/21 12:18 174 H 22 H 107/67 09/17/21 12:17 174 H 24 H 107/67 90 09/17/21 12:16 124 H 24 H 107/67 91 09/17/21 12:15 157 H 15 107/67 93 09/17/21 12:14 83 23 H 107/67 95 09/17/21 12:13 78 28 H 107/67 96 09/17/21 12:12 108 H 15 107/67 99 09/17/21 12:11 78 22 H 107/67 96 09/17/21 12:10 115 H 23 H 107/67 93 09/17/21 12:09 80 27 H 107/67 97 09/17/21 12:08 95 15 107/67 99 09/17/21 12:07 80 17 107/67 95 09/17/21 12:06 78 25 H 107/67 96 09/17/21 12:05 174 H 29 H 107/67 97 09/17/21 12:04 113 H 19 H 107/67 95 09/17/21 12:03 117 H 25 H 107/67 95 09/17/21 12:02 115 H 21 H 107/67 95 09/17/21 12:01 118 H 28 H 107/67 92 09/17/21 12:00 178 H 27 H 123/74 09/17/21 11:59 179 H 22 H 123/74 95 09/17/21 11:58 166 H 24 H 123/74 96 09/17/21 11:57 83 19 H 123/74 96 09/17/21 11:56 110 H 23 H 123/74 96 09/17/21 11:55 92 28 H 123/74 99 09/17/21 11:54 131 H 19 H 123/74 93 09/17/21 11:53 103 H 18 123/74 97 09/17/21 11:52 84 21 H 123/74 97 09/17/21 11:51 97.8 F 144 H 22 H 123/74 99 09/17/21 11:50 136 H 24 H 123/74 100 09/17/21 11:49 123 H 22 H 123/74 100 09/17/21 11:48 145 H 19 H 123/74 98 09/17/21 11:47 176 H 19 H 123/74 99 09/17/21 11:46 85 64 H 123/74 95 09/17/21 11:45 123/74 99 09/17/21 11:44 135 H 16 123/74 96 09/17/21 11:43 174 H 19 H 123/74 96 09/17/21 11:42 172 H 19 H 123/74 92 09/17/21 11:41 175 H 10 L 123/74 91 09/17/21 11:40 168 H 14 123/74 95 09/17/21 11:39 173 H 13 123/74 88 L 09/17/21 11:38 175 H 23 H 123/74 92 09/17/21 11:37 83 22 H 123/74 95 09/17/21 11:36 79 22 H 123/74 96 09/17/21 11:35 175 H 22 H 123/74 99 09/17/21 11:34 79 27 H 123/74 96 09/17/21 11:33 83 18 123/74 99 09/17/21 11:32 82 21 H 123/74 97 09/17/21 11:31 81 27 H 123/74 98 09/17/21 11:30 79 18 117/93 98 09/17/21 11:00 97 25 H 103/62 99 09/17/21 10:30 80 18 109/69 98 09/17/21 10:00 44 H 117/84 92 09/17/21 09:30 83 26 H 119/72 97 09/17/21 09:00 82 20 H 118/80 100 09/17/21 08:39 112 H 24 H 118/80 97 09/17/21 08:00 101 H 18 96 09/17/21 07:56 112/76 09/17/21 07:45 98.4 F 85 112/76 93 09/17/21 07:41 96.9 F L 62 16 90/57 98 09/17/21 04:00 97.6 F 53 L 18 110/72 97 Intake & Output/Weight 09/15/21 09/16/21 09/17/21 09/18/21 06:59 06:59 06:59 06:59 Intake Total 240 / 240 360 / 360 300 / 300 1491.242 / 1491.242 Output Total 950 / 950 800 / 800 775 / 775 Balance -710 / -710 -440 / -440 -475 / -475 1491.242 / 1491.242 Weight 108.046 kg 106.367 kg Vitals Last Vital Signs Temp 97.8 F 09/17/21 11:51 Pulse 75 09/17/21 12:45 Resp 26 H 09/17/21 12:45 BP 93/59 09/17/21 12:45 Pulse Ox 98 09/17/21 12:45 TS Medications Medications Acetaminophen (Acetaminophen 325 Mg Tablet) 650 mg PO Q6H PRN PRN Reason: MILD PAIN Albuterol Sulfate (Albuterol 8 Gm Mdi) 2 puff INHALATION Q4H PRN PRN Reason: shortness of breath or wheezing Albuterol/Ipratropium (Ipratropium-Albuterol 3 Ml Neb) 3 ml INHALATION Q4H PRN PRN Reason: SHORTNESS OF BREATH Amiodarone HCl (Amiodarone 200 Mg Tablet) 400 mg PO TID PENDING SALE TO [facility] Aspirin (Aspirin 81 Mg Ec Tablet) 81 mg PO DAILY PENDING SALE TO [facility] Last Admin: 09/17/21 07:58 Dose: 81 mg Documented by: Atorvastatin Calcium (Atorvastatin 40 Mg Tablet) 40 mg PO BEDTIME PENDING SALE TO [facility] Last Admin: 09/16/21 21:15 Dose: 40 mg Documented by: Clopidogrel Bisulfate (Clopidogrel 75 Mg Tablet) 75 mg PO QAM PENDING SALE TO [facility] Last Admin: 09/17/21 05:46 Dose: 75 mg Documented by: Dextrose (Dextrose 50% Syringe 50 Ml) 25 ml IVP ONCE PRN; Protocol PRN Reason: hypoglycemia protocol Dextrose (Dextrose 50% Syringe 50 Ml) 50 ml IVP PRN PRN; Protocol PRN Reason: hypoglycemia protocol Furosemide (Furosemide 40 Mg Tablet) 40 mg PO DAILY@0800 PENDING SALE TO [facility] Last Admin: 09/17/21 07:58 Dose: 40 mg Documented by: Glucagon (Glucagon 1 Mg/Ml Inj 1 Ml) 1 mg IM ONCE PRN; Protocol PRN Reason: Adult Acute Hypoglycemia Prot. Heparin Sodium (Porcine) (Heparin 5,000 Unit/Ml Inj 1 Ml) 5,000 unit SUBCUT Q12H PENDING SALE TO [facility] Last Admin: 09/17/21 05:04 Dose: 5,000 unit Documented by: Dextrose (D5w) 500 mls @ 100 mls/hr IV ONCE PRN; Protocol PRN Reason: Adult Acute Hypoglycemia Prot Amiodarone HCl 900 mg/Dextrose/ IV Miscellaneous Supplies 518 mls @ 0 mls/hr IV .Q0M PENDING SALE TO [facility]; Protocol Last Admin: 09/17/21 10:58 Dose: 1 mg/min, 34.53 mls/hr Documented by: Lidocaine HCl/Dextrose (Lidocaine Drip) 2,000 mg in 500 mls @ 15 mls/hr IV .Q24H PENDING SALE TO [facility] Last Admin: 09/17/21 12:20 Dose: 1 mg/min, 15 mls/hr Documented by: Sodium Chloride (Sodium Chloride 0.9%) 500 mls @ 500 mls/hr IV ONCE ONE Stop: 09/17/21 14:17 Last Admin: 09/17/21 13:34 Dose: Not Given Documented by: Insulin Glargine (Insulin Glargine 100 Units/1 Ml) 20 unit SUBCUT BEDTIME PENDING SALE TO [facility] Last Admin: 09/16/21 21:40 Dose: 20 unit Documented by: Insulin Human Lispro (Insulin Lispro 100 Unit/1 Ml) 0 unit SUBCUT WM&BEDTIME PENDING SALE TO [facility]; Protocol Last Admin: 09/17/21 12:01 Dose: 14 unit Documented by: Losartan Potassium (Losartan 50 Mg Tablet) 25 mg PO DAILY PENDING SALE TO [facility] Last Admin: 09/17/21 07:56 Dose: 25 mg Documented by: Metoprolol Succinate (Metoprolol Succinate Er (24 Hr) 50 Mg Tablet) 100 mg PO 0900,2100 PENDING SALE TO [facility] Last Admin: 09/17/21 07:57 Dose: 100 mg Documented by: Ondansetron HCl (Ondansetron 2 Mg/Ml Sdv 2 Ml) 4 mg IVP Q6H PRN PRN Reason: NAUSEA AND VOMITING Pantoprazole Sodium (Pantoprazole 40 Mg Sdv) 40 mg IVP Q12H PENDING SALE TO [facility] Last Admin: 09/17/21 10:19 Dose: 40 mg Documented by: Spironolactone (Spironolactone 25 Mg Tablet) 25 mg PO DAILY PENDING SALE TO [facility] Last Admin: 09/17/21 07:56 Dose: 25 mg Documented by: Trazodone HCl (Trazodone 150 Mg Tablet) 75 mg PO BEDTIME PRN PRN Reason: sleep Last Admin: 09/14/21 01:08 Dose: 75 mg Documented by: Discontinued Medications Amiodarone HCl (Amiodarone 200 Mg Tablet) 400 mg PO ONCE ONE Stop: 09/17/21 11:31 Last Admin: 09/17/21 11:42 Dose: 400 mg Documented by: Amlodipine Besylate (Amlodipine 5 Mg Tablet) [facility] [place] Last Admin: 09/05/21 05:19 Dose: 5 mg Documented by: Aspirin (Aspirin 81 Mg Chew Tablet) 324 mg PO ONCE ONE Stop: 09/04/21 07:23 Last Admin: 09/04/21 08:03 Dose: 324 mg Documented by: Atropine Sulfate (Atropine 0.1 Mg/Ml Syr 10 Ml) Confirm Administered Dose 1 mg .ROUTE .STK-MED ONE Stop: 09/05/21 11:32 Diphenhydramine HCl (Diphenhydramine 50 Mg Capsule) 50 mg PO ONCE ONE Stop: 09/04/21 10:01 Last Admin: 09/04/21 10:30 Dose: 50 mg Documented by: Fenofibrate (Fenofibrate 145 Mg Tablet) 145 mg PO QAM PENDING SALE TO [facility] Last Admin: 09/05/21 05:20 Dose: 145 mg Documented by: Fentanyl (Fentanyl 50 Mcg/Ml Inj 2ml) Confirm Administered Dose 100 mcg .ROUTE .STK-MED ONE Stop: 09/05/21 08:32 Furosemide (Furosemide 10 Mg/Ml Sdv 4ml) 40 mg IVP ONCE ONE Stop: 09/04/21 16:48 Last Admin: 09/04/21 20:47 Dose: Not Given Documented by: Furosemide (Furosemide 10 Mg/Ml Sdv 10ml) Confirm Administered Dose 100 mg .ROUTE .STK-MED ONE Stop: 09/05/21 10:34 Furosemide (Furosemide 10 Mg/Ml Sdv 10ml) 60 mg IVP ONCE ONE Stop: 09/06/21 07:35 Last Admin: 09/06/21 09:08 Dose: 60 mg Documented by: Furosemide (Furosemide 10 Mg/Ml Sdv 4ml) 40 mg IVP Q12H PENDING SALE TO [facility] Last Admin: 09/09/21 07:37 Dose: 40 mg Documented by: Furosemide (Furosemide 10 Mg/Ml Sdv 2ml) 20 mg IVP ONCE ONE Stop: 09/17/21 11:24 Last Admin: 09/17/21 11:42 Dose: 20 mg Documented by: Heparin Sodium (Porcine) (Heparin 5,000 Unit/Ml Inj 1 Ml) 0 unit IV PRN PRN; Protocol PRN Reason: Heparin weight-base protocol Last Admin: 09/04/21 11:20 Dose: 5,000 unit Documented by: Heparin Sodium (Porcine) (Heparin 5,000 Unit/Ml Inj 1 Ml) Confirm Administered Dose 5,000 unit .ROUTE .STK-MED ONE Stop: 09/05/21 08:31 Heparin Sodium (Porcine) (Heparin 5,000 Unit/Ml Inj 1 Ml) Confirm Administered Dose 5,000 unit .ROUTE .STK-MED ONE Stop: 09/05/21 10:07 Heparin Sodium (Porcine) (Heparin 5,000 Unit/Ml Inj 1 Ml) Confirm Administered Dose 5,000 unit .ROUTE .STK-MED ONE Stop: 09/05/21 10:50 Heparin Sodium (Porcine) (Heparin 5,000 Unit/Ml Inj 1 Ml) Confirm Administered Dose 5,000 unit .ROUTE .STK-MED ONE Stop: 09/05/21 11:08 Heparin Sodium/Sodium Chloride (Heparin Drip) 25,000 unit in 500 mls @ 0 mls/hr IV .Q0M ISSAC; Protocol Last Titration: 09/05/21 05:30 Dose: 0 unit/kg/hr, 0 mls/hr Documented by: Sodium Chloride (Sodium Chloride 0.9%) 1,000 mls @ 50 mls/hr IV .Q20H ONE Stop: 09/05/21 05:59 Last Admin: 09/04/21 10:15 Dose: 50 mls/hr Documented by: Sodium Chloride (Sodium Chloride 0.9%) 1,000 mls @ 50 mls/hr IV .Q20H ISSAC Last Infusion: 09/06/21 21:15 Dose: Infused Documented by: Lidocaine HCl (Lidocaine 1%) Confirm Administered Dose 1 mls @ as directed .ROUTE .ST-MED ONE Stop: 09/05/21 09:38 Lidocaine HCl (Lidocaine 1%) Confirm Administered Dose 4 mls @ as directed .ROUTE .ST-MED ONE Stop: 09/05/21 09:39 Lidocaine HCl (Lidocaine 1%) Confirm Administered Dose 1 mls @ as directed .ROUTE .[facility]-MED ONE Stop: 09/05/21 10:54 Propofol (Diprivan) Confirm Administered Dose 2,000 mg in 200 mls @ as directed .ROUTE .ST-MED ONE Stop: 09/05/21 11:05 Tirofiban/Sodium Chloride (Aggrastat) Confirm Administered Dose 5 mg in 100 mls @ as directed .ROUTE .ST-MED ONE Stop: 09/05/21 11:32 Propofol (Diprivan) 1,000 mg in 100 mls @ 0 mls/hr IV .Q0M ISSAC; Protocol Last Titration: 09/08/21 14:45 Dose: 0 mcg/kg/min, 0 mls/hr Documented by: Fentanyl 2,500 mcg/ Sodium (Chloride) 250 mls @ 0 mls/hr IV .Q0M ISSAC; Protocol Last Titration: 09/08/21 12:45 Dose: 0 mcg/hr, 0 mls/hr Documented by: Norepinephrine Bitartrate 4 mg (/ Dextrose) 254 mls @ 0 mls/hr IV .Q0M ISSAC; Protocol Last Titration: 09/06/21 07:00 Dose: 0 mcg/min, 0 mls/hr Documented by: Sodium Chloride (Sodium Chloride 0.9% (100 Ml)) Confirm Administered Dose 100 mls @ as directed .ROUTE .K-MED ONE Stop: 09/06/21 15:13 Last Infusion: 09/06/21 21:15 Dose: Infused Documented by: Ferric Sodium Gluconate 125 mg (/ Sodium Chloride) 110 mls @ 110 mls/hr IV Q24H PENDING SALE TO [facility] Stop: 09/16/21 10:59 Sodium Chloride (Sodium Chloride 0.45%) 1,000 mls @ 50 mls/hr IV .Q20H [facility]END[facility] TO [facility] Stop: 09/10/21 04:59 Last Infusion: 09/10/21 06:24 Dose: Infused Documented by: Iron Sucrose 200 mg/ Sodium (Chloride) 110 mls @ 220 mls/hr IV Q24H [facility]END[facility] TO [facility] Stop: 09/13/21 10:29 Last Infusion: 09/13/21 12:29 Dose: Infused Documented by: Potassium Chloride/Sodium Chloride (Sodium Chlor 0.45% +Kcl 20 Meq) 20 meq in 1,000 mls @ 50 mls/hr IV .Q20H [facility]END[facility] S[facility] TO [facility] Stop: 09/11/21 03:44 Last Infusion: 09/17/21 09:12 Dose: Infused Documented by: Potassium Chloride/Sodium Chloride (Sodium Chlor 0.45% +Kcl 20 Meq) 20 meq in 1,000 mls @ 75 mls/hr IV .[id number] PENDING SALE TO [facility] Last Admin: 09/10/21 09:42 Dose: Not Given Documented by: Sodium Chloride (Sodium Chloride 0.45%) 1,000 mls @ 50 mls/hr IV .Q20H PENDING SALE TO [facility] Stop: 09/11/21 20:14 Last Infusion: 09/12/21 04:36 Dose: Infused Documented by: Amiodarone HCl 900 mg/Dextrose/ IV Miscellaneous Supplies 518 mls @ 0 mls/hr IV CONT ISSAC; Protocol Last Infusion: 09/17/21 10:56 Dose: Infused Documented by: Amiodarone HCl 150 mg/Dextrose/ IV Miscellaneous Supplies 103 mls @ 412 mls/hr IV ONCE ONE Stop: 09/17/21 08:34 Last Infusion: 09/17/21 09:11 Dose: Infused Documented by: Magnesium Sulfate 1 gm/ Sodium (Chloride) 52 mls @ 104 mls/hr IV ONCE ONE Stop: 09/17/21 08:59 Last Infusion: 09/17/21 10:50 Dose: Infused Documented by: Magnesium Sulfate 1 gm/ Sodium (Chloride) 52 mls @ 104 mls/hr IV ONCE ONE Stop: 09/17/21 11:59 Last Infusion: 09/17/21 12:58 Dose: Infused Documented by: Amiodarone HCl 150 mg/Dextrose/ IV Miscellaneous Supplies 103 mls @ 412 mls/hr IV ONCE ONE Stop: 09/17/21 12:24 Last Infusion: 09/17/21 12:58 Dose: Infused Documented by: Insulin Human Lispro (Insulin Lispro 100 Unit/1 Ml) 0 unit SUBCUT WM&BEDTIME PENDING SALE TO [facility]; Protocol Last Admin: 09/09/21 07:37 Dose: 6 unit Documented by: Insulin Human Lispro (Insulin Lispro 100 Unit/1 Ml) 0 unit SUBCUT Q6H PENDING SALE TO [facility]; Protocol Last Admin: 09/11/21 12:56 Dose: 1 unit Documented by: Isosorbide Mononitrate (Isosorbide Mononitrate Er 30 Mg Tablet) 30 mg PO [facility] Lidocaine HCl (Lidocaine 2% 100 Mg/5 Ml Syringe) 100 mg IVP NOW ONE Stop: 09/17/21 12:31 Last Admin: 09/17/21 12:33 Dose: 100 mg Documented by: Lorazepam (Lorazepam 2 Mg/Ml Inj 1 Ml) 0.25 mg IV ONCE ONE Stop: 09/17/21 12:00 Last Admin: 09/17/21 12:05 Dose: 0.25 mg Documented by: Losartan Potassium (Losartan 50 Mg Tablet) 100 mg PO [facility] Last Admin: 09/05/21 05:21 Dose: 100 mg Documented by: Metoprolol Succinate (Metoprolol Succinate Er (24 Hr) 50 Mg Tablet) 50 mg PO PENDING SALE [facility] Last Admin: 09/13/21 08:02 Dose: 50 mg Documented by: Metoprolol Succinate (Metoprolol Succinate Er (24 Hr) 50 Mg Tablet) 75 mg PO 00,2099 PENDING SALE TO [facility] Last Admin: 09/14/21 21:49 Dose: 75 mg Documented by: Metoprolol Tartrate (Metoprolol Tartrate 50 Mg Tablet) 100 mg PO [facility] Last Admin: 09/05/21 05:20 Dose: 100 mg Documented by: Metoprolol Tartrate (Metoprolol Tartrate 50 Mg Tablet) 50 mg PO BEDTIME PENDING SALE TO [facility] Last Admin: 09/04/21 19:58 Dose: 50 mg Documented by: Metoprolol Tartrate (Metoprolol Tartrate 25 Mg Tablet) 25 mg PO BID@0900,2100 PENDING SALE TO [facility] Last Admin: 09/09/21 21:24 Dose: 25 mg Documented by: Metoprolol Tartrate (Metoprolol Tartrate 1 Mg/1 Ml Sdv 5 Ml) 5 mg IVP ONCE ONE Stop: 09/09/21 09:43 Last Admin: 09/09/21 10:25 Dose: 5 mg Documented by: Metoprolol Tartrate (Metoprolol Tartrate 25 Mg Tablet) 50 mg PO BID@0900,2100 PENDING SALE TO [facility] Last Admin: 09/11/21 08:18 Dose: 50 mg Documented by: Midazolam HCl (Midazolam 1 Mg/Ml Inj 2 Ml) Confirm Administered Dose 2 mg .ROUTE .STK-MED ONE Stop: 09/05/21 08:32 Midazolam HCl (Midazolam 1 Mg/Ml Inj 2 Ml) Confirm Administered Dose 2 mg .ROUTE .STK-MED ONE Stop: 09/05/21 10:00 Morphine Sulfate (Morphine 4 Mg/Ml Sdv 1 Ml) 2 mg IVP Q4H PRN PRN Reason: SEVERE PAIN Nitroglycerin (Nitroglycerin 1 Gm/Inch Oint Pkt) 0.5 inch TOPICAL ONCE ONE Stop: 09/04/21 08:49 Last Admin: 09/04/21 09:29 Dose: 0.5 inch Documented by: Nitroglycerin (Nitroglycerin 1 Gm/Inch Oint Pkt) 1 inch TOPICAL Q6H PENDING SALE TO [facility] Last Admin: 09/05/21 14:26 Dose: Not Given Documented by: Nitroglycerin (Nitroglycerin 5 Mg/Ml Sdv 10 Ml) Confirm Administered Dose 50 mg .ROUTE .STK-MED ONE Stop: 09/05/21 09:43 Pantoprazole Sodium (Pantoprazole 40 Mg Sdv) 40 mg IVP ONCE ONE Stop: 09/04/21 08:49 Last Admin: 09/04/21 09:29 Dose: 40 mg Documented by: Perflutren Protein Type A Microsphe (Perflutren Protein-A Microsphr 0.22 Mg/Ml Sdv 3 Ml) 0 ml IV ONCE ONE Stop: 09/11/21 01:32 Perflutren Protein Type A Microsphe (Perflutren Protein-A Microsphr 0.22 Mg/Ml Sdv 3 Ml) 3 ml .ROUTE .STK-MED ONE Stop: 09/12/21 08:46 Propofol (Propofol 10 Mg/Ml Sdv 20 Ml) Confirm Administered Dose 200 mg .ROUTE .STK-MED ONE Stop: 09/05/21 12:30 Rocuronium [place] (Rocuronium 10 Mg/Ml Inj 5ml) Confirm Administered Dose 50 mg .ROUTE .STK-MED ONE Stop: 09/05/21 11:08 Spironolactone (Spironolactone 25 Mg Tablet) 25 mg PO DAILY ISSAC Succinylcholine Chloride (Succinylcholine 20 Mg/Ml Sdv 10ml) Confirm Administered Dose 200 mg .ROUTE .STK-MED ONE Stop: 09/05/21 12:30 Temazepam (Temazepam 15 Mg Capsule) 15 mg PO BEDTIME PRN PRN Reason: INSOMNIA Last Admin: 09/04/21 20:57 Dose: 15 mg Documented by: Allergies No Known Allergies Allergy (Verified 09/04/21 09:07) Home Medications atorvastatin 40 mg tablet 40 mg PO BEDTIME 05/12/19 [History Confirmed 09/04/21] clopidogrel 75 mg tablet (Plavix) 75 mg PO QAM 05/12/19 [History Confirmed 09/04/21] metformin 850 mg tablet 850 mg PO BID 05/12/19 [History Confirmed 09/04/21] multivitamin 1 tab PO QAM 05/12/19 [History Confirmed 09/04/21] fenofibrate nanocrystallized 145 mg tablet 145 mg PO QAM 04/12/21 [History Confirmed 09/04/21] liraglutide 0.6 mg/0.1 mL (18 mg/3 mL) subcutaneous pen injector (Victoza 3-Jesús) 1.8 mg SUBCUT QAM 04/12/21 [History Confirmed 09/04/21] nitroglycerin 0.3 mg sublingual tablet (Nitrostat) 0.3 mg SUBLINGUAL Q5M PRN 04/12/21 [History Confirmed 09/04/21] albuterol sulfate 90 mcg/actuation aerosol inhaler 2 puff INHALATION Q4H PRN 09/04/21 [History Confirmed 09/04/21] cholecalciferol (vitamin D3) 125 mcg (5,000 unit) tablet (Vitamin D3) 125 mcg PO QAM 09/04/21 [History Confirmed 09/04/21] aspirin 81 mg tablet,delayed release 81 mg PO DAILY #30 tab 09/13/21 [Rx] citalopram 20 mg tablet (Celexa) 20 mg PO DAILY #30 tab 09/13/21 [Rx] furosemide 40 mg tablet 40 mg PO DAILY@0800 #30 tab 09/13/21 [Rx] insulin glargine 100 unit/mL (3 mL) subcutaneous pen (Basaglar KwikPen U-100 Insulin) 40 unit (0.4 mL) SUBCUT QAM #0 ml 09/13/21 [Rx Confirmed 09/04/21] losartan 50 mg tablet 25 mg PO DAILY #30 tab 09/13/21 [Rx] metoprolol succinate 50 mg tablet,extended release 24 hr 75 mg PO 0900,2100 #90 tab 09/13/21 [Rx] pantoprazole 40 mg tablet,delayed release (Protonix) 40 mg PO BID 14 Days #28 tab 09/13/21 [Rx] spironolactone 25 mg tablet 12.5 mg PO DAILY #30 tab 09/13/21 [Rx] sucralfate 1 gram tablet (Carafate) 1 g PO BID 28 Days #56 tab 09/13/21 [Rx] Discharge Plan Discharge Patient Disposition: Xfer Other Condition: Stable Prescriptions: New losartan 50 mg Tablet 25 mg PO DAILY Qty: 30 0RF furosemide 40 mg Tablet 40 mg PO DAILY@0800 Qty: 30 0RF metoprolol succinate 50 mg Tablet Extended Release 24 Hr 75 mg PO 0900,2100 Qty: 90 0RF aspirin 81 mg Tablet,Delayed Release (Dr/Ec) 81 mg PO DAILY Qty: 30 0RF Celexa 20 mg tablet 20 mg PO DAILY Qty: 30 0RF Protonix 40 mg tablet,delayed release (DR/EC) 40 mg PO BID 14 Days Qty: 28 0RF Carafate 1 gram tablet 1 g PO BID 28 Days Qty: 56 0RF spironolactone 25 mg tablet 12.5 mg PO DAILY Qty: 30 0RF Continued atorvastatin 40 mg tablet 40 mg PO BEDTIME 0RF clopidogrel [Plavix] 75 mg tablet 75 mg PO QAM 0RF metformin 850 mg tablet 850 mg PO BID 0RF multivitamin Tablet 1 tab PO QAM 0RF nitroglycerin [Nitrostat] 0.3 mg Tablet, Sublingual 0.3 mg SUBLINGUAL Q5M PRN (Reason: Chest Pain) 0RF fenofibrate nanocrystallized 145 mg tablet 145 mg PO QAM 0RF Victoza 3-Jesús 0.6 mg/0.1 mL (18 mg/3 mL) pen injector 1.8 mg SUBCUT QAM 0RF cholecalciferol (vitamin D3) [Vitamin D3] 125 mcg (5,000 unit) Tablet 125 mcg PO QAM 0RF albuterol sulfate 90 mcg/actuation HFA aerosol inhaler 2 puff inhalation Q4H PRN (Reason: shortness of breath or wheezing) 0RF Changed Basaglar KwikPen U-100 Insulin 100 unit/mL (3 mL) insulin pen 40 unit SUBCUT QAM Qty: 0 0RF Discontinued isosorbide mononitrate 30 mg tablet extended release 24 hr 30 mg PO QAM 0RF pantoprazole 20 mg tablet,delayed release (DR/EC) 20 mg PO QAM 0RF metoprolol tartrate 50 mg tablet See Rx Instructions PO BID Qty: 270 2RF Rx Instructions: TAKE 2 TABLETS (100mg) IN THE MORNING AND 1 TABLET (50mg) IN THE EVENING naproxen sodium [Aleve] 220 mg Tablet 440 mg PO Q12H PRN (Reason: Pain) 0RF losartan 100 mg tablet 100 mg PO QAM 0RF aspirin 325 mg Tablet 325 mg PO QAM 0RF amlodipine 5 mg tablet 5 mg PO QAM 0RF Discharge Orders: Discharge Order (Routine); Ordered 09/13/21 Ordered By: Myles Quarles [place] [facility] [place] [facility] [place]) [Outside] John Paul Fox DO [Primary Care Provider] - 09/18/21 2:30 pm Kelsey Becerra FNP [Nurse Practitioner] - 09/19/21 10:00 am Lizzeth Sifuentes MD [Physician] - 10/04/21 10:15 am Discharge Diet: Cardiac, Diabetic and Soft Mechanical Discharge Activity: Resume usual activity and Increase activity as tolerated Patient Instructions: Metoprolol (By mouth) (Lopressor, Toprol XL), Spironolactone (By mouth), Furosemide (By mouth), Sucralfate (By mouth), Aspirin (By mouth), Losartan (By mouth) (Cozaar), Citalopram (By mouth), Pantoprazole (By mouth), Heart Attack (DC), Heart Healthy Diet (GEN), Heart Catheterization (DC), Chest Pain Stoplight, Post Heart Attack Stoplight Transfer Attestations Time Spent in Transfer Care: greater than 30 min Status at Transfer: Cognitive status at transfer: cognitively intact; Behavioral status at transfer: cooperative; Functional status at transfer: uses cane/walker; Overall status at transfer: patient is progressing back to baseline Quality Metrics Clinical Quality Measures [ Acute Myocardial Infaction { Clinical Trial Participant: No; Contraindication to aspirin: None; Aspirin prescribed; Contraindication to statin: None; Statin prescribed; Contraindication to PCI: None; PCI performed;}] Coding Level of Care Code Acute Cctv Technician for [facility] Diagnoses NSTEMI (non-ST elevated myocardial infarction) I21.4 Ischemic cardiomyopathy I25.5 Cardiac arrest due to underlying cardiac condition I46.2 Acute kidney injury superimposed on chronic kidney disease N17.9; N18.9 Diabetes mellitus E11.9 Hyperlipidemia E78.5 Anemia D64.9
--- NOTE | 2021-09-17 13:58 | ANES.PROC ---
Anesthesia Procedures Procedure/Date: 09/17/21 Arterial Line: Time Out Performed: Yes Consent: requested by attending/covering physician, from patient, risks and benefits reviewed and patient agrees to proceed Size (Gauge): 20 Technique Used: guide wire technique Post-Procedure: dry sterile dressing placed Patient Tolerated Procedure: well Complications: none Site: right and radial Additional Comments: 2mls of 1% lido used
[2021-09-17] MEDS: LORazepam 2 mg/mL INJ 1 mL 0.25 MG IVP (15:41)
[2021-09-17] MEDS: lidocaine 1% 5 ML in potassium chloride premix 100 ML 50 ML IV (16:23)
--- NOTE | 2021-09-17 18:59 | PC.NURSE ---
flight crew transfer patient via helicopter to [place]. vss, no recent vtach. report called to rena in [facility]. walked patient out. all belongings sent
[2021-09-17 19:39] LABS: Glucose Point of Care 157 mg/dL (70-110)
== END 2021-09-17 18:45 | disposition short-term general hospital (02) | DRG 246 ==
LOC: ER 07:39 → ER IP 15:29 → ICU 22:38 → ER IP 09-05 06:10 → MEDSURG 09-10 20:46 → ICU 09-17 12:46
PROVIDERS: Internal Medicine; Internal Medicine Cardiovascular Disease; Internal Medicine Nephrology; Student in an Organized Health Care Education/Training Program; Admitting Provider Internal Medicine; Emergency Provider Family Medicine; PCP Family Medicine; Visit Provider Internal Medicine
PROC: 027034Z Dilation of Coronary Artery, One Artery with Drug-eluting Intraluminal Device, Percutaneous Approach (ICD-10-PCS; principal; 2021-09-05 08:30)
PROC: 027034Z Dilation of Coronary Artery, One Artery with Drug-eluting Intraluminal Device, Percutaneous Approach (ICD-10-PCS; 2021-09-05 08:30)
DX: I21.4 Non-ST elevation (NSTEMI) myocardial infarction (principal); I50.23 Acute on chronic systolic (congestive) heart failure; I46.2 Cardiac arrest due to underlying cardiac condition; J96.90 Respiratory failure, unspecified, unspecified whether with hypoxia or hypercapnia; I13.0 Hypertensive heart and chronic kidney disease with heart failure and stage 1 through stage 4 chronic kidney disease, or unspecified chronic kidney disease; E87.0 Hyperosmolality and hypernatremia; I47.2 Ventricular tachycardia; T82.518A Breakdown (mechanical) of other cardiac and vascular devices and implants, initial encounter; K92.1 Melena; N17.9 Acute kidney failure, unspecified; I25.110 Atherosclerotic heart disease of native coronary artery with unstable angina pectoris; Z95.5 Presence of coronary angioplasty implant and graft; Z86.73 Personal history of transient ischemic attack (TIA), and cerebral infarction without residual deficits; Z86.16 Personal history of COVID-19; E11.22 Type 2 diabetes mellitus with diabetic chronic kidney disease; N18.2 Chronic kidney disease, stage 2 (mild); K21.9 Gastro-esophageal reflux disease without esophagitis; E78.5 Hyperlipidemia, unspecified; I25.2 Old myocardial infarction; D63.1 Anemia in chronic kidney disease; Z79.84 Long term (current) use of oral hypoglycemic drugs; Z79.02 Long term (current) use of antithrombotics/antiplatelets; Z79.82 Long term (current) use of aspirin; Z79.4 Long term (current) use of insulin; I25.5 Ischemic cardiomyopathy; Y71.8 Miscellaneous cardiovascular devices associated with adverse incidents, not elsewhere classified; D50.9 Iron deficiency anemia, unspecified
CPT/HCPCS: 36415; 36416; 36430; 36600; 51702; 71045; 80048; 80051; 80053; 80061; 81001; 82274; 82330; 82607; 82746; 82803; 82805; 82962; 83010; 83036; 83540; 83550; 83735; 83880; 84100; 84145; 84443; 84484; 85014; 85018; 85025; 85045; 85347; 85730; 86850; 86900; 86920; 87070; 87086; 87205; 92507; 92523; 92524; 92526; 92610; 93005; 93452; 93458; 93925; 94002; 94003; 94799; 96360; 96361; 96365; 96366; 96372; 96375; 97110; 97112; 97116; 97162; 97167; 97530; 97535; 99152; 99153; 99285; A4570; C1725; C1769; C1874; C1887; C1894; C8929; C9113; C9600; J0282; J0330; J0461; J1644; J1756; J1815 ×2; J1940; J2001; J2060; J2250; J2704; J3010; J3475; J3480; J3490; J7030; J7050; J7060; P9016; Q0163; Q3014; Q9956; Q9967

== ENCOUNTER 2021-10-29 06:00 | Outpatient (RCR) | payer BC, SELFPAY | END 2021-11-27 23:59 | disposition home or self-care (01) | LOC: TR3 06:00 | PROVIDERS: PCP Family Medicine; Referring Provider Family Medicine; Visit Provider Family Medicine | DX: R26.89 Other abnormalities of gait and mobility (principal); R53.1 Weakness | CPT/HCPCS: 92523; 97110; 97163; 97165 ==

== ENCOUNTER → 2021-10-29 16:27 | Outpatient (BNVA) | payer BC, SELFPAY | PROVIDERS: PCP Family Medicine; Visit Provider Family Medicine | DX: E11.9 Type 2 diabetes mellitus without complications (principal); I10 Essential (primary) hypertension; I25.5 Ischemic cardiomyopathy; R53.1 Weakness | CPT/HCPCS: 80048; 85025 ==

== ENCOUNTER 2021-11-28 06:00 | Outpatient (RCR) | payer BC, SELFPAY | END 2021-12-03 23:59 | disposition home or self-care (01) | LOC: TR3 06:00 | PROVIDERS: PCP Family Medicine; Visit Provider Family Medicine | DX: R26.89 Other abnormalities of gait and mobility (principal); R53.1 Weakness | CPT/HCPCS: 97110 ==

== ENCOUNTER → 2022-05-01 14:27 | Outpatient (BNVA) | payer BC, SELFPAY | PROVIDERS: PCP Family Medicine; Visit Provider Family Medicine | DX: N18.9 Chronic kidney disease, unspecified (principal); I10 Essential (primary) hypertension; E11.9 Type 2 diabetes mellitus without complications; I25.5 Ischemic cardiomyopathy | CPT/HCPCS: 80053; 80061; 82043; 83036; 83735; 84153; 84443; 85025 ==

== ENCOUNTER 2022-11-24 13:01 | Observation (INO) | payer BC, SELFPAY ==
[2022-11-24] VITALS (27 sets, daily range): BP systolic 101–140; BP diastolic 59–83; PULSE 67–77; RESP 13–35; TEMP 36.6–36.7; O2SAT 95–100; BMI 27.4
--- NOTE | 2022-11-24 14:15 | ECG_ITS ---
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 Measurements Intervals Ashley Rate: 63 P: 27 FL: 196 QRS: 68 QRSD: 113 T: -18 QT: 428 QTc: 441 Interpretive Statements SINUS RHYTHM SEPTAL MYOCARDIAL INFARCTION , OF INDETERMINATE AGE [40+ ms Q WAVE IN V1/V2] Compared to ECG 09/17/2021 08:54:13 Sinus tachycardia no longer present Ventricular premature complex(es) no longer present Myocardial infarct finding still present Electronically Signed On 11-24-2022 20:40:32 CDT by Tony Donnelly M.D. [id number]
--- NOTE | 2022-11-24 15:33 | XR_ITS ---
WS: [id number] Exam: XR chest 1V portable [id number] Date/Time of Exam: 11/24/2022 3:33 PM Reason For Exam: dyspnea/cough Comparison 09/17/2021. The lungs are clear and fully inflated. Normal cardiomediastinal silhouette for technique. An ICD sup erimposes the LEFT chest. Bony structures are intact. IMPRESSION: 1. No acute cardiopulmonary finding.
[2022-11-24 15:35] LABS: Basophils # 0.1 10^3/uL (0.0-0.1); Basophils % 0.6 %; Eosinophils # 0.7 10^3/uL (0.0-0.8); Eosinophils % 6.2 %; Hematocrit 36.8 % (37-53); Lymphocytes # 2.2 10^3/uL (0.8-4.8); Lymphocytes % 20.3 %; Mean Corpuscular HGB Conc 31.8 g/dL (30-55); Mean Corpuscular Hemoglobin 31.4 pg (27-33); Mean Corpuscular Volume 98.7 fl (82-101); Mean Platelet Volume 10.1 fL (7.4-10.4); Monocytes # 0.9 10^3/uL (0.2-0.9); Monocytes % 7.8 %; Neutrophils # 7.07 10^3/uL (1.8-7.7); Neutrophils % 64.6 %; Nucleated Red Blood Cells % 0 %; Platelet Count 280 10^3/cmm (157-399); Red Blood Count 3.73 10^6/uL (3.85-5.65); Red Cell Distribution Width 13.2 % (12.1-15.1); White Blood Count 10.96 10^3/uL (3.29-11.43)
[2022-11-24 15:56] LABS: Alanine Aminotransferase 26 U/L (0-41); Albumin Level 4.9 g/dL (3.5-5.2); Alkaline Phosphatase 73 U/L (40-130); Aspartate Amino Transferase 20 U/L (0-40); Blood Urea Nitrogen 47 mg/dL (8-23); Calcium 9.6 mg/dL (8.5-10.5); Carbon Dioxide 23 mmol/L (22-29); Chloride 105 mmol/L (98-107); Globulin 2.6 g/dL (1.3-4.6); Glomerular Filtration Rate 19.1 mL/min (90-130); Glucose 81 mg/dL (65-115); Magnesium 1.8 mg/dL (1.7-2.3); Osmolality Calculated 299 mOsm/kg (285-295); Sodium 139 mmol/L (136-145); Total Bilirubin 0.7 mg/dL (0.15-1.2); Total Protein 7.5 g/dL (6.6-8.7)
[2022-11-24] MEDS: sodium chloride 0.9% 1,000 ML 999 ML IV (16:21)
[2022-11-24] MEDS: sodium polystyrene sulfonate 15 gm/60 mL Btl PO (16:21)
[2022-11-24] MEDS: sodium bicarbonate 8.4% 1 mEq/mL 50mL Syr 50 MEQ IVP (16:23)
[2022-11-24 16:28] LABS: NT Pro B Type Natriuretic Pept 1228 pg/mL (0-125)
--- NOTE | 2022-11-24 16:42 | W.ED.RECABL ---
HPI - Recheck/Abnormal Lab/Rx General: Chief Complaint: Recheck/Abnormal Lab/Rx Stated Complaint: sent from [facility] Time Seen by Provider: 11/24/22 15:28 Source: patient Mode of arrival: ambulatory History of Present Illness: Is a 60-year-old male presents emergency room he was directed here by his human resources supervisor after screening labs showed hyperkalemia. He is on Bumex as well as spironolactone he does not take any potassium supplement. He is also on an ARB. He has had some mild kidney issues in the past. MD complaint: abnormal lab Symptoms since prior visit: no new symptoms Context: called for abnormal lab result Associated symptoms: none Review of Systems Const: Denies: fever(s), chills, body aches, change in appetite, fatigue or malaise ENMT: Denies: throat pain, ear or mastoid pain, nasal discharge or nasal congestion Card: Denies: chest pain, edema, dyspnea on exertion or orthopnea Resp: Denies: dyspnea, productive cough or non-productive cough GI: Denies: abdominal pain, nausea, vomiting, hematemesis, coffee ground emesis, diarrhea, constipation, bloating, hematochezia or melena : Denies: flank pain, dysuria, urinary frequency or urinary urgency Skin/Breast: Denies: rash or pruritus PFSH ED PFSH: Medical History Cardiac arrest due to underlying cardiac condition Cerebrovascular accident (CVA) associated with severe acute respiratory syndrome coronavirus 2 (SARS-CoV-2) infection Chronic kidney disease, stage II (mild) CKD (chronic kidney disease) Coronary atherosclerosis Diabetes mellitus GERD (gastroesophageal reflux disease) HTN (hypertension) Hyperlipidemia Surgical History AICD (automatic cardioverter/defibrillator) present LVEF 25% on 09/11/21 History of back surgery S/P PTCA (percutaneous transluminal coronary angioplasty) X3 Family History Mother Myocardial infarction Father Myocardial infarction Brother Myocardial infarction Grandfather Heart disease Grandmother Heart disease Social History Smoking and tobacco status: never smoked Alcohol intake: never Substance/Drug Use: never Physical Exam Const: GENERAL APPEARANCE: cooperative and comfortable ORIENTATION/CONSCIOUSNESS: Yes awake, Yes oriented to person, Yes oriented to place and Yes oriented to time HENMT: COMMON NORMALS: normocephalic, atraumatic and hearing grossly normal bilaterally HEAD & SCALP: normocephalic and atraumatic Resp: COMMON NORMALS: normal respiratory effort, No retractions, No use of accessory muscles and clear to auscultation bilaterally AUSCULTATION: clear to auscultation bilaterally Cardio: COMMON NORMALS: regular rate, regular rhythm and No murmurs present (Cardio) RATE: regular rate RHYTHM: regular rhythm GI: COMMON NORMALS: Soft to palpation and No hepatosplenomegaly present AUSCULTATION: Yes normoactive bowel sounds PALPATION: Yes Soft to palpation, No Tenderness to palpation present (GI), No Guarding due to palpation present (GI) and Yes No hepatosplenomegaly present Extremity: COMMON NORMALS: normal to inspection, capillary refill normal, no clubbing, cyanosis or edema, no calf tenderness and no pedal edema Neuro: SENSORIUM/ORIENTATION: Yes oriented to person, Yes oriented to place and Yes oriented to time Skin: COMMON NORMALS: no rashes or lesions noted GENERAL SKIN EXAM: no rashes or lesions noted Course Vital Signs: Vital signs: Vital Signs Temperature 97.7 F 11/25/22 06:00 Pulse Rate 90 11/25/22 10:00 Respiratory Rate 22 H 11/25/22 10:00 Blood Pressure 121/63 11/25/22 10:00 Pulse Oximetry 97 11/25/22 10:00 Oxygen Delivery Me thod Room Air 11/25/22 06:00 MDM - Recheck/Abnormal Lab/Rx Medical Decision Making Hyperkalemia is mild acute kidney injury. Discussed with Dr. Live. Will admit reviewed medication adjustments he is currently on Bumex and an ARB. Being given judicious IV fluids orders written. Medical Records I reviewed the patient's medical records. Lab Data I reviewed the patient's lab results. 11/24/22 15:27 11/25/22 05:28 Laboratory Results WBC 10.96 10^3/uL (3.29-11.43) 11/24/22 15:27 RBC 3.73 10^6/uL (3.85-5.65) L 11/24/22 15: Hgb 11.70 g/dL (11.27-16.99) 11/24/22 15: Hct 36.8 % (37-53) L 11/24/22 15: MCV 98.7 fl (82-101) 11/24/22 15: MCH 31.4 pg (27-33) 11/24/22: MCHC 31.8 g/dL (30-55) 11/24/22 15: RDW 13.2 % (12.1-15.1) 11/24/22: Plt Count 280 10^3/cmm (157-399) 11/24/22 MPV 10.1 fL (7.4-10.4) 11/24/22 15: Neut % (Auto) 64.6 % 11/24/22: Lymph % (Auto) 20.3 % 11/24/22: Alpine % (Auto) 7.8 % 11/24/22 15: Eos % (Auto) 6.2 % 11/24/22: Baso % (Auto) 0.6 % 11/24/22: Neut # (Auto) 7.07 10^3/uL (1.8-7.7) 11/24/22: Lymph # (Auto) 2.2 10^3/uL (0.8-4.8) 11/24/22: Alpine # (Auto) 0.9 10^3/uL (0.2-0.9) 11/24/22: Eos # (Auto) 0.7 10^3/uL (0.0-0.8) 11/24/22: Baso # (Auto) 0.1 10^3/uL (0.0-0.1) 11/24/22 Nucleated RBC % (auto) 0 % 11/24/22 Nucleated RBCs # 0.0 /100WBC 11/24/22 15: Sodium 139 mmol/L (136-145) 11/24/22 15: Potassium 6.0 mmol/L (3.5-5.1) H 08/28/23 15:27 Chloride 105 mmol/L (98-107) 11/24/22 15:27 Carbon Dioxide 23 mmol/L (22-29) 11/24/22 15:27 Anion Gap 17.0 (5-19) 11/24/22 15:27 BUN 47 mg/dL (8-23) H 11/24/22 15:27 Creatinine 3.3 mg/dL (0.7-1.2) H 11/24/22 15:27 GFR Calculation 19.1 mL/min (90-130) L 11/24/22 15:27 Glucose 81 mg/dL (65-115) 11/24/22 15:27 Calculated Osmolality 299 mOsm/kg (285-295) H 11/24/22 15:27 Calcium 9.6 mg/dL (8.5-10.5) 11/24/22 15:27 Magnesium 1.8 mg/dL (1.7-2.3) 11/24/22 15:27 Total Bilirubin 0.7 mg/dL (0.15-1.2) 11/24/22 15:27 AST 20 U/L (0-40) 11/24/22 15:27 ALT 26 U/L (0-41) 11/24/22 15:27 Alkaline Phosphatase 73 U/L (40-130) 11/24/22 15:27 Creatine Kinase 85 U/L (39-308) 11/24/22 15:27 NT-Pro-B Natriuret Pep 1228 pg/mL (0-125) H 11/24/22 15:27 Total Protein 7.5 g/dL (6.6-8.7) 11/24/22 15:27 Albumin 4.9 g/dL (3.5-5.2) 11/24/22 15:27 Globulin 2.6 g/dL (1.3-4.6) 11/24/22 15:27 Discharge Plan Discharge Patient Disposition: Admitted As Inpatient Admit Provider: Ramon Live Clinical Impression: Hyperkalemia, Acute kidney injury superimposed on chronic kidney disease Condition: Stable Coding Level of Care Code ED Precision Thread Grinder Operator for Rob Haile
--- NOTE | 2022-11-24 18:58 | PM.HP ---
Providers/Chief Complaint Admitting Physician: Ramon Live Primary Care Provider: John Paul Fox DO Chief Complaint: sent from [facility] History of Present Illness Fuad Priest is a 62 year old male directed to ER for evaluation by his credit review manager due to hyperkalemia, potassium this morning 6.5. He has not been symptomatic. Yesterday he worked outdoors, including mowing grass. He is also noted to have worsening of his renal function, creatinine up to 3.3. Denies any NSAID use. During endocrinology appointment his metformin was discontinued. Review of Systems Const: Denies: fever(s), chills, body aches or malaise ENMT: Denies: throat pain Card: Denies: chest pain, edema, pre-syncope or dyspnea on exertion Resp: Denies: dyspnea, productive cough, change in phlegm color or hemoptysis GI: Reports: diarrhea (Occasional, not currently.); Denies: abdominal pain, nausea, vomiting, constipation, hematochezia or melena : Denies: flank pain, difficulty urinating, urinary frequency or hematuria Musc: Denies: back pain, joint swelling or joint redness Skin/Breast: Denies: rash or new lesions Neuro: Denies: headache(s) or confusion Medications/Allergies Home Medications Medication Instructions Recorded Confirmed Last Taken Type multivitamin 1 tab PO QAM 05/12/19 11/24/22 11/24/22 History nitroglycerin 0.3 mg sublingual 0.3 mg sublingual Q5M PRN Chest 04/12/21 11/24/22 09/04/21 06:00 History tablet (Nitrostat) Pain albuterol sulfate 90 mcg/actuation 2 puff inhalation Q4H PRN 09/04/21 11/24/22 Unknown History aerosol inhaler shortness of breath or wheezing cholecalciferol (vitamin D3) 125 125 mcg PO QAM 09/04/21 11/24/22 09/04/21 History mcg (5,000 unit) tablet (Vitamin D3) aspirin 81 mg tablet,delayed 81 mg PO DAILY #30 tabs 09/13/21 11/24/22 11/24/22 Rx release clopidogrel 75 mg tablet (Plavix) 75 mg PO QAM #90 tabs 02/21/22 11/24/22 11/24/22 Rx pantoprazole 20 mg tablet,delayed 20 mg PO DAILY #90 tabs 03/20/22 11/24/22 11/24/22 Rx release pen needle, diabetic 31 gauge x #100 ea 09/24/22 11/24/22 Unknown Rx 3/16 (BD Ultra-Fine Mini Pen Needle) insulin glargine 100 unit/mL (3 45 unit SUBCUT DAILY 10/08/22 11/24/22 11/24/22 History mL) subcutaneous pen (Basaglar KwikPen U-100 Insulin) liraglutide 0.6 mg/0.1 mL (18 mg/3 See Rx Instructions .Route 10/23/22 11/24/22 11/24/22 Rx mL) subcutaneous pen injector .COMPLEX #27 mL (Victoza 3-Jesús) metoprolol tartrate 50 mg tablet See Rx Instructions .Route 11/03/22 11/24/22 11/24/22 Rx .COMPLEX #270 tabs atorvastatin 40 mg tablet 80 mg PO BEDTIME #60 tabs 11/11/22 11/24/22 11/23/22 Rx amiodarone 200 mg tablet 200 mg PO DAILY 11/24/22 11/24/22 11/24/22 History bumetanide 1 mg tablet 1 mg PO BID 11/24/22 11/24/22 11/24/22 History citalopram 20 mg tablet 20 mg PO DAILY 11/24/22 11/24/22 11/24/22 History isosorbide mononitrate 30 mg 30 mg PO DAILY 11/24/22 11/24/22 11/24/22 History tablet,extended release 24 hr losartan 50 mg tablet 50 mg PO DAILY 11/24/22 11/24/22 11/24/22 History sacubitril 24 mg-valsartan 26 mg 1 tab PO BID 11/24/22 11/24/22 11/24/22 History tablet (Entresto) spironolactone 25 mg tablet 25 mg PO DAILY 11/24/22 11/24/22 11/24/22 History Allergies Allergy/AdvReac Type Severity Reaction Status Date / Time No Known Allergies Allergy Verified 10/08/22 11:55 PFSH Acute PFSH: Medical History Cardiac arrest due to underlying cardiac condition Cerebrovascular accident (CVA) associated with severe acute respiratory syndrome coronavirus 2 (SARS-CoV-2) infection Chronic kidney disease, stage II (mild) CKD (chronic kidney disease) Coronary atherosclerosis Diabetes mellitus GERD (gastroesophageal reflux disease) HTN (hypertension) Hyperlipidemia Surgical History AICD (automatic cardioverter/defibrillator) present LVEF 25% on 09/11/21 History of back surgery S/P PTCA (percutaneous transluminal coronary angioplasty) X3 Family History Mother Myocardial infarction Father Myocardial infarction Brother Myocardial infarction Grandfather Heart disease Grandmother Heart disease Social History Smoking and tobacco status: never smoked Alcohol intake: never Substance/Drug Use: never Vitals/I&O/Wt Last Vital Signs Temp 97.9 F 11/24/22 18:40 Pulse 72 11/24/22 18:40 Resp 35 H 11/24/22 18:40 BP 124/72 11/24/22 18:40 Pulse Ox 98 11/24/22 18:03 O2 Del Method Room Air 11/24/22 18:26 11/24/22 11/24/22 11/24/22 06:59 14:59 22:59 Intake Total 1000 / 1000 Balance 1000 / 1000 Weight last 48 hrs Weight 89.358 kg Physical Exam Narrative: Accompanied by his Const: COMMON NORMALS: patient oriented x3 and alert GENERAL APPEARANCE: cooperative ORIENTATION/CONSCIOUSNESS: Yes awake HENMT: COMMON NORMALS: oropharynx normal Neck/C-Spine: COMMON NORMALS: no JVD Resp: COMMON NORMALS: normal respiratory effort and clear to auscultation bilaterally AUSCULTATION: clear to auscultation bilaterally Cardio: COMMON NORMALS: no JVD, regular rhythm, S1 normal heart sound present, S2 normal heart sound present and No murmurs present (Cardio) RHYTHM: regular rhythm HEART SOUNDS: S1 normal heart sound present and S2 normal heart sound present GI: COMMON NORMALS: Normal to inspection, nondistended, normoactive bowel sounds present, Soft to palpation and non-tender PALPATION: Yes Soft to palpation Extremity: COMMON NORMALS: no joint enlargement and no pedal edema Neuro: COMMON NORMALS: patient oriented x3 and moves all extremities SENSORIUM/ORIENTATION: Yes alert Skin: COMMON NORMALS: no rashes or lesions noted GENERAL SKIN EXAM: no rashes or lesions noted Data 11/24/22 15:27 11/24/22 15:27 A&P Assessment and plan (1) Hyperkalemia: Potassium noted 6. HI 196. Otherwise not symptomatic. Hold losartan, spironolactone, Entresto. Has received fluid bolus, albuterol, bicarb, NC he also got Kayexalate. Discussed risk of bowel perforation. Will recheck potassium again tonight. Monitor on telemetry due to risk of arrhythmia. We will give 1 g of calcium gluconate. Low potassium diet. On review of rhythm strip I do not see changes related to hyperkalemia at this time. Does have some worsening renal function, Bumex for now held, but will reassess in the morning and possibly resume. He also reportedly drinks Gatorade at home, discussed with him and his to check how much potassium is in the drinks he has, avoid electrolyte supplementation drinks with potassium for now. (2) Acute kidney injury superimposed on chronic kidney disease: Hold losartan, spironolactone, Entresto. Received fluid challenge in ER. Hold Bumex for now. Reassess renal function in the morning. Check CK, discussed possible rhabdomyolysis he is on statin, will continue for now. Worked outside yesterday. Would benefit from follow-up with nephrology after discharge. Plan History of cardiac arrest: Has AICD. Monitor on telemetry. History of CVA: Continue aspirin, statin CKD stage II: Discussed with him and his given JOSE would benefit from follow-up with nephrology after discharge. DM2: With JOSE on CKD will reduce insulin dose for now. Sliding scale low-dose insulin. Accu-Cheks. GERD HTN HLD Goals of care discussion: He would want attempted resuscitation in case of cardiopulmonary arrest. Full code at this time. Discussed with ER physician. ER note reviewed. Attestations Medical Necessity Statement*: Place in observation for additional assessment management of hyperkalemia, JOSE on CKD gentleman with history of cardiac arrest. Diagnoses Hyperkalemia E87.5 Acute kidney injury superimposed on chronic kidney disease N17.9; N18.9
[2022-11-24] MEDS: sodium chloride 0.9% 1,000 ML 100 ML IV (19:07)
[2022-11-24] MEDS: calcium gluconate 0.9% NaCL 1 GM/50 ML PREMIX IV (19:33)
[2022-11-24 19:49] LABS: Creatine Phosphokinase 85 U/L (39-308)
[2022-11-24] MEDS: atorvastatin 40 mg Tablet 80 MG PO (20:08)
[2022-11-24] MEDS: metoprolol tartrate 25 mg Tablet PO (20:08)
[2022-11-25] VITALS (20 sets, daily range): BP systolic 101–136; BP diastolic 57–78; PULSE 64–90; RESP 10–22; TEMP 36.5; O2SAT 93–98
[2022-11-25] MEDS: sodium chloride 0.9% 1,000 ML 100 ML IV (05:03)
[2022-11-25] MEDS: clopidogrel 75 mg Tablet PO (05:22)
[2022-11-25 06:00] LABS: Blood Urea Nitrogen 42 mg/dL (8-23); Calcium 8.9 mg/dL (8.5-10.5); Carbon Dioxide 22 mmol/L (22-29); Chloride 109 mmol/L (98-107); Glomerular Filtration Rate 23.1 mL/min (90-130); Glucose 64 mg/dL (65-115); Osmolality Calculated 301 mOsm/kg (285-295); Sodium 141 mmol/L (136-145)
[2022-11-25 06:08] LABS: Anion Gap 14.9 (5-19); Potassium 4.9 mmol/L (3.5-5.1)
[2022-11-25] MEDS: amiodarone 200 mg Tablet PO (08:30)
[2022-11-25] MEDS: aspirin 81 mg EC Tablet PO (08:30)
[2022-11-25] MEDS: citalopram 20 mg Tablet PO (08:30)
[2022-11-25] MEDS: isosorbide mononitrate ER 30 mg Tablet PO (08:31)
[2022-11-25] MEDS: pantoprazole DR 40 mg Tablet PO (08:31)
[2022-11-25] MEDS: metoprolol tartrate 50 mg Tablet PO (08:31)
[2022-11-25 08:39] LABS: Glucose Point of Care 76 mg/dL (70-110)
[2022-11-25] MEDS: insulin glargine 100 units/1 mL 35 UNIT SUBCUT (09:07)
--- NOTE | 2022-11-25 11:24 | P.DS_ITS ---
Discharge Providers Date of Admission: 11/24/22 18:07 Date of Discharge: November 25, 2022 Attending Provider at Admission: Ramon Live Attending Provider at Discharge: Ramon Live Primary Care Provider: John Paul Fox DO Diagnoses at Discharge Discharge Diagnosis (1) Hyperkalemia: Status: Acute (2) Acute kidney injury superimposed on chronic kidney disease: Status: Acute Reason for Visit Reason for Visit: sent from [facility] Brief History: Fuad Priest is a 62 year old male directed to ER for evaluation by his service provider due to hyperkalemia, potassium this morning 6.5.? He has not been symptomatic.? Yesterday he worked outdoors, including mowing grass. He is also noted to have worsening of his renal function, creatinine up to 3.3.? Denies any NSAID use. During endocrinology appointment his metformin was discontinued. Hospital Course Hospital Course His potassium is noted decreased overnight, down to 4.9. As well as improvement in JOSE, creatinine down to 2.8. Blood pressure noted soft, as low as 101/70, while in hospital metoprolol dose was decreased in half as well. At discharge discussed with him due to hyperkalemia, JOSE, so blood pressures, we are for now with holding entirely losartan, Entresto, spironolactone. Metoprolol dose was decreased to 25 mg twice daily. Please follow-up blood pressures, please follow-up kidney function as well as potassium. He is instructed to avoid foods and drinks Monegasque potassium. He did drink a large Gatorade yesterday as well. With soft glucose, possibly secondary to JOSE, he is insulin dose is decreased down to 20 units as well. His metformin has already been discontinued by the service provider. Victoza continues for now. He is going to monitor blood g lucose at home. Please reassess. Consider resuming Entresto, spironolactone once renal function stable, potassium stable, would resume from lower doses and escalate with monitoring depending on how he tolerates. Please arrange follow-up with nephrology due to JOSE on CKD. Physical Exam Narrative: Accompanied by his family. He is doing well. Denies any complaints. Feels comfortable returning home. Const: COMMON NORMALS: patient oriented x3 and alert GENERAL APPEARANCE: cooperative ORIENTATION/CONSCIOUSNESS: Yes awake HENMT: COMMON NORMALS: oropharynx normal Neck/C-Spine: COMMON NORMALS: no JVD Resp: COMMON NORMALS: normal respiratory effort and clear to auscultation bilaterally AUSCULTATION: clear to auscultation bilaterally Cardio: COMMON NORMALS: no JVD, regular rhythm, S1 normal heart sound present, S2 normal heart sound present and No murmurs present (Cardio) RHYTHM: regular rhythm HEART SOUNDS: S1 normal heart sound present and S2 normal heart sound present GI: COMMON NORMALS: Normal to inspection, nondistended, normoactive bowel sounds present, Soft to palpation and non-tender PALPATION: Yes Soft to palpation Extremity: COMMON NORMALS: no joint enlargement and no pedal edema Neuro: COMMON NORMALS: patient oriented x3 and moves all extremities SENSORIUM/ORIENTATION: Yes alert Skin: COMMON NORMALS: no rashes or lesions noted GENERAL SKIN EXAM: no rashes or lesions noted Discharge Data Studies Completed and Pending Completed Studies During Hospitalization Category Date Time Status XR chest 1V portable [id number] Stat Exams 11/24/22 15:33 Completed Pending at discharge Category Date Time Status Basic Metabolic Panel AM LABS Lab 11/26/22 04:00 Ordered Basic Metabolic Panel AM LABS Lab 11/27/22 04:00 Ordered Laboratory Results WBC 10.96 10^3/uL (3.29-11.43) 11/24/22 15: RBC 3.73 10^6/uL (3.85-5.65) L 11/24/22 15:27 Hgb 11.70 g/dL (11.27-16.99) 11/24/22 15:27 Hct 36.8 % (37-53) L 11/24/22 15:27 MCV 98.7 fl (82-101) 11/24/22 15:27 MCH 31.4 pg (27-33) 11/24/22 15: MCHC 31.8 g/dL (30-55) 11/24/22 15:27 RDW 13.2 % (12.1-15.1) 11/24/22 15:27 Plt Count 280 10^3/cmm (157-399) 11/24/22 15:27 MPV 10.1 fL (7.4-10.4) 11/24/22 15:27 Neut % (Auto) 64.6 % 11/24/22 15:27 Lymph % (Auto) 20.3 % 11/24/22 15:27 [place] % (Auto) 7.8 % 11/24/22 15:27 Eos % (Auto) 6.2 % 11/24/22 15:27 Baso % (Auto) 0.6 % 11/24/22 15:27 Neut # (Auto) 7.07 10^3/uL (1.8-7.7) 11/24/22 15:27 Lymph # (Auto) 2.2 10^3/uL (0.8-4.8) 11/24/22 15: [place] # (Auto) 0.9 10^3/uL (0.2-0.9) 11/24/22 15: Eos # (Auto) 0.7 10^3/uL (0.0-0.8) 11/24/22 15: Baso # (Auto) 0.1 10^3/uL (0.0-0.1) 11/24/22 15: Nucleated RBC % (auto) 0 % 11/24/22 15: Nucleated RBCs # 0.0 /100WBC 11/24/22 15:27 Sodium 141 mmol/L (136-145) 11/25/22 05:28 Potassium 4.9 mmol/L (3.5-5.1) 11/25/22 05:28 Chloride 109 mmol/L (98-107) H 11/25/22 05:28 Carbon Dioxide 22 mmol/L (22-29) 11/25/22 05:28 Anion Gap 14.9 (5-19) 11/25/22 05:28 BUN 42 mg/dL (8-23) H 11/25/22 05:28 Creatinine 2.8 mg/dL (0.7-1.2) H 11/25/22 05:28 GFR Calculation 23.1 mL/min (90-130) L 11/25/22 05:28 Glucose 64 mg/dL (65-115) L 11/25/22 05:28 POC Glucose 76 mg/dL (70-110) 11/25/22 08:27 Calculated Osmolality 301 mOsm/kg (285-295) H 11/25/22 05:28 Calcium 8.9 mg/dL (8.5-10.5) 11/25/22 05:28 Magnesium 1.8 mg/dL (1.7-2.3) 11/24/22 15:27 Total Bilirubin 0.7 mg/dL (0.15-1.2) 11/24/22 15:27 AST 20 U/L (0-40) 11/24/22 15:27 ALT 26 U/L (0-41) 11/24/22 15:27 Alkaline Phosphatase 73 U/L (40-130) 11/24/22 15:27 Creatine Kinase 85 U/L (39-308) 11/24/22 15:27 NT-Pro-B Natriuret Pep 1228 pg/mL (0-125) H 11/24/22 15:27 Total Protein 7.5 g/dL (6.6-8.7) 11/24/22 15:27 Albumin 4.9 g/dL (3.5-5.2) 11/24/22 15:27 Globulin 2.6 g/dL (1.3-4.6) 11/24/22 15:27 Vitals Last Vital Signs Temp 97.7 F 11/25/22 06:00 Pulse 90 11/25/22 10:00 Resp 22 H 11/25/22 10:00 BP 121/63 11/25/22 10:00 Pulse Ox 97 11/25/22 10:00 O2 Del Method Room Air 11/25/22 06:00 Discharge Plan Discharge Patient Disposition: Home Condition: Stable Prescriptions: New metoprolol tartrate 25 mg Tablet 25 mg PO BID@0900,2100 60 Days Qty: 60 0RF Continued multivitamin Tablet 1 tab PO QAM clopidogrel [Plavix] 75 mg tablet 75 mg PO QAM Qty: 90 3RF pantoprazole 20 mg tablet,delayed release (DR/EC) 20 mg PO DAILY Qty: 90 3RF (DME) pen needle, diabetic [BD Ultra-Fine Mini Pen Needle] 31 gauge x 3/16 needle See Rx Instructions .ROUTE .COMPLEX Qty: 100 0RF Dose Instruction: USE DIRECTED Rx Instructions: USE DIRECTED Victoza 3-Jesús 0.6 mg/0.1 mL (18 mg/3 mL) pen injector See Rx Instructions .ROUTE .COMPLEX Qty: 27 0RF Dose Instruction: INJECT 1.8mg SUBCUTANEOUSLY EVERY MORNING Rx Instructions: INJECT 1.8mg SUBCUTANEOUSLY EVERY MORNING atorvastatin 40 mg tablet 80 mg PO BEDTIME Qty: 60 5RF nitroglycerin [Nitrostat] 0.3 mg Tablet, Sublingual 0.3 mg SUBLINGUAL Q5M PRN (Reason: Chest Pain) cholecalciferol (vitamin D3) [Vitamin D3] 125 mcg (5,000 unit) Tablet 125 mcg PO QAM albuterol sulfate 90 mcg/actuation HFA aerosol inhaler 2 puff inhalation Q4H PRN (Reason: shortness of breath or wheezing) aspirin 81 mg Tablet,Delayed Release (Dr/Ec) 81 mg PO DAILY Qty: 30 0RF isosorbide mononitrate 30 mg Tablet Extended Release 24 Hr 30 mg PO DAILY amiodarone 200 mg tablet 200 mg PO DAILY citalopram 20 mg tablet 20 mg PO DAILY Changed Basaglar KwikPen U-100 Insulin 100 unit/mL (3 mL) insulin pen 20 unit SUBCUT DAILY Qty: 1 0RF Rx Instructions: Dose change only Held bumetanide 1 mg tablet 1 mg PO BID Hold Instructions: Resume on 11/26/22. Discontinued metoprolol tartrate 50 mg tablet See Rx Instructions .ROUTE .COMPLEX Qty: 270 0RF Dose Instruction: TAKE 2 TABLETS BY MOUTH IN THE MORNING AND 1 IN THE EVENING Rx Instructions: TAKE 2 TABLETS BY MOUTH IN THE MORNING AND 1 IN THE EVENING losartan 50 mg Tablet 50 mg PO DAILY spironolactone 25 mg tablet 25 mg PO DAILY Rx Instructions: Take 1 tablet by mouth once daily Entresto 24-26 mg tablet 1 tab PO BID Discharge Orders: Discharge Order (Routine); Ordered 11/25/22 Ordered By: Ramon Live Referrals: Nephrology [Provider Group] - 2 weeks (JOSE on CKD) John Paul Fox DO [Primary Care Provider] - 12/09/22 1:00 pm Discharge Diet: Cardiac and Diabetic Discharge Activity: Increase activity as tolerated and Limit activity as instructed Patient Instructions: Metoprolol (By mouth), Spironolactone (By mouth), Losartan (By mouth), Sacubitril/Valsartan (By mouth), Acute Kidney Injury (GEN), Chronic Kidney Disease (GEN), Potassium Content of Foods List (GEN), Hypoglycemia in a Person with Diabetes (GEN), Hyperkalemia (GEN), What to Do if Your Blood Sugar is Low (GEN) Activity Restrictions/Additional Instructions: As discussed due to soft blood pressure, increased potassium and kidney injury for now your losartan, Entresto as well as spironolactone. As discussed please remember these medications to decrease your blood pressure as well as make you retain potassium. Please continue to monitor blood pressures at home at least 3 times daily, write down values. Avoid taking any blood pressure medications if your blood pressure is less than 100 top number or 60 bottom number. For now your metoprolol dose is decreased as well. With lower blood glucose, acute kidney injury your insulin Lantus dose is decreased as well down to 20 units for now, Victoza unchanged. Please continue to measure blood glucose avoid hypoglycemia, if blood glucose starts rising, increase your Lantus gradually as discussed and as per endocrinology instructions. Hold your Bumex today, if blood pressure remains in the normal range and you do not anticipate being at risk of dehydration tomorrow consider restarting Bumex. Please have your primary provider follow-up your kidney function, reassess stability and consider resuming medications at lower doses and gradually escalating. Continue low potassium diet. Avoid foods and drinks rich in potassium. Continue light to moderate physical activity, avoid overexertion and dehydration. Discharge Attestations Time Spent in Discharge Care*: greater than 30 min Status at Discharge: Cognitive status at discharge: cognitively intact , Behavioral status at discharge: cooperative , Quality Metrics Clinical Quality Measures [ No reported AMI, CVA or VTE this stay] Coding Level of Care Code 60028 Total time (in minutes) for Discharge: 45 Diagnoses Hyperkalemia E87.5 Acute kidney injury superimposed on chronic kidney disease N17.9; N18.9
--- NOTE | 2022-11-25 12:37 | PC.NURSE ---
All D/C instructions educated to patient, questions answered, no concerns expressed. Out of facility at this time transported home by
[2022-11-25 23:04] LABS: Glucose Point of Care 86 mg/dL (70-110)
== END 2022-11-25 12:39 | disposition home or self-care (01) ==
LOC: ER 16:44 → ICU 20:28
PROVIDERS: Physician Assistant; Admitting Provider Internal Medicine; Emergency Provider Family Medicine; PCP Family Medicine; Visit Provider Internal Medicine
DX: E87.5 Hyperkalemia (principal); N17.9 Acute kidney failure, unspecified; I12.9 Hypertensive chronic kidney disease with stage 1 through stage 4 chronic kidney disease, or unspecified chronic kidney disease; N18.2 Chronic kidney disease, stage 2 (mild); E78.5 Hyperlipidemia, unspecified; K21.9 Gastro-esophageal reflux disease without esophagitis; E11.9 Type 2 diabetes mellitus without complications; I25.10 Atherosclerotic heart disease of native coronary artery without angina pectoris; Z86.73 Personal history of transient ischemic attack (TIA), and cerebral infarction without residual deficits
CPT/HCPCS: 36415; 36416; 71045; 80048; 80053; 80061; 82044; 82550; 82962; 83036; 83735; 83880; 84132; 85025; 93005; 96361; 96365; 96372; 96375; 96376; 99285; G0378; J0610; J1815; J7030

== ENCOUNTER → 2023-01-13 11:05 | Outpatient (BNVA) | payer BC, SELFPAY | PROVIDERS: PCP Family Medicine; Visit Provider Family Medicine | DX: E83.52 Hypercalcemia (principal); I10 Essential (primary) hypertension; I25.5 Ischemic cardiomyopathy; N18.9 Chronic kidney disease, unspecified; E83.42 Hypomagnesemia; Z12.5 Encounter for screening for malignant neoplasm of prostate; E11.59 Type 2 diabetes mellitus with other circulatory complications; E11.9 Type 2 diabetes mellitus without complications; I25.10 Atherosclerotic heart disease of native coronary artery without angina pectoris; N18.2 Chronic kidney disease, stage 2 (mild); N17.9 Acute kidney failure, unspecified | CPT/HCPCS: 80053; 80061; 82043; 82306; 83036; 83735; 84443; 85025; G0103 ==

== ENCOUNTER → 2023-04-14 09:13 | Outpatient (BNVA) | payer BC, SELFPAY | PROVIDERS: PCP Family Medicine; Visit Provider Internal Medicine | DX: E11.59 Type 2 diabetes mellitus with other circulatory complications; I25.10 Atherosclerotic heart disease of native coronary artery without angina pectoris; N18.2 Chronic kidney disease, stage 2 (mild); Z79.4 Long term (current) use of insulin; E87.5 Hyperkalemia | CPT/HCPCS: 36415; 80053; 80061; 83036 ==

== ENCOUNTER 2023-07-13 09:28 | Outpatient (CLI) | payer BC, SELFPAY ==
[2023-07-13 10:55] LABS: Alanine Aminotransferase 27 U/L (0-41); Albumin Level 4.3 g/dL (3.5-5.2); Alkaline Phosphatase 108 U/L (40-130); Anion Gap 15.3 (5-19); Aspartate Amino Transferase 22 U/L (0-40); Blood Urea Nitrogen 38 mg/dL (8-23); Calcium 9.7 mg/dL (8.5-10.5); Carbon Dioxide 29 mmol/L (22-29); Chloride 103 mmol/L (98-107); Chol HDL Ratio 3.81 mg/dL (1.0-5.00); Cholesterol 160 mg/dL (0-200); Globulin 3.4 g/dL (1.3-4.6); Glomerular Filtration Rate 23.1 mL/min (90-130); Glucose 140 mg/dL (65-115); HDL Cholesterol 42 mg/dL (60-100); LDL Cholesterol Calculated 67 mg/dL (50-129); Osmolality Calculated 307 mOsm/kg (285-295); Potassium 4.3 mmol/L (3.5-5.1); Sodium 143 mmol/L (136-145); Total Bilirubin 0.7 mg/dL (0.15-1.2); Total Protein 7.7 g/dL (6.6-8.7); Triglycerides 257 mg/dL (0-150)
[2023-07-13 11:03] LABS: Estmated Average Glucose 137; Hemoglobin A1C 6.4 % (4.0-6.0)
[2023-07-13 11:08] LABS: Creatinine Urine, Random 83 mg/dL (39-259); Microalbumin Random Urine 12 ug/dL (0-20)
[2023-07-13 11:11] LABS: Microalbum Creatinine Ratio Ur 145 mg/dL (0-20)
== END 2023-07-13 09:29 | disposition home or self-care (01) ==
PROVIDERS: PCP Family Medicine; Visit Provider Internal Medicine
DX: E11.59 Type 2 diabetes mellitus with other circulatory complications (principal); Z79.4 Long term (current) use of insulin; E87.5 Hyperkalemia
CPT/HCPCS: 36415; 80053; 80061; 82044; 83036

== ENCOUNTER 2023-09-08 05:58 | Outpatient (CLI) | payer BC, SELFPAY ==
--- NOTE | 2023-09-08 06:15 | US_ITS ---
WS: [id number] RENAL ULTRASOUND HISTORY: CKD STAGE 4 COMPARISON: None available. TECHNIQUE: 2-D and color Doppler imaging of the kidney submitted. Right kidney: 11.2 cm x 6.3 cm x 5.1 cm. Cortex: 1.1 cm Normal echogenicity with no hydronephrosis or mass. Tiny cortical cyst inferior kidney with a maximal diameter of 9 mm. Left kidney: 12.4 cm x 6.0 cm x 4.1 cm. Cortex: 1.4 cm Normal echogenicity with no hydronephrosis or mass. Too small to characterize exophytic nodule from t he LEFT kidney with a maximal diameter 7 mm. This is probably a tiny cyst also. Aorta: Normal. Urinary Bladder: Normally distended. Prostate gland is heterogeneous and lobulated measuring 6.3 x 6. 1 x 6.2 cm. US/US renal BI* [id number] IMPRESSION: 1. Normal size kidneys with no hydronephrosis. 2. Subcentimeter lower echogenicity masses from each kidney probably represent ing small cortical cyst but really too small to characterize. 3. Prostate gland enlargement.
== END 2023-09-08 05:59 | disposition home or self-care (01) ==
LOC: RAD 05:58
PROVIDERS: PCP Family Medicine; Visit Provider Internal Medicine Nephrology
DX: N18.4 Chronic kidney disease, stage 4 (severe) (principal); N40.0 Benign prostatic hyperplasia without lower urinary tract symptoms
CPT/HCPCS: 76770

== ENCOUNTER 2023-09-11 10:04 | Outpatient (CLI) | payer BC, SELFPAY ==
[2023-09-11 10:48] LABS: Basophils # 0.1 10^3/uL (0.0-0.1); Basophils % 0.6 %; Eosinophils # 0.3 10^3/uL (0.0-0.8); Eosinophils % 2.8 %; Hematocrit 38.9 % (37-53); Lymphocytes # 1.2 10^3/uL (0.8-4.8); Lymphocytes % 12.8 %; Mean Corpuscular HGB Conc 32.1 g/dL (30-55); Mean Corpuscular Volume 93.5 fl (82-101); Mean Platelet Volume 10.1 fL (7.4-10.4); Monocytes # 0.7 10^3/uL (0.2-0.9); Monocytes % 8.1 %; Neutrophils # 6.85 10^3/uL (1.8-7.7); Neutrophils % 75.5 %; Nucleated Red Blood Cells % 0 %; Platelet Count 245 10^3/cmm (157-399); Red Blood Count 4.16 10^6/uL (3.85-5.65); Red Cell Distribution Width 14.7 % (12.1-15.1); White Blood Count 9.06 10^3/uL (3.29-11.43)
[2023-09-11 10:59] LABS: Estmated Average Glucose 151; Hemoglobin A1C 6.9 % (4.0-6.0)
[2023-09-11 11:09] LABS: Alanine Aminotransferase 22 U/L (0-41); Albumin Level 4.1 g/dL (3.5-5.2); Alkaline Phosphatase 123 U/L (40-130); Anion Gap 16.6 (5-19); Aspartate Amino Transferase 18 U/L (0-40); Blood Urea Nitrogen 38 mg/dL (8-23); Carbon Dioxide 27 mmol/L (22-29); Chloride 101 mmol/L (98-107); Chol HDL Ratio 3.57 mg/dL (1.0-5.00); Cholesterol 164 mg/dL (0-200); Globulin 3.2 g/dL (1.3-4.6); Glomerular Filtration Rate 25.1 mL/min (90-130); Glucose 234 mg/dL (65-115); HDL Cholesterol 46 mg/dL (60-100); LDL Cholesterol Calculated 64 mg/dL (50-129); LDL HDL Ratio 1.39 RATIO (0.00-3.22); Osmolality Calculated 309 mOsm/kg (285-295); Potassium 3.6 mmol/L (3.5-5.1); Sodium 141 mmol/L (136-145); Total Bilirubin 0.7 mg/dL (0.15-1.2); Total Protein 7.3 g/dL (6.6-8.7); Triglycerides 268 mg/dL (0-150)
[2023-09-11 11:13] LABS: Calcium 9.2 mg/dL (8.5-10.5)
[2023-09-11 11:14] LABS: Creatinine Urine, Random 42 mg/dL (39-259); Microalbum Creatinine Ratio Ur 286 mg/dL (0-20); Microalbumin Random Urine 12 ug/dL (0-20)
[2023-09-11 11:21] LABS: Albumin Level 4.1 g/dL (3.5-5.2); Anion Gap 16.7 (5-19); Blood Urea Nitrogen 39 mg/dL (8-23); Carbon Dioxide 27 mmol/L (22-29); Chloride 100 mmol/L (98-107); Glucose 232 mg/dL (65-115); Potassium 3.7 mmol/L (3.5-5.1); Sodium 140 mmol/L (136-145)
[2023-09-11 11:51] LABS: 25 Hydroxy Vitamin D 59 ng/mL (30-100)
[2023-09-11 12:18] LABS: Parathyroid Hormone 109.3 pg/mL (15-65)
== END 2023-09-11 10:05 | disposition home or self-care (01) ==
LOC: LAB 10:07
PROVIDERS: Absent Provider Registered Nurse; PCP Family Medicine; Visit Provider Internal Medicine
DX: E11.59 Type 2 diabetes mellitus with other circulatory complications (principal); Z79.4 Long term (current) use of insulin; E78.2 Mixed hyperlipidemia; R97.20 Elevated prostate specific antigen [PSA]
CPT/HCPCS: 80053; 80061; 80069; 82044; 82306; 82310; 83036; 83970; 84153; 85025

== ENCOUNTER 2023-10-07 10:01 | Outpatient (CLI) | payer BC, SELFPAY ==
[2023-10-07 11:23] LABS: Creatinine Urine, Random 49 mg/dL (39-259); Microalbum Creatinine Ratio Ur 143 mg/dL (0-20); Microalbumin Random Urine 7 ug/dL (0-20)
[2023-10-07 11:26] LABS: Estmated Average Glucose 157; Hemoglobin A1C 7.1 % (4.0-6.0)
[2023-10-07 11:32] LABS: Albumin Level 4.4 g/dL (3.5-5.2); Alkaline Phosphatase 119 U/L (40-130); Blood Urea Nitrogen 45 mg/dL (8-23); Calcium 9.2 mg/dL (8.5-10.5); Carbon Dioxide 28 mmol/L (22-29); Chloride 102 mmol/L (98-107); Cholesterol 163 mg/dL (0-200); Glomerular Filtration Rate 25.1 mL/min (90-130); Glucose 124 mg/dL (65-115); HDL Cholesterol 44 mg/dL (60-100); LDL Cholesterol Calculated 68 mg/dL (50-129); LDL HDL Ratio 1.55 RATIO (0.00-3.22); Osmolality Calculated 311 mOsm/kg (285-295); Sodium 144 mmol/L (136-145); Total Bilirubin 0.8 mg/dL (0.15-1.2); Total Protein 7.4 g/dL (6.6-8.7); Triglycerides 257 mg/dL (0-150)
[2023-10-07 11:40] LABS: Alanine Aminotransferase 31 U/L (0-41); Anion Gap 18.1 (5-19); Aspartate Amino Transferase 33 U/L (0-40); Potassium 4.1 mmol/L (3.5-5.1)
== END 2023-10-07 10:02 | disposition home or self-care (01) ==
LOC: LAB 10:21
PROVIDERS: PCP Family Medicine; Visit Provider Internal Medicine
DX: E11.59 Type 2 diabetes mellitus with other circulatory complications (principal); Z79.4 Long term (current) use of insulin; E78.2 Mixed hyperlipidemia; I25.10 Atherosclerotic heart disease of native coronary artery without angina pectoris; E11.22 Type 2 diabetes mellitus with diabetic chronic kidney disease; N18.4 Chronic kidney disease, stage 4 (severe)
CPT/HCPCS: 36415; 80053; 80061; 82044; 83036

== ENCOUNTER 2023-11-03 10:54 | Outpatient (CLI) | payer BC, SELFPAY ==
--- NOTE | 2023-11-03 11:09 | XR_ITS ---
WS: [id number] XR chest 2V* [id number] REASON FOR EXAM: PRE OP TESTING/CORONARY ARTERY DZ FINDINGS: The chest is unchanged compared to 11/24/2022. Cardiac device over the left chest with trans left subclavian vein lead to the ventricular apex. Moderate tortuosity and ectasia of the thoracic aorta with mild cardiac enlargement. Calcified granulomas disease in both hemithoraces. No acute or subacute pulmonary parenchymal or pleu ral disease. No lung nodule or lung mass. No mediastinal or hilar adenopathy. Mild to moderate degenerative spondylosis in the lower thoracic spine. XR/XR chest 2V* [id number] IMPRESSION: Stable chest with mild cardiomegaly.
[2023-11-03 11:21] LABS: Basophils # 0.1 10^3/uL (0.0-0.1); Basophils % 0.7 %; Eosinophils # 0.3 10^3/uL (0.0-0.8); Eosinophils % 2.7 %; Lymphocytes # 2.3 10^3/uL (0.8-4.8); Mean Corpuscular HGB Conc 33.2 g/dL (30-55); Mean Corpuscular Hemoglobin 31.1 pg (27-33); Mean Corpuscular Volume 93.8 fl (82-101); Mean Platelet Volume 10.1 fL (7.4-10.4); Monocytes % 10.3 %; Nucleated Red Blood Cells % 0 %; Platelet Count 232 10^3/cmm (157-399); Red Blood Count 4.05 10^6/uL (3.85-5.65); Red Cell Distribution Width 13.6 % (12.1-15.1); White Blood Count 9.85 10^3/uL (3.29-11.43)
[2023-11-03 11:41] LABS: Anion Gap 18.7 (5-19); Blood Urea Nitrogen 53 mg/dL (8-23); Calcium 9.3 mg/dL (8.5-10.5); Carbon Dioxide 25 mmol/L (22-29); Chloride 102 mmol/L (98-107); Glomerular Filtration Rate 20.5 mL/min (90-130); Glucose 124 mg/dL (65-115); Osmolality Calculated 308 mOsm/kg (285-295); Potassium 4.7 mmol/L (3.5-5.1); Sodium 141 mmol/L (136-145)
== END 2023-11-03 10:55 | disposition home or self-care (01) ==
PROVIDERS: PCP Family Medicine; Visit Provider Urology
DX: I51.7 Cardiomegaly (principal); I25.10 Atherosclerotic heart disease of native coronary artery without angina pectoris; Z01.818 Encounter for other preprocedural examination
CPT/HCPCS: 36415; 71046; 80048; 85025

== ENCOUNTER → 2023-11-10 08:50 | Outpatient (BNVA) | payer BC, SELFPAY | PROVIDERS: PCP Family Medicine; Referring Provider Urology; Visit Provider Internal Medicine | DX: Z01.818 Encounter for other preprocedural examination (principal); I10 Essential (primary) hypertension | CPT/HCPCS: 93005 ==

== ENCOUNTER 2023-12-29 13:09 | Outpatient (CLI) | payer BC, SELFPAY ==
[2023-12-29 13:52] LABS: Basophils # 0.1 10^3/uL (0.0-0.1); Basophils % 0.7 %; Eosinophils # 0.2 10^3/uL (0.0-0.8); Eosinophils % 2.6 %; Hematocrit 34.4 % (37-53); Lymphocytes # 1.5 10^3/uL (0.8-4.8); Lymphocytes % 20.5 %; Mean Corpuscular HGB Conc 32.6 g/dL (30-55); Mean Corpuscular Hemoglobin 30.5 pg (27-33); Mean Corpuscular Volume 93.7 fl (82-101); Mean Platelet Volume 10.3 fL (7.4-10.4); Monocytes # 0.7 10^3/uL (0.2-0.9); Monocytes % 9.1 %; Neutrophils # 4.85 10^3/uL (1.8-7.7); Neutrophils % 66.8 %; Nucleated Red Blood Cells % 0 %; Platelet Count 236 10^3/cmm (157-399); Red Blood Count 3.67 10^6/uL (3.85-5.65); Red Cell Distribution Width 13.1 % (12.1-15.1); White Blood Count 7.26 10^3/uL (3.29-11.43)
[2023-12-29 14:22] LABS: Creatinine Urine, Random 85 mg/dL (39-259); Microalbumin Random Urine 15 ug/dL (0-20)
[2023-12-29 14:24] LABS: Estmated Average Glucose 171; Hemoglobin A1C 7.6 % (4.0-6.0)
[2023-12-29 14:25] LABS: Microalbum Creatinine Ratio Ur 176 mg/dL (0-20)
[2023-12-29 14:26] LABS: Alanine Aminotransferase 26 U/L (0-41); Alkaline Phosphatase 98 U/L (40-130); Anion Gap 16.8 (5-19); Aspartate Amino Transferase 18 U/L (0-40); Blood Urea Nitrogen 40 mg/dL (8-23); Calcium 8.6 mg/dL (8.5-10.5); Carbon Dioxide 25 mmol/L (22-29); Chloride 105 mmol/L (98-107); Cholesterol 140 mg/dL (0-200); Globulin 2.7 g/dL (1.3-4.6); Glomerular Filtration Rate 25.1 mL/min (90-130); Glucose 182 mg/dL (65-115); HDL Cholesterol 35 mg/dL (60-100); LDL Cholesterol Calculated 78 mg/dL (50-129); LDL HDL Ratio 2.23 RATIO (0.00-3.22); Osmolality Calculated 310 mOsm/kg (285-295); Potassium 3.8 mmol/L (3.5-5.1); Sodium 143 mmol/L (136-145); Total Bilirubin 0.6 mg/dL (0.15-1.2); Total Protein 6.7 g/dL (6.6-8.7); Triglycerides 136 mg/dL (0-150)
[2023-12-29 14:32] LABS: Calcium 8.7 mg/dL (8.5-10.5); Parathyroid Hormone 165.1 pg/mL (15-65)
[2023-12-29 14:41] LABS: 25 Hydroxy Vitamin D 58 ng/mL (30-100)
== END 2023-12-29 13:10 | disposition home or self-care (01) ==
LOC: LAB 13:10
PROVIDERS: PCP Family Medicine; Visit Provider Internal Medicine
DX: E11.59 Type 2 diabetes mellitus with other circulatory complications (principal); Z79.4 Long term (current) use of insulin; E78.2 Mixed hyperlipidemia
CPT/HCPCS: 36415; 80053; 80061; 82044; 82306; 82310; 83036; 83970; 85025

== ENCOUNTER 2024-01-05 10:28 | Outpatient (CLI) | payer BC, SELFPAY ==
[2024-01-05 11:24] LABS: Albumin Level 4.2 g/dL (3.5-5.2); Anion Gap 16.7 (5-19); Blood Urea Nitrogen 40 mg/dL (8-23); Calcium 8.7 mg/dL (8.5-10.5); Carbon Dioxide 25 mmol/L (22-29); Chloride 106 mmol/L (98-107); Glomerular Filtration Rate 28.9 mL/min (90-130); Glucose 102 mg/dL (65-115); Phosphorus 3.8 mg/dL (2.5-4.5); Potassium 3.7 mmol/L (3.5-5.1); Sodium 144 mmol/L (136-145)
== END 2024-01-05 10:29 | disposition home or self-care (01) ==
PROVIDERS: PCP Family Medicine; Visit Provider Internal Medicine Nephrology
DX: N18.4 Chronic kidney disease, stage 4 (severe) (principal)
CPT/HCPCS: 36415; 80069

== ENCOUNTER 2024-04-22 12:53 | Outpatient (CLI) | payer BC, SELFPAY ==
[2024-04-22 13:39] LABS: Estmated Average Glucose 157; Hemoglobin A1C 7.1 % (4.0-6.0)
[2024-04-22 13:42] LABS: Creatinine Urine, Random 103 mg/dL (39-259); Microalbum Creatinine Ratio Ur 243 mg/dL (0-20); Microalbumin Random Urine 25 ug/dL (0-20)
[2024-04-22 13:43] LABS: Alanine Aminotransferase 19 U/L (0-41); Albumin Level 3.8 g/dL (3.5-5.2); Alkaline Phosphatase 129 U/L (40-130); Anion Gap 16.9 (5-19); Aspartate Amino Transferase 19 U/L (0-40); Blood Urea Nitrogen 41 mg/dL (8-23); Calcium 8.9 mg/dL (8.5-10.5); Carbon Dioxide 25 mmol/L (22-29); Chloride 100 mmol/L (98-107); Chol HDL Ratio 2.28 mg/dL (1.0-5.00); Cholesterol 91 mg/dL (0-200); Globulin 2.6 g/dL (1.3-4.6); Glucose 172 mg/dL (65-115); HDL Cholesterol 40 mg/dL (60-100); LDL Cholesterol Calculated 38 mg/dL (50-129); LDL HDL Ratio 0.95 RATIO (0.00-3.22); Osmolality Calculated 300 mOsm/kg (285-295); Potassium 3.9 mmol/L (3.5-5.1); Sodium 138 mmol/L (136-145); Total Bilirubin 1.2 mg/dL (0.15-1.2); Total Protein 6.4 g/dL (6.6-8.7); Triglycerides 64 mg/dL (0-150)
== END 2024-04-22 12:54 | disposition home or self-care (01) ==
LOC: LAB 12:54
PROVIDERS: PCP Family Medicine; Visit Provider Internal Medicine
DX: E11.59 Type 2 diabetes mellitus with other circulatory complications (principal); Z79.4 Long term (current) use of insulin; E78.2 Mixed hyperlipidemia
CPT/HCPCS: 36415; 80053; 80061; 82044; 83036

== ENCOUNTER → 2024-05-19 09:07 | Outpatient (BNVA) | payer BC, SELFPAY | PROVIDERS: PCP Family Medicine; Visit Provider Family Medicine | DX: I25.5 Ischemic cardiomyopathy (principal); I10 Essential (primary) hypertension; E11.22 Type 2 diabetes mellitus with diabetic chronic kidney disease; N18.4 Chronic kidney disease, stage 4 (severe); D63.1 Anemia in chronic kidney disease; N18.9 Chronic kidney disease, unspecified | CPT/HCPCS: 80053; 83540; 83880; 84439; 84443; 85025 ==

== ENCOUNTER 2024-05-27 14:20 | Inpatient (IN) | payer BC, SELFPAY ==
[2024-05-27] VITALS (11 sets, daily range): BP systolic 122–143; BP diastolic 69–90; PULSE 55–62; RESP 16–25; TEMP 36.6–36.8; O2SAT 95–99; BMI 31.6
--- NOTE | 2024-05-27 14:43 | ECG_ITS ---
[facility] Test Date: 2024-05-27 Pat Name: Fuad Priest Department: Room: Gender: Male Internal Medicine Veterinary Technician: : 1960 Requested By: Julio Meneses Order Number: [id number] Jaycob MD: Tony Donnelly M.D. Measurements Intervals [place]ille Rate: 54 P: 27 MT: 201 QRS: 30 QRSD: 106 T: 82 QT: 436 QTc: 416 Interpretive Statements SINUS BRADYCARDIA NONSPECIFIC T-WAVE ABNORMALITY INTERPRETATION BASED ON A DEFAULT AGE OF 40 YEARS Compared to ECG 11/10/2023 08:55:09 T-wave abnormality now present Sinus rhythm no longer present Myocardial infarct finding no longer present Electronically Signed On 05-28-2024 07:42:16 [employer] by Tony Donnelly M.D. [email or web address]
--- NOTE | 2024-05-27 15:05 | XR_ITS ---
WS: [id number] Portable AP upright chest, 05/27/2024 Clinical Data: dyspnea/cough Comparison: Two-view chest, 11/03/2023 Findings: There is a moderate right pleural effusion. The heart is enlarged. The left lung is clear. There are no nodules or masses. No pneumonia or pneumothorax is seen. There is a single lead pacemaker unchanged in position with the generator in the left axilla. There are monitor leads on the chest wall. XR/XR chest 1V portable [id number] Impression: 1. Moderate right pleural effusion. 2. Cardiomegaly and cardiac pacemaker.
--- NOTE | 2024-05-27 15:06 | ECG_ITS ---
[facility] Date: 2024-05-27 Pat Name: Fuad Priest Department: Room: Gender: Male Personalized Living Assistant: : 1960 Requested By: Julio Meneses Order Number: [id number] Jaycob MD: Tony Donnelly M.D. Measurements Intervals [place] Rate: 54 P: -7 ID: [id number] QRS: 22 QRSD: 117 T: 89 QT: 462 QTc: 442 Interpretive Statements SINUS BRADYCARDIA MODERATE INTRAVENTRICULAR CONDUCTION DELAY [110+ ms QRS DURATION] NONSPECIFIC ST & T-WAVE ABNORMALITY Compared to ECG 11/10/2023 08:55:09 Intraventricular conduction delay now present T-wave abnormality now present Sinus rhythm no longer present Myocardial infarct finding no longer present Electronically Signed On 05-28-2024 07:41:33 [employer] by Tony Donnelly M.D. [email or web address]
--- NOTE | 2024-05-27 15:21 | W.ED.SOB ---
HPI - SOB/Dyspnea General: Chief Complaint: Shortness of Breath/Dyspnea Stated Complaint: sob Time Seen by Provider: 05/27/24 15:05 History of Present Illness: HPI Narrative: 63-year-old male presents emergency room complaining of shortness of breath and swelling in his legs extending to the level of his umbilicus. He has extreme short of breath with any activity and significant orthopnea he states he cannot lay down even for just a few minutes without feeling severe discomfort. Patient has a known history of congestive heart failure. He is not typically on oxygen. He is a little tachypneic when he first arrives no fever at home no productive cough. He recently doubled his morning Bumex dose despite this he is not had any decrease in swelling. Associated symptoms: Reports chest congestion and chest pain (Occasional mild); Deny abdominal pain or fever(s) Related Data Home Medications ?Medication ?Instructions ?Recorded ?Confirmed multivitamin 1 tab PO QAM 05/12/19 05/27/24 nitroglycerin 0.3 mg sublingual 0.3 mg sublingual Q5M PRN Chest 04/12/21 05/27/24 tablet (Nitrostat) Pain cholecalciferol (vitamin D3) 125 125 mcg PO QAM 09/04/21 05/27/24 mcg (5,000 unit) tablet (Vitamin D3) amiodarone 200 mg tablet 200 mg PO QAM 05/27/24 05/27/24 aspirin 81 mg tablet,delayed 81 mg PO QAM 05/27/24 05/27/24 release atorvastatin 80 mg tablet 80 mg PO BEDTIME 05/27/24 05/27/24 citalopram 20 mg tablet 20 mg PO QAM 05/27/24 05/27/24 insulin glargine 100 unit/mL (3 43 unit SUBCUT DAILY 05/27/24 05/27/24 mL) subcutaneous pen (Lantus Solostar U-100 Insulin) isosorbide mononitrate 30 mg 30 mg PO QAM 05/27/24 05/27/24 tablet,extended release 24 hr metoprolol tartrate 25 mg tablet 25 mg PO BID 05/27/24 05/27/24 pantoprazole 20 mg tablet,delayed 20 mg PO DAILY 05/27/24 05/27/24 release Previous Rx's ?Medication ?Instructions ?Recorded pen needle, diabetic 31 gauge x #100 ea 09/24/22/ (BD Ultra-Fine Mini Pen Needle) clopidogrel 75 mg tablet (Plavix) 75 mg PO QAM #90 tabs 02/08/24 benzonatate 200 mg capsule 200 mg PO BID PRN cough #20 caps 04/27/24 fluticasone propionate 50 2 spray intranasal DAILY #16 grams 04/27/24 mcg/actuation nasal spray,suspension (Flonase Allergy Relief) liraglutide 0.6 mg/0.1 mL (18 mg/3 1.8 mg (0.3 mL) SUBCUT DAILY #9 mL 04/27/24 mL) subcutaneous pen injector (Victoza 3-Jesús) bumetanide 1 mg tablet See Rx Instructions .Route 05/19/24 .COMPLEX #180 tabs Allergies Allergy/AdvReac Type Severity Reaction Status Date / Time No Known Allergies Allergy Verified 05/19/24 08:35 Review of Systems Const: Denies: fever(s) or chills Card: Reports: chest pain (Occasional mild), edema (Presacral edema), swelling of feet/ankles and dyspnea on exertion Resp: Reports: dyspnea and chest congestion GI: Denies: abdominal pain : Denies: dysuria, urinary frequency or urinary urgency Musc: Denies: neck pain or back pain Skin/Breast: Denies: rash PFSH ED PFSH: Medical History Orthopnea Ischemic cardiomyopathy last ECHO 08/2021 EF 25% Anemia due to stage 4 chronic kidney disease Essential hypertension CKD stage 4 due to type 2 diabetes mellitus 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; neg bx 2023 Cardiac arrest due to underlying cardiac condition GERD (gastroesophageal reflux disease) Cerebrovascular accident (CVA) associated with severe acute respiratory syndrome coronavirus 2 (SARS-CoV-2) infection Diabetes mellitus DR. Mcelroy Coronary atherosclerosis Hyperlipidemia Surgical History Hx of prostate biopsy [facility]; bx neg 2023 Hx of colonoscopy normal; in [place] 2017; due 10 yrs Hx of shoulder surgery right AICD (automatic cardioverter/defibrillator) present LVEF 25% on 09/11/21 History of back surgery lumbar 3/4 S/P PTCA (percutaneous transluminal coronary angioplasty) X3 Family History Mother Myocardial infarction Father Myocardial infarction Brother Myocardial infarction Grandfather Heart disease Grandmother Heart disease Social History Smoking and tobacco/nicotine status: never used tobacco/nicotine Alcohol intake: never Substance/Drug Use: never Household members: spouse Housing: House Marital status: Number of children: 2 Highest education level completed: High School Graduate Current occupational status: retired Previous occupational history: retired /state Physical Exam Const: GENERAL APPEARANCE: cooperative ORIENTATION/CONSCIOUSNESS: Yes awake, Yes oriented to person, Yes oriented to place and Yes oriented to time HENMT: COMMON NORMALS: normocephalic, atraumatic and hearing grossly normal bilaterally HEAD & SCALP: normocephalic and atraumatic Resp: AUSCULTATION: crackles Cardio: COMMON NORMALS: regular rate, regular rhythm and No murmurs present (Cardio) RATE: regular rate RHYTHM: regular rhythm GI: COMMON NORMALS: No hepatosplenomegaly present; negative for Soft to palpation INSPECTION: Yes abdominal distension AUSCULTATION: Yes normoactive bowel sounds PALPATION: No Soft to palpation, No Tenderness to palpation present (GI), No Guarding due to palpation present (GI) and Yes No hepatosplenomegaly present Extremity: COMMON NORMALS: normal to inspection, capillary refill normal and no calf tenderness GENERAL: Yes edema (Pitting edema lower extremities with anasarca the level of the abdomen) OTHER: Presacral edema Neuro: SENSORIUM/ORIENTATION: Yes oriented to person, Yes oriented to place and Yes oriented to time Skin: COMMON NORMALS: no rashes or lesions noted GENERAL SKIN EXAM: no rashes or lesions noted Course Vital Signs: Vital signs: Vital Signs Temperature 97.7 F 05/28/24 11:36 Pulse Rate 54 L 05/28/24 11:36 Respiratory Rate 20 H 05/28/24 11:36 Blood Pressure 122/77 05/28/24 11:36 Pulse Oximetry 99 05/28/24 11:36 Oxygen Delivery Me thod Nasal Cannula 05/28/24 11:36 Fraction of Inspir ed Oxygen 21 05/27/24 22:54 MDM - SOB/Dyspnea Medical Decision Making Patient in acute decompensated congestive heart failure patient has a significant ischemic cardiomyopathy also has chronic kidney disease with slight worsening. Discussed Dr. Jansen will admit Medical Records I reviewed the patient's medical records. Lab Data I reviewed the patient's lab results. 05/28/24 03:05 05/28/24 03:05 Labs/Radiology: Radiology Impressions Chest X-Ray 05/27/24 15:05 Impression: 1. Moderate right pleural effusion. 2. Cardiomegaly and cardiac pacemaker. Laboratory Results WBC 13.59 10^3/uL (3.29-11.43) H 05/27/24 15:52 RBC 3.88 10^6/uL (3.85-5.65) 05/27/24 15:52 Hgb 10.20 g/dL (11.27-16.99) L 05/27/24 15:52 Hct 33.9 % (37-53) L 05/27/24 15:52 MCV 87.4 fl (82-101) 05/27/24 15:52 MCH 26.3 pg (27-33) L 05/27/24 15:52 MCHC 30.1 g/dL (30-55) 05/27/24 15:52 RDW 15.4 % (12.1-15.1) H 05/27/24 15:52 Plt Count 340 10^3/cmm (157-399) 05/27/24 15:52 MPV 10.2 fL (7.4-10.4) 05/27/24 15:52 Neut % (Auto) 72.5 % 05/27/24 15:52 Lymph % (Auto) 13.8 % 05/27/24 15:52 [place] % (Auto) 10.2 % 05/27/24 15:52 Eos % (Auto) 2.4 % 05/27/24 15:52 Baso % (Auto) 0.7 % 05/27/24 15:52 Neut # (Auto) 9.86 10^3/uL (1.8-7.7) H 05/27/24 15:52 Lymph # (Auto) 1.9 10^3/uL (0.8-4.8) 05/27/24 15:52 [place] # (Auto) 1.4 10^3/uL (0.2-0.9) H 05/27/24 15:52 Eos # (Auto) 0.3 10^3/uL (0.0-0.8) 05/27/24 15:52 Baso # (Auto) 0.1 10^3/uL (0.0-0.1) 05/27/24 15:52 Nucleated RBC % (auto) 0 % 05/27/24 15:52 Nucleated RBCs # 0.0 /100WBC 05/27/24 15:52 Sodium 141 mmol/L (136-145) 05/27/24 15:52 Potassium 3.9 mmol/L (3.5-5.1) 05/27/24 15:52 Chloride 103 mmol/L (98-107) 05/27/24 15:52 Carbon Dioxide 25 mmol/L (22-29) 05/27/24 15:52 Anion Gap 16.9 (5-19) 05/27/24 15:52 BUN 51 mg/dL (8-23) H 05/27/24 15:52 Creatinine 2.8 mg/dL (0.7-1.2) H 05/27/24 15:52 GFR Calculation 23.0 mL/min (90-130) L 05/27/24 15:52 Glucose 108 mg/dL (65-115) 05/27/24 15:52 Calculated Osmolality 306 mOsm/kg (285-295) H 05/27/24 15:52 Calcium 9.2 mg/dL (8.5-10.5) 05/27/24 15:52 Magnesium 2.4 mg/dL (1.7-2.3) H 05/27/24 15:52 Total Bilirubin 0.8 mg/dL (0.15-1.2) 05/27/24 15:52 AST 20 U/L (0-40) 05/27/24 15:52 ALT 21 U/L (0-41) 05/27/24 15:52 Alkaline Phosphatase 152 U/L (40-130) H 05/27/24 15:52 Troponin T Baseline 67 ng/L (0-15) H 05/27/24 15:52 Troponin T 120 Minute 61.42 ng/L (0-15) H 05/27/24 17:59 Delta Troponin T -5.58 ABS# (0-10) L 05/27/24 17:59 NT-Pro-B Natriuret Pep 67103 pg/mL (0-125) H 05/27/24 15:52 Total Protein 6.8 g/dL (6.6-8.7) 05/27/24 15:52 Albumin 3.7 g/dL (3.5-5.2) 05/27/24 15:52 Globulin 3.1 g/dL (1.3-4.6) 05/27/24 15:52 TSH 0.20 uIU/mL (0.27-4.20) L 05/27/24 15:52 Influenza A (PCR) Negative (Negative) 05/27/24 15:46 Influenza Type B (PCR) Negative (Negative) 05/27/24 15:46 RSV (PCR) Negative (Negative) 05/27/24 15:46 SARS-CoV-2 (PCR) Negative (Negative) 05/27/24 15:46 All radiology interpretation(s) finalized by discharge Discharge Plan Discharge Patient Disposition: Admitted As Inpatient Admit Provider: Lul Jansen Clinical Impression: Acute exacerbation of chronic heart failure, Ischemic cardiomyopathy, AICD (automatic cardioverter/defibrillator) present, CKD stage 4 due to type 2 diabetes mellitus, Coronary artery disease due to type 2 diabetes mellitus Condition: Stable Coding Level of Care Code ED Loss Prevention Agent for Rob Haile
[2024-05-27 16:01] LABS: Basophils # 0.1 10^3/uL (0.0-0.1); Basophils % 0.7 %; Eosinophils # 0.3 10^3/uL (0.0-0.8); Eosinophils % 2.4 %; Hematocrit 33.9 % (37-53); Lymphocytes # 1.9 10^3/uL (0.8-4.8); Lymphocytes % 13.8 %; Mean Corpuscular HGB Conc 30.1 g/dL (30-55); Mean Corpuscular Hemoglobin 26.3 pg (27-33); Mean Corpuscular Volume 87.4 fl (82-101); Mean Platelet Volume 10.2 fL (7.4-10.4); Monocytes # 1.4 10^3/uL (0.2-0.9); Monocytes % 10.2 %; Neutrophils # 9.86 10^3/uL (1.8-7.7); Neutrophils % 72.5 %; Nucleated Red Blood Cells % 0 %; Platelet Count 340 10^3/cmm (157-399); Red Blood Count 3.88 10^6/uL (3.85-5.65); Red Cell Distribution Width 15.4 % (12.1-15.1); White Blood Count 13.59 10^3/uL (3.29-11.43)
[2024-05-27 16:39] LABS: Alanine Aminotransferase 21 U/L (0-41); Albumin Level 3.7 g/dL (3.5-5.2); Alkaline Phosphatase 152 U/L (40-130); Anion Gap 16.9 (5-19); Aspartate Amino Transferase 20 U/L (0-40); Blood Urea Nitrogen 51 mg/dL (8-23); Calcium 9.2 mg/dL (8.5-10.5); Carbon Dioxide 25 mmol/L (22-29); Chloride 103 mmol/L (98-107); Globulin 3.1 g/dL (1.3-4.6); Glucose 108 mg/dL (65-115); Magnesium 2.4 mg/dL (1.7-2.3); NT Pro B Type Natriuretic Pept 17808 pg/mL (0-125); Osmolality Calculated 306 mOsm/kg (285-295); Potassium 3.9 mmol/L (3.5-5.1); Sodium 141 mmol/L (136-145); Total Bilirubin 0.8 mg/dL (0.15-1.2); Total Protein 6.8 g/dL (6.6-8.7)
[2024-05-27 16:45] LABS: Influenza A NEGATIVE (Negative); Influenza B NEGATIVE (Negative); Respiratory Syncytial Virus Ce NEGATIVE (Negative); SARS-CoV-2 PCR NEGATIVE (Negative)
[2024-05-27 16:52] LABS: Troponin(5th) Baseline 67 ng/L (0-15)
--- NOTE | 2024-05-27 17:06 | ECG_ITS ---
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 Measurements Intervals [place] Rate: 56 P: 50 [place]: 184 QRS: 4 QRSD: 128 T: 91 QT: 474 QTc: 460 Interpretive Statements SINUS BRADYCARDIA MODERATE INTRAVENTRICULAR CONDUCTION DELAY [110+ ms QRS DURATION] NONSPECIFIC ST & T-WAVE ABNORMALITY PROLONGED QT INTERVAL Compared to ECG 05/27/2024 15:10:14 Prolonged QT interval now present T-wave abnormality still present Electronically Signed On 05-28-2024 08:14:36 PIN GAME MACHINE INSPECTOR by Tony Donnelly M.D. [email or web address] [id number]
[2024-05-27 18:36] LABS: Troponin 5 2HR 61.42 ng/L (0-15)
[2024-05-27 18:37] LABS: Troponin 5 2HR Delta -5.58 ABS# (0-10)
--- NOTE | 2024-05-27 18:48 | PM.HP ---
Providers/Chief Complaint Admitting Physician: Lul Jansen MD Primary Care Provider: Paula Hammond MD Chief Complaint: sob History of Present Illness Fuad Priest is a 63 year old male with a past medical history of CAD status post stenting, CKD, history of cardiac arrest, history of ICD, GERD, hypertension, ischemic cardiomyopathy, dyslipidemia, history of CVA, insulin-dependent type 2 diabetes, who presents to [facility] due to fluid overload concerns. Patient tells me that he has gained weight, he has anasarca increased by lower extremity edema, increased edema in his abdomen, in his back, and his scrotum, he has been taking Bumex 2 mg in the morning and 1 mg in the afternoon and his Bumex dose has been increased by Dr. Mcelroy but he continues to have edema, now having shortness of breath with exertion, no chest pain, no palpitations, no nausea, no fevers, no chills, no calf swelling, no hemoptysis Review of Systems Card: Reports: swelling of feet/ankles and dyspnea on exertion; Denies: chest pain Resp: Reports: dyspnea Medications/Allergies Home Medications ?Medication ?Instructions ?Recorded ?Confirmed ?Last Taken ?Type multivitamin 1 tab PO QAM 05/12/19 05/27/24 05/27/24 History nitroglycerin 0.3 mg sublingual 0.3 mg sublingual Q5M PRN Chest 04/12/21 05/27/24 09/04/21 06:00 History tablet (Nitrostat) Pain cholecalciferol (vitamin D3) 125 125 mcg PO QAM 09/04/21 05/27/24 05/27/24 History mcg (5,000 unit) tablet (Vitamin D3) pen needle, diabetic 31 gauge x #100 ea 09/24/22 05/27/24 Unknown Rx 3/16 (BD Ultra-Fine Mini Pen Needle) clopidogrel 75 mg tablet (Plavix) 75 mg PO QAM #90 tabs 02/08/24 05/27/24 05/27/24 Rx benzonatate 200 mg capsule 200 mg PO BID PRN cough #20 caps 04/27/24 05/27/24 Unknown Rx fluticasone propionate 50 2 spray intranasal DAILY #16 grams 04/27/24 05/27/24 05/27/24 Rx mcg/actuation nasal spray,suspension (Flonase Allergy Relief) liraglutide 0.6 mg/0.1 mL (18 mg/3 1.8 mg (0.3 mL) SUBCUT DAILY #9 mL 04/27/24 05/27/24 Unknown Rx mL) subcutaneous pen injector (Victoza 3-Jesús) bumetanide 1 mg tablet See Rx Instructions .Route 05/19/24 05/27/24 05/27/24 Rx .COMPLEX #180 tabs amiodarone 200 mg tablet 200 mg PO QAM 05/27/24 05/27/24 05/27/24 History aspirin 81 mg tablet,delayed 81 mg PO QAM 05/27/24 05/27/24 05/27/24 History release atorvastatin 80 mg tablet 80 mg PO BEDTIME 05/27/24 05/27/24 05/26/24 History citalopram 20 mg tablet 20 mg PO QAM 05/27/24 05/27/24 05/27/24 History insulin glargine 100 unit/mL (3 43 unit SUBCUT DAILY 05/27/24 05/27/24 05/27/24 History mL) subcutaneous pen (Lantus Solostar U-100 Insulin) isosorbide mononitrate 30 mg 30 mg PO QAM 05/27/24 05/27/24 05/27/24 History tablet,extended release 24 hr metoprolol tartrate 25 mg tablet 25 mg PO BID 05/27/24 05/27/24 05/27/24 History pantoprazole 20 mg tablet,delayed 20 mg PO DAILY 05/27/24 05/27/24 05/27/24 History release Allergies Allergy/AdvReac Type Severity Reaction Status Date / Time No Known Allergies Allergy Verified 05/19/24 08:35 PFSH Acute PFSH: Medical History Orthopnea Ischemic cardiomyopathy last ECHO 08/2021 EF 25% Anemia due to stage 4 chronic kidney disease Essential hypertension 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; neg bx 2023 Cardiac arrest due to underlying cardiac condition GERD (gastroesophageal reflux disease) Cerebrovascular accident (CVA) associated with severe acute respiratory syndrome coronavirus 2 (SARS-CoV-2) infection Diabetes mellitus DR. Mcelroy Coronary atherosclerosis Hyperlipidemia Surgical History Hx of prostate biopsy [facility]; bx neg 2023 Hx of colonoscopy normal; in [place] 2017; due 10 yrs Hx of shoulder surgery right AICD (automatic cardioverter/defibrillator) present LVEF 25% on 09/11/21 History of back surgery lumbar 3/4 S/P PTCA (percutaneous transluminal coronary angioplasty) X3 Family History Mother Myocardial infarction Father Myocardial infarction Brother Myocardial infarction Grandfather Heart disease Grandmother Heart disease Social History Smoking and tobacco/nicotine status: never used tobacco/nicotine Alcohol intake: never Substance/Drug Use: never Household members: spouse Housing: House Marital status: Number of children: 2 Highest education level completed: High School Graduate Current occupational status: retired Previous occupational history: retired /state Vitals/I&O/Wt Last Vital Signs Temp 98.3 F 05/27/24 14:35 Pulse 59 L 05/27/24 18:30 Resp 19 H 05/27/24 18:30 BP 141/82 05/27/24 18:30 Pulse Ox 95 05/27/24 18:30 O2 Del Method Room Air 05/27/24 18:30 Weight last 48 hrs Weight 102.965 kg Physical Exam Const: COMMON NORMALS: no acute distress and patient oriented x3 HENMT: COMMON NORMALS: normocephalic HEAD & SCALP: normocephalic Neck/C-Spine: COMMON NORMALS: no JVD Resp: COMMON NORMALS: normal respiratory effort, No retractions and No use of accessory muscles AUSCULTATION: crackles Cardio: COMMON NORMALS: regular rate, regular rhythm, S1 normal heart sound present and S2 normal heart sound present RATE: regular rate RHYTHM: regular rhythm HEART SOUNDS: S1 normal heart sound present and S2 normal heart sound present GI: COMMON NORMALS: Normal to inspection, nondistended, normoactive bowel sounds present, Soft to palpation and non-tender Extremity: NARRATIVE EXTREMITY EXAM: 2+ pitting edema, generalized anasarca, pitting edema in abdomen, and back, thighs Neuro: COMMON NORMALS: patient oriented x3, CN's II-XII intact bilaterally and moves all extremities Psych: COMMON NORMALS: mental status grossly normal Data 05/27/24 15:52 05/27/24 15:52 A&P Assessment and plan (1) Essential hypertension: (2) Ischemic cardiomyopathy: (3) S/P PTCA (percutaneous transluminal coronary angioplasty): (4) Coronary artery disease due to type 2 diabetes mellitus: (5) Ventricular tachycardia: (6) AICD (automatic cardioverter/defibrillator) present: (7) Diabetes mellitus: Qualifiers: Diabetes mellitus type: type 2 Diabetes mellitus supervisor intermediates insulin use: with residential use Diabetes mellitus complication status: with circulatory complication Diabetes mellitus complication detail: with other circulatory complications Qualified Code(s): E11.59 - Type 2 diabetes mellitus with other circulatory complications; Z79.4 - penitentiary (current) use of insulin (8) CKD stage 4 due to type 2 diabetes mellitus: (9) Acute exacerbation of chronic heart failure: Plan Acute systolic CHF exacerbation -With history of ischemic cardiomyopathy -Has failed outpatient diuretic regimen is on 3 mg of Bumex daily Plan -Place Auguste catheter -Monitor BMP, creatinine, magnesium -Bumex 1 mg IV push every 6 hours -Place Auguste catheter -Potassium 20 mill equivalents twice daily -Repeat cardiac echo CKD stage IV -Likely cardiorenal syndrome -Monitor creatinine closely -Will consider consulting cardiology based on clinical progress History of CAD, ischemic cardiomyopathy -Continue aspirin, statin, Plavix, amiodarone -Repeat cardiac echo Type 2 diabetes mellitus -Lantus 40 units every morning -Low-dose sliding scale Patient is full code Lovenox for DVT prophylaxis PDMP PDMP Reviewed: Not Reviewed Attestations Medical Necessity Statement*: Requires hospitalization, inpatient, greater than 2 minutes, for acute systolic CHF exacerbation requiring IV diuresis Diagnoses Essential hypertension I10 Ischemic cardiomyopathy I25.5 S/P PTCA (percutaneous transluminal coronary angioplasty) Z98.61 Coronary artery disease due to type 2 diabetes mellitus E11.59; I25.10 Ventricular tachycardia I47.2 AICD (automatic cardioverter/defibrillator) present Z95.810 Type 2 diabetes mellitus with other circulatory complication, with long-term current use of insulin E11.59; Z79.4 Diabetes mellitus type: type 2 Diabetes mellitus residential insulin use: with residential use Diabetes mellitus complication status: with circulatory complication Diabetes mellitus complication detail: with other circulatory complications CKD stage 4 due to type 2 diabetes mellitus E11.22; N18.4 Acute exacerbation of chronic heart failure I50.9
[2024-05-27 20:47] LABS: Glucose Point of Care 62 mg/dL (70-110)
[2024-05-27] MEDS: potassium chloride ER 20 mEq Tablet PO (21:10)
[2024-05-27] MEDS: metoprolol tartrate 25 mg Tablet PO (21:10)
[2024-05-27] MEDS: bumetanide 0.25 mg/mL SDV 4 mL 1 MG IVP (21:10)
[2024-05-27] MEDS: atorvastatin 40 mg Tablet 80 MG PO (21:10)
[2024-05-27] MEDS: heparin 5,000 unit/mL INJ 1 mL 5000 UNIT SUBCUT (21:12)
[2024-05-27 22:27] LABS: Troponin 5 6HR 65.19 ng/L (0-15)
[2024-05-27 22:28] LABS: Troponin 5 6HR Delta -1.81 ng/L (0-12)
--- NOTE | 2024-05-27 22:48 | ECG_ITS ---
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 Measurements Intervals [place] Rate: 61 P: 35 [place]: 177 QRS: 7 QRSD: 119 T: 54 QT: 498 QTc: 505 Interpretive Statements SINUS RHYTHM POSSIBLE ANTERIOR MYOCARDIAL INFARCTION , PROBABLY OLD [30 ms Q WAVE IN V3/V4, OR R < 0.2 mV IN V4] Compared to ECG 05/27/2024 17:11:45 Myocardial infarct finding now present Sinus bradycardia no longer present Intraventricular conduction delay no longer present T-wave abnormality no longer present Prolonged QT interval no longer present Electronically Signed On 05-28-2024 08:11:26 PERINATAL COORDINATOR by Tony Donnelly M.D. [email or web address] [id number]
[2024-05-28] VITALS (8 sets, daily range): BP systolic 122–147; BP diastolic 67–84; PULSE 54–63; RESP 19–26; TEMP 36.4–36.8; O2SAT 93–100
[2024-05-28] MEDS: bumetanide 0.25 mg/mL SDV 4 mL 1 MG IVP (00:56)
[2024-05-28 03:57] LABS: Basophils # 0.1 10^3/uL (0.0-0.1); Basophils % 0.5 %; Eosinophils # 0.3 10^3/uL (0.0-0.8); Hematocrit 33.6 % (37-53); Lymphocytes # 1.8 10^3/uL (0.8-4.8); Lymphocytes % 11.4 %; Mean Corpuscular HGB Conc 29.8 g/dL (30-55); Mean Corpuscular Hemoglobin 25.8 pg (27-33); Mean Corpuscular Volume 86.8 fl (82-101); Mean Platelet Volume 10.3 fL (7.4-10.4); Monocytes # 1.5 10^3/uL (0.2-0.9); Monocytes % 10.1 %; Neutrophils # 11.56 10^3/uL (1.8-7.7); Neutrophils % 75.6 %; Nucleated Red Blood Cells % 0 %; Platelet Count 356 10^3/cmm (157-399); Red Blood Count 3.87 10^6/uL (3.85-5.65); Red Cell Distribution Width 15.5 % (12.1-15.1); White Blood Count 15.29 10^3/uL (3.29-11.43)
[2024-05-28 04:24] LABS: Alanine Aminotransferase 24 U/L (0-41); Albumin Level 3.9 g/dL (3.5-5.2); Alkaline Phosphatase 160 U/L (40-130); Aspartate Amino Transferase 23 U/L (0-40); Blood Urea Nitrogen 49 mg/dL (8-23); Calcium 9.2 mg/dL (8.5-10.5); Carbon Dioxide 26 mmol/L (22-29); Chloride 106 mmol/L (98-107); Globulin 2.4 g/dL (1.3-4.6); Glomerular Filtration Rate 25.1 mL/min (90-130); Glucose 96 mg/dL (65-115); Magnesium 2.4 mg/dL (1.7-2.3); Osmolality Calculated 311 mOsm/kg (285-295); Phosphorus 4.2 mg/dL (2.5-4.5); Sodium 144 mmol/L (136-145); Total Bilirubin 1.1 mg/dL (0.15-1.2); Total Protein 6.3 g/dL (6.6-8.7)
[2024-05-28 04:30] LABS: NT Pro B Type Natriuretic Pept 17412 pg/mL (0-125)
[2024-05-28] MEDS: aspirin 81 mg EC Tablet PO (05:55)
[2024-05-28] MEDS: isosorbide mononitrate ER 30 mg Tablet PO (05:55)
[2024-05-28] MEDS: clopidogrel 75 mg Tablet PO (05:55)
[2024-05-28] MEDS: citalopram 20 mg Tablet PO (05:55)
[2024-05-28 06:10] LABS: Glucose Point of Care 91 mg/dL (70-110)
[2024-05-28] MEDS: potassium chloride ER 20 mEq Tablet PO ×2 (08:40→18:10)
[2024-05-28] MEDS: pantoprazole DR 40 mg Tablet PO (08:40)
[2024-05-28] MEDS: metOLazone 5 MG Tablet PO (08:40)
[2024-05-28] MEDS: metoprolol tartrate 25 mg Tablet PO ×2 (08:40→18:10)
[2024-05-28] MEDS: bumetanide 0.25 mg/mL SDV 10 mL 2 MG IVP ×2 (08:40→20:27)
[2024-05-28] MEDS: heparin 5,000 unit/mL INJ 1 mL 5000 UNIT SUBCUT ×2 (08:41→20:33)
[2024-05-28] MEDS: insulin glargine 100 units/1 mL 40 UNIT SUBCUT (09:47)
--- NOTE | 2024-05-28 10:47 | PC.CHAP ---
Pastoral Care Encounter/Spiritual Assessment Type of Contact [] Declined black jack dealer visit [] Patient/Family/Request visit [] Outpatient visit [] Follow-up visit [] Physician referral [] Code/Alert [X] Routine visit [] Staff referral [] Actively dying [] Patient sleeping [] Family support [] [] Out of room [] Palliative care [] [X] Receiving care in room [] Pre-surgical visit [] Trauma [] Long length of stay [] ICU visit [] Other: Relational/Emotional Strength [] Patient feels connected with others/family/visitors/staff [] Distress [] Loneliness/isolation [] Abandonment Spirituality of Patient [] Person of Sailaja [] Attends Latter Day of their Sailaja [] Believes in Prayer [] Reads Bible or Jainism materials [] There are Spiritual issues to be addressed Fabrication Supervisor Interventions [] Prayer [] Active listening [] Non-anxious presence [] Spiritual/emotional support [] Crisis/trauma care [] Spiritual counseling [] Bereavement support [] Provided bereavement packet [] Provided Bible/devotional materials [] Provided toy/stuffed animal, coloring book to patient or family member [] Provided Communion [] Anointing/[place] [] Salvation [] Completed spiritual assessment [] Other: Impact on Illness or Injury [] Angry [] Fearful [] Anxious [] Often cries [] Exhaustion [] Unable to work [] Unable to attend synagogue [] Unable to walk/stand [] Unable to read [] Unable to drive [] Unable to eat/drink [] Unable to sleep [] Unable to be with family [] Patient intubated [] Other: Summary Time spent with patient
[2024-05-28 11:47] LABS: Glucose Point of Care 125 mg/dL (70-110)
[2024-05-28 12:52] LABS: Bilirubin Urine Negative (Negative); Blood Urine 2+ (Negative); Glucose Urine UA Negative (Normal); Ketones Urine Negative (Negative); Leukocyte Esterase Urine Negative (Negative); Nitrate Urine Negative (Negative); Protein Urine Negative (Negative); Specific Gravity, Urine 1.009 (1.005-1.030); Urine Appearance Clear (CLEAR); Urine Color Yellow (Yellow); Urobilinogen Urine 0.2 mg/dL (Negative)
[2024-05-28 13:05] LABS: Add Urine Culture? Yes; Add Urine Microscopic? YES; Bacteria Urine TRACE /hpf; RBC Urine 15-25 /hpf (0-2); Squamous Epithelial Cell Urine 0-4 /hpf (0-5); WBC Urine 0-4 /hpf (0-5)
--- NOTE | 2024-05-28 13:42 | P.PN_ITS ---
Subjective 2 Subjective: Patient was seen this morning, he tells me that his edema is improving, no fevers, no chills, no cough, no dysuria Vitals/I&O/Wt Last Vital Signs Temp 97.7 F 05/28/24 11:36 Pulse 54 L 05/28/24 11:36 Resp 20 H 05/28/24 11:36 BP 122/77 05/28/24 11:36 Pulse Ox 99 05/28/24 11:36 O2 Del Method Nasal Cannula 05/28/24 11:36 FiO2 21 05/27/24 22:54 05/27/24 05/28/24 05/28/24 22:59 06:59 14:59 Intake Total 900 / 900 680 / 680 Output Total 500 / 500 450 / 950 780 / 780 Balance 400 / 400 -450 / -50 -100 / -100 Weight last 48 hrs Weight 106.141 kg Weight 105.279 kg Weight 102.965 kg Physical Exam 2 Const: COMMON NORMALS: no acute distress and patient oriented x3 Resp: COMMON NORMALS: normal respiratory effort, No retractions, No use of accessory muscles and clear to auscultation bilaterally AUSCULTATION: clear to auscultation bilaterally Cardio: COMMON NORMALS: regular rate, regular rhythm, S1 normal heart sound present and S2 normal heart sound present RATE: regular rate RHYTHM: r egular rhythm HEART SOUNDS: S1 normal heart sound present and S2 normal heart sound present GI: COMMON NORMALS: Normal to inspection, nondistended, normoactive bowel sounds present and non-tender Extremity: COMMON NORMALS: no pedal edema Neuro: COMMON NORMALS: patient oriented x3 Psych: COMMON NORMALS: mental status grossly normal Urinary Catheter Management: Auguste: Cath Placed During This Visit: yes, but has since been removed by the nurse Reason for Continuing Indwelling Catheter: Decision to DC Catheter Urinary Catheter Date of Insertion: 05/27/24 Urinary Catheter Time of Insertion: 22:49 Date Urinary Catheter Removed: 05/28/24 Time Urinary Catheter Discontinued: 04:04 Data 05/28/24 03:05 05/28/24 03:05 A&P Assessment and plan (1) Essential hypertension: (2) Ischemic cardiomyopathy: (3) S/P PTCA (percutaneous transluminal coronary angioplasty): (4) Coronary artery disease due to type 2 diabetes mellitus: (5) Ventricular tachycardia: (6) AICD (automatic cardioverter/defibrillator) present: (7) Diabetes mellitus: Qualifiers: Diabetes mellitus type: type 2 Diabetes mellitus emt intermediate insulin use: with emt intermediate use Diabetes mellitus complication status: with circulatory complication Diabetes mellitus complication detail: with other circulatory complications Qualified Code(s): E11.59 - Type 2 diabetes mellitus with other circulatory complications; Z79.4 - alf (current) use of insulin (8) CKD stage 4 due to type 2 diabetes mellitus: (9) Acute exacerbation of chronic heart failure: Plan Acute systolic CHF exacerbation -With history of ischemic cardiomyopathy -Has failed outpatient diuretic regimen is on 3 mg of Bumex daily Plan -Place Auguste catheter -Monitor BMP, creatinine, magnesium -Changed to Bumex 1 mg IV every 12 hours, metolazone -Place Auguste catheter -Potassium 20 mill equivalents twice daily -Repeat cardiac echo CKD stage IV -Likely cardiorenal syndrome -Monitor creatinine closely -Will consider consulting cardiology based on clinical progress History of CAD, ischemic cardiomyopathy -Continue aspirin, statin, Plavix, amiodarone -Repeat cardiac echo Type 2 diabetes mellitus -Lantus 40 units every morning -Low-dose sliding scale Patient is full code Lovenox for DVT prophylaxis PDMP PDMP Reviewed: Not Reviewed Attestations 2 Medical Necessity Statement*: Patient requires hospitalization for CHF requiring IV diuresis Diagnoses Essential hypertension I10 Ischemic cardiomyopathy I25.5 S/P PTCA (percutaneous transluminal coronary angioplasty) Z98.61 Coronary artery disease due to type 2 diabetes mellitus E11.59; I25.10 Ventricular tachycardia I47.2 AICD (automatic cardioverter/defibrillator) present Z95.810 Type 2 diabetes mellitus with other circulatory complication, with long-term current use of insulin E11.59; Z79.4 Diabetes mellitus type: type 2 Diabetes mellitus intermediate insulin use: with intermediate use Diabetes mellitus complication status: with circulatory complication Diabetes mellitus complication detail: with other circulatory complications CKD stage 4 due to type 2 diabetes mellitus E11.22; N18.4 Acute exacerbation of chronic heart failure I50.9
[2024-05-28 14:13] LABS: T3 Free 2.8 PG/ML (2.0-4.4)
[2024-05-28 16:26] LABS: Glucose Point of Care 166 mg/dL (70-110)
[2024-05-28 17:01] LABS: Anion Gap 16.1 (5-19); Blood Urea Nitrogen 51 mg/dL (8-23); Calcium 9.1 mg/dL (8.5-10.5); Carbon Dioxide 25 mmol/L (22-29); Chloride 103 mmol/L (98-107); Creatinine Clr Calc Pharmacy 34.7119; Glucose 149 mg/dL (65-115); Osmolality Calculated 306 mOsm/kg (285-295); Potassium 4.1 mmol/L (3.5-5.1); Sodium 140 mmol/L (136-145)
[2024-05-28] MEDS: insulin lispro 100 unit/1 mL SUBCUT ×2 (18:10→20:35)
--- NOTE | 2024-05-28 19:08 | PC.NURSE ---
pt refused folry catheter insertion pt stated he will use urinal.
--- NOTE | 2024-05-28 19:50 | USCV_ITS ---
Fuad Priest Age: 63 Gender: M : 1960 Exam Date: 05/28/2024 13:08 Ordering Phys: Lul Jansen MD Technologist: Jose L Duran [place] [facility] [place]: sob BP: 122 / 77 HR: 59 Rhythm: Sinus Technical Quality: Adequate MEASUREMENTS (Male / Female) Normal Values 2D ECHO LV Diastolic Diameter PLAX 6.3 cm 4.2 - 5.9 / 3.9 - 5.3 cm IVS Diastolic Thickness 1.2 cm 0.6 - 1.0 / 0.6 - 0.9 cm IVS Systolic Thickness 1.2 cm LVPW Diastolic Thickness 1.7 cm 0.6 - 1.0 / 0.6 - 0.9 cm LVPW Systolic Thickness 2.0 cm LVOT Diameter 2.0 cm LV Ejection Fraction 2D Teich 30.5 % LV Ejection Fraction MOD 4C 29.5 % LV Ejection Fraction MOD 2C 28.7 % LV Ejection Fraction 2C AL 27.7 % LA Diameter 5.5 cm RA Systolic Volume 4C AL 51.6 ml RA Systolic Volume 4C MOD 53.2 ml LA Sys Volume AL 101.9 cm cubed LA Sys Volume Index AL 43.6 cm cubed/m squared Aorta at Sinotubular Diameter 1.9 cm IVC Diameter 2.1 cm M-MODE LA Ao Ratio MM 1.6 AV Cusp Separation MM 1.9 cm DOPPLER AV Peak Velocity 123.0 cm/s LVOT Peak Velocity 122.0 cm/s AV Area Cont Eq vti 2.8 cm squared AV Area Cont Eq pk 3.1 cm squared MV Peak Velocity 146.0 cm/s MV Area PHT 4.1 cm squared Mitral E to A Ratio 1.6 TV Peak Velocity 325.5 cm/s TR Peak Velocity 335.0 cm/s TR Peak Gradient 44.9 mmHg TR Mean Velocity 256.0 cm/s TR Mean Gradient 28.1 mmHg TR Velocity Time Integral 104.8 cm PV Peak Velocity 86.0 cm/s RV Ejection Time 0.3 s FINDINGS Left Ventricle Dilated left ventricle with severely reduced LV systolic functions. Akinesis of distal anterior anteroseptal wall. Severe hypokinesis of anterolateral and apical wall segments. Estimated LVEF 30%. Right Ventricle Mildly increased right ventricular size. Fair RV systolic function. Right Atrium Normal right atrial size. Left Atrium Dilated left atrium Mitral Valve Structurally normal mitral valve. Mild to moderate mitral regurgitation Aortic Valve Structurally normal trileaflet aortic valve. No aortic valve stenosis. Trace aortic valve regurgitation. Tricuspid Valve Structurally normal tricuspid valve. Trace to mild tricuspid valve regurgitation. TVPG 44 mmHg. Pulmonic Valve Pulmonic valve not well visualized. Trace pulmonary valve regurgitation. Pericardium No pericardial effusion. Aorta Normal size aortic root and proximal ascending aorta. IVC Mildly dilated IVC with normal respiratory change of IVC diameter. CONCLUSIONS Severely reduced LV systolic functions. LVEF 30%. Akinesis of distal anteroseptal wall, severe hypokinesis of anterolateral and apical wall segments. Dilated left atrium. Mild to moderate mitral regurgitation. RV systolic function mildly reduced. Elevated RV/pulmonary pressures 49 mmHg. Cale Murguia MD (Electronically Signed) Final Date: 29 May 2024 14:34 S
[2024-05-28 20:20] LABS: Glucose Point of Care 219 mg/dL (70-110)
[2024-05-28] MEDS: atorvastatin 40 mg Tablet 80 MG PO (20:26)
[2024-05-29] VITALS (8 sets, daily range): BP systolic 116–145; BP diastolic 55–87; PULSE 52–64; RESP 18–24; TEMP 36.4–36.8; O2SAT 96–100; BMI 32.6
[2024-05-29 04:04] LABS: Basophils # 0.1 10^3/uL (0.0-0.1); Basophils % 0.7 %; Eosinophils # 0.3 10^3/uL (0.0-0.8); Eosinophils % 2.3 %; Hematocrit 31.6 % (37-53); Lymphocytes # 1.5 10^3/uL (0.8-4.8); Lymphocytes % 11.8 %; Mean Corpuscular HGB Conc 29.7 g/dL (30-55); Mean Corpuscular Volume 87.5 fl (82-101); Mean Platelet Volume 10.2 fL (7.4-10.4); Monocytes # 1.4 10^3/uL (0.2-0.9); Monocytes % 10.9 %; Neutrophils # 9.13 10^3/uL (1.8-7.7); Neutrophils % 73.9 %; Nucleated Red Blood Cells % 0 %; Platelet Count 310 10^3/cmm (157-399); Red Blood Count 3.61 10^6/uL (3.85-5.65); Red Cell Distribution Width 15.5 % (12.1-15.1); White Blood Count 12.36 10^3/uL (3.29-11.43)
[2024-05-29 04:20] LABS: Alanine Aminotransferase 21 U/L (0-41); Albumin Level 3.7 g/dL (3.5-5.2); Alkaline Phosphatase 165 U/L (40-130); Anion Gap 16.2 (5-19); Aspartate Amino Transferase 20 U/L (0-40); Blood Urea Nitrogen 56 mg/dL (8-23); Calcium 9.3 mg/dL (8.5-10.5); Carbon Dioxide 28 mmol/L (22-29); Chloride 105 mmol/L (98-107); Globulin 2.7 g/dL (1.3-4.6); Glomerular Filtration Rate 20.5 mL/min (90-130); Glucose 103 mg/dL (65-115); Magnesium 2.5 mg/dL (1.7-2.3); Osmolality Calculated 316 mOsm/kg (285-295); Phosphorus 4.5 mg/dL (2.5-4.5); Potassium 4.2 mmol/L (3.5-5.1); Sodium 145 mmol/L (136-145); Total Bilirubin 0.8 mg/dL (0.15-1.2); Total Protein 6.4 g/dL (6.6-8.7)
[2024-05-29 04:53] LABS: NT Pro B Type Natriuretic Pept 18162 pg/mL (0-125)
[2024-05-29] MEDS: aspirin 81 mg EC Tablet PO (05:41)
[2024-05-29] MEDS: citalopram 20 mg Tablet PO (05:41)
[2024-05-29] MEDS: isosorbide mononitrate ER 30 mg Tablet PO (05:41)
[2024-05-29] MEDS: clopidogrel 75 mg Tablet PO (05:41)
[2024-05-29 06:23] LABS: Glucose Point of Care 91 mg/dL (70-110)
[2024-05-29] MEDS: insulin glargine 100 units/1 mL 40 UNIT SUBCUT (09:01)
[2024-05-29] MEDS: heparin 5,000 unit/mL INJ 1 mL 5000 UNIT SUBCUT ×2 (09:01→21:13)
[2024-05-29] MEDS: pantoprazole DR 40 mg Tablet PO (09:02)
[2024-05-29] MEDS: potassium chloride ER 20 mEq Tablet PO ×2 (09:02→17:58)
[2024-05-29] MEDS: metoprolol tartrate 25 mg Tablet PO ×2 (09:02→17:58)
[2024-05-29 11:47] LABS: Glucose Point of Care 182 mg/dL (70-110)
[2024-05-29] MEDS: bumetanide 0.25 mg/mL SDV 10 mL 1 MG IVP ×2 (12:25→21:08)
[2024-05-29] MEDS: insulin lispro 100 unit/1 mL SUBCUT ×3 (12:25→21:13)
--- NOTE | 2024-05-29 14:37 | PM.PN ---
Subjective Subjective: Patient was seen this morning, he tells me his edema is improving, his anasarca is improving, his shortness of breath is improving discussed his creatinine of 3.1, will consult nephrology Vitals/I&O/Wt Last Vital Signs Temp 97.8 F 05/29/24 11:27 Pulse 54 L 05/29/24 11:27 Resp 20 H 05/29/24 11:27 BP 120/74 05/29/24 11:27 Pulse Ox 99 05/29/24 11:27 O2 Del Method Nasal Cannula 05/29/24 11:27 O2 Flow Rate 2 05/28/24 19:26 FiO2 21 05/27/24 22:54 05/28/24 05/29/24 05/29/24 22:59 06:59 14:59 Intake Total 360 / 1040 356 / 356 Output Total 600 / 1680 1900 / 3580 1230 / 1230 Balance -240 / -640 -1900 / -2540 -874 / -874 Weight last 48 hrs Weight 106.141 kg Weight 106.141 kg Weight 105.279 kg Physical Exam Const: COMMON NORMALS: no acute distress and patient oriented x3 Resp: COMMON NORMALS: normal respiratory effort, No retractions, No use of accessory muscles and clear to auscultation bilaterally AUSCULTATION: clear to auscultation bilaterally Cardio: COMMON NORMALS: regular rate, regular rhythm, S1 normal heart sound present and S2 normal heart sound present RATE: regular rate RHYTHM: regular rhythm HEART SOUNDS: S1 normal heart sound present and S2 normal heart sound present GI: COMMON NORMALS: Normal to inspection, nondistended, normoactive bowel sounds present and non-tender Extremity: COMMON NORMALS: no pedal edema Neuro: COMMON NORMALS: patient oriented x3 Psych: COMMON NORMALS: mental status grossly normal Urinary Catheter Management: Auguste: Cath Placed During This Visit: yes, but has since been removed by the nurse Reason for Continuing Indwelling Catheter: Decision to DC Catheter Urinary Catheter Date of Insertion: 05/27/24 Urinary Catheter Time of Insertion: 22:49 Date Urinary Catheter Removed: 05/28/24 Time Urinary Catheter Discontinued: 04:04 Data 05/29/24 03:18 05/29/24 03:18 Micro: Microbiology 05/28/24 12:45 Urine Culture - Preliminary Urine,Clean Catch A&P Assessment and plan (1) Essential hypertension: (2) Ischemic cardiomyopathy: (3) S/P PTCA (percutaneous transluminal coronary angioplasty): (4) Coronary artery disease due to type 2 diabetes mellitus: (5) Ventricular tachycardia: (6) AICD (automatic cardioverter/defibrillator) present: (7) Diabetes mellitus: Qualifiers: Diabetes mellitus type: type 2 Diabetes mellitus [facility] insulin use: with [facility] use Diabetes mellitus complication status: with circulatory complication Diabetes mellitus complication detail: with other circulatory complications Qualified Code(s): E11.59 - Type 2 diabetes mellitus with other circulatory complications; 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 (8) CKD stage 4 due to type 2 diabetes mellitus: (9) Acute exacerbation of chronic heart failure: Plan Acute systolic CHF exacerbation -With history of ischemic cardiomyopathy -Has failed outpatient diuretic regimen is on 3 mg of Bumex daily Plan -Place Auguste catheter -Monitor BMP, creatinine, magnesium -Changed to Bumex 1 mg IV every 8hours -Place Auguste catheter -Potassium 20 mill equivalents twice daily -Repeat cardiac echo CKD stage IV, creatinine up to 3.1 -Likely cardiorenal syndrome -Monitor creatinine closely -Will consider consulting cardiology based on clinical progress This consult cardiology History of CAD, ischemic cardiomyopathy -Continue aspirin, statin, Plavix, amiodarone -Repeat cardiac echo CONCLUSIONS Severely reduced LV systolic functions. LVEF 30%. Akinesis of distal anteroseptal wall, severe hypokinesis of anterolateral and apical wall segments. Dilated left atrium. Mild to moderate mitral regurgitation. RV systolic function mildly reduced. Elevated RV/pulmonary pressures 49 mmHg. Type 2 diabetes mellitus -Lantus 40 units every morning -Low-dose sliding scale History of ICD defibrillator History of CAD, history of cardiac arrest during angioplasty History of CVA Patient is full code Lovenox for DVT prophylaxis PDMP PDMP Reviewed: Not Reviewed Attestations Medical Necessity Statement*: Patient requires hospitalization for acute systolic CHF with JOSE Diagnoses Essential hypertension I10 Ischemic cardiomyopathy I25.5 S/P PTCA (percutaneous transluminal coronary angioplasty) Z98.61 Coronary artery disease due to type 2 diabetes mellitus E11.59; I25.10 Ventricular tachycardia I47.2 AICD (automatic cardioverter/defibrillator) present Z95.810 Type 2 diabetes mellitus with other circulatory complication, with long-term current use of insulin E11.59; Z79.4 Diabetes mellitus type: type 2 Diabetes mellitus [facility] insulin use: with [facility] use Diabetes mellitus complication status: with circulatory complication Diabetes mellitus complication detail: with other circulatory complications CKD stage 4 due to type 2 diabetes mellitus E11.22; N18.4 Acute exacerbation of chronic heart failure I50.9
[2024-05-29 15:53] LABS: Anion Gap 17.3 (5-19); Blood Urea Nitrogen 55 mg/dL (8-23); Calcium 9.2 mg/dL (8.5-10.5); Carbon Dioxide 26 mmol/L (22-29); Chloride 104 mmol/L (98-107); Glomerular Filtration Rate 20.5 mL/min (90-130); Glucose 164 mg/dL (65-115); Osmolality Calculated 315 mOsm/kg (285-295); Potassium 4.3 mmol/L (3.5-5.1); Sodium 143 mmol/L (136-145)
--- NOTE | 2024-05-29 16:16 | PM.CONSULT ---
Providers/Reason For Consult Consulting Physician/Specialty*: nephrology Reason for Consult*: jose Requesting Physician: DR Jansen Attending Physician: Lul Jansen MD Primary Care Provider: Paula Hammond MD History of Present Illness History of Present Illness Fuad Priest is a 63 year old male, with a history of CAD, CKD 4, ICM s/p ICD, hypertension, dm2, who presented to the [facility] [place] on [place]27[place] complaining of a 2 week history of worsening edema. He notes that had increased LE edema, increased edema in his abdomen, back, and his scrotum, despite taking Bumex 2 mg in the morning and 1 mg in the afternoon. His Bumex dose had been increased by Dr. Mcelroy but he continued to have worsening edema and developed dyspnea on exertion. On presentation, [place] [id number], hgb 10.2, bun 51, creatinine 2.8 that increased to 3.1 today prompting a nephrology consult. Review of Systems General: Reports: 10 or more systems reviewed and unremarkable except in HPI and below Card: Reports: edema and dyspnea on exertion Resp: Reports: dyspnea Medications/Allergies Home Medications ?Medication ?Instructions ?Recorded ?Confirmed ?Last Taken ?Type multivitamin 1 tab PO QAM 05/12/19 05/27/24 05/27/24 History nitroglycerin 0.3 mg sublingual 0.3 mg sublingual Q5M PRN Chest 04/12/21 05/27/24 09/04/21 06:00 History tablet (Nitrostat) Pain cholecalciferol (vitamin D3) 125 125 mcg PO QAM 09/04/21 05/27/24 05/27/24 History mcg (5,000 unit) tablet (Vitamin D3) pen needle, diabetic 31 gauge x #100 ea 09/24/22 05/27/24 Unknown Rx 3/16 (BD Ultra-Fine Mini Pen Needle) clopidogrel 75 mg tablet (Plavix) 75 mg PO QAM #90 tabs 02/08/24 05/27/24 05/27/24 Rx benzonatate 200 mg capsule 200 mg PO BID PRN cough #20 caps 04/27/24 05/27/24 Unknown Rx fluticasone propionate 50 2 spray intranasal DAILY #16 grams 04/27/24 05/27/24 05/27/24 Rx mcg/actuation nasal spray,suspension (Flonase Allergy Relief) liraglutide 0.6 mg/0.1 mL (18 mg/3 1.8 mg (0.3 mL) SUBCUT DAILY #9 mL 04/27/24 05/27/24 Unknown Rx mL) subcutaneous pen injector (Victoza 3-Jesús) bumetanide 1 mg tablet See Rx Instructions .Route 05/19/24 05/27/24 05/27/24 Rx .COMPLEX #180 tabs amiodarone 200 mg tablet 200 mg PO QAM 05/27/24 05/27/24 05/27/24 History aspirin 81 mg tablet,delayed 81 mg PO QAM 05/27/24 05/27/24 05/27/24 History release atorvastatin 80 mg tablet 80 mg PO BEDTIME 05/27/24 05/27/24 05/26/24 History citalopram 20 mg tablet 20 mg PO QAM 05/27/24 05/27/24 05/27/24 History insulin glargine 100 unit/mL (3 43 unit SUBCUT DAILY 05/27/24 05/27/24 05/27/24 History mL) subcutaneous pen (Lantus Solostar U-100 Insulin) isosorbide mononitrate 30 mg 30 mg PO QAM 05/27/24 05/27/24 05/27/24 History tablet,extended release 24 hr metoprolol tartrate 25 mg tablet 25 mg PO BID 05/27/24 05/27/24 05/27/24 History pantoprazole 20 mg tablet,delayed 20 mg PO DAILY 05/27/24 05/27/24 05/27/24 History release Allergies Allergy/AdvReac Type Severity Reaction Status Date / Time No Known Allergies Allergy Verified 05/19/24 08:35 Current Medications Generic Name Dose Route Start Last Admin Trade Name Freq PRN Reason Stop Dose Admin Amiodarone HCl 200 mg 05/28/24 06:00 05/29/24 05:41 Amiodarone 200 Mg Tablet PO Not Given QAM ISSAC Aspirin 81 mg 05/28/24 06:00 05/29/24 05:41 Aspirin 81 Mg Ec Tablet PO 81 mg QAM ISSAC Administration Atorvastatin Calcium 80 mg 05/27/24 21:00 05/28/24 20:26 Atorvastatin 40 Mg Tablet PO 80 mg BEDTIME ISSAC Administration Bumetanide 1 mg 05/29/24 13:00 05/29/24 12:25 Bumetanide 0.25 Mg/Ml Sdv 10 Ml IVP 1 mg Q8H ISSAC Administration Citalopram Hydrobromide 20 mg 05/28/24 06:00 05/29/24 05:41 Citalopram 20 Mg Tablet PO 20 mg QAM ISSAC Administration Clopidogrel Bisulfate 75 mg 05/28/24 06:00 05/29/24 05:41 Clopidogrel 75 Mg Tablet PO 75 mg QAM ISSAC Administration Heparin Sodium (Porcine) 5,000 unit 05/27/24 19:50 05/29/24 09:01 Heparin 5,000 Unit/Ml Inj 1 Ml SUBCUT 5,000 unit Q12H ISSAC Administration Insulin Glargine 40 unit 05/28/24 09:00 05/29/24 09:01 Insulin Glargine 100 Units/1 Ml SUBCUT 40 unit DAILY ISSAC Administration Insulin Human Lispro 0 unit 05/27/24 21:00 05/29/24 12:25 Insulin Lispro 100 Unit/1 Ml SUBCUT 4 unit WM&BEDTIME ISSAC Administration Protocol Isosorbide Mononitrate 30 mg 05/28/24 06:00 05/29/24 05:41 Isosorbide Mononitrate Er 30 Mg Tablet PO 30 mg QAM ISSAC Administration Metoprolol Tartrate 25 mg 05/27/24 20:03 05/29/24 09:02 Metoprolol Tartrate 25 Mg Tablet PO 25 mg BID ISSAC Administration Pantoprazole Sodium 40 mg 05/28/24 09:00 05/29/24 09:[address] 40 Mg Tablet PO 40 mg DAILY ISSAC Administration Potassium Chloride 20 meq 05/27/24 19:50 05/29/24 09:02 Potassium Chloride Er 20 Meq Tablet PO 20 meq BID ISSAC Administration PFSH Acute PFSH: Medical History Orthopnea Ischemic cardiomyopathy last ECHO 08/2021 EF 25% Anemia due to stage 4 chronic kidney disease Essential hypertension 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 Arnol Mitchell PSA sees [facility]; neg bx 2023 Cardiac arrest due to underlying cardiac condition GERD (gastroesophageal reflux disease) Cerebrovascular accident (CVA) associated with severe acute respiratory syndrome coronavirus 2 (SARS-CoV-2) infection Diabetes mellitus DR. Mcelroy Coronary atherosclerosis Hyperlipidemia Surgical History Hx of prostate biopsy [facility]; bx neg 2023 Hx of colonoscopy normal; in [place] 2017; due 10 yrs Hx of shoulder surgery right AICD (automatic cardioverter/defibrillator) present LVEF 25% on 09/11/21 History of back surgery lumbar 3/4 S/P PTCA (percutaneous transluminal coronary angioplasty) X3 Family History Mother Myocardial infarction Father Myocardial infarction Brother Myocardial infarction Grandfather Heart disease Grandmother Heart disease Social History Smoking and tobacco/nicotine status: never used tobacco/nicotine Alcohol intake: never Substance/Drug Use: never Household members: spouse Housing: House Marital status: Number of children: 2 Highest education level completed: High School Graduate Current occupational status: retired Previous occupational history: retired /[employer] Events Vitals/I&O/Wt Last Vital Signs Temp 97.6 F 05/29/24 15:25 Pulse 56 L 05/29/24 15:25 Resp 20 H 05/29/24 15:25 BP 128/74 05/29/24 15:25 Pulse Ox 100 05/29/24 15:25 O2 Del Method Nasal Cannula 05/29/24 15:25 O2 Flow Rate 2 05/28/24 19:26 FiO2 21 05/27/24 22:54 05/29/24 05/29/24 05/29/24 06:59 14:59 22:59 Intake Total 356 / 356 Output Total 1900 / 3580 1230 / 1230 Balance -1900 / -2540 -874 / -874 Weight last 48 hrs Weight 106.141 kg Weight 106.141 kg Weight 105.279 kg Physical Exam Const: COMMON NORMALS: no acute distress, average body habitus, patient oriented x3, no limitations, alert and well nourished ORIENTATION/CONSCIOUSNESS: Yes oriented to person, Yes oriented to place and Yes oriented to time HENMT: COMMON NORMALS: normocephalic and atraumatic HEAD & SCALP: normocephalic and atraumatic Eye: COMMON NORMALS: EOMs intact bilaterally and no scleral icterus Neck/C-Spine: COMMON NORMALS: no JVD Resp: COMMON NORMALS: normal respiratory effort AUSCULTATION: diminished lung sounds Cardio: COMMON NORMALS: no JVD, regular rate, regular rhythm, S1 normal heart sound present and S2 normal heart sound present RATE: regular rate RHYTHM: regular rhythm HEART SOUNDS: S1 normal heart sound present and S2 normal heart sound present GI: COMMON NORMALS: Soft to palpation and non-tender PALPATION: Yes Soft to palpation Extremity: NARRATIVE EXTREMITY EXAM: +1 BLE edema GENERAL: Yes normal exam except as noted Neuro: COMMON NORMALS: patient oriented x3 SENSORIUM/ORIENTATION: Yes alert, Yes oriented to person, Yes oriented to place and Yes oriented to time Psych: COMMON NORMALS: mental status grossly normal Skin: COMMON NORMALS: no rashes or lesions noted GENERAL SKIN EXAM: no rashes or lesions noted Urinary Catheter Management: Auguste: Cath Placed During This Visit: yes, but has since been removed by the nurse Reason for Continuing Indwelling Catheter: Decision to DC Catheter Urinary Catheter Date of Insertion: 05/27/24 Urinary Catheter Time of Insertion: 22:49 Date Urinary Catheter Removed: 05/28/24 Time Urinary Catheter Discontinued: 04:04 Data 05/29/24 03:18 05/29/24 15:17 Micro: Microbiology 05/28/24 12:45 Urine Culture - Preliminary Urine,Clean Catch A&P Assessment and plan (1) CKD stage 4 due to type 2 diabetes mellitus: JOSE superimposed on ckd stage 4- he has ckd stage 4 at baseline likely due to diabetic and hypertensive kidney disease +/- cardio-renal syndrome. his jose is likely due to diuresis. He is non-oliguric with stable lytes and improving voluem status. There is no acute indication for renal replacement therapy at this time - cont iv bumex - start 1200 ml fluid restricton acute on chronic systolic chf ef 30%- cont iv bumex. Start fluid restriction as above anemia in ckd- i will check iron studies essential hypertension- bp is stable dm2 PDMP PDMP Reviewed: Not Reviewed Consult Attestations Medical Necessity Statement: jose Time Spent in Patient Care: 50 minutes Coding Level of Care Code Acute Code for Chg Fwd Diagnoses CKD stage 4 due to type 2 diabetes mellitus E11.22; N18.4
[2024-05-29 16:18] LABS: Glucose Point of Care 141 mg/dL (70-110)
[2024-05-29 20:58] LABS: Glucose Point of Care 170 mg/dL (70-110)
[2024-05-29] MEDS: atorvastatin 40 mg Tablet 80 MG PO (21:05)
[2024-05-30 03:46] VITALS: BP 133/68; PULSE 59; RESP 17; TEMP 36.5; O2SAT 98
[2024-05-30 04:15] LABS: Basophils # 0.1 10^3/uL (0.0-0.1); Basophils % 0.7 %; Eosinophils # 0.3 10^3/uL (0.0-0.8); Eosinophils % 2.5 %; Hematocrit 29.2 % (37-53); Lymphocytes # 1.6 10^3/uL (0.8-4.8); Lymphocytes % 13.7 %; Mean Corpuscular HGB Conc 30.8 g/dL (30-55); Mean Corpuscular Hemoglobin 26.2 pg (27-33); Mean Corpuscular Volume 85.1 fl (82-101); Mean Platelet Volume 10.5 fL (7.4-10.4); Monocytes # 1.2 10^3/uL (0.2-0.9); Monocytes % 10.4 %; Neutrophils # 8.18 10^3/uL (1.8-7.7); Neutrophils % 72.4 %; Nucleated Red Blood Cells % 0 %; Platelet Count 282 10^3/cmm (157-399); Red Blood Count 3.43 10^6/uL (3.85-5.65); Red Cell Distribution Width 15.5 % (12.1-15.1); White Blood Count 11.29 10^3/uL (3.29-11.43)
[2024-05-30 04:42] LABS: NT Pro B Type Natriuretic Pept 17672 pg/mL (0-125)
[2024-05-30 04:48] LABS: Alanine Aminotransferase 20 U/L (0-41); Albumin Level 3.5 g/dL (3.5-5.2); Alkaline Phosphatase 155 U/L (40-130); Aspartate Amino Transferase 22 U/L (0-40); Blood Urea Nitrogen 61 mg/dL (8-23); Calcium 9.1 mg/dL (8.5-10.5); Carbon Dioxide 28 mmol/L (22-29); Chloride 103 mmol/L (98-107); Creatinine Clr Calc Pharmacy 31.2408; Globulin 2.5 g/dL (1.3-4.6); Glomerular Filtration Rate 21.2 mL/min (90-130); Glucose 78 mg/dL (65-115); Magnesium 2.5 mg/dL (1.7-2.3); Osmolality Calculated 312 mOsm/kg (285-295); Phosphorus 4.1 mg/dL (2.5-4.5); Sodium 143 mmol/L (136-145); Total Bilirubin 0.9 mg/dL (0.15-1.2)
[2024-05-30] MEDS: isosorbide mononitrate ER 30 mg Tablet PO (05:46)
[2024-05-30] MEDS: citalopram 20 mg Tablet PO (05:46)
[2024-05-30] MEDS: aspirin 81 mg EC Tablet PO (05:46)
[2024-05-30] MEDS: clopidogrel 75 mg Tablet PO (05:46)
[2024-05-30] MEDS: bumetanide 0.25 mg/mL SDV 10 mL 1 MG IVP ×3 (05:48→20:35)
[2024-05-30 06:05] LABS: Glucose Point of Care 71 mg/dL (70-110)
[2024-05-30 06:33] LABS: Glucose Point of Care 109 mg/dL (70-110)
[2024-05-30 07:49] VITALS: BP 139/77; PULSE 56; RESP 20; TEMP 36.6; O2SAT 99
[2024-05-30] MEDS: heparin 5,000 unit/mL INJ 1 mL 5000 UNIT SUBCUT ×2 (08:31→20:35)
[2024-05-30] MEDS: pantoprazole DR 40 mg Tablet PO (08:31)
[2024-05-30] MEDS: potassium chloride ER 20 mEq Tablet PO ×2 (08:32→18:16)
[2024-05-30] MEDS: metoprolol tartrate 25 mg Tablet PO ×2 (08:32→17:51)
[2024-05-30] MEDS: insulin glargine 100 units/1 mL 40 UNIT SUBCUT (08:32)
[2024-05-30 12:00] VITALS: BP 117/66; PULSE 57; RESP 20; TEMP 36.6; O2SAT 97
--- NOTE | 2024-05-30 12:38 | P.PN_ITS ---
Subjective 2 Subjective: Patient has no new complaints on 2L. HIs mark and edema have improved Medications: Reviewed: Yes Vitals/I&O/Wt Last Vital Signs Temp 97.9 F 05/30/24 12:00 Pulse 57 L 05/30/24 12:00 Resp 20 H 05/30/24 12:00 BP 117/66 05/30/24 12:00 Pulse Ox 97 05/30/24 12:00 O2 Del Method Nasal Cannula 05/30/24 12:00 O2 Flow Rate 2 05/30/24 12:00 FiO2 21 05/27/24 22:54 05/29/24 05/30/24 05/30/24 22:59 06:59 14:59 Intake Total 480 / 836 200 / 1036 360 / 360 Output Total 1330 / 2840 950 / 3790 Balance -850 / -2004 -750 / -2754 360 / 360 Weight last 48 hrs Weight 102.013 kg Weight 106.141 kg Physical Exam 2 Const: COMMON NORMALS: no acute distress, average body habitus, patient oriented x3, no limitations, alert and well nourished HENMT: COMMON NORMALS: normocephalic and atraumatic HEAD & SCALP: n ormocephalic and atraumatic Eye: COMMON NORMALS: EOMs intact bilaterally and no scleral icterus Neck/C-Spine: COMMON NORMALS: full ROM and no JVD Resp: COMMON NORMALS: normal respiratory effort and clear to auscultation bilaterally EFFORT & INSPECTION: Yes able to speak in complete sentences A USCULTATION: clear to auscultation bilaterally Cardio: COMMON NORMALS: no JVD, regular rate, regular rhythm, S1 normal heart sound present and S2 normal heart sound present JUGULAR VENOUS DISTENTION: no JVD RATE: regular rate RHYTHM: regular rhythm HEART SOUNDS: S1 normal heart sound present and S2 normal heart sound present GI: COMMON NORMALS: Soft to palpation and non-tender PALPATION: Yes Soft to palpation Extremity: COMMON NORMALS: normal to inspection NARRATIVE EXTREMITY EXAM: trace LE edema Neuro: COMMON NORMALS: patient oriented x3 and no focal motor deficits S ENSORIUM/ORIENTATION: Yes alert Psych: COMMON NORMALS: mental status grossly normal Skin: COMMON NORMALS: no rashes or lesions noted GENERAL SKIN EXAM: no rashes or lesions noted Urinary Catheter Management: Auguste: Cath Placed During This Visit: yes, but has since been removed by the nurse Reason for Continuing Indwelling Catheter: Decision to DC Catheter Urinary Catheter Date of Insertion: 05/27/24 Urinary Catheter Time of Insertion: 22:49 Date Urinary Catheter Removed: 05/28/24 Time Urinary Catheter Discontinued: 04:04 Data 05/30/24 03:30 05/30/24 03:30 Micro: Microbiology 05/28/24 12:45 Urine Culture - Final Urine,Clean Catch A&P Assessment and plan (1) Anemia due to stage 4 chronic kidney disease: JOSE superimposed on ckd stage 4- he has ckd stage 4 at baseline likely due to diabetic and hypertensive kidney disease +/- cardio-renal syndrome. his jose is likely due to diuresis. HIs creatinine is stable. He is also non-oliguric with stable lytes and improving volume status. There is no acute indication for renal replacement therapy at this time - cont iv bumex - start 1200 ml fluid restricton acute on chronic systolic chf ef 30%- cont iv bumex. cont fluid restriction anemia in ckd- await iron studies essential hypertension- bp is stable dm2 PDMP PDMP Reviewed: Not Reviewed Attestations 2 Medical Necessity Statement*: jose Time Spent in Patient Care: 25 minutes Coding Level of Care Code Acute Code for Chg Fwd Diagnoses Anemia due to stage 4 chronic kidney disease N18.4; D63.1
[2024-05-30 12:41] LABS: Glucose Point of Care 129 mg/dL (70-110)
[2024-05-30 13:36] LABS: Ferritin 51 ng/mL (30-400); Iron 24 ug/dL (59-158)
[2024-05-30 16:00] VITALS: BP 142/74; PULSE 56; RESP 20; TEMP 36.4; O2SAT 100
--- NOTE | 2024-05-30 16:30 | P.PN_ITS ---
Subjective 2 Subjective: Patient was seen this morning, denies any fevers, no chills, no cough, shortness of breath is improving Vitals/I&O/Wt Last Vital Signs Temp 97.9 F 05/30/24 12:00 Pulse 57 L 05/30/24 12:00 Resp 20 H 05/30/24 12:00 BP 117/66 05/30/24 12:00 Pulse Ox 97 05/30/24 12:00 O2 Del Method Nasal Cannula 05/30/24 12:00 O2 Flow Rate 2 05/30/24 12:00 FiO2 21 05/27/24 22:54 05/30/24 05/30/24 05/30/24 06:59 14:59 22:59 Intake Total 200 / 1036 360 / 360 Output Total 950 / 3790 680 / 680 Balance -750 / -2754 -320 / -320 Weight last 48 hrs Weight 102.013 kg Weight 106.141 kg Physical Exam 2 Const: COMMON NORMALS: no acute distress and patient oriented x3 Resp: COMMON NORMALS: normal respiratory effort, No retractions and No use of accessory muscles AUSCULTATION: crackles Cardio: COMMON NORMALS: regular rate, regular rhythm, S1 normal heart sound present and S2 normal heart sound present RATE: regular rate RHYTHM: r egular rhythm HEART SOUNDS: S1 normal heart sound present and S2 normal heart sound present GI: COMMON NORMALS: Normal to inspection, nondistended, normoactive bowel sounds present and non-tender Extremity: NARRATIVE EXTREMITY EXAM: 1+ pitting edema Neuro: COMMON NORMALS: patient oriented x3 Psych: COMMON NORMALS: mental status grossly normal Urinary Catheter Management: Auguste: Cath Placed During This Visit: yes, but has since been removed by the nurse Reason for Continuing Indwelling Catheter: Decision to DC Catheter Urinary Catheter Date of Insertion: 05/27/24 Urinary Catheter Time of Insertion: 22:49 Date Urinary Catheter Removed: 05/28/24 Time Urinary Catheter Discontinued: 04:04 Data 05/30/24 03:30 05/30/24 03:30 Micro: Microbiology 05/28/24 12:45 Urine Culture - Final Urine,Clean Catch A&P Assessment and plan (1) Essential hypertension: (2) Ischemic cardiomyopathy: (3) S/P PTCA (percutaneous transluminal coronary angioplasty): (4) Coronary artery disease due to type 2 diabetes mellitus: (5) Ventricular tachycardia: (6) AICD (automatic cardioverter/defibrillator) present: (7) Diabetes mellitus: Qualifiers: Diabetes mellitus type: type 2 Diabetes mellitus assisted insulin use: with assisted use Diabetes mellitus complication status: with circulatory complication Diabetes mellitus complication detail: with other circulatory complications Qualified Code(s): E11.59 - Type 2 diabetes mellitus with other circulatory complications; 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 (8) CKD stage 4 due to type 2 diabetes mellitus: (9) Acute exacerbation of chronic heart failure: Plan Acute systolic CHF exacerbation -With history of ischemic cardiomyopathy -Has failed outpatient diuretic regimen is on 3 mg of Bumex daily Plan -Place Auguste catheter -Monitor BMP, creatinine, magnesium -Changed to Bumex 1 mg IV every 8hours -Potassium 20 mill equivalents twice daily -Repeat cardiac echo as below CKD stage IV, creatinine up to 3.0 -Likely cardiorenal syndrome -Monitor creatinine closely Nephrology consulted History of CAD, ischemic cardiomyopathy -Continue aspirin, statin, Plavix, amiodarone -Repeat cardiac echo CONCLUSIONS Severely reduced LV systolic functions. LVEF 30%. Akinesis of distal anteroseptal wall, severe hypokinesis of anterolateral and apical wall segments. Dilated left atrium. Mild to moderate mitral regurgitation. RV systolic function mildly reduced. Elevated RV/pulmonary pressures 49 mmHg. Type 2 diabetes mellitus -Lantus 40 units every morning -Low-dose sliding scale History of ICD defibrillator History of CAD, history of cardiac arrest during angioplasty History of CVA Patient is full code Lovenox for DVT prophylaxis PDMP PDMP Reviewed: Not Reviewed Attestations 2 Medical Necessity Statement*: Patient requires hospitalization for acute systolic CHF exacerbation, JOSE, CKD Diagnoses Essential hypertension I10 Ischemic cardiomyopathy I25.5 S/P PTCA (percutaneous transluminal coronary angioplasty) Z98.61 Coronary artery disease due to type 2 diabetes mellitus E11.59; I25.10 Ventricular tachycardia I47.2 AICD (automatic cardioverter/defibrillator) present Z95.810 Type 2 diabetes mellitus with other circulatory complication, with long-term current use of insulin E11.59; Z79.4 Diabetes mellitus type: type 2 Diabetes mellitus assisted insulin use: with assisted use Diabetes mellitus complication status: with circulatory complication Diabetes mellitus complication detail: with other circulatory complications CKD stage 4 due to type 2 diabetes mellitus E11.22; N18.4 Acute exacerbation of chronic heart failure I50.9
[2024-05-30 17:20] LABS: Glucose Point of Care 181 mg/dL (70-110)
[2024-05-30] MEDS: insulin lispro 100 unit/1 mL SUBCUT ×2 (17:51→20:35)
[2024-05-30 17:52] LABS: Blood Urea Nitrogen 64 mg/dL (8-23); Calcium 9.2 mg/dL (8.5-10.5); Carbon Dioxide 27 mmol/L (22-29); Chloride 101 mmol/L (98-107); Creatinine Clr Calc Pharmacy 32.8416; Glucose 161 mg/dL (65-115); Osmolality Calculated 312 mOsm/kg (285-295); Sodium 140 mmol/L (136-145)
[2024-05-30 18:00] LABS: Anion Gap 16.7 (5-19); Potassium 4.7 mmol/L (3.5-5.1)
[2024-05-30 19:27] VITALS: BP 124/67; PULSE 55; RESP 18; TEMP 36.8; O2SAT 99
[2024-05-30 20:25] LABS: Glucose Point of Care 208 mg/dL (70-110)
[2024-05-30] MEDS: atorvastatin 40 mg Tablet 80 MG PO (20:35)
[2024-05-30 22:00] VITALS: PULSE 57
[2024-05-31] VITALS (8 sets, daily range): BP systolic 112–139; BP diastolic 68–79; PULSE 53–57; RESP 16–22; TEMP 36.5–36.8; O2SAT 93–100
[2024-05-31] MEDS: bumetanide 0.25 mg/mL SDV 10 mL 1 MG IVP ×3 (04:56→20:52)
[2024-05-31] MEDS: amiodarone 200 mg Tablet PO (04:58)
[2024-05-31] MEDS: isosorbide mononitrate ER 30 mg Tablet PO (04:59)
[2024-05-31] MEDS: aspirin 81 mg EC Tablet PO (04:59)
[2024-05-31] MEDS: clopidogrel 75 mg Tablet PO (04:59)
[2024-05-31] MEDS: citalopram 20 mg Tablet PO (04:59)
[2024-05-31 06:10] LABS: Alanine Aminotransferase 19 U/L (0-41); Albumin Level 3.5 g/dL (3.5-5.2); Alkaline Phosphatase 152 U/L (40-130); Aspartate Amino Transferase 18 U/L (0-40); Blood Urea Nitrogen 60 mg/dL (8-23); Calcium 9.2 mg/dL (8.5-10.5); Carbon Dioxide 29 mmol/L (22-29); Chloride 102 mmol/L (98-107); Creatinine Clr Calc Pharmacy 30.5034; Glomerular Filtration Rate 21.2 mL/min (90-130); Glucose 92 mg/dL (65-115); Osmolality Calculated 311 mOsm/kg (285-295); Sodium 142 mmol/L (136-145); Total Bilirubin 0.9 mg/dL (0.15-1.2); Total Protein 6.5 g/dL (6.6-8.7)
[2024-05-31 06:22] LABS: Glucose Point of Care 97 mg/dL (70-110)
[2024-05-31] MEDS: heparin 5,000 unit/mL INJ 1 mL 5000 UNIT SUBCUT ×2 (09:08→20:51)
[2024-05-31] MEDS: potassium chloride ER 20 mEq Tablet PO ×2 (09:08→17:36)
[2024-05-31] MEDS: pantoprazole DR 40 mg Tablet PO (09:08)
[2024-05-31] MEDS: metoprolol tartrate 25 mg Tablet PO ×2 (09:08→17:36)
[2024-05-31 12:21] LABS: Glucose Point of Care 117 mg/dL (70-110)
[2024-05-31] MEDS: insulin glargine 100 units/1 mL 40 UNIT SUBCUT (12:29)
--- NOTE | 2024-05-31 13:41 | P.PN_ITS ---
Subjective 2 Subjective: Patient has no new complaints on 2L Medications: Reviewed: Yes Vitals/I&O/Wt Last Vital Signs Temp 97.7 F 05/31/24 12:00 Pulse 57 L 05/31/24 12:00 Resp 20 H 05/31/24 12:00 BP 131/68 05/31/24 12:00 Pulse Ox 100 05/31/24 12:00 O2 Del Method Nasal Cannula 05/31/24 12:00 O2 Flow Rate 2 05/31/24 12:00 FiO2 21 05/27/24 22:54 05/30/24 05/31/24 05/31/24 22:59 06:59 14:59 Intake Total 340 / 700 240 / 940 240 / 240 Output Total 1550 / 2230 1900 / 4130 Balance -1210 / -1530 -1660 / -3190 240 / 240 Weight last 48 hrs Weight 100.97 kg Weight 102.013 kg Physical Exam 2 Const: COMMON NORMALS: no acute distress, average body habitus, patient oriented x3, no limitations and healthy appearing ORIENTATION/CONSCIOUSNESS: Yes awake, Yes oriented to person, Yes oriented to place and Yes oriented to time HENMT: COMMON NORMALS: normocephalic and atraumatic HEAD & SCALP: n ormocephalic and atraumatic Eye: COMMON NORMALS: EOMs intact bilaterally and no scleral icterus Neck/C-Spine: COMMON NORMALS: full ROM and no JVD Resp: COMMON NORMALS: normal respiratory effort and clear to auscultation bilaterally AUSCULTATION: clear to auscultation bilaterally Cardio: COMMON NORMALS: no JVD, regular rate, regular rhythm, S1 normal heart sound present and S2 normal heart sound present RATE: regular rate RHYTHM: regular rhythm HEART SOUNDS: S1 normal heart sound present and S2 normal heart sound present GI: COMMON NORMALS: Soft to palpation and non-tender PALPATION: Yes Soft to palpation Extremity: COMMON NORMALS: normal to inspection and no pedal edema Neuro: COMMON NORMALS: patient oriented x3 SENSORIUM/ORIENTATION: Yes oriented to person, Yes oriented to place and Yes oriented to time Psych: COMMON NORMALS: mental status grossly normal Skin: COMMON NORMALS: no rashes or lesions noted GENERAL SKIN EXAM: no rashes or lesions noted Urinary Catheter Management: Auguste: Cath Placed During This Visit: yes, but has since been removed by the nurse Reason for Continuing Indwelling Catheter: Decision to DC Catheter Urinary Catheter Date of Insertion: 05/27/24 Urinary Catheter Time of Insertion: 22:49 Date Urinary Catheter Removed: 05/28/24 Time Urinary Catheter Discontinued: 04:04 Data 05/30/24 03:30 05/31/24 05:45 Micro: Microbiology 05/28/24 12:45 Urine Culture - Final Urine,Clean Catch A&P Assessment and plan (1) CKD stage 4 due to type 2 diabetes mellitus: Plan JOSE superimposed on ckd stage 4- he has ckd stage 4 at baseline likely due to diabetic and hypertensive kidney disease +/- cardio-renal syndrome. his jose is likely due to diuresis. His creatinine remains stable and is also non-oliguric with stable lytes and volume status. - cont iv bumex x 1 more day - cont 1200 ml fluid restricton acute on chronic systolic chf ef 30%- cont iv bumex. cont fluid restriction anemia in ckd- he is iron deficient. i will start iv iron essential hypertension- bp is stable dm2 PDMP PDMP Reviewed: Not Reviewed Attestations 2 Medical Necessity Statement*: jose Time Spent in Patient Care: 25 minutes Coding Level of Care Code Acute Code for Chg Fwd Diagnoses CKD stage 4 due to type 2 diabetes mellitus E11.22; N18.4
--- NOTE | 2024-05-31 14:18 | PM.PN ---
Subjective Subjective: Patient was seen this morning, he was continues to have 1+ edema in his lower extremities, anasarca persist but significantly improved Vitals/I&O/Wt Last Vital Signs Temp 97.7 F 05/31/24 12:00 Pulse 57 L 05/31/24 12:00 Resp 20 H 05/31/24 12:00 BP 131/68 05/31/24 12:00 Pulse Ox 100 05/31/24 12:00 O2 Del Method Nasal Cannula 05/31/24 12:00 O2 Flow Rate 2 05/31/24 12:00 FiO2 21 05/27/24 22:54 05/30/24 05/31/24 05/31/24 22:59 06:59 14:59 Intake Total 340 / 700 240 / 940 480 / 480 Output Total 1550 / 2230 1900 / 4130 150 / 150 Balance -1210 / -1530 -1660 / -3190 330 / 330 Weight last 48 hrs Weight 100.97 kg Weight 102.013 kg Physical Exam Const: COMMON NORMALS: no acute distress and patient oriented x3 HENMT: COMMON NORMALS: normocephalic HEAD & SCALP: normocephalic Resp: COMMON NORMALS: normal respiratory effort, No retractions, No use of accessory muscles and clear to auscultation bilaterally AUSCULTATION: clear to auscultation bilaterally Cardio: COMMON NORMALS: regular rate, regular rhythm, S1 normal heart sound present and S2 normal heart sound present RATE: regular rate RHYTHM: regular rhythm HEART SOUNDS: S1 normal heart sound present and S2 normal heart sound present GI: COMMON NORMALS: Normal to inspection, nondistended, normoactive bowel sounds present and non-tender Extremity: NARRATIVE EXTREMITY EXAM: 1+ edema Neuro: COMMON NORMALS: patient oriented x3 Psych: COMMON NORMALS: mental status grossly normal Urinary Catheter Management: Auguste: Cath Placed During This Visit: yes, but has since been removed by the nurse Reason for Continuing Indwelling Catheter: Decision to DC Catheter Urinary Catheter Date of Insertion: 05/27/24 Urinary Catheter Time of Insertion: 22:49 Date Urinary Catheter Removed: 05/28/24 Time Urinary Catheter Discontinued: 04:04 Data 05/30/24 03:30 05/31/24 05:45 Micro: Microbiology 05/28/24 12:45 Urine Culture - Final Urine,Clean Catch A&P Assessment and plan (1) Essential hypertension: (2) Ischemic cardiomyopathy: (3) S/P PTCA (percutaneous transluminal coronary angioplasty): (4) Coronary artery disease due to type 2 diabetes mellitus: (5) Ventricular tachycardia: (6) AICD (automatic cardioverter/defibrillator) present: (7) Diabetes mellitus: Qualifiers: Diabetes mellitus type: type 2 Diabetes mellitus ferry terminal agent insulin use: with ferry terminal agent use Diabetes mellitus complication status: with circulatory complication Diabetes mellitus complication detail: with other circulatory complications Qualified Code(s): E11.59 - Type 2 diabetes mellitus with other circulatory complications; 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 (8) CKD stage 4 due to type 2 diabetes mellitus: (9) Acute exacerbation of chronic heart failure: Plan Acute systolic CHF exacerbation -With history of ischemic cardiomyopathy -Has failed outpatient diuretic regimen is on 3 mg of Bumex daily Plan -Place Auguste catheter -Monitor BMP, creatinine, magnesium -Changed to Bumex 1 mg IV every 8hours -Potassium 20 mill equivalents twice daily -Repeat cardiac echo as below CKD stage IV, creatinine up to 3.0 -Likely cardiorenal syndrome -Monitor creatinine closely Nephrology consulted History of CAD, ischemic cardiomyopathy -Continue aspirin, statin, Plavix, amiodarone -Repeat cardiac echo CONCLUSIONS Severely reduced LV systolic functions. LVEF 30%. Akinesis of distal anteroseptal wall, severe hypokinesis of anterolateral and apical wall segments. Dilated left atrium. Mild to moderate mitral regurgitation. RV systolic function mildly reduced. Elevated RV/pulmonary pressures 49 mmHg. Type 2 diabetes mellitus -Lantus 40 units every morning -Low-dose sliding scale History of ICD defibrillator History of CAD, history of cardiac arrest during angioplasty History of CVA Patient is full code Lovenox for DVT prophylaxis PDMP PDMP Reviewed: Not Reviewed Attestations Medical Necessity Statement*: Patient requires hospitalization for fluid overload, CHF exacerbation, IV diuresis, -8 L so far Diagnoses Essential hypertension I10 Ischemic cardiomyopathy I25.5 S/P PTCA (percutaneous transluminal coronary angioplasty) Z98.61 Coronary artery disease due to type 2 diabetes mellitus E11.59; I25.10 Ventricular tachycardia I47.2 AICD (automatic cardioverter/defibrillator) present Z95.810 Type 2 diabetes mellitus with other circulatory complication, with long-term current use of insulin E11.59; Z79.4 Diabetes mellitus type: type 2 Diabetes mellitus ferry terminal agent insulin use: with ferry terminal agent use Diabetes mellitus complication status: with circulatory complication Diabetes mellitus complication detail: with other circulatory complications CKD stage 4 due to type 2 diabetes mellitus E11.22; N18.4 Acute exacerbation of chronic heart failure I50.9
[2024-05-31] MEDS: iron sucrose 200 MG in sodium chloride 0.9% (100 ml) 100 ML 220 MG IV (15:00)
[2024-05-31 15:17] LABS: Anion Gap 16.2 (5-19); Blood Urea Nitrogen 60 mg/dL (8-23); Calcium 9.1 mg/dL (8.5-10.5); Carbon Dioxide 28 mmol/L (22-29); Chloride 101 mmol/L (98-107); Creatinine Clr Calc Pharmacy 28.5969; Glomerular Filtration Rate 19.7 mL/min (90-130); Glucose 159 mg/dL (65-115); Osmolality Calculated 312 mOsm/kg (285-295); Potassium 4.2 mmol/L (3.5-5.1); Sodium 141 mmol/L (136-145)
[2024-05-31 17:14] LABS: Glucose Point of Care 152 mg/dL (70-110)
[2024-05-31] MEDS: insulin lispro 100 unit/1 mL SUBCUT (17:36)
[2024-05-31 20:42] LABS: Glucose Point of Care 154 mg/dL (70-110)
[2024-05-31] MEDS: atorvastatin 40 mg Tablet 80 MG PO (20:52)
[2024-06-01] VITALS (8 sets, daily range): BP systolic 114–139; BP diastolic 57–75; PULSE 56–69; RESP 13–25; TEMP 36.5–36.8; O2SAT 90–99
[2024-06-01 03:30] LABS: Basophils # 0.1 10^3/uL (0.0-0.1); Basophils % 0.7 %; Eosinophils # 0.2 10^3/uL (0.0-0.8); Eosinophils % 2.5 %; Hematocrit 30.4 % (37-53); Lymphocytes # 1.5 10^3/uL (0.8-4.8); Lymphocytes % 15.8 %; Mean Corpuscular HGB Conc 30.6 g/dL (30-55); Mean Corpuscular Hemoglobin 26.1 pg (27-33); Mean Corpuscular Volume 85.4 fl (82-101); Mean Platelet Volume 10.2 fL (7.4-10.4); Monocytes # 1.2 10^3/uL (0.2-0.9); Monocytes % 12.5 %; Neutrophils # 6.53 10^3/uL (1.8-7.7); Neutrophils % 68.2 %; Nucleated Red Blood Cells % 0 %; Platelet Count 279 10^3/cmm (157-399); Red Blood Count 3.56 10^6/uL (3.85-5.65); Red Cell Distribution Width 15.6 % (12.1-15.1); White Blood Count 9.59 10^3/uL (3.29-11.43)
[2024-06-01 03:54] LABS: Alanine Aminotransferase 17 U/L (0-41); Albumin Level 3.5 g/dL (3.5-5.2); Alkaline Phosphatase 160 U/L (40-130); Anion Gap 17.8 (5-19); Aspartate Amino Transferase 24 U/L (0-40); Blood Urea Nitrogen 59 mg/dL (8-23); Calcium 9.1 mg/dL (8.5-10.5); Carbon Dioxide 28 mmol/L (22-29); Chloride 103 mmol/L (98-107); Creatinine Clr Calc Pharmacy 28.5969; Globulin 3.1 g/dL (1.3-4.6); Glomerular Filtration Rate 19.7 mL/min (90-130); Glucose 92 mg/dL (65-115); Osmolality Calculated 316 mOsm/kg (285-295); Potassium 3.8 mmol/L (3.5-5.1); Sodium 145 mmol/L (136-145); Total Bilirubin 0.8 mg/dL (0.15-1.2); Total Protein 6.6 g/dL (6.6-8.7)
[2024-06-01 03:55] LABS: NT Pro B Type Natriuretic Pept 17330 pg/mL (0-125)
[2024-06-01] MEDS: isosorbide mononitrate ER 30 mg Tablet PO (05:53)
[2024-06-01] MEDS: citalopram 20 mg Tablet PO (05:53)
[2024-06-01] MEDS: clopidogrel 75 mg Tablet PO (05:53)
[2024-06-01] MEDS: bumetanide 0.25 mg/mL SDV 10 mL 1 MG IVP (05:53)
[2024-06-01] MEDS: aspirin 81 mg EC Tablet PO (05:53)
[2024-06-01] MEDS: amiodarone 200 mg Tablet PO (05:53)
[2024-06-01 09:05] LABS: Glucose Point of Care 125 mg/dL (70-110)
[2024-06-01] MEDS: metoprolol tartrate 25 mg Tablet PO ×2 (09:20→18:16)
[2024-06-01] MEDS: pantoprazole DR 40 mg Tablet PO (09:20)
[2024-06-01] MEDS: insulin glargine 100 units/1 mL 40 UNIT SUBCUT (09:22)
[2024-06-01] MEDS: heparin 5,000 unit/mL INJ 1 mL 5000 UNIT SUBCUT ×2 (09:22→20:07)
--- NOTE | 2024-06-01 10:58 | P.PN_ITS ---
Subjective 2 Subjective: Patient has no new complaints Medications: Reviewed: Yes Vitals/I&O/Wt Last Vital Signs Temp 97.7 F 06/01/24 07:38 Pulse 65 06/01/24 07:38 Resp 21 H 06/01/24 07:38 BP 139/73 06/01/24 07:38 Pulse Ox 90 06/01/24 07:38 O2 Del Method Nasal Cannula 06/01/24 07:38 O2 Flow Rate 2 05/31/24 16:00 FiO2 21 05/27/24 22:54 05/31/24 06/01/24 06/01/24 22:59 06:59 14:59 Intake Total 230 / 710 450 / 1160 240 / 240 Output Total 1450 / 2200 1400 / 3600 550 / 550 Balance -1220 / -1490 -950 / -2440 -310 / -310 Weight last 48 hrs Weight 99.246 kg Weight 100.97 kg Physical Exam 2 Const: COMMON NORMALS: no acute distress, average body habitus, patient oriented x3, no limitations, healthy appearing, alert and well nourished HENMT: COMMON NORMALS: normocephalic and atraumatic HEAD & SCALP: n ormocephalic and atraumatic Eye: COMMON NORMALS: EOMs intact bilaterally and no scleral icterus Neck/C-Spine: COMMON NORMALS: full ROM and no JVD Resp: COMMON NORMALS: normal respiratory effort and clear to auscultation bilaterally AUSCULTATION: clear to auscultation bilaterally Cardio: COMMON NORMALS: no JVD GI: COMMON NORMALS: Soft to palpation and non-tender PALPATION: Yes Soft to palpation Extremity: NARRATIVE EXTREMITY EXAM: trace pedal edema Neuro: COMMON NORMALS: patient oriented x3 and no focal motor deficits S ENSORIUM/ORIENTATION: Yes alert Psych: COMMON NORMALS: mental status grossly normal, Normal thought process present, cooperative, normal affect and speech normal SPEECH: Yes normal speech THOUGHT PROCESS: Normal thought process present Skin: COMMON NORMALS: no rashes or lesions noted GENERAL SKIN EXAM: no rashes or lesions noted Urinary Catheter Management: Auguste: Cath Placed During This Visit: yes, but has since been removed by the nurse Reason for Continuing Indwelling Catheter: Decision to DC Catheter Urinary Catheter Date of Insertion: 05/27/24 Urinary Catheter Time of Insertion: 22:49 Date Urinary Catheter Removed: 05/28/24 Time Urinary Catheter Discontinued: 04:04 Data 06/01/24 03:05 06/01/24 03:05 A&P Assessment and plan (1) CKD stage 4 due to type 2 diabetes mellitus: JOSE superimposed on ckd stage 4- he has ckd stage 4 at baseline likely due to diabetic and hypertensive kidney disease +/- cardio-renal syndrome. his jose is likely due to diuresis. His creatinine remains stable. he is also non-oliguric with stable lytes and volume status. - he appeares to euvolemic on exam. i recommend transitioning to po bumex - cont 1200 ml fluid restricton acute on chronic systolic chf ef 30%- i recommend transitioning to po bumex . cont fluid restriction anemia in ckd- he is iron deficient. cont iv iron essential hypertension- bp is stable dm2 PDMP PDMP Reviewed: Not Reviewed Attestations 2 Medical Necessity Statement*: jose Time Spent in Patient Care: 25 minutes Coding Level of Care Code Acute Code for Chg Fwd Diagnoses CKD stage 4 due to type 2 diabetes mellitus E11.22; N18.4
[2024-06-01 11:44] LABS: Glucose Point of Care 271 mg/dL (70-110)
[2024-06-01] MEDS: insulin lispro 100 unit/1 mL SUBCUT ×2 (12:06→21:02)
--- NOTE | 2024-06-01 13:30 | P.PN_ITS ---
Subjective 2 Subjective: Patient was seen this morning, he is alert oriented x 3, following all commands, creatinine up to 3.2, he tells me he is urinating well, no nausea, no vomiting, no chest pain Vitals/I&O/Wt Last Vital Signs Temp 97.7 F 06/01/24 11:21 Pulse 60 06/01/24 11:21 Resp 25 H 06/01/24 11:21 BP 120/57 06/01/24 11:21 Pulse Ox 97 06/01/24 11:21 O2 Del Method Room Air 06/01/24 11:21 O2 Flow Rate 2 05/31/24 16:00 FiO2 21 05/27/24 22:54 05/31/24 06/01/24 06/01/24 22:59 06:59 14:59 Intake Total 230 / 710 450 / 1160 480 / 480 Output Total 1450 / 2200 1400 / 3600 550 / 550 Balance -1220 / -1490 -950 / -2440 -70 / -70 Weight last 48 hrs Weight 99.246 kg Weight 100.97 kg Physical Exam 2 Const: COMMON NORMALS: no acute distress and patient oriented x3 Resp: COMMON NORMALS: normal respiratory effort, No retractions, No use of accessory muscles and clear to auscultation bilaterally AUSCULTATION: clear to auscultation bilaterally Cardio: COMMON NORMALS: regular rate, regular rhythm, S1 normal heart sound present and S2 normal heart sound present RATE: regular rate RHYTHM: r egular rhythm HEART SOUNDS: S1 normal heart sound present and S2 normal heart sound present GI: COMMON NORMALS: Normal to inspection, nondistended, normoactive bowel sounds present and non-tender Extremity: NARRATIVE EXTREMITY EXAM: 1+ edema Neuro: COMMON NORMALS: patient oriented x3 Psych: COMMON NORMALS: mental status grossly normal Urinary Catheter Management: Auguste: Cath Placed During This Visit: yes, but has since been removed by the nurse Reason for Continuing Indwelling Catheter: Decision to DC Catheter Urinary Catheter Date of Insertion: 05/27/24 Urinary Catheter Time of Insertion: 22:49 Date Urinary Catheter Removed: 05/28/24 Time Urinary Catheter Discontinued: 04:04 Data 06/01/24 03:05 06/01/24 03:05 A&P Assessment and plan (1) Essential hypertension: (2) Ischemic cardiomyopathy: (3) S/P PTCA (percutaneous transluminal coronary angioplasty): (4) Coronary artery disease due to type 2 diabetes mellitus: (5) Ventricular tachycardia: (6) AICD (automatic cardioverter/defibrillator) present: (7) Diabetes mellitus: Qualifiers: Diabetes mellitus type: type 2 Diabetes mellitus care home insulin use: with care home use Diabetes mellitus complication status: with circulatory complication Diabetes mellitus complication detail: with other circulatory complications Qualified Code(s): E11.59 - Type 2 diabetes mellitus with other circulatory complications; Z79.4 - [facility] (current) use of insulin (8) CKD stage 4 due to type 2 diabetes mellitus: (9) Acute exacerbation of chronic heart failure: Plan Acute systolic CHF exacerbation -With history of ischemic cardiomyopathy -Has failed outpatient diuretic regimen is on 3 mg of Bumex daily Plan -Place Auguste catheter -Monitor BMP, creatinine, magnesium -Will hold IV Bumex, will consider starting p.o. Bumex this afternoon based on repeat BMP -Potassium 20 mill equivalents twice daily -Repeat cardiac echo as below CKD stage IV, creatinine up to 3.0 -Likely cardiorenal syndrome -Monitor creatinine closely Nephrology consulted History of CAD, ischemic cardiomyopathy -Continue aspirin, statin, Plavix, amiodarone -Repeat cardiac echo CONCLUSIONS Severely reduced LV systolic functions. LVEF 30%. Akinesis of distal anteroseptal wall, severe hypokinesis of anterolateral and apical wall segments. Dilated left atrium. Mild to moderate mitral regurgitation. RV systolic function mildly reduced. Elevated RV/pulmonary pressures 49 mmHg. Type 2 diabetes mellitus -Lantus 40 units every morning -Low-dose sliding scale History of ICD defibrillator History of CAD, history of cardiac arrest during angioplasty History of CVA Patient is full code Lovenox for DVT prophylaxis PDMP PDMP Reviewed: Not Reviewed Attestations 2 Medical Necessity Statement*: Patient requires hospitalization for acute CHF requiring IV diuresis Diagnoses Essential hypertension I10 Ischemic cardiomyopathy I25.5 S/P PTCA (percutaneous transluminal coronary angioplasty) Z98.61 Coronary artery disease due to type 2 diabetes mellitus E11.59; I25.10 Ventricular tachycardia I47.2 AICD (automatic cardioverter/defibrillator) present Z95.810 Type 2 diabetes mellitus with other circulatory complication, with long-term current use of insulin E11.59; Z79.4 Diabetes mellitus type: type 2 Diabetes mellitus 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
[2024-06-01 14:42] LABS: Anion Gap 14.4 (5-19); Blood Urea Nitrogen 64 mg/dL (8-23); Calcium 9.2 mg/dL (8.5-10.5); Carbon Dioxide 32 mmol/L (22-29); Chloride 103 mmol/L (98-107); Creatinine Clr Calc Pharmacy 31.3009; Glomerular Filtration Rate 22.1 mL/min (90-130); Glucose 149 mg/dL (65-115); Osmolality Calculated 321 mOsm/kg (285-295); Potassium 4.4 mmol/L (3.5-5.1); Sodium 145 mmol/L (136-145)
[2024-06-01] MEDS: iron sucrose 200 MG in sodium chloride 0.9% (100 ml) 100 ML 220 MG IV (15:00)
[2024-06-01 16:01] LABS: Glucose Point of Care 86 mg/dL (70-110)
[2024-06-01] MEDS: potassium chloride ER 20 mEq Tablet PO (18:16)
[2024-06-01] MEDS: bumetanide 1 mg Tablet PO (18:16)
[2024-06-01] MEDS: atorvastatin 40 mg Tablet 80 MG PO (20:07)
[2024-06-01 20:16] LABS: Glucose Point of Care 308 mg/dL (70-110)
[2024-06-02] VITALS: BP 110/54; PULSE 57; RESP 16; TEMP 36.6; O2SAT 99
[2024-06-02] MEDS: bumetanide 1 mg Tablet PO (02:07)
[2024-06-02 02:20] LABS: Glucose Point of Care 132 mg/dL (70-110)
[2024-06-02 04:00] VITALS: BP 118/64; PULSE 57; RESP 21; TEMP 36.6; O2SAT 98
[2024-06-02 04:54] LABS: Basophils # 0.1 10^3/uL (0.0-0.1); Basophils % 0.7 %; Eosinophils # 0.2 10^3/uL (0.0-0.8); Eosinophils % 2.4 %; Hematocrit 31.6 % (37-53); Lymphocytes # 1.6 10^3/uL (0.8-4.8); Lymphocytes % 16.5 %; Mean Corpuscular HGB Conc 29.4 g/dL (30-55); Mean Corpuscular Hemoglobin 25.8 pg (27-33); Mean Corpuscular Volume 87.5 fl (82-101); Mean Platelet Volume 10.4 fL (7.4-10.4); Monocytes # 1.4 10^3/uL (0.2-0.9); Monocytes % 14.1 %; Neutrophils # 6.43 10^3/uL (1.8-7.7); Nucleated Red Blood Cells % 0 %; Platelet Count 274 10^3/cmm (157-399); Red Blood Count 3.61 10^6/uL (3.85-5.65); Red Cell Distribution Width 15.9 % (12.1-15.1); White Blood Count 9.74 10^3/uL (3.29-11.43)
[2024-06-02 05:20] LABS: Alanine Aminotransferase 20 U/L (0-41); Albumin Level 3.5 g/dL (3.5-5.2); Alkaline Phosphatase 158 U/L (40-130); Anion Gap 18.8 (5-19); Aspartate Amino Transferase 21 U/L (0-40); Blood Urea Nitrogen 55 mg/dL (8-23); Calcium 9.2 mg/dL (8.5-10.5); Carbon Dioxide 28 mmol/L (22-29); Chloride 102 mmol/L (98-107); Creatinine Clr Calc Pharmacy 28.9372; Globulin 3.4 g/dL (1.3-4.6); Glomerular Filtration Rate 20.5 mL/min (90-130); Glucose 68 mg/dL (65-115); Osmolality Calculated 313 mOsm/kg (285-295); Potassium 3.8 mmol/L (3.5-5.1); Sodium 145 mmol/L (136-145); Total Bilirubin 0.7 mg/dL (0.15-1.2); Total Protein 6.9 g/dL (6.6-8.7)
[2024-06-02 05:24] LABS: NT Pro B Type Natriuretic Pept 17703 pg/mL (0-125)
[2024-06-02] MEDS: citalopram 20 mg Tablet PO (05:35)
[2024-06-02] MEDS: aspirin 81 mg EC Tablet PO (05:35)
[2024-06-02] MEDS: isosorbide mononitrate ER 30 mg Tablet PO (05:35)
[2024-06-02] MEDS: potassium chloride ER 20 mEq Tablet PO (05:35)
[2024-06-02] MEDS: amiodarone 200 mg Tablet PO (05:35)
[2024-06-02] MEDS: clopidogrel 75 mg Tablet PO (05:36)
[2024-06-02 06:24] LABS: Glucose Point of Care 79 mg/dL (70-110)
[2024-06-02 07:35] VITALS: BP 120/67; PULSE 58; RESP 23; TEMP 36.6; O2SAT 93
[2024-06-02] MEDS: insulin glargine 100 units/1 mL 40 UNIT SUBCUT (07:59)
[2024-06-02] MEDS: heparin 5,000 unit/mL INJ 1 mL 5000 UNIT SUBCUT (07:59)
[2024-06-02] MEDS: pantoprazole DR 40 mg Tablet PO (07:59)
[2024-06-02 11:30] VITALS: BP 134/75; PULSE 61; RESP 22; TEMP 36.7; O2SAT 93
[2024-06-02 12:03] LABS: Glucose Point of Care 252 mg/dL (70-110)
--- NOTE | 2024-06-02 13:10 | P.DS_ITS ---
Discharge Providers Date of Admission: 05/27/24 18:38 Date of Discharge: June 02, 2024 Attending Provider at Admission: Lul Jansen MD Attending Provider at Discharge: Lul Jansen MD Primary Care Provider: Paula Hammond MD Diagnoses at Discharge Discharge Diagnosis (1) Essential hypertension: Status: Chronic (2) Ischemic cardiomyopathy: Status: Chronic Permanent problem details: last ECHO 08/2021 EF 25% (3) S/P PTCA (percutaneous transluminal coronary angioplasty): Status: Acute Permanent problem details: X3 (4) Coronary artery disease due to type 2 diabetes mellitus: Status: Acute Permanent problem details: NICOLE to prox LAD, balloon angioplasty LAD 09/05/21 (5) Ventricular tachycardia: Status: Acute (6) AICD (automatic cardioverter/defibrillator) present: Status: Acute Permanent problem details: LVEF 25% on 09/11/21 (7) Diabetes mellitus: Status: Acute Qualifiers: Diabetes mellitus type: type 2 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 Mcelroy (8) CKD stage 4 due to type 2 diabetes mellitus: Status: Chronic Permanent problem details: square cutter out of F DR. Ambrose (9) Acute exacerbation of chronic heart failure: Status: Acute Reason for Visit Reason for Visit: sob Hospital Course Hospital Course Fuad Priest is a 63 year old male with a past medical history of CAD status post stenting, CKD, history of cardiac arrest, history of ICD, GERD, hypertension, ischemic cardiomyopathy, dyslipidemia, history of CVA, insulin-dependent type 2 diabetes, who presents to [facility] due to fluid overload concerns. Patient tells me that he has gained weight, he has anasarca increased by lower extremity edema, increased edema in his abdomen, in his back, and his scrotum, he has been taking Bumex 2 mg in the morning and 1 mg in the afternoon and his Bumex dose has been increased by Dr. Mcelroy but he continues to have edema, now having shortness of breath with exertion, no chest pain, no palpitations, no nausea, no fevers, no chills, no calf swelling, no hemoptysis Patient was admitted to [facility] for acute systolic CHF exacerbation, with history of ischemic cardiomyopathy, he was managed on IV diuresis, diuresed over 11 L negative, overall clinically improved will be discharged on Bumex 1 mg twice daily with a close follow-up with primary care provider as outpatient to recheck kidney function next week Patient had JOSE on CKD trends hospitalization likely secondary to diuresis, creatinine on discharge is 3.1 For patient's CAD, ischemic cardiomyopathy -Continue aspirin, statin, Plavix, amiodarone -Repeat cardiac echo CONCLUSIONS Severely reduced LV systolic functions. LVEF 30%. Akinesis of distal anteroseptal wall, severe hypokinesis of anterolateral and apical wall segments. Dilated left atrium. Mild to moderate mitral regurgitation. RV systolic function mildly reduced. Elevated RV/pulmonary pressures 49 mmHg -No chest pain complaint during his hospitalization -Will have patient follow up with cardiology as outpatient Physical Exam Const: COMMON NORMALS: no acute distress and patient oriented x3 Resp: COMMON NORMALS: normal respiratory effort, No retractions, No use of accessory muscles and clear to auscultation bilaterally AUSCULTATION: clear to auscultation bilaterally Cardio: COMMON NORMALS: regular rate, regular rhythm, S1 normal heart sound present and S2 normal heart sound present RATE: regular rate RHYTHM: regular rhythm HEART SOUNDS: S1 normal heart sound present and S2 normal heart sound present GI: COMMON NORMALS: Normal to inspection, nondistended, normoactive bowel sounds present and non-tender Extremity: COMMON NORMALS: no pedal edema Neuro: COMMON NORMALS: patient oriented x3 Psych: COMMON NORMALS: mental status grossly normal Urinary Catheter Management: Auguste: Cath Placed During This Visit: yes, but has since been removed by the nurse Reason for Continuing Indwelling Catheter: Decision to DC Catheter Urinary Catheter Date of Insertion: 05/27/24 Urinary Catheter Time of Insertion: 22:49 Date Urinary Catheter Removed: 05/28/24 Time Urinary Catheter Discontinued: 04:04 Discharge Data Studies Completed and Pending Completed Studies During Hospitalization Category Date Time Status XR chest 1V portable [id number] Stat Exams 05/27/24 15:05 Completed CV. echo complete* [id number] Routine Ultrasound 05/28/24 19:50 Completed Pending at discharge Category Date Time Status Complete Blood Count w/Auto AM LABS Lab 06/03/24 04:00 Ordered Comprehensive Metabolic Panel AM LABS Lab 06/03/24 04:00 Ordered NT Pro B Type Natriuretic Pept QAM Lab 06/03/24 06:00 Ordered Radiology Impressions Chest X-Ray 05/27/24 15:05 Impression: 1. Moderate right pleural effusion. 2. Cardiomegaly and cardiac pacemaker. Laboratory Results WBC 9.74 10^3/uL (3.29-11.43) 06/02/24 04:15 RBC 3.61 10^6/uL (3.85-5.65) L 06/02/24 04:15 Hgb 9.30 g/dL (11.27-16.99) L 06/02/24 04:15 Hct 31.6 % (37-53) L 06/02/24 04:15 MCV 87.5 fl (82-101) 06/02/24 04:15 MCH 25.8 pg (27-33) L 06/02/24 04:15 MCHC 29.4 g/dL (30-55) L 06/02/24 04:15 RDW 15.9 % (12.1-15.1) H 06/02/24 04:15 Plt Count 274 10^3/cmm (157-399) 06/02/24 04:15 MPV 10.4 fL (7.4-10.4) 06/02/24 04:15 Neut % (Auto) 66.0 % 06/02/24 04:15 Lymph % (Auto) 16.5 % 06/02/24 04:15 [place] % (Auto) 14.1 % 06/02/24 04:15 Eos % (Auto) 2.4 % 06/02/24 04:15 Baso % (Auto) 0.7 % 06/02/24 04:15 Neut # (Auto) 6.43 10^3/uL (1.8-7.7) 06/02/24 04:15 Lymph # (Auto) 1.6 10^3/uL (0.8-4.8) 06/02/24 04:15 [place] # (Auto) 1.4 10^3/uL (0.2-0.9) H 06/02/24 04:15 Eos # (Auto) 0.2 10^3/uL (0.0-0.8) 06/02/24 04:15 Baso # (Auto) 0.1 10^3/uL (0.0-0.1) 06/02/24 04:15 Nucleated RBC % (auto) 0 % 06/02/24 04:15 Nucleated RBCs # 0.0 /100WBC 06/02/24 04:15 Sodium 145 mmol/L (136-145) 06/02/24 04:15 Potassium 3.8 mmol/L (3.5-5.1) 06/02/24 04:15 Chloride 102 mmol/L (98-107) 06/02/24 04:15 Carbon Dioxide 28 mmol/L (22-29) 06/02/24 04:15 Anion Gap 18.8 (5-19) 06/02/24 04:15 BUN 55 mg/dL (8-23) H 06/02/24 04:15 Creatinine 3.1 mg/dL (0.7-1.2) H 06/02/24 04:15 GFR Calculation 20.5 mL/min (90-130) L 06/02/24 04:15 Glucose 68 mg/dL (65-115) 06/02/24 04:15 POC Glucose 252 mg/dL (70-110) H 06/02/24 11:31 Calculated Osmolality 313 mOsm/kg (285-295) H 06/02/24 04:15 Calcium 9.2 mg/dL (8.5-10.5) 06/02/24 04:15 Phosphorus 4.1 mg/dL (2.5-4.5) 05/30/24 03:30 Magnesium 2.5 mg/dL (1.7-2.3) H 05/30/24 03:30 Iron 24 ug/dL (59-158) L 05/30/24 03:30 Ferritin 51 ng/mL (30-400) 05/30/24 03:30 Total Bilirubin 0.7 mg/dL (0.15-1.2) 06/02/24 04:15 AST 21 U/L (0-40) 06/02/24 04:15 ALT 20 U/L (0-41) 06/02/24 04:15 Alkaline Phosphatase 158 U/L (40-130) H 06/02/24 04:15 Troponin T Baseline 67 ng/L (0-15) H 05/27/24 15:52 Troponin T 120 Minute 61.42 ng/L (0-15) H 05/27/24 17:59 Delta Troponin T -5.58 ABS# (0-10) L 05/27/24 17:59 Troponin T Hi Sens 6Hr 65.19 ng/L (0-15) H 05/27/24 21:42 Troponin T Hi Sens 6Hr Delta -1.81 ng/L (0-12) L 05/27/24 21:42 NT-Pro-B Natriuret Pep 40504 pg/mL (0-125) H 06/02/24 04:15 Total Protein 6.9 g/dL (6.6-8.7) 06/02/24 04:15 Albumin 3.5 g/dL (3.5-5.2) 06/02/24 04:15 Globulin 3.4 g/dL (1.3-4.6) 06/02/24 04:15 TSH 0.20 uIU/mL (0.27-4.20) L 05/27/24 15:52 Free T4 2.10 ng/dL (0.82-1.77) H 05/28/24 03:05 Free T3 2.8 PG/ML (2.0-4.4) 05/28/24 03:05 Urine Color Yellow (Yellow) 05/28/24 12:45 Urine Appearance Clear (CLEAR) 05/28/24 12:45 Urine pH 5.0 (5-7) 05/28/24 12:45 Ur Specific [place] 1.009 (1.005-1.030) 05/28/24 12:45 Urine Protein Negative (Negative) 05/28/24 12:45 Urine Glucose (UA) Negative (Normal) 05/28/24 12:45 Urine Ketones Negative (Negative) 05/28/24 12:45 Urine Blood 2+ (Negative) A 05/28/24 12:45 Urine Nitrate Negative (Negative) 05/28/24 12:45 Urine Bilirubin Negative (Negative) 05/28/24 12:45 Urine Urobilinogen 0.2 mg/dL (Negative) 05/28/24 12:45 Ur Leukocyte Esterase Negative (Negative) 05/28/24 12:45 Urine RBC 15-25 /hpf (0-2) H 05/28/24 12:45 Urine WBC 0-4 /hpf (0-5) H 05/28/24 12:45 Ur Squamous Epith Cells 0-4 /hpf (0-5) H 05/28/24 12:45 Amorphous Sediment Not Reportable 05/28/24 12:45 Urine Bacteria Trace /hpf (NONE) 05/28/24 12:45 Influenza A (PCR) Negative (Negative) 05/27/24 15:46 Influenza Type B (PCR) Negative (Negative) 05/27/24 15:46 RSV (PCR) Negative (Negative) 05/27/24 15:46 SARS-CoV-2 (PCR) Negative (Negative) 05/27/24 15:46 Vitals Last Vital Signs Temp 98.0 F 06/02/24 11:30 Pulse 61 06/02/24 11:30 Resp 22 H 06/02/24 11:30 BP 134/75 06/02/24 11:30 Pulse Ox 93 06/02/24 11:30 O2 Del Method Room Air 06/02/24 11:30 O2 Flow Rate 2 05/31/24 16:00 FiO2 21 05/27/24 22:54 Discharge Plan Discharge Patient Disposition: Home Condition: Stable Prescriptions: New potassium chloride [Klor-Con M20] 20 mEq Tablet,Er Particles/Crystals 20 meq PO Q12H 30 Days Qty: 60 0RF Continued multivitamin Tablet 1 tab PO QAM benzonatate 200 mg capsule 200 mg PO BID PRN (Reason: cough) Qty: 20 0RF fluticasone propionate [Flonase Allergy Relief] 50 mcg/actuation spray,suspension 2 spray intranasal DAILY Qty: 16 0RF Rx Instructions: administer into each nostril clopidogrel [Plavix] 75 mg tablet 75 mg PO QAM Qty: 90 3RF nitroglycerin [Nitrostat] 0.3 mg Tablet, Sublingual 0.3 mg SUBLINGUAL Q5M PRN (Reason: Chest Pain) cholecalciferol (vitamin D3) [Vitamin D3] 125 mcg (5,000 unit) Tablet 125 mcg PO QAM atorvastatin 80 mg tablet 80 mg PO BEDTIME amiodarone 200 mg tablet 200 mg PO QAM isosorbide mononitrate 30 mg tablet extended release 24 hr 30 mg PO QAM aspirin 81 mg tablet,delayed release (DR/EC) 81 mg PO QAM pantoprazole 20 mg tablet,delayed release (DR/EC) 20 mg PO DAILY citalopram 20 mg tablet 20 mg PO QAM metoprolol tartrate 25 mg tablet 25 mg PO BID insulin glargine [Lantus Solostar U-100 Insulin] 100 unit/mL (3 mL) insulin pen 43 unit SUBCUT DAILY Changed bumetanide 1 mg tablet See Rx Instructions .ROUTE .COMPLEX Qty: 180 0RF Dose Instruction: Take 1 tablet by mouth twice daily Rx Instructions: Take 1 tablets by mouth in morning and 1 tablet in afternoon. Discontinued liraglutide [Victoza 3-Jesús] 0.6 mg/0.1 mL (18 mg/3 mL) pen injector 1.8 mg SUBCUT DAILY Qty: 9 1RF No Action (DME) pen needle, diabetic [BD Ultra-Fine Mini Pen Needle] 31 gauge x 3/16 needle See Rx Instructions .ROUTE .COMPLEX Qty: 100 0RF Dose Instruction: USE DIRECTED Rx Instructions: USE DIRECTED Discharge Orders: Discharge Order (Routine); Ordered 06/02/24 Ordered By: Lul Jansen Referrals: Shi Carlson MD [Physician] - 07/05/24 4:30 pm Paula Hammond MD [Primary Care Provider] - 07/21/24 2:30 pm Discharge Diet: Cardiac Discharge Activity: Resume usual activity Patient Instructions: Diabetes and Diet, Potassium Chloride (By mouth), Heart Failure (DC), Coronary Artery Disease (DC), Supraventricular Tachycardia (DC), Opioid Safety Activity Restrictions/Additional Instructions: - Have your primary care provider recheck your kidney function in 1 week -Start taking Bumex tomorrow 1 mg twice daily -Follow-up with cardiology in 1 week Discharge Attestations Time Spent in Discharge Care*: greater than 30 min Status at Discharge: Cognitive status at discharge: cognitively intact , Behavioral status at discharge: cooperative , Quality Metrics Clinical Quality Measures [ No reported AMI, CVA or VTE this stay] Coding Level of Care Code 41304 Total time (in minutes) for Discharge: 45 Diagnoses Essential hypertension I10 Ischemic cardiomyopathy I25.5 S/P PTCA (percutaneous transluminal coronary angioplasty) Z98.61 Coronary artery disease due to type 2 diabetes mellitus E11.59; I25.10 Ventricular tachycardia I47.2 AICD (automatic cardioverter/defibrillator) present Z95.810 Type 2 diabetes mellitus with other circulatory complication, with long-term current use of insulin E11.59; Z79.4 Diabetes mellitus type: type 2 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
--- NOTE | 2024-06-02 13:15 | P.PN_ITS ---
Subjective 2 Subjective: Patient has no complaints on RA. Medications: Reviewed: Yes Vitals/I&O/Wt Last Vital Signs Temp 98.0 F 06/02/24 11:30 Pulse 61 06/02/24 11:30 Resp 22 H 06/02/24 11:30 BP 134/75 06/02/24 11:30 Pulse Ox 93 06/02/24 11:30 O2 Del Method Room Air 06/02/24 11:30 O2 Flow Rate 2 05/31/24 16:00 FiO2 21 05/27/24 22:54 06/01/24 06/02/24 06/02/24 22:59 06:59 14:59 Intake Total 800 / 1280 200 / 1480 240 / 240 Output Total 550 / 1100 1100 / 2200 Balance 250 / 180 -900 / -720 240 / 240 Weight last 48 hrs Weight 96.751 kg Weight 99.246 kg Physical Exam 2 Const: COMMON NORMALS: no acute distress, average body habitus, patient oriented x3, no limitations, healthy appearing and alert HENMT: COMMON NORMALS: normocephalic and atraumatic HEAD & SCALP: n ormocephalic and atraumatic Eye: COMMON NORMALS: EOMs intact bilaterally and no scleral icterus Neck/C-Spine: COMMON NORMALS: full ROM and no JVD Resp: COMMON NORMALS: normal respiratory effort and clear to auscultation bilaterally EFFORT & INSPECTION: Yes able to speak in complete sentences A USCULTATION: clear to auscultation bilaterally Cardio: COMMON NORMALS: no JVD, regular rate, regular rhythm, S1 normal heart sound present and S2 normal heart sound present RATE: regular rate RHYTHM: regular rhythm HEART SOUNDS: S1 normal heart sound present and S2 normal heart sound present GI: COMMON NORMALS: Soft to palpation and non-tender PALPATION: Yes Soft to palpation Extremity: COMMON NORMALS: normal to inspection and no pedal edema Neuro: COMMON NORMALS: patient oriented x3 SENSORIUM/ORIENTATION: Yes alert Urinary Catheter Management: Auguste: Cath Placed During This Visit: yes, but has since been removed by the nurse Reason for Continuing Indwelling Catheter: Decision to DC Catheter Urinary Catheter Date of Insertion: 05/27/24 Urinary Catheter Time of Insertion: 22:49 Date Urinary Catheter Removed: 05/28/24 Time Urinary Catheter Discontinued: 04:04 Data 06/02/24 04:15 06/02/24 04:15 A&P Assessment and plan (1) Acute exacerbation of chronic heart failure: (2) Anemia due to stage 4 chronic kidney disease: Plan JOSE superimposed on ckd stage 4- he has ckd stage 4 at baseline likely due to diabetic and hypertensive kidney disease +/- cardio-renal syndrome. his jose is likely due to diuresis. His creatinine remains stable. he is also non-oliguric with stable lytes and volume status. - he has been transitioned to po bumex - cont 1200 ml fluid restricton acute on chronic systolic chf ef 30%- on po bumex . cont fluid restriction anemia in ckd- he is iron deficient. on iv iron essential hypertension- bp is stable dm2 PDMP PDMP Reviewed: Not Reviewed Attestations 2 Medical Necessity Statement*: jose, chf Time Spent in Patient Care: 15 minutes Coding Level of Care Code Acute Code for Chg Fwd Diagnoses Acute exacerbation of chronic heart failure I50.9 Anemia due to stage 4 chronic kidney disease N18.4; D63.1
[2024-06-02 13:16] VITALS: BP 134/75; PULSE 76; RESP 20; O2SAT 97
--- NOTE | 2024-06-02 14:15 | PC.NURSE ---
Patient discharge instructions discussed with both patient and with Dr. Jansen and nurse present. Patient verbalized understanding of all instructions, including when and where to have his blood checked. Discharge packet with patient. Patient was wheeled out by nurse with .
== END 2024-06-02 14:15 | disposition home or self-care (01) | DRG 291 ==
LOC: ER 15:59 → CSU 18:39
PROVIDERS: Internal Medicine Nephrology; Admitting Provider Family Medicine; Emergency Provider Family Medicine; PCP Family Medicine; Visit Provider Family Medicine
DX: I13.0 Hypertensive heart and chronic kidney disease with heart failure and stage 1 through stage 4 chronic kidney disease, or unspecified chronic kidney disease (principal); I50.23 Acute on chronic systolic (congestive) heart failure; N18.4 Chronic kidney disease, stage 4 (severe); I47.20 Ventricular tachycardia, unspecified; N17.9 Acute kidney failure, unspecified; I25.10 Atherosclerotic heart disease of native coronary artery without angina pectoris; E11.22 Type 2 diabetes mellitus with diabetic chronic kidney disease; E11.59 Type 2 diabetes mellitus with other circulatory complications; D63.1 Anemia in chronic kidney disease; K21.9 Gastro-esophageal reflux disease without esophagitis; E78.5 Hyperlipidemia, unspecified; I25.5 Ischemic cardiomyopathy; Z95.810 Presence of automatic (implantable) cardiac defibrillator; Z11.52 Encounter for screening for COVID-19; Z79.899 Other long term (current) drug therapy; Z79.4 Long term (current) use of insulin; Z79.82 Long term (current) use of aspirin; Z86.74 Personal history of sudden cardiac arrest; Z86.16 Personal history of COVID-19; Z86.73 Personal history of transient ischemic attack (TIA), and cerebral infarction without residual deficits; Z95.5 Presence of coronary angioplasty implant and graft; Z79.01 Long term (current) use of anticoagulants; Z79.85 Long-term (current) use of injectable non-insulin antidiabetic drugs; Z82.49 Family history of ischemic heart disease and other diseases of the circulatory system
CPT/HCPCS: 36415; 36416; 51702; 71045; 80048; 80053; 81001; 82728; 82962; 83540; 83735; 83880; 84100; 84439; 84443; 84481; 84484; 85025; 87086; 87637; 93005; 93306; 94664; 94760; 96372; 99285; A9270; J1644; J1756; J1815; J3490; J9999; Q3014

== ENCOUNTER → 2024-06-07 10:59 | Outpatient (BNVA) | payer BC, SELFPAY | PROVIDERS: PCP Family Medicine; Visit Provider Family Medicine | DX: E05.90 Thyrotoxicosis, unspecified without thyrotoxic crisis or storm (principal) | CPT/HCPCS: 83516; 84481 ==

== ENCOUNTER → 2024-06-20 17:30 | Outpatient (BNVA) | payer BC, SELFPAY | PROVIDERS: PCP Family Medicine; Visit Provider Nurse Practitioner Family | DX: I25.5 Ischemic cardiomyopathy (principal); I10 Essential (primary) hypertension | CPT/HCPCS: 36415; 80048; 83880 ==

== ENCOUNTER 2024-06-27 11:41 | Outpatient (CLI) | payer BC, SELFPAY ==
[2024-06-27 12:33] LABS: Basophils # 0.1 10^3/uL (0.0-0.1); Basophils % 0.6 %; Eosinophils # 0.2 10^3/uL (0.0-0.8); Eosinophils % 2.1 %; Lymphocytes # 1.2 10^3/uL (0.8-4.8); Lymphocytes % 12.4 %; Mean Corpuscular HGB Conc 30.6 g/dL (30-55); Mean Corpuscular Hemoglobin 26.4 pg (27-33); Mean Corpuscular Volume 86.4 fl (82-101); Mean Platelet Volume 10.9 fL (7.4-10.4); Monocytes % 9.8 %; Neutrophils # 7.28 10^3/uL (1.8-7.7); Neutrophils % 74.9 %; Nucleated Red Blood Cells % 0 %; Platelet Count 230 10^3/cmm (157-399); Red Blood Count 3.82 10^6/uL (3.85-5.65); Red Cell Distribution Width 18.9 % (12.1-15.1); White Blood Count 9.72 10^3/uL (3.29-11.43)
[2024-06-27 12:49] LABS: Albumin Level 3.7 g/dL (3.5-5.2); Anion Gap 17.4 (5-19); Blood Urea Nitrogen 52 mg/dL (8-23); Calcium 9.1 mg/dL (8.5-10.5); Carbon Dioxide 25 mmol/L (22-29); Chloride 103 mmol/L (98-107); Glomerular Filtration Rate 27.5 mL/min (90-130); Glucose 174 mg/dL (65-115); Phosphorus 3.9 mg/dL (2.5-4.5); Potassium 4.4 mmol/L (3.5-5.1); Sodium 141 mmol/L (136-145)
[2024-06-27 12:51] LABS: Calcium 9.1 mg/dL (8.5-10.5)
[2024-06-27 12:59] LABS: Parathyroid Hormone 76.6 pg/mL (15-65)
[2024-06-27 13:06] LABS: Creatinine Urine, Random 65 mg/dL (39-259); Microalbum Creatinine Ratio Ur 138 mg/dL (0-20); Microalbumin Random Urine 9 ug/dL (0-20)
== END 2024-06-27 11:42 | disposition home or self-care (01) ==
PROVIDERS: PCP Family Medicine; Visit Provider Registered Nurse
DX: N18.4 Chronic kidney disease, stage 4 (severe) (principal)
CPT/HCPCS: 36415; 80069; 82044; 82310; 83970; 85025

== ENCOUNTER 2024-07-10 13:35 | Inpatient (IN) | payer BC, SELFPAY ==
[2024-07-10] VITALS (9 sets, daily range): BP systolic 142–168; BP diastolic 73–99; PULSE 56–74; RESP 14–17; TEMP 36.6; O2SAT 94–97; BMI 30.2
--- NOTE | 2024-07-10 13:36 | XRR_ITS ---
PROCEDURE INFORMATION: Exam: XR Chest Exam date and time: 07/10/2024 1:53 PM Age: 63 years old Clinical indication: Shortness of breath; SOB; Fluid retention TECHNIQUE: Imaging protocol: Radiologic exam of the chest. Views: 1 view. COMPARISON: CR XR chest 1V portable [id number] 05/27/2024 3:17 PM FINDINGS: Tubes, catheters and devices: Left chest AICD. Lungs: Pulmonary vessels are within normal limits. Left lung is clear. Pleural spaces: Moderate-sized right-sided pleural effusion. Heart/Mediastinum: Cardiomegaly is seen. Bones/joints: Unremarkable. XR/XR chest 1V portable [id number] IMPRESSION: 1. Moderate-sized right-sided pleural effusion. Underlying infiltrate or consolidation can not be excluded. 2. Cardiomegaly.
--- NOTE | 2024-07-10 13:42 | ECG_ITS ---
[facility] Test Date: 2024-07-10 Pat Name: Fuad Priest Department: Room: Gender: Male Access Database Developer: : 1960 Requested By: Brant Rothman Order Number: [id number] Jaycob MD: Devonte Corbett M.D. Measurements Intervals [place] Rate: 57 P: 158 OR: 175 QRS: 195 QRSD: 117 T: 59 QT: 456 QTc: 445 Interpretive Statements ECTOPIC ATRIAL BRADYCARDIA POSSIBLE RIGHT VENTRICULAR HYPERTROPHY [SOME/ALL OF: PROMINENT R IN V1, LATE TRANSITION, RAD, MAX, SSS] POSSIBLE SEPTAL MYOCARDIAL INFARCTION , PROBABLY OLD [30 ms Q WAVE IN V1/V2] LATERAL MYOCARDIAL INFARCTION , OF INDETERMINATE AGE [40+ ms Q WAVE AND/OR ST/T ABNORMALITY IN I/aVL/V5/V6] Possible old inferior wall [place] INTERPRETATION BASED ON A DEFAULT AGE OF 40 YEARS Compared to ECG 05/27/2024 22:48:46 Bradycardia, nonsinus now present Sinus rhythm no longer present Myocardial infarct finding still present Electronically Signed On 07-10-2024 21:12:51 CDT by Devonte Corbett M.D. [email or web address]
--- NOTE | 2024-07-10 14:05 | W.ED.SOB ---
HPI - SOB/Dyspnea General: Chief Complaint: Shortness of Breath/Dyspnea Stated Complaint: SOB Time Seen by Provider: 07/10/24 13:56 History of Present Illness: HPI Narrative: 63-year-old man with a history of ischemic cardiomyopathy, congestive heart failure status post pacemaker and defibrillator, diabetes, coronary artery disease, hyperlipidemia, hypertension and chronic kidney disease who presents to the emergency room with shortness of breath. However his chief complaint is more to do with his abdomen. He says he feels a lump in his epigastrium and feels distended. He says also whenever he eats he can only eat a very small amount before he says feels very full. He has had some increased swelling in his legs. He has not had this before. He was recently admitted to the hospital. Since then he is only seen a kidney doctor. He says he has not seen cardiology yet. He is having orthopnea and exertional dyspnea. Related Data Home Medications ?Medication ?Instructions ?Recorded ?Confirmed nitroglycerin 0.3 mg sublingual 0.3 mg sublingual Q5M PRN Chest 04/12/21 07/10/24 tablet (Nitrostat) Pain amiodarone 200 mg tablet 200 mg PO QAM 05/27/24 07/10/24 aspirin 81 mg tablet,delayed 81 mg PO QAM 05/27/24 07/10/24 release atorvastatin 80 mg tablet 80 mg PO BEDTIME 05/27/24 07/10/24 citalopram 20 mg tablet 20 mg PO QAM 05/27/24 07/10/24 insulin glargine 100 unit/mL (3 43 unit SUBCUT DAILY 05/27/24 07/10/24 mL) subcutaneous pen (Lantus Solostar U-100 Insulin) metoprolol tartrate 25 mg tablet 25 mg PO BID 05/27/24 07/10/24 pantoprazole 20 mg tablet,delayed 20 mg PO DAILY 05/27/24 07/10/24 release bumetanide 1 mg tablet 1 mg PO BID 07/10/24 07/10/24 isosorbide mononitrate 30 mg 30 mg PO DAILY 07/10/24 07/10/24 tablet,extended release 24 hr potassium chloride 20 mEq 20 meq PO Q12H 07/10/24 07/10/24 tablet,extended release(part/cryst) Previous Rx's ?Medication ?Instructions ?Recorded clopidogrel 75 mg tablet (Plavix) 75 mg PO QAM #90 tabs 02/08/24 Allergies Allergy/AdvReac Type Severity Reaction Status Date / Time No Known Allergies Allergy Verified 06/20/24 16:04 Review of Systems Narrative: Constitutional symptoms: Negative except as documented in HPI. Skin symptoms: Negative except as documented in HPI. Eye symptoms: Negative except as documented in HPI. ENMT symptoms: Negative except as documented in HPI. Respiratory symptoms: Negative except as documented in HPI. Cardiovascular symptoms: Negative except as documented in HPI. Gastrointestinal symptoms: Negative except as documented in HPI. Genitourinary symptoms: Negative except as documented in HPI. Musculoskeletal symptoms: Negative except as documented in HPI. Neurologic symptoms: Negative except as documented in HPI. Psychiatric symptoms: Negative except as documented in HPI. Endocrine symptoms: Negative except as documented in HPI. 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; neg bx 2023 Cardiac arrest due to underlying cardiac condition GERD (gastroesophageal reflux disease) Cerebrovascular accident (CVA) associated with severe acute respiratory syndrome coronavirus 2 (SARS-CoV-2) infection Diabetes mellitus DR. Mcelroy Coronary atherosclerosis Hyperlipidemia Surgical History Hx of prostate biopsy [facility]; bx neg 2023 Hx of colonoscopy normal; in [place] 2016; due 10 yrs Hx of shoulder surgery right AICD (automatic cardioverter/defibrillator) present LVEF 25% on 09/11/21 History of back surgery lumbar 3/4 S/P PTCA (percutaneous transluminal coronary angioplasty) X3 Family History Mother Myocardial infarction Father Myocardial infarction Brother Myocardial infarction Grandfather Heart disease Grandmother Heart disease Social History Smoking and tobacco/nicotine status: never used tobacco/nicotine Alcohol intake: never Substance/Drug Use: never Household members: spouse Housing: House Marital status: Number of children: 2 Highest education level completed: High School Graduate Current occupational status: retired Previous occupational history: retired /state Physical Exam Narrative: EXAM NARRATIVE: General: Alert, no acute distress. Skin: Warm, dry. Head: Normocephalic, atraumatic. Neck: Supple, trachea midline. Eye: Extraocular movements are intact. Ears, nose, mouth and throat: mucosa moist. Cardiovascular: Regular, Normal peripheral perfusion. 2+ pitting edema bilateral lower extremities with some venous stasis dermatitis. Respiratory: Lungs are clear to auscultation, respirations are non-labored, breath sounds are equal, Symmetrical chest wall expansion. Gastrointestinal: Soft, Nontender, Non distended Musculoskeletal: Normal ROM, no deformity. Neurological: Alert and oriented, No focal neurological deficit observed. Psychiatric: Cooperative, appropriate mood & affect. Course Vital Signs: Vital signs: Vital Signs Temperature 97.9 F 07/10/24 13:45 Pulse Rate 57 L 07/10/24 15:31 Respiratory Rate 17 07/10/24 13:45 Blood Pressure 142/78 07/10/24 15:31 Pulse Oximetry 95 07/10/24 15:31 Oxygen Delivery Me thod Room Air 07/10/24 15:31 MDM - SOB/Dyspnea Medical Decision Making Differential diagnosis for patient with shortness of breath includes but is not limited to and based on the above HPI, review of systems and physical exam: Pneumonia. Bronchitis. Asthma or COPD with acute exacerbation. Acute coronary syndrome / ND. Pulmonary embolism. Anxiety. Congestive heart failure. Viral infections including influenza and Covid-19. Atrial fibrillation. Anxiety. Pleural effusion. Pneumothorax. Orders placed to evaluate differential diagnosis based on the above differential, HPI and physical exam EKG: Sinus bradycardia, No ST-T changes, no ectopy, normal MO & QRS intervals, This was reviewed and interpreted by myself the ER physician Chest x-ray: Moderate right side pleural effusion. Cardiomegaly. Cannot exclude underlying infiltrate. This was reviewed and interpreted by myself the emergency room physician. I also reviewed the radiology report. Lab Review: Laboratory results were reviewed and interpreted by myself the emergency room physician. No leukocytosis. No anemia. Stable chronic renal failure. Creatinine is 2.4 today. proBNP is elevated quite a bit over his baseline at 28,[address] of the chest abdomen pelvis without contrast. Cardiomegaly. Large right and small left pleural effusions. Mildly increased density layering in the gallbladder. Could be sludge. Ultrasound recommended. Possible cyst in the kidneys. Multiple other findings see full radiology report. This was reviewed and interpreted by myself the emergency room physician. I also reviewed the radiology report. Ultrasound gallbladder: Mild thickening of the gallbladder wall at 0.4. Narrow pericholecystic fluid. Ultimately does not look like cholecystitis. Likely some fluid findings from vascular congestion. This was reviewed and interpreted by myself the emergency room physician. I also reviewed the radiology report. I reviewed the patient's medical record. Reexamination: Patient remained stable. No increased work of breathing. No altered mental status. No focal motor deficits. He is quite anxious particularly if he reclines even slightly. Consultation: I spoke with Dr. Fernando who is on-call for the hospitalist service who agrees to admission. Assessment and plan: Acute exacerbation of congestive heart failure Pleural effusion Chronic kidney disease ?40 mg IV Lasix in the emergency room -I discussed the patient with the hospitalist on-call who is admitting the patient. - Discussed findings and plan with patient. Answered any questions. - All laboratory values were reviewed and interpreted personally by myself, the ER physician - All imaging was reviewed and interpreted personally by myself, the ER physician. - Evaluation and treatment of this problem were appropriate in the emergency setting Lab Data 07/10/24 14:07 07/10/24 14:07 Labs/Radiology: Radiology Impressions Chest X-Ray 07/10/24 13:36 IMPRESSION: 1. Moderate-sized right-sided pleural effusion. Underlying infiltrate or consolidation can not be excluded. 2. Cardiomegaly. Chest/Abdomen/Pelvis CT 07/10/24 14:49 IMPRESSION: 1. Large right and small left pleural effusions with compressive atelectasis in the right middle lobe and right lower lobe and to a lesser extent the left lower lobe. 3. Incidental/nonacute findings are listed in the report. IMPRESSION: 1. Mildly increased density layering in the gallbladder. This could represent noncalcified gallstones and/or gallbladder sludge. Ultrasound of the gallbladder may be obtained for further evaluation as clinically indicated. 2. Indeterminate hyperdense foci in both right and left kidneys. Follow-up nonemergent contrasted CT scan or MRI of the kidneys is recommended. 3. Diffuse, mild bladder wall thickening. In the correct clinical setting, this may suggest cystitis. Recommend correlation with laboratory findings. Alternatively, this may be secondary to chronic outlet obstruction. 4. Scattered diverticula in the colon. No evidence for diverticulitis. 5. Small amount of free fluid in the lower abdomen and pelvis. 6. Mild body wall edema. 7. Incidental/nonacute findings are listed in the report. Gallbladder Ultrasound 07/10/24 15:53 IMPRESSION: 1. Cholelithiasis and small amount of intraluminal gallbladder sludge with findings suspicious for cholecystitis. 2. Mild fatty infiltration of the liver. 3. Small volume ascites around the liver. 4. Large right pleural effusion with compressive atelectasis in the visualized right lower lung. These findings were seen on previous CT scan. Laboratory Results WBC 10.50 10^3/uL (3.29-11.43) 07/10/24 14:07 RBC 3.98 10^6/uL (3.85-5.65) 07/10/24 14:07 Hgb 10.30 g/dL (11.27-16.99) L 07/10/24 14:07 Hct 34.7 % (37-53) L 07/10/24 14:07 MCV 87.2 fl (82-101) 07/10/24 14:07 MCH 25.9 pg (27-33) L 07/10/24 14:07 MCHC 29.7 g/dL (30-55) L 07/10/24 14:07 RDW 19.3 % (12.1-15.1) H 07/10/24 14:07 Plt Count 248 10^3/cmm (157-399) 07/10/24 14:07 MPV 9.9 fL (7.4-10.4) 07/10/24 14:07 Neut % (Auto) 74.0 % 07/10/24 14:07 Lymph % (Auto) 12.7 % 07/10/24 14:07 [place] % (Auto) 10.5 % 07/10/24 14:07 Eos % (Auto) 1.6 % 07/10/24 14:07 Baso % (Auto) 0.9 % 07/10/24 14:07 Neut # (Auto) 7.78 10^3/uL (1.8-7.7) H 07/10/24 14:07 Lymph # (Auto) 1.3 10^3/uL (0.8-4.8) 07/10/24 14:07 [place] # (Auto) 1.1 10^3/uL (0.2-0.9) H 07/10/24 14:07 Eos # (Auto) 0.2 10^3/uL (0.0-0.8) 07/10/24 14:07 Baso # (Auto) 0.1 10^3/uL (0.0-0.1) 07/10/24 14:07 Nucleated RBC % (auto) 0 % 07/10/24 14:07 Nucleated RBCs # 0.0 /100WBC 07/10/24 14:07 PT 16.00 SECONDS (12.1-14.9) H 07/10/24 14:07 INR 1.20 (0.8-1.2) 07/10/24 14:07 APTT 35.5 SECONDS (23.9-36.7) 07/10/24 14:07 Sodium 139 mmol/L (136-145) 07/10/24 14:07 Potassium 4.0 mmol/L (3.5-5.1) 07/10/24 14:07 Chloride 102 mmol/L (98-107) 07/10/24 14:07 Carbon Dioxide 25 mmol/L (22-29) 07/10/24 14:07 Anion Gap 16.0 (5-19) 07/10/24 14:07 BUN 50 mg/dL (8-23) H 07/10/24 14:07 Creatinine 2.4 mg/dL (0.7-1.2) H 07/10/24 14:07 GFR Calculation 27.5 mL/min (90-130) L 07/10/24 14:07 Glucose 227 mg/dL (65-115) H 07/10/24 14:07 Calculated Osmolality 308 mOsm/kg (285-295) H 07/10/24 14:07 Lactic Acid 1.2 mmol/L (0.5-2.2) 07/10/24 14:07 Calcium 9.4 mg/dL (8.5-10.5) 07/10/24 14:07 Total Bilirubin 1.4 mg/dL (0.15-1.2) H 07/10/24 14:07 AST 18 U/L (0-40) 07/10/24 14:07 ALT 24 U/L (0-41) 07/10/24 14:07 Alkaline Phosphatase 194 U/L (40-130) H 07/10/24 14:07 NT-Pro-B Natriuret Pep 27897 pg/mL (0-125) H 07/10/24 14:07 Total Protein 7.6 g/dL (6.6-8.7) 07/10/24 14:07 Albumin 4.0 g/dL (3.5-5.2) 07/10/24 14:07 Globulin 3.6 g/dL (1.3-4.6) 07/10/24 14:07 Lipase 57 U/L (13-60) 07/10/24 14:07 All radiology interpretation(s) finalized by discharge Discharge Plan Discharge Patient Disposition: Admitted As Inpatient Clinical Impression: Acute exacerbation of congestive heart failure, Pleural effusion, Orthopnea, Dyspnea Condition: Stable Coding Level of Care Code ED [employer] Equipment [employer] for Rob Haile
[2024-07-10 14:11] LABS: Basophils # 0.1 10^3/uL (0.0-0.1); Basophils % 0.9 %; Eosinophils # 0.2 10^3/uL (0.0-0.8); Eosinophils % 1.6 %; Hematocrit 34.7 % (37-53); Lymphocytes # 1.3 10^3/uL (0.8-4.8); Lymphocytes % 12.7 %; Mean Corpuscular HGB Conc 29.7 g/dL (30-55); Mean Corpuscular Hemoglobin 25.9 pg (27-33); Mean Corpuscular Volume 87.2 fl (82-101); Mean Platelet Volume 9.9 fL (7.4-10.4); Monocytes # 1.1 10^3/uL (0.2-0.9); Monocytes % 10.5 %; Neutrophils # 7.78 10^3/uL (1.8-7.7); Nucleated Red Blood Cells % 0 %; Platelet Count 248 10^3/cmm (157-399); Red Blood Count 3.98 10^6/uL (3.85-5.65); Red Cell Distribution Width 19.3 % (12.1-15.1)
[2024-07-10 14:33] LABS: Lactic Sepsis W/Reflex 1.2 mmol/L (0.5-2.2)
[2024-07-10 14:38] LABS: Alanine Aminotransferase 24 U/L (0-41); Alkaline Phosphatase 194 U/L (40-130); Aspartate Amino Transferase 18 U/L (0-40); Blood Urea Nitrogen 50 mg/dL (8-23); Calcium 9.4 mg/dL (8.5-10.5); Carbon Dioxide 25 mmol/L (22-29); Chloride 102 mmol/L (98-107); Creatinine Clr Calc Pharmacy 37.6765; Globulin 3.6 g/dL (1.3-4.6); Glomerular Filtration Rate 27.5 mL/min (90-130); Glucose 227 mg/dL (65-115); Lipase 57 U/L (13-60); NT Pro B Type Natriuretic Pept 28280 pg/mL (0-125); Osmolality Calculated 308 mOsm/kg (285-295); Sodium 139 mmol/L (136-145); Total Bilirubin 1.4 mg/dL (0.15-1.2); Total Protein 7.6 g/dL (6.6-8.7)
--- NOTE | 2024-07-10 14:49 | CTR_ITS ---
PROCEDURE INFORMATION: Exam: CT Chest Without Contrast; Diagnostic Exam date and time: 07/10/2024 3:05 PM Age: 63 years old Clinical indication: Abdominal pain; Other: SOB; Prior surgery; Surgery date: 6+ months; Surgery type: Pacer; Additional info: SOB, abd pain TECHNIQUE: Imaging protocol: Diagnostic computed tomography of the chest without contrast. Sagittal and coronal reformatted images were also reviewed. Radiation optimization: All CT scans at this facility use at least one of these dose optimization techniques: automated exposure control; mA and/or kV adjustment per patient size (includes targeted exams where dose is matched to clinical indication); or iterative reconstruction. COMPARISON: CR (CHEST, ) 07/10/2024 1:53 PM RADIATION DOSE METRICS: Total DLP (mGy-cm): 1147.82 FINDINGS: Limitations: Evaluation of the mediastinum and vasculature is limited without intravenous contrast. Tubes, catheters and devices: There is a single lead cardiac AICD via left subclavian approach with the lead tip in the right ventricular apex. Findings are stable. Trachea: Tracheobronchial structures are patent. Lungs: Compressive atelectasis in the right middle lobe and right lower lobe and to a lesser extent the left lower lobe. No noncalcified pulmonary parenchymal nodules or masses. Calcified right upper lobe granuloma. Pleural spaces: Large right and small left pleural effusions. No pneumothorax. Heart: Stable marked enlargement of the heart. Coronary arteries: Stents in the left anterior descending coronary artery. Extensive atherosclerotic calcification in the coronary arteries. Esophagus: The esophagus is unremarkable. Mediastinal space: No mediastinal hematoma. No pneumomediastinum. Lymph nodes: Calcified lymph nodes in the mediastinum and right hilum. Vasculature: Mild atherosclerotic changes in the visualized arteries. No evidence for aortic aneurysm. Pulmonary arteries are unremarkable. Pulmonary veins are unremarkable. Bones/joints: [id number] multilevel degenerative changes in the visualized spine. Soft tissues: No acute abnormality in the extrathoracic soft tissues. PROCEDURE INFORMATION: Exam: CT Abdomen And Pelvis Without Contrast Exam date and time: 07/10/2024 3:05 PM Age: 63 years old Clinical indication: Abdominal pain; Other: SOB; Prior surgery; Surgery date: 6+ months; Surgery type: Pacer; Additional info: SOB, abd pain TECHNIQUE: Imaging protocol: Computed tomography of the abdomen and pelvis without contrast. Sagittal and coronal reformatted images were also reviewed. Radiation optimization: All CT scans at this facility use at least one of these dose optimization techniques: automated exposure control; mA and/or kV adjustment per patient size (includes targeted exams where dose is matched to clinical indication); or iterative reconstruction. COMPARISON: CR (CHEST, ) 07/10/2024 1:53 PM RADIATION DOSE METRICS: Total DLP (mGy-cm): 1147.82 FINDINGS: Limitations: Evaluation of solid organs and vasculature is limited without intravenous contrast. Liver: The liver is unremarkable. Gallbladder and biliary ducts: Mildly increased density layering in the gallbladder. No gallbladder wall thickening. No biliary ductal dilatation. Pancreas: The pancreas is unremarkable. No pancreatic ductal dilatation. Spleen: Multiple calcified granulomas in the spleen. Adrenal glands: The right and left adrenal glands are unremarkable. Kidneys and ureters: Indeterminate hyperdense foci in both right and left kidneys. Hounsfield units show density greater than expected for simple fluid. The focus in the right kidney measures 0.9 x 1.1 cm (series 9, image 33). Two foci in the left kidney, the larger measures 1.5 x 2.0 cm (series 9, image 33). The right and left ureters are unremarkable. Stomach and bowel: Scattered diverticula in the colon. No evidence for diverticulitis. No acute abnormality in the stomach, small bowel, or colon. Appendix: Appendix not definitely visualized. No inflammatory changes in the pericecal region however. Intraperitoneal space: Small amount of free fluid in the lower abdomen and pelvis. No free intraperitoneal air. No loculated fluid collections to suggest an abscess. Vasculature: Moderate atherosclerotic changes in the visualized arteries. No evidence for aortic aneurysm. Lymph nodes: No lymphadenopathy. Urinary bladder: Diffuse, mild bladder wall thickening. Reproductive: The prostate gland is moderately enlarged. Nonspecific parenchymal calcifications in the prostate gland. Bones/joints: Degenerative changes in the spine and hips. Moderate spinal canal stenosis at L3-L4 and L4-L5. Multilevel foraminal stenosis of varying severity in the visualized spine. Soft tissues: Mild body wall edema. CT/[place] [id number] IMPRESSION: 1. Large right and small left pleural effusions with compressive atelectasis in the right middle lobe and right lower lobe and to a lesser extent the left lower lobe. 3. Incidental/nonacute findings are listed in the report. IMPRESSION: 1. Mildly increased density layering in the gallbladder. This could represent noncalcified gallstones and/or gallbladder sludge. Ultrasound of the gallbladder may be obtained for further evaluation as clinically indicated. 2. Indeterminate hyperdense foci in both right and left kidneys. Follow-up nonemergent contrasted CT scan or MRI of the kidneys is recommended. 3. Diffuse, mild bladder wall thickening. In the correct clinical setting, this may suggest cystitis. Recommend correlation with laboratory findings. Alternatively, this may be secondary to chronic outlet obstruction. 4. Scattered diverticula in the colon. No evidence for diverticulitis. 5. Small amount of free fluid in the lower abdomen and pelvis. 6. Mild body wall edema. 7. Incidental/nonacute findings are listed in the report.
[2024-07-10] MEDS: FUROsemide 10 mg/mL SDV 4mL 40 MG IVP ×2 (15:30→20:58)
--- NOTE | 2024-07-10 15:53 | USR_ITS ---
PROCEDURE INFORMATION: Exam: US Abdomen, Limited; Right Upper Quadrant Exam date and time: 07/10/2024 4:26 PM Age: 63 years old Clinical indication: Abdominal pain; Localized; Right upper quadrant (ruq); Additional info: Right upper quadrant pain, concern for cholecystitis TECHNIQUE: Imaging protocol: Real time ultrasound of the abdomen with image documentation. Limited exam focused on the right upper quadrant. COMPARISON: 1. US renal BI* [id number] 09/08/2023 6:[address] [place] [id number] 07/10/2024 3:05 PM FINDINGS: Pleural spaces: Large right pleural effusion with compressive atelectasis in the visualized right lower lung. Liver: Mildly increased echotexture in the liver, consistent with mild fatty infiltration. Gallbladder: Small amount of intraluminal gallbladder sludge and few tiny gallstones in the lumen of the gallbladder. Mild gallbladder wall thickening, the gallbladder wall measures 4.0 mm. There is a positive sonographic Beck's sign per report from the sand technologist. Biliary ducts: Unremarkable as visualized. No stones. No dilatation. Pancreas: Incomplete visualization of the pancreas due to overlying bowel gas. Visualized portions of the pancreas are unremarkable. Right kidney: The right kidney is unremarkable. Aorta: Visualized aorta is unremarkable. Inferior vena cava: Visualized IVC is unremarkable. Portal venous: Hepatopetal flow in the portal vein. Intraperitoneal space: Small volume ascites around the liver. US/US gall bladder [id number] IMPRESSION: 1. Cholelithiasis and small amount of intraluminal gallbladder sludge with findings suspicious for cholecystitis. 2. Mild fatty infiltration of the liver. 3. Small volume ascites around the liver. 4. Large right pleural effusion with compressive atelectasis in the visualized right lower lung. These findings were seen on previous CT scan.
[2024-07-10 16:03] LABS: Partial Thromboplastin Time 35.5 SECONDS (23.9-36.7)
--- NOTE | 2024-07-10 18:16 | PM.HP ---
Providers/Chief Complaint Admitting Physician: Marlen Fernando MD Primary Care Provider: Paula Hammond MD Chief Complaint: SOB History of Present Illness Fuad Priest is a 63 year old male With past medical history of CAD status post stenting, CKD, history of cardiac arrest, history of V. tach status post AICD placement, GERD, hypertension, ischemic cardiomyopathy, dyslipidemia, congestive heart failure with known EF of 25%, insulin-dependent diabetes mellitus presented to the hospital today for shortness of breath that has been worsening for the last 1 week. He states his leg is now weeping. He also has increased abdomen in his thighs. He is on Bumex 1 mg 3 times daily. He also complains of mild pain in right upper quadrant area every time he takes a deep breath and after eating. States he is unable to take more than 3-4 bites. Denies any nausea or vomiting. Denies diaphoresis denies any other chest pain. Is currently on room air. Sitting up on edge of the bed with at bedside. Sees Dr. Lennon as his tracer clerk. He was recently discharged from the hospital on June 02 while he was managed for systolic CHF exacerbation. He was diuresed over 11 L negative. ED course: CT chest on pelvis was performed which showed mildly increased density layering in gallbladder ultrasound recommended. Ultrasound was subsequently performed showing cholelithiasis and small amount of intraluminal gallbladder sludge with finding suspicion for cholecystitis. CT also shows large right pleural effusion with compressive atelectasis in the visualized right lower lung. Mild body wall edema present. Labs show sodium 139, potassium 4.0, creatinine 2.4 which is at his baseline, lactic acid 1.2, total bilirubin 1.4 BNP 28,000. At previous hospitalization BNP was around 17,000 which is patient's chronic baseline. Medications/Allergies Home Medications ?Medication ?Instructions ?Recorded ?Confirmed ?Last Taken ?Type nitroglycerin 0.3 mg sublingual 0.3 mg sublingual Q5M PRN Chest 04/12/21 07/10/24 09/04/21 06:00 History tablet (Nitrostat) Pain clopidogrel 75 mg tablet (Plavix) 75 mg PO QAM #90 tabs 02/08/24 07/10/24 05/27/24 Rx amiodarone 200 mg tablet 200 mg PO QAM 05/27/24 07/10/24 05/27/24 History aspirin 81 mg tablet,delayed 81 mg PO QAM 05/27/24 07/10/24 05/27/24 History release atorvastatin 80 mg tablet 80 mg PO BEDTIME 05/27/24 07/10/24 05/26/24 History citalopram 20 mg tablet 20 mg PO QAM 05/27/24 07/10/24 05/27/24 History insulin glargine 100 unit/mL (3 43 unit SUBCUT DAILY 05/27/24 07/10/24 05/27/24 History mL) subcutaneous pen (Lantus Solostar U-100 Insulin) metoprolol tartrate 25 mg tablet 25 mg PO BID 05/27/24 07/10/24 05/27/24 History pantoprazole 20 mg tablet,delayed 20 mg PO DAILY 05/27/24 07/10/24 05/27/24 History release bumetanide 1 mg tablet 1 mg PO BID 07/10/24 07/10/24 Unknown History isosorbide mononitrate 30 mg 30 mg PO DAILY 07/10/24 07/10/24 Unknown History tablet,extended release 24 hr potassium chloride 20 mEq 20 meq PO Q12H 07/10/24 07/10/24 Unknown History tablet,extended release(part/cryst) Allergies Allergy/AdvReac Type Severity Reaction Status Date / Time No Known Allergies Allergy Verified 06/20/24 16:04 PFSH Acute PFSH: Medical History Orthopnea Ischemic cardiomyopathy last ECHO 08/2021 EF 25% Anemia due to stage 4 chronic kidney disease Essential hypertension 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; neg bx 2023 Cardiac arrest due to underlying cardiac condition GERD (gastroesophageal reflux disease) Cerebrovascular accident (CVA) associated with severe acute respiratory syndrome coronavirus 2 (SARS-CoV-2) infection Diabetes mellitus DR. Mcelroy Coronary atherosclerosis Hyperlipidemia Surgical History Hx of prostate biopsy [facility]; bx neg 2023 Hx of colonoscopy normal; in [place] 2016; due 10 yrs Hx of shoulder surgery right AICD (automatic cardioverter/defibrillator) present LVEF 25% on 09/11/21 History of back surgery lumbar 3/4 S/P PTCA (percutaneous transluminal coronary angioplasty) X3 Family History Mother Myocardial infarction Father Myocardial infarction Brother Myocardial infarction Grandfather Heart disease Grandmother Heart disease Social History Smoking and tobacco/nicotine status: never used tobacco/nicotine Alcohol intake: never Substance/Drug Use: never Household members: spouse Housing: House Marital status: Number of children: 2 Highest education level completed: High School Graduate Current occupational status: retired Previous occupational history: retired /state Vitals/I&O/Wt Last Vital Signs Temp 97.9 F 07/10/24 13:45 Pulse 57 L 07/10/24 15:31 Resp 17 07/10/24 13:45 BP 142/78 07/10/24 15:31 Pulse Ox 95 07/10/24 15:31 O2 Del Method Room Air 07/10/24 15:31 Weight last 48 hrs Weight 98.43 kg Physical Exam Narrative: General: Alert oriented x3, patient seen sitting up on the edge of the bed talking without any conversational dyspnea. Denies any scrotal swelling at this time. Does have mild edema in thighs and does have a ruptured blister on left mullins. 2+ ankle edema present. HEENT: Normocephalic, atraumatic, EOMI, breathing comfortably on room air at this time. Cardio: Regular rate rhythm, normal S1-S2, Respiratory: Mainly clear to auscultation bilaterally with crackles at right base. GI: Abdomen soft, positive Beck sign, nondistended, generally nontender, bowel sounds + Extremities: See above Data 07/10/24 14:07 07/10/24 14:07 A&P Assessment and plan (1) Ischemic cardiomyopathy: (2) Acute exacerbation of congestive heart failure: (3) Orthopnea: (4) AICD (automatic cardioverter/defibrillator) present: (5) Diabetes mellitus: Qualifiers: Diabetes mellitus type: type 2 Diabetes mellitus salvage determiner insulin use: with intermediate use Diabetes mellitus complication status: with circulatory complication Diabetes mellitus complication detail: with other circulatory complications Qualified Code(s): E11.59 - Type 2 diabetes mellitus with other circulatory complications; Z79.4 - salvage determiner (current) use of insulin (6) Hyperlipemia, mixed: (7) CKD stage 4 due to type 2 diabetes mellitus: (8) Pleural effusion: (9) Dyspnea: (10) History of ventricular tachycardia: (11) History of cardiac arrest: (12) Right upper quadrant pain: (13) Positive Beck Sign: Plan #Acute on chronic systolic congestive heart failure #Large right pleural effusion #Possible cholecystitis, right upper quadrant pain #History of V. tach status post AICD placement, history of cardiac arrest #CKD, creatinine at baseline today #CAD/ischemic cardiomyopathy history of cardiac arrest. #Recurrent admission for anasarca #Diabetes mellitus, insulin-dependent ? Patient received Lasix 40 IV x 1 in the ER and has had 1 L of urine output so far. ? Placed on Lasix 40 IV twice daily ? Strict I's and O's ? Hold home Lantus at this time. Placed on monitors and 27 scale insulin. ? Discussed with general surgery. Will check HIDA scan in AM. Questionable cholecystitis?. ? Patient's right upper quadrant pain can be secondary to right pleural effusion and congestive hepatopathy explaining elevated bilirubin. Common bile duct appears to be normal. Biliary colic not ruled out. Consult general surgery. ? BNP 28,000 today. Patient does have anasarca. ? Continue to diurese at this time. ? Will monitor on telemetry on cardiac stepdown unit. ? Continue aspirin Plavix atorvastatin, Imdur, metoprolol tartrate ? Continue Protonix 40 IV daily ? N.p.o. at midnight for HIDA scan in a.m. ? Thoracentesis ordered for therapeutic and diagnostic purposes. Pleural effusion most likely secondary to heart failure. Patient does have mild to moderate ascites most likely secondary to heart failure as well. ? Check echo to assess for worsening cardiac function. Echo from May 2024 shows reduced LV systolic functions LVEF 30%, right systolic function mildly reduced. Mild to moderate mitral regurgitation. ? Consult cardiology Full code DVT prophylaxis: Heparin SQ twice daily PDMP PDMP Reviewed: Not Reviewed Attestations Medical Necessity Statement*: Greater than 2 midnight stay for management of acute on chronic systolic congestive heart failure, large right pleural effusion, ruling out possible cholecystitis. Patient will need a HIDA scan in a.m. and thoracentesis. Diagnoses Ischemic cardiomyopathy I25.5 Acute exacerbation of congestive heart failure I50.9 Orthopnea R06.01 AICD (automatic cardioverter/defibrillator) present Z95.810 Type 2 diabetes mellitus with other circulatory complication, with long-term current use of insulin E11.59; Z79.4 Diabetes mellitus type: type 2 Diabetes mellitus intermediate insulin use: with intermediate 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
[2024-07-10 18:51] LABS: Estmated Average Glucose 200; Hemoglobin A1C 8.6 % (4.0-6.0)
--- NOTE | 2024-07-10 18:56 | PM.CONSULT ---
Providers/Reason For Consult Consulting Physician/Specialty*: Dr. Cespedes general surgery Reason for Consult*: Cholecystitis Attending Physician: Marlen Fernando MD Primary Care Provider: Paula Hammond MD History of Present Illness History of Present Illness Fuad Priest is a 63 year old male who presents with heart failure. Surgery consulted to rule out cholecystitis. Patient is not tender in right upper quadrant. Patient does refers some epigastric pain. On Protonix. No nausea. No fevers. No white count. CT scan and ultrasound not convincing for cholecystitis. Medications/Allergies Home Medications ?Medication ?Instructions ?Recorded ?Confirmed ?Last Taken ?Type nitroglycerin 0.3 mg sublingual 0.3 mg sublingual Q5M PRN Chest 04/12/21 07/10/24 09/04/21 06:00 History tablet (Nitrostat) Pain clopidogrel 75 mg tablet (Plavix) 75 mg PO QAM #90 tabs 02/08/24 07/10/24 05/27/24 Rx amiodarone 200 mg tablet 200 mg PO QAM 05/27/24 07/10/24 05/27/24 History aspirin 81 mg tablet,delayed 81 mg PO QAM 05/27/24 07/10/24 05/27/24 History release atorvastatin 80 mg tablet 80 mg PO BEDTIME 05/27/24 07/10/24 05/26/24 History citalopram 20 mg tablet 20 mg PO QAM 05/27/24 07/10/24 05/27/24 History insulin glargine 100 unit/mL (3 43 unit SUBCUT DAILY 05/27/24 07/10/24 05/27/24 History mL) subcutaneous pen (Lantus Solostar U-100 Insulin) metoprolol tartrate 25 mg tablet 25 mg PO BID 05/27/24 07/10/24 05/27/24 History pantoprazole 20 mg tablet,delayed 20 mg PO DAILY 05/27/24 07/10/24 05/27/24 History release bumetanide 1 mg tablet 1 mg PO BID 07/10/24 07/10/24 Unknown History isosorbide mononitrate 30 mg 30 mg PO DAILY 07/10/24 07/10/24 Unknown History tablet,extended release 24 hr potassium chloride 20 mEq 20 meq PO Q12H 07/10/24 07/10/24 Unknown History tablet,extended release(part/cryst) Allergies Allergy/AdvReac Type Severity Reaction Status Date / Time No Known Allergies Allergy Verified 06/20/24 16:04 PFSH Acute PFSH: Medical History (Updated 07/11/24 @ 11:54 by Dc Cespedes MD) Orthopnea Ischemic cardiomyopathy last ECHO 08/2021 EF 25% Anemia due to stage 4 chronic kidney disease Essential hypertension 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; neg bx 2023 Cardiac arrest due to underlying cardiac condition GERD (gastroesophageal reflux disease) Cerebrovascular accident (CVA) associated with severe acute respiratory syndrome coronavirus 2 (SARS-CoV-2) infection Diabetes mellitus DR. Mcelroy Coronary atherosclerosis Hyperlipidemia Surgical History Hx of prostate biopsy [facility]; bx neg 2023 Hx of colonoscopy normal; in [place] 2016; due 10 yrs Hx of shoulder surgery right AICD (automatic cardioverter/defibrillator) present LVEF 25% on 09/11/21 History of back surgery lumbar 3/4 S/P PTCA (percutaneous transluminal coronary angioplasty) X3 Family History Mother Myocardial infarction Father Myocardial infarction Brother Myocardial infarction Grandfather Heart disease Grandmother Heart disease Social History Smoking and tobacco/nicotine status: never used tobacco/nicotine Alcohol intake: never Substance/Drug Use: never Household members: spouse Housing: House Marital status: Number of children: 2 Highest education level completed: High School Graduate Current occupational status: retired Previous occupational history: retired /state Vitals/I&O/Wt Last Vital Signs Temp 97.9 F 07/10/24 13:45 Pulse 74 07/10/24 18:46 Resp 14 07/10/24 17:30 BP 158/78 07/10/24 18:46 Pulse Ox 94 07/10/24 18:46 O2 Del Method Room Air 07/10/24 15:31 Weight last 48 hrs Weight 217 lb Physical Exam Narrative: Chest: Unlabored breathing room air. No lymphadenopathy. Heart: Regular rate and rhythm. Abdomen: Soft, mildly tender epigastrium, nondistended. No masses or lymphadenopathy. Data 07/11/24 02:43 07/11/24 02:43 A&P Assessment and plan (1) Acute on chronic systolic heart failure: (2) Biliary colic: Plan 63-year-old male who presents with heart failure. Surgery consulted to rule out cholecystitis. Clinical picture not convincing for cholecystitis. Recommend HIDA scan. Right now patient is not a surgical candidate for cholecystectomy. PDMP PDMP Reviewed: Not Reviewed Coding Level of Care Code 29214 Diagnoses Acute on chronic systolic heart failure I50.23 Biliary colic K80.50
--- NOTE | 2024-07-10 19:12 | PM.CONSULT ---
Providers/Reason For Consult Consulting Physician/Specialty*: DEWAYNE Corbett MD/cardiology Reason for Consult*: Patient with cardiomyopathy and congestive heart failure Requesting Physician: Dr. Fernando Attending Physician: Marlen Fernando MD Primary Care Provider: Paula Hammond MD History of Present Illness History of Present Illness Fuad Priest is a 63 year old male, is admitted to hospital through the emergency room where he presented with the complaints of progressive shortness of breath over the last 1 week along with the leg swelling. Patient was found to have features of congestive heart failure and right-sided pleural effusion. Cardiology consult is requested for further cardiac evaluation and recommendations.. This patient is known to have ischemic cardiomyopathy and congestive heart failure. He was admitted to the hospital 3 weeks ago with decompensated heart failure and features of anasarca. He was treated with IV diuretics and other symptomatic measures and was discharged home. LV ejection fraction was found to be around 30% by echocardiogram. According the patient, he been doing okay up until a week ago when he started having increasing shortness of breath. He also been noticing swelling of the lower extremities and some weight gain. He did not have any chest pain or palpitations. No fever or chills. No cough. No palpitations, dizziness or syncopal episodes. No ICD discharges. This patient has a complicated cardiac history. Many years ago he, he underwent three-vessel angioplasty while being in [place]. In 2021, he was admitted to the hospital with pneumonia and heart failure. Subsequent cardiac workup including echocardiogram exertion revealed subtotal occlusion of the left anterior descending artery. Patient underwent PCI of this lesion. He has a right coronary artery was found to be chronically occluded, possibly nondominant. During the cardiac intervention, patient went into pulmonary edema followed by cardiac arrest. He underwent resuscitation measures 3 times. His LV ejection fraction was found to be around 25% with a dilated left ventricle. Later on during the hospital stay, he developed recurrent ventricular tachycardia for which he was transferred to [facility] for an ICD. Patient underwent single-chamber ICD implantation in August 2021. According the patient, he has not had any ICD discharges since then. He has been fairly compliant with the medications. He has a history of hypertension, type 2 diabetes, dyslipidemia, chronic kidney disease and CVA. Has a strong family history for premature atherosclerotic heart diseas. His brother had myocardial infarction at the age of 29. Father had a myocardial infarction at age of 51 and mother had a heart attack in her 70s. Review of Systems Narrative: CONSTITUTIONAL: No fever or chills. EYES: No blurring of vision or other visual disturbances lately. ENT: No hoarseness of voice, auditory disturbances or sore throat. CARDIOVASCULAR: As mentioned above. RESPIRATORY: No significant cough. GASTROINTESTINAL: No hematemesis or melena. GENITOURINARY: Chronic kidney disease, being followed by the nephrology INTEGUMENTARY: No skin rashes or history of skin cancer. NEURO: History of CVA PSYCHIATRIC: No history of psychosis or major depression. HEMATOLOGIC: No bleeding disorders or significant anemia. ENDOCRINE: History of type 2 diabetes MUSCULOSKELETAL: No recent joint pain or swelling. ALLERGY/IMMUNOLOGY: As mentioned above. Medications/Allergies Home Medications ?Medication ?Instructions ?Recorded ?Confirmed ?Last Taken ?Type nitroglycerin 0.3 mg sublingual 0.3 mg sublingual Q5M PRN Chest 04/12/21 07/10/24 09/04/21 06:00 History tablet (Nitrostat) Pain clopidogrel 75 mg tablet (Plavix) 75 mg PO QAM #90 tabs 02/08/24 07/10/24 05/27/24 Rx amiodarone 200 mg tablet 200 mg PO QAM 05/27/24 07/10/24 05/27/24 History aspirin 81 mg tablet,delayed 81 mg PO QAM 05/27/24 07/10/24 05/27/24 History release atorvastatin 80 mg tablet 80 mg PO BEDTIME 05/27/24 07/10/24 05/26/24 History citalopram 20 mg tablet 20 mg PO QAM 05/27/24 07/10/24 05/27/24 History insulin glargine 100 unit/mL (3 43 unit SUBCUT DAILY 05/27/24 07/10/24 05/27/24 History mL) subcutaneous pen (Lantus Solostar U-100 Insulin) metoprolol tartrate 25 mg tablet 25 mg PO BID 05/27/24 07/10/24 05/27/24 History pantoprazole 20 mg tablet,delayed 20 mg PO DAILY 05/27/24 07/10/24 05/27/24 History release bumetanide 1 mg tablet 1 mg PO BID 07/10/24 07/10/24 Unknown History isosorbide mononitrate 30 mg 30 mg PO DAILY 07/10/24 07/10/24 Unknown History tablet,extended release 24 hr potassium chloride 20 mEq 20 meq PO Q12H 07/10/24 07/10/24 Unknown History tablet,extended release(part/cryst) Allergies Allergy/AdvReac Type Severity Reaction Status Date / Time No Known Allergies Allergy Verified 06/20/24 16:04 PFSH Acute PFSH: Medical History (Updated 07/10/24 @ 20:50 by Devonte Corbett MD) Orthopnea Ischemic cardiomyopathy last ECHO 08/2021 EF 25% Anemia due to stage 4 chronic kidney disease Essential hypertension 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; neg bx 2023 Cardiac arrest due to underlying cardiac condition GERD (gastroesophageal reflux disease) Cerebrovascular accident (CVA) associated with severe acute respiratory syndrome coronavirus 2 (SARS-CoV-2) infection Diabetes mellitus DR. Mcelroy Coronary atherosclerosis Hyperlipidemia Surgical History Hx of prostate biopsy [facility]; bx neg 2023 Hx of colonoscopy normal; in [place] 2017; due 10 yrs Hx of shoulder surgery right AICD (automatic cardioverter/defibrillator) present LVEF 25% on 09/11/21 History of back surgery lumbar 3/4 S/P PTCA (percutaneous transluminal coronary angioplasty) X3 Family History Mother Myocardial infarction Father Myocardial infarction Brother Myocardial infarction Grandfather Heart disease Grandmother Heart disease Social History Smoking and tobacco/nicotine status: never used tobacco/nicotine Alcohol intake: never Substance/Drug Use: never Household members: spouse Housing: House Marital status: Number of children: 2 Highest education level completed: High School Graduate Current occupational status: retired Previous occupational history: retired /state Vitals/I&O/Wt Last Vital Signs Temp 97.9 F 07/10/24 13:45 Pulse 74 07/10/24 18:46 Resp 14 07/10/24 17:30 BP 158/78 07/10/24 18:46 Pulse Ox 94 07/10/24 18:46 O2 Del Method Room Air 07/10/24 15:31 Weight last 48 hrs Weight 217 lb Physical Exam Narrative: GENERAL: The patient is alert and oriented times three. Not in any acute distress. HEENT: No significant pallor, icterus or lymphadenopathy.Oral cavity: There are no mucous membrane lesions. NECK: Trachea appears to be central. No masses noted. No JVD or thyromegaly appreciated. RESPIRATORY: Chest is symmetrical. No intercostals muscle retraction or any accessory muscle activation. There is no chest wall tenderness. Breath sounds are very much diminished on the right side. Few fine crackles in the left base. BREASTS: Deferred. HEART: The heart sounds are normal. No S3 or S4. No significant murmurs. No pericardial rub ABDOMEN: No vessel pulsations or distention. No tenderness. No organomegaly appreciated. Bowel sounds are normally heard. : Deferred. RECTAL: Deferred. LYMPHATIC: No lymphadenopathy noted in the neck. EXTREMITIES: 1-2+ edema both lower extremities with some redness in the lower leg, anteriorly. Healing blisters on the right leg. Peripheral pulses are palpable but somewhat weak bilaterally. MUSCULOSKELETAL: No acute joint deformities or swelling SKIN: There are no significant rashes or ecchymosis NEUROPSYCHIATRIC: The patient is alert and oriented x3. Appears to be in a good mood. No tremors or rigidity noted. Data 07/10/24 14:07 07/10/24 14:07 Other Labs: Laboratory Last Values WBC 10.50 10^3/uL (3.29-11.43) 07/10/24 14:07 RBC 3.98 10^6/uL (3.85-5.65) 07/10/24 14:07 Hgb 10.30 g/dL (11.27-16.99) L 07/10/24 14:07 Hct 34.7 % (37-53) L 07/10/24 14:07 MCV 87.2 fl (82-101) 07/10/24 14:07 MCH 25.9 pg (27-33) L 07/10/24 14:07 MCHC 29.7 g/dL (30-55) L 07/10/24 14:07 RDW 19.3 % (12.1-15.1) H 07/10/24 14:07 Plt Count 248 10^3/cmm (157-399) 07/10/24 14:07 MPV 9.9 fL (7.4-10.4) 07/10/24 14:07 Neut % (Auto) 74.0 % 07/10/24 14:07 Lymph % (Auto) 12.7 % 07/10/24 14:07 [place] % (Auto) 10.5 % 07/10/24 14:07 Eos % (Auto) 1.6 % 07/10/24 14:07 Baso % (Auto) 0.9 % 07/10/24 14:07 Neut # (Auto) 7.78 10^3/uL (1.8-7.7) H 07/10/24 14:07 Lymph # (Auto) 1.3 10^3/uL (0.8-4.8) 07/10/24 14:07 [place] # (Auto) 1.1 10^3/uL (0.2-0.9) H 07/10/24 14:07 Eos # (Auto) 0.2 10^3/uL (0.0-0.8) 07/10/24 14:07 Baso # (Auto) 0.1 10^3/uL (0.0-0.1) 07/10/24 14:07 Nucleated RBC % (auto) 0 % 07/10/24 14:07 Nucleated RBCs # 0.0 /100WBC 07/10/24 14:07 PT 16.00 SECONDS (12.1-14.9) H 07/10/24 14:07 INR 1.20 (0.8-1.2) 07/10/24 14:07 APTT 35.5 SECONDS (23.9-36.7) 07/10/24 14:07 Sodium 139 mmol/L (136-145) 07/10/24 14:07 Potassium 4.0 mmol/L (3.5-5.1) 07/10/24 14:07 Chloride 102 mmol/L (98-107) 07/10/24 14:07 Carbon Dioxide 25 mmol/L (22-29) 07/10/24 14:07 Anion Gap 16.0 (5-19) 07/10/24 14:07 BUN 50 mg/dL (8-23) H 07/10/24 14:07 Creatinine 2.4 mg/dL (0.7-1.2) H 07/10/24 14:07 GFR Calculation 27.5 mL/min (90-130) L 07/10/24 14:07 Glucose 227 mg/dL (65-115) H 07/10/24 14:07 Estimat Average Glucose 200 07/10/24 14:07 Hemoglobin A1c 8.6 % (4.0-6.0) H 07/10/24 14:07 Calculated Osmolality 308 mOsm/kg (285-295) H 07/10/24 14:07 Lactic Acid 1.6 mmol/L (0.5-2.2) 07/10/24 19:06 Calcium 9.4 mg/dL (8.5-10.5) 07/10/24 14:07 Total Bilirubin 1.4 mg/dL (0.15-1.2) H 07/10/24 14:07 AST 18 U/L (0-40) 07/10/24 14:07 ALT 24 U/L (0-41) 07/10/24 14:07 Alkaline Phosphatase 194 U/L (40-130) H 07/10/24 14:07 NT-Pro-B Natriuret Pep 62414 pg/mL (0-125) H 07/10/24 14:07 Total Protein 7.6 g/dL (6.6-8.7) 07/10/24 14:07 Albumin 4.0 g/dL (3.5-5.2) 07/10/24 14:07 Globulin 3.6 g/dL (1.3-4.6) 07/10/24 14:07 Lipase 57 U/L (13-60) 07/10/24 14:07 Other data: Chest x-ray on 07/10/2024 1. Moderate-sized right-sided pleural effusion. Underlying infiltrate or consolidation can not be excluded. 2. Cardiomegaly. CT of the chest from today 1. Large right and small left pleural effusions with compressive atelectasis in the right middle lobe and right lower lobe and to a lesser extent the left lower lobe. 3. Incidental/nonacute findings are listed in the report. Cardiac catheterization in 2021 His right coronary artery is occluded shortly after its origin. It is assumed to be a nondominant vessel given the large size of the circumflex and the circumflex appearance is that of a dominant vessel. There is no collateral flow to the distal right coronary artery from the LAD or the circumflex. * His left main is largely uneventful. The circumflex appears to be thedominant vessel and gives off a very large proximal marginal branch and thenseveral small distal marginal branches. There are minor luminalirregularities of the circumflex but no significant lesions. * The LAD is significantly diseased in the ostial and proximal portion priorto where there is a previously placed stent in the midportion. The stent ispatent with some in-stent restenosis in the distal portion. Beyond the stentthere is just a trickle of blood flow to the distal LAD. The distal LAD is darin small vessel probably less than 1 mm in diameter. The flow in the LAD isextremely poor. Conclusions 1. Severe underlying two-vessel coronary artery disease with recent non-STsegment elevation HI in the distribution of the LAD. Severe left ventriculardysfunction with ejection fraction 25% and elevated end-diastolic pressure ofat least 50 mmHg. Stenting of the LAD resulted in acute closure of the LAD,significant congestive heart failure, flash pulmonary edema and cardiacarrest. Patient was resuscitated and taken to the ICU. Family made aware. A&P Assessment and plan (1) Acute on chronic systolic heart failure: Patient has some features of decompensated systolic heart failure. He may be carefully treated with IV diuretics.Also consider starting him on hydralazine 25 mg p.o. 3 times a day for afterload reduction.May continue the other symptomatic measures (2) Large pleural effusion: Etiology is unclear. Consider diagnostic as well as therapeutic thoracentesis (3) Ischemic cardiomyopathy: Continue to optimize afterload reducing agents (4) Atherosclerosis of coronary artery of [place] heart without angina pectoris: In view of the recurrent decompensated heart failure, in order to rule out the possibility of coronary ischemia, a Myocardial perfusion imaging would be appropriate, when the heart failure is appropriately treated. Qualifiers: Coronary Disease-Associated Artery/Lesion type: [place] artery Qualified Code(s): I25.10 - Atherosclerotic heart disease of [place] coronary artery without angina pectoris (5) AICD (automatic cardioverter/defibrillator) present: Seems to be functioning okay. Continue on the current monitoring schedule (6) Ventricular tachycardia: Seems to have no recurrence of ventricular arrhythmia. Will continue on the current management. (7) CKD stage 4 due to type 2 diabetes mellitus: Patient is being followed by nephrology. Advised to continue on the current management. Plan Based on the patien's clinical progress, further recommendations will be made. Thank you for the opportunity to evaluate this patient and make these recommendations. PDMP PDMP Reviewed: Not Reviewed Consult Attestations Medical Necessity Statement: Patient requires continued hospital stay for close monitoring and further management Coding Level of Care Code 00961 Diagnoses Acute on chronic systolic heart failure I50.23 Large pleural effusion J90 Ischemic cardiomyopathy I25.5 Atherosclerosis of [place] coronary artery of [place] heart without angina pectoris I25.10 Coronary Disease-Associated Artery/Lesion type: [place] artery AICD (automatic cardioverter/defibrillator) present Z95.810 Ventricular tachycardia I47.2 CKD stage 4 due to type 2 diabetes mellitus E11.22; N18.4
[2024-07-10 19:44] LABS: Lactic Sepsis W/Reflex 1.6 mmol/L (0.5-2.2)
[2024-07-10 20:46] LABS: Glucose Point of Care 185 mg/dL (70-110)
[2024-07-10] MEDS: atorvastatin 40 mg Tablet 80 MG PO (20:58)
[2024-07-10] MEDS: metoprolol tartrate 25 mg Tablet PO (20:58)
[2024-07-10] MEDS: pantoprazole 40 mg SDV IVP (20:58)
[2024-07-10] MEDS: heparin 5,000 unit/mL INJ 1 mL 5000 UNIT SUBCUT (21:06)
[2024-07-10] MEDS: hyDRALAzine 25 mg Tablet PO (21:22)
[2024-07-10] MEDS: insulin lispro 100 unit/1 mL SUBCUT (21:23)
[2024-07-10] MEDS: piperacillin-tazobactam 3.375 GM in sodium chloride 0.9% (plus) 50 ML IV (21:24)
[2024-07-10 21:27] LABS: Bacteria Urine None Seen /hpf; Hyaline Casts Urine 1.65 /lpf; Squamous Epithelial Cell Urine 0-5 /hpf (0-5); WBC Urine 0-5 /hpf (0-5)
[2024-07-10 21:29] LABS: Bilirubin Urine Neg (Negative); Blood Urine 2+ (Negative); Glucose Urine UA Norm (Normal); Ketones Urine Negative (Negative); Leukocyte Esterase Urine Negative (Negative); Nitrate Urine Negative (Negative); Protein Urine Trace (Negative); Specific Gravity, Urine 1.005 (1.005-1.030); Urine Appearance Clear (CLEAR); Urine Color Yellow (Yellow); Urobilinogen Urine Norm (Negative); pH Urine 6 (5-7)
[2024-07-11] VITALS (8 sets, daily range): BP systolic 105–147; BP diastolic 64–87; PULSE 51–61; RESP 18–24; TEMP 36.3–36.7; O2SAT 97–100
[2024-07-11 03:11] LABS: Basophils # 0.1 10^3/uL (0.0-0.1); Basophils % 0.6 %; Eosinophils # 0.2 10^3/uL (0.0-0.8); Eosinophils % 1.9 %; Hematocrit 31.3 % (37-53); Lymphocytes % 9.2 %; Mean Corpuscular Hemoglobin 27.1 pg (27-33); Mean Corpuscular Volume 87.4 fl (82-101); Mean Platelet Volume 9.9 fL (7.4-10.4); Monocytes # 1.3 10^3/uL (0.2-0.9); Monocytes % 12.3 %; Neutrophils # 8.21 10^3/uL (1.8-7.7); Neutrophils % 75.7 %; Nucleated Red Blood Cells % 0 %; Platelet Count 224 10^3/cmm (157-399); Red Blood Count 3.58 10^6/uL (3.85-5.65); Red Cell Distribution Width 18.9 % (12.1-15.1); White Blood Count 10.84 10^3/uL (3.29-11.43)
[2024-07-11 03:44] LABS: Alanine Aminotransferase 20 U/L (0-41); Albumin Level 3.9 g/dL (3.5-5.2); Alkaline Phosphatase 173 U/L (40-130); Anion Gap 17.5 (5-19); Aspartate Amino Transferase 16 U/L (0-40); Blood Urea Nitrogen 49 mg/dL (8-23); Calcium 9.1 mg/dL (8.5-10.5); Carbon Dioxide 25 mmol/L (22-29); Chloride 107 mmol/L (98-107); Creatinine Clr Calc Pharmacy 36.5187; Globulin 2.5 g/dL (1.3-4.6); Glomerular Filtration Rate 26.2 mL/min (90-130); Glucose 75 mg/dL (65-115); Magnesium 2.4 mg/dL (1.7-2.3); Osmolality Calculated 314 mOsm/kg (285-295); Potassium 3.5 mmol/L (3.5-5.1); Sodium 146 mmol/L (136-145); Total Bilirubin 1.6 mg/dL (0.15-1.2); Total Protein 6.4 g/dL (6.6-8.7)
[2024-07-11 03:48] LABS: NT Pro B Type Natriuretic Pept 28998 pg/mL (0-125)
[2024-07-11] MEDS: piperacillin-tazobactam 3.375 GM in sodium chloride 0.9% (plus) 50 ML IV ×2 (04:16→12:18)
[2024-07-11 06:25] LABS: Glucose Point of Care 83 mg/dL (70-110)
[2024-07-11] MEDS: perflutren protein-a microsphr 0.22 mg/mL SDV 3 mL IV (08:38)
[2024-07-11] MEDS: aspirin 81 mg EC Tablet PO (08:53)
[2024-07-11] MEDS: hyDRALAzine 25 mg Tablet PO (08:53)
[2024-07-11] MEDS: metoprolol tartrate 25 mg Tablet PO (08:53)
[2024-07-11] MEDS: clopidogrel 75 mg Tablet PO (08:53)
[2024-07-11] MEDS: isosorbide mononitrate ER 30 mg Tablet PO (08:53)
[2024-07-11] MEDS: citalopram 20 mg Tablet PO (08:54)
[2024-07-11] MEDS: heparin 5,000 unit/mL INJ 1 mL 5000 UNIT SUBCUT ×2 (08:54→20:59)
[2024-07-11] MEDS: FUROsemide 10 mg/mL SDV 4mL 40 MG IVP ×2 (08:54→19:03)
--- NOTE | 2024-07-11 10:51 | PC.CHAP ---
Pastoral Care Encounter/Spiritual Assessment Type of Contact [] Declined archeologist visit [] Patient/Family/Request visit [] Outpatient visit [] Follow-up visit [] Physician referral [] Code/Alert [x] Routine visit [] Staff referral [] Actively dying [] Patient sleeping [] Family support [] [] Out of room [] Palliative care [] [x] Receiving care in room [] Pre-surgical visit [] Trauma [] Long length of stay [] ICU visit [] Other: Relational/Emotional Strength [] Patient feels connected with others/family/visitors/staff [] Distress [] Loneliness/isolation [] Abandonment Spirituality of Patient [] Person of Sailaja [] Attends Denominational of their Sailaja [] Believes in Prayer [] Reads Bible or Scientologist materials [] There are Spiritual issues to 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 [x] Prayer [] Active listening [] Non-anxious presence [] Spiritual/emotional support [] Crisis/trauma care [] Spiritual counseling [] Bereavement support [] Provided bereavement packet [] Provided Bible/devotional materials [] Provided toy/stuffed animal, coloring book to patient or family member [] Provided Communion [] Anointing/[place] [] Salvation [] Completed spiritual assessment [] Other: Impact on Illness or Injury [] Angry [] Fearful [] Anxious [] Often cries [] Exhaustion [] Unable to work [] Unable to attend mormonism [] Unable to walk/stand [] Unable to read [] Unable to drive [] Unable to eat/drink [] Unable to sleep [] Unable to be with family [] Patient intubated [] Other: Summary Time spent with patient
[2024-07-11 11:55] LABS: Glucose Point of Care 269 mg/dL (70-110)
--- NOTE | 2024-07-11 11:55 | P.PN_ITS ---
Subjective 2 Subjective: Negative HIDA No right upper quadrant pain Vitals/I&O/Wt Last Vital Signs Temp 97.4 F L 07/11/24 08:00 Pulse 61 07/11/24 08:00 Resp 20 H 07/11/24 08:00 BP 125/67 07/11/24 08:00 Pulse Ox 98 07/11/24 08:00 O2 Del Method Nasal Cannula 07/11/24 08:00 O2 Flow Rate 2 07/11/24 08:00 07/10/24 07/11/24 07/11/24 22:59 06:59 14:59 Intake Total 50 / 50 50 / 50 Output Total 1550 / 1550 Balance -1500 / -1500 50 / 50 Weight last 48 hrs Weight 219 lb 9.6 oz Weight 221 lb 8 oz Weight 217 lb Physical Exam 2 Narrative: Chest: Unlabored breathing room air. No lymphadenopathy. Heart: Regular rate and rhythm. Abdomen: Soft, nontender, nondistended. No masses or lymphadenopathy. Data 07/11/24 02:43 07/11/24 02:43 A&P Assessment and plan (1) Biliary colic: Plan 63-year-old male with heart failure whom surgery was consulted to rule out cholecystitis. Negative HIDA. Clinical picture is also not consistent with cholecystitis. Consider treating for peptic ulcer disease by switching to Protonix 40 mix twice daily. Can consider outpatient EGD. PDMP PDMP Reviewed: Not Reviewed Attestations 2 Medical Necessity Statement*: N/A Coding Level of Care Code 75818 Diagnoses Biliary colic K80.50
[2024-07-11] MEDS: insulin lispro 100 unit/1 mL SUBCUT ×2 (12:18→21:00)
[2024-07-11] MEDS: pantoprazole DR 40 mg Tablet PO (17:24)
[2024-07-11 17:55] LABS: Glucose Point of Care 73 mg/dL (70-110)
--- NOTE | 2024-07-11 18:13 | USCV_ITS ---
Fuad Priest Age: 63 Gender: M : 1960 Exam Date: 07/11/2024 09:08 Ordering Phys: Marlen Fernando MD Technologist: Exam Location: [facility] [place] Indication: sob cp BP: 125 / 67 HR: 60 Rhythm: Sinus Technical Quality: Adequate MEASUREMENTS (Male / Female) Normal Values 2D ECHO LV Diastolic Diameter PLAX 5.6 cm 4.2 - 5.9 / 3.9 - 5.3 cm IVS Diastolic Thickness 1.1 cm 0.6 - 1.0 / 0.6 - 0.9 cm IVS Systolic Thickness 2.2 cm LVPW Diastolic Thickness 1.6 cm 0.6 - 1.0 / 0.6 - 0.9 cm LVPW Systolic Thickness 1.5 cm LVOT Diameter 2.1 cm LV Ejection Fraction 2D Teich 36.9 % LV Ejection Fraction MOD 4C 34.6 % LV Ejection Fraction MOD 2C 28.9 % LV Ejection Fraction 2C AL 30.7 % LA Diameter 4.3 cm RA Systolic Volume 4C AL 92.2 ml RA Systolic Volume 4C MOD 89.8 ml Aorta at Sinotubular Diameter 3.2 cm IVC Diameter 2.8 cm M-MODE LA Ao Ratio MM 1.8 AV Cusp Separation MM 2.8 cm DOPPLER AV Peak Velocity 164.0 cm/s LVOT Peak Velocity 116.0 cm/s AV Area Cont Eq vti 2.5 cm squared AV Area Cont Eq pk 2.4 cm squared MV Peak Velocity 122.0 cm/s MV Area PHT 3.4 cm squared Mitral E to A Ratio 1.3 TV Peak Velocity 214.5 cm/s TR Peak Velocity 250.0 cm/s TR Peak Gradient 25.0 mmHg TV Peak E Velocity 116.0 cm/s PV Peak Velocity 91.0 cm/s FINDINGS Left Ventricle Moderately increased left ventricular cavity size. Severely decreased left ventricular systolic function. Left ventricular ejection fraction is estimated at 34 %. Global left ventricular hypokinesis with regional wall motion abnormality there appeared to be mid to distal anterior and apical akinesis consistent with ischemic cardiomyopathy. Grade II/IV diastolic dysfunction, moderately elevated filling pressures. Right Ventricle Normal right ventricular size. Catheter/pacemaker wire visualized in the right ventricle. Right Atrium The right atrium is normal in size. Left Atrium The left atrium is normal in size. Mitral Valve Mildly thickened mitral valve. No mitral valve stenosis. Mild mitral valve regurgitation. Aortic Valve Moderate aortic valve calcification. No aortic valve stenosis. Trace aortic valve regurgitation. Tricuspid Valve Mild tricuspid valve regurgitation. Pulmonic Valve Structurally normal pulmonic valve without significant stenosis. There is no pulmonic regurgitation. Pericardium Normal pericardium without effusion. Aorta Normal ascending aorta dimension. IVC Inferior vena cava not visualized. CONCLUSIONS Moderately increased left ventricular cavity size. Severely decreased left ventricular systolic function. Left ventricular ejection fraction is estimated at 34 %. Global left ventricular hypokinesis with regional wall motion abnormality there appeared to be mid to distal anterior and apical akinesis consistent with ischemic cardiomyopathy. Grade II/IV diastolic dysfunction, moderately elevated filling pressures. Mildly thickened mitral valve. No mitral valve stenosis. Mild mitral valve regurgitation. There is no pericardial effusion. Shi Carlson MD (Electronically Signed) Final Date: 11 July 2024 10:41 S
--- NOTE | 2024-07-11 18:21 | PM.PN ---
Subjective Subjective: Underwent HIDA scan this morning which was reportedly normal. He would like to advance his diet. Medications: Reviewed: Yes Vitals/I&O/Wt Last Vital Signs Temp 97.5 F L 07/11/24 15:58 Pulse 52 L 07/11/24 15:58 Resp 20 H 07/11/24 15:58 BP 125/69 07/11/24 15:58 Pulse Ox 98 07/11/24 15:58 O2 Del Method Nasal Cannula 07/11/24 15:58 O2 Flow Rate 2 07/11/24 15:58 07/11/24 07/11/24 07/11/24 06:59 14:59 22:59 Intake Total 50 / 50 1010 / 1010 50 / 1060 Output Total 1550 / 1550 200 / 200 Balance -1500 / -1500 810 / 810 50 / 860 Weight last 48 hrs Weight 99.609 kg Weight 100.471 kg Weight 98.43 kg Physical Exam Narrative: General: No acute distress, AO x3 HEENT: PERRLA, pupils bilaterally equal and reactive, pallors not present Chest: Normal vesicular breath sounds, no added sounds, equal good air entry bilaterally CVS: S1-S2 regular, no murmurs, no tachycardia, no gallops, no rubs Abdomen: Soft, nontender, no organomegaly, bowel sounds present Neuro: No focal deficits, no facial deformity, AO x3, power 5/5 in all limbs Extremities: Improving bilateral lower extremity edema. Noted to have shallow ulcerations involving bilateral mid shins and the left heel posteriorly. 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 Diabetes mellitus complication status: with circulatory complication Diabetes mellitus complication detail: with other circulatory complications Qualified Code(s): E11.59 - Type 2 diabetes mellitus with other circulatory complications; 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 tach status post AICD placement, history of cardiac arrest #CKD, creatinine at baseline today #CAD/ischemic cardiomyopathy history of cardiac arrest. #Recurrent admission for anasarca #Diabetes mellitus, insulin-dependent ? Patient received Lasix 40 IV x 1 in the ER and has had 1 L of urine output so far. ? Placed on Lasix 40 IV twice daily ? Strict I's and O's ? Hold home Lantus at this time. Placed on monitors and 27 scale insulin. ? Discussed with general surgery. Will check HIDA scan in AM. Questionable cholecystitis?. ? Patient's right upper quadrant pain can be secondary to right pleural effusion and congestive hepatopathy explaining elevated bilirubin. Common bile duct appears to be normal. Biliary colic not ruled out. Consult general surgery. ? BNP 28,000 today. Patient does have anasarca. ? Continue to diurese at this time. ? Will monitor on telemetry on cardiac stepdown unit. ? Continue aspirin Plavix atorvastatin, Imdur, metoprolol tartrate ? Continue Protonix 40 IV daily ? N.p.o. at midnight for HIDA scan in a.m. ? Thoracentesis ordered for therapeutic and diagnostic purposes. Pleural effusion most likely secondary to heart failure. Patient does have mild to moderate ascites most likely secondary to heart failure as well. ? Check echo to assess for worsening cardiac function. Echo from May 2024 shows reduced LV systolic functions LVEF 30%, right systolic function mildly reduced. Mild to moderate mitral regurgitation. ? Consult cardiology Full code DVT prophylaxis: Heparin SQ twice daily July 11, 2024 Patient is a 63-year-old male with a past medical history of coronary artery disease, CKD, ICD in place, hypertension, GERD, ischemic cardiomyopathy with last known ejection fraction of 30% from May 2024. Severe hypokinesis of the anterolateral and apical wall segments. Elevated RV pulmonary pressures of 49 mmHg. He has a history of systolic heart failure exacerbation in May 2024 at which point he was admitted for IV diuresis. He has remained on oral Bumex. He presented to the hospital yesterday on July 10, 2024 with increasing shortness of breath over the past 1 week. Additionally he noted swelling over the lower extremities and weight gain. His last stent placement per review of chart was in 2021. Currently clinical impression is that of acute on chronic systolic heart failure exacerbation. Cardiology service was consulted and patient was initiated on IV diuresis with Lasix which she is undergoing at this time. There was additionally noted to be a large pleural effusion which may be related to heart failure however diagnostic thoracentesis was ordered for today. Unfortunately patient is unable to undergo the thoracentesis today as he has been on aspirin and Plavix. Will discuss with cardiology if discontinuation of these medications may be considered to safely undergo the procedure as recommended by radiology. No arrhythmias noted. Upon admission there was additionally a concern for acute cholecystitis given her moderate edema of the gallbladder. He underwent a HIDA scan this morning which noted a normal gallbladder. Patient would like to his advance his diet and has been changed to a GI soft diet. He does report some epigastric discomfort which may be related to a history of GERD versus gastritis. Will optimize Protonix to 40 mg p.o. twice daily. Hemoglobin is currently at 9.7 which is close to his baseline since December 2023. His creatinine today is noted to be at 2.5, which again is his baseline. Continue iv diuresis with lasix 40mg iv every 12 hrs. Monitor urine output and creat. Patient reports edema is improving. D/c Zosyn as cholecystitis ruled out. avoid nephrotoxic medications. Hold insulin as blood sugar this afternoon at 73. Sinus bradycardia with HR 50s, asymptomatic, continue current dose metoprolol at 25 BID. Cotninue amiodarone 200mg po daily. 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
--- NOTE | 2024-07-11 19:38 | NM_ITS ---
WS: [id number] NUCLEAR MEDICINE HIDA SCAN WITH GALLBLADDER EJECTION FRACTION HISTORY: Rule out cholecystitis COMPARISON: Gallbladder ultrasound 07/10/2024, CT 07/10/2024 TECHNIQUE: The patient was intravenously injected with 8.5 mCi of TC99m Mebrofenin. Immediate imaging over the right upper quadrant was followed by 5 minute image and additional images for a total of 60 minutes. Normal uptake of radiotracer throughout the liver. Activity identified in the gallbladder at 10 minutes and well distended by 60 minutes. Activity in the proximal small bowel was seen by 15 minutes. Good washout of the radiotracer from the liver by 60 minutes. The patient then drank 8 ounces of Ensure Plus. Ejection fraction at 60 minutes was 92%. Normal GB ejection fraction is 35-75%. Post fatty meal symptoms: None. NM/NM hepatobiliary w phar* [id number] IMPRESSION: 1. Normal HIDA scan. 2. Normal gallbladder ejection fraction.
[2024-07-11 20:25] LABS: Glucose Point of Care 299 mg/dL (70-110)
[2024-07-11] MEDS: atorvastatin 40 mg Tablet 80 MG PO (21:00)
--- NOTE | 2024-07-11 21:04 | P.PN_ITS ---
Subjective 2 Subjective: Patient stated he is feeling better Vitals/I&O/Wt Last Vital Signs Temp 97.7 F 07/11/24 19:08 Pulse 60 07/11/24 19:08 Resp 22 H 07/11/24 19:08 BP 117/64 07/11/24 19:08 Pulse Ox 98 07/11/24 19:08 O2 Del Method Nasal Cannula 07/11/24 19:08 O2 Flow Rate 2 07/11/24 15:58 07/11/24 07/11/24 07/11/24 06:59 14:59 22:59 Intake Total 50 / 50 1010 / 1010 170 / 1180 Output Total 1550 / 1550 200 / 200 Balance -1500 / -1500 810 / 810 170 / 980 Weight last 48 hrs Weight 219 lb 9.6 oz Weight 221 lb 8 oz Weight 217 lb Physical Exam 2 Const: OTHER: GENERAL: Patient is alert, awake and oriented x3. HEART: Regular S1 and S2. No murmur, rub or gallop. LUNGS: Decreased breath sounds bilaterally. CENTRAL NERVOUS SYSTEM: Grossly nonfocal. EXTREMITIES: Lower extremities with out edema bilaterally. Data 07/11/24 02:43 07/11/24 02:43 A&P Assessment and plan (1) Acute exacerbation of congestive heart failure: (2) Pleural effusion: (3) Essential hypertension: (4) AICD (automatic cardioverter/defibrillator) present: (5) Coronary artery disease due to type 2 diabetes mellitus: (6) Cardiomyopathy: (7) CKD (chronic kidney disease) stage 4, GFR 15-29 ml/min: Plan Continue diuretic Can hold dual antiplatelet therapy for thoracocentesis for pleural effusion Once euvolemic we will ask for stress test to assess ischemia burden triggering recurrence of heart failure Continue to monitor renal function PDMP PDMP Reviewed: Not Reviewed Attestations 2 Medical Necessity Statement*: Patient require continuation hospitalization for above defined care Coding Level of Care Code Acute Code for [facility] Fwd Diagnoses Acute exacerbation of congestive heart failure I50.9 Pleural effusion J90 Essential hypertension I10 AICD (automatic cardioverter/defibrillator) present Z95.810 Coronary artery disease due to type 2 diabetes mellitus E11.59; I25.10 Cardiomyopathy I42.9 CKD (chronic kidney disease) stage 4, GFR 15-29 ml/min N18.4
[2024-07-11 22:45] LABS: Glucose Point of Care 229 mg/dL (70-110)
[2024-07-12] VITALS (7 sets, daily range): BP systolic 120–144; BP diastolic 58–79; PULSE 56–64; RESP 15–28; TEMP 36.6–37.2; O2SAT 93–98
[2024-07-12 04:47] LABS: Basophils # 0.1 10^3/uL (0.0-0.1); Basophils % 0.6 %; Eosinophils # 0.3 10^3/uL (0.0-0.8); Eosinophils % 2.7 %; Hematocrit 32.1 % (37-53); Lymphocytes # 1.3 10^3/uL (0.8-4.8); Lymphocytes % 13.2 %; Mean Corpuscular HGB Conc 30.5 g/dL (30-55); Mean Corpuscular Hemoglobin 26.5 pg (27-33); Mean Corpuscular Volume 86.8 fl (82-101); Mean Platelet Volume 10.4 fL (7.4-10.4); Monocytes # 1.2 10^3/uL (0.2-0.9); Monocytes % 12.5 %; Neutrophils # 7.04 10^3/uL (1.8-7.7); Neutrophils % 70.7 %; Nucleated Red Blood Cells % 0 %; Platelet Count 224 10^3/cmm (157-399); Red Cell Distribution Width 19.1 % (12.1-15.1); White Blood Count 9.95 10^3/uL (3.29-11.43)
[2024-07-12 05:03] LABS: Alanine Aminotransferase 19 U/L (0-41); Albumin Level 3.8 g/dL (3.5-5.2); Alkaline Phosphatase 167 U/L (40-130); Anion Gap 16.6 (5-19); Aspartate Amino Transferase 15 U/L (0-40); Blood Urea Nitrogen 43 mg/dL (8-23); Calcium 9.2 mg/dL (8.5-10.5); Carbon Dioxide 27 mmol/L (22-29); Chloride 105 mmol/L (98-107); Creatinine Clr Calc Pharmacy 36.3324; Globulin 2.9 g/dL (1.3-4.6); Glomerular Filtration Rate 26.2 mL/min (90-130); Glucose 73 mg/dL (65-115); Lactate Dehydrogenase 159 U/L (135-225); Osmolality Calculated 309 mOsm/kg (285-295); Potassium 3.6 mmol/L (3.5-5.1); Sodium 145 mmol/L (136-145); Total Bilirubin 1.3 mg/dL (0.15-1.2); Total Protein 6.7 g/dL (6.6-8.7)
[2024-07-12 05:26] LABS: Glucose Point of Care 89 mg/dL (70-110)
[2024-07-12] MEDS: citalopram 20 mg Tablet PO (06:21)
[2024-07-12] MEDS: FUROsemide 10 mg/mL SDV 4mL 40 MG IVP ×2 (06:21→17:06)
[2024-07-12] MEDS: isosorbide mononitrate ER 30 mg Tablet PO (08:15)
[2024-07-12] MEDS: hyDRALAzine 25 mg Tablet PO ×3 (08:15→20:57)
[2024-07-12] MEDS: metoprolol tartrate 25 mg Tablet PO ×2 (08:15→17:06)
[2024-07-12] MEDS: pantoprazole DR 40 mg Tablet PO ×2 (08:15→17:06)
[2024-07-12] MEDS: heparin 5,000 unit/mL INJ 1 mL 5000 UNIT SUBCUT ×2 (08:15→20:57)
--- NOTE | 2024-07-12 08:37 | PC.CHAP ---
Pastoral Care Encounter/Spiritual Assessment Type of Contact [] Declined product safety consultant visit [] Patient/Family/Request visit [] Outpatient visit [] Follow-up visit [] Physician referral [] Code/Alert [x] Routine visit [] Staff referral [] Actively dying [] Patient sleeping [] Family support [] [] Out of room [] Palliative care [] [] Receiving care in room [] Pre-surgical visit [] Trauma [] Long length of stay [] ICU visit [] Other: Relational/Emotional Strength [x] Patient feels connected with others/family/visitors/staff [] Distress [] Loneliness/isolation [] Abandonment Spirituality of Patient [x] Person of Sailaja [] Attends Yazidism of their Sailaja [x] Believes in Prayer [] Reads Bible or Holiness materials [] There are Spiritual issues to be addressed 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 Interventions [x] Prayer [x] Active listening [] Non-anxious presence [x] Spiritual/emotional support [] Crisis/trauma care [] Spiritual counseling [] Bereavement support [] Provided bereavement packet [] Provided Bible/devotional materials [] Provided toy/stuffed animal, coloring book to patient or family member [] Provided Communion [] Anointing/[place] [] Salvation [x] Completed spiritual assessment [] Other: Impact on Illness or Injury [] Angry [] Fearful [] Anxious [] Often cries [] Exhaustion [] Unable to work [] Unable to attend christianity [] Unable to walk/stand [] Unable to read [] Unable to drive [] Unable to eat/drink [] Unable to sleep [] Unable to be with family [] Patient intubated [] Other: Summary Time spent with patient 5 min
--- NOTE | 2024-07-12 10:37 | P.PN_ITS ---
Subjective 2 Subjective: Epigastric pain persistent No right upper quadrant pain Vitals/I&O/Wt Last Vital Signs Temp 97.8 F 07/12/24 07:32 Pulse 64 07/12/24 09:21 Resp 17 07/12/24 09:21 BP 144/79 07/12/24 07:32 Pulse Ox 97 07/12/24 09:21 O2 Del Method Nasal Cannula 07/12/24 09:21 O2 Flow Rate 2.5 07/12/24 09:21 07/11/24 07/12/24 07/12/24 22:59 06:59 14:59 Intake Total 270 / 1280 300 / 1580 480 / 480 Output Total 200 / 400 900 / 1300 450 / 450 Balance 70 / 880 -600 / 280 30 / 30 Weight last 48 hrs Weight 219 lb 1.6 oz Weight 219 lb 9.6 oz Weight 221 lb 8 oz Weight 217 lb Physical Exam 2 Narrative: Chest: Unlabored breathing room air. No lymphadenopathy. Heart: Regular rate and rhythm. Abdomen: Soft, nontender, nondistended. No masses or lymphadenopathy. Data 07/14/24 04:45 07/14/24 04:45 A&P Assessment and plan (1) Peptic ulcer disease: Plan 63-year-old male who presented heart failure. Consulted to rule out cholecystitis. Cholecystitis ruled out. Pain is most consistent with peptic ulcer disease. Continue PPI. PDMP PDMP Reviewed: Not Reviewed Attestations 2 Medical Necessity Statement*: Today Coding Level of Care Code 38448 Diagnoses Peptic ulcer disease K27.9
--- NOTE | 2024-07-12 10:47 | P.PN_ITS ---
<Statement entered by Shi Carlson MD - 07/21/24 20:20> Patient was evaluated and cared for in conjunction with an advanced practice practitioner. I personally examined the patient and reviewed the chart and all pertinent data including imaging, telemetry, and laboratory results. I discussed the patient in detail with the advanced practice practitioner. Please see their note for complete H&P testing result and agreed upon plan of care for the patient. Subjective 2 Subjective: Saw patient today. He is requiring oxygen but not severely short of breath. No lower extremity edema present. Right lower middle lung sounds diminished. Vitals/I&O/Wt Last Vital Signs Temp 97.8 F 07/12/24 07:32 Pulse 64 07/12/24 09:21 Resp 17 07/12/24 09:21 BP 144/79 07/12/24 07:32 Pulse Ox 97 07/12/24 09:21 O2 Del Method Nasal Cannula 07/12/24 09:21 O2 Flow Rate 2.5 07/12/24 09:21 07/11/24 07/12/24 07/12/24 22:59 06:59 14:59 Intake Total 270 / 1280 300 / 1580 480 / 480 Output Total 200 / 400 900 / 1300 450 / 450 Balance 70 / 880 -600 / 280 30 / 30 Weight last 48 hrs Weight 219 lb 1.6 oz Weight 219 lb 9.6 oz Weight 221 lb 8 oz Weight 217 lb Physical Exam 2 Narrative: General: No apparent distress, healthy appearing, well nourished Muskuloskeletal: Full ROM Lymphatic: no lymphedema noted Respiratory: Normal respiratory effort, clear on the left upper and lower anterior and posterior, right middle and lower posterior and anterior lung sounds diminished, no use of accessory muscles Cardio: No JVD, regular rate, regular rhythm, S1 S2 normal, no murmurs, peripheral pulses 2+ radial palpated bilaterally GI: Normal to inspection, nondistended Extremities: Full ROM, normal, normal capillary refill, no cyanosis or edema Neuro: Alert and oriented x4, no focal motor deficits Psych: Affect normal, mental status grossly normal Skin: No rashes or lesions noted, no wounds Data 07/12/24 03:55 07/12/24 03:55 A&P Assessment and plan (1) Acute exacerbation of congestive heart failure: (2) Pleural effusion: (3) Essential hypertension: (4) AICD (automatic cardioverter/defibrillator) present: (5) Coronary artery disease due to type 2 diabetes mellitus: (6) Cardiomyopathy: (7) CKD (chronic kidney disease) stage 4, GFR 15-29 ml/min: Plan Continue diuretic therapy and closely monitor I & O and creatinine. Creat stable at 2.5. Can hold dual antiplatelet therapy for thoracocentesis for pleural effusion Once euvolemic we will ask for stress test to assess ischemia burden triggering recurrence of heart failure PDMP PDMP Reviewed: Not Reviewed Attestations 2 Medical Necessity Statement*: Patient require continuation hospitalization for above defined care Coding Level of Care Code Acute Code for [facility] Fwd Diagnoses Acute exacerbation of congestive heart failure I50.9 Pleural effusion J90 Essential hypertension I10 AICD (automatic cardioverter/defibrillator) present Z95.810 Coronary artery disease due to type 2 diabetes mellitus E11.59; I25.10 Cardiomyopathy I42.9 CKD (chronic kidney disease) stage 4, GFR 15-29 ml/min N18.4
[2024-07-12 11:33] LABS: Glucose Point of Care 179 mg/dL (70-110)
[2024-07-12] MEDS: insulin lispro 100 unit/1 mL SUBCUT ×3 (11:54→20:58)
--- NOTE | 2024-07-12 13:04 | PM.PN ---
Subjective Subjective: No new complaints today. Lower extremity is unchanged. Blood sugar 320 this morning Medications: Reviewed: Yes Vitals/I&O/Wt Last Vital Signs Temp 98.0 F 07/12/24 11:23 Pulse 59 L 07/12/24 11:23 Resp 15 07/12/24 11:23 BP 120/58 07/12/24 11:23 Pulse Ox 98 07/12/24 11:23 O2 Del Method Nasal Cannula 07/12/24 11:23 O2 Flow Rate 2.5 07/12/24 09:21 07/11/24 07/12/24 07/12/24 22:59 06:59 14:59 Intake Total 270 / 1280 300 / 1580 480 / 480 Output Total 200 / 400 900 / 1300 450 / 450 Balance 70 / 880 -600 / 280 30 / 30 Weight last 48 hrs Weight 99.382 kg Weight 99.609 kg Weight 100.471 kg Weight 98.43 kg Physical Exam Narrative: General: No acute distress, AO x3 HEENT: PERRLA, pupils bilaterally equal and reactive, pallors not present Chest: Normal vesicular breath sounds, no added sounds, equal good air entry bilaterally CVS: S1-S2 regular, no murmurs, no tachycardia, no gallops, no rubs Abdomen: Soft, nontender, no organomegaly, bowel sounds present Neuro: No focal deficits, no facial deformity, AO x3, power 5/5 in all limbs Extremities: Improving bilateral lower extremity edema. Noted to have shallow ulcerations involving bilateral mid shins and the left heel posteriorly. 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 Diabetes mellitus complication status: with circulatory complication Diabetes mellitus complication detail: with other circulatory complications Qualified Code(s): E11.59 - Type 2 diabetes mellitus with other circulatory complications; Z79.4 - residential (current) use of insulin (6) Hyperlipemia, mixed: (7) CKD stage 4 due to type 2 diabetes mellitus: (8) Pleural effusion: (9) Dyspnea: (10) History of ventricular tachycardia: (11) History of cardiac arrest: (12) Right upper quadrant pain: (13) Positive Beck Sign: Plan #Acute on chronic systolic congestive heart failure #Large right pleural effusion #Possible cholecystitis, right upper quadrant pain #History of V. tach status post AICD placement, history of cardiac arrest #CKD, creatinine at baseline today #CAD/ischemic cardiomyopathy history of cardiac arrest. #Recurrent admission for anasarca #Diabetes mellitus, insulin-dependent ? Patient received Lasix 40 IV x 1 in the ER and has had 1 L of urine output so far. ? Placed on Lasix 40 IV twice daily ? Strict I's and O's ? Hold home Lantus at this time. Placed on monitors and 27 scale insulin. ? Discussed with general surgery. Will check HIDA scan in AM. Questionable cholecystitis?. ? Patient's right upper quadrant pain can be secondary to right pleural effusion and congestive hepatopathy explaining elevated bilirubin. Common bile duct appears to be normal. Biliary colic not ruled out. Consult general surgery. ? BNP 28,000 today. Patient does have anasarca. ? Continue to diurese at this time. ? Will monitor on telemetry on cardiac stepdown unit. ? Continue aspirin Plavix atorvastatin, Imdur, metoprolol tartrate ? Continue Protonix 40 IV daily ? N.p.o. at midnight for HIDA scan in a.m. ? Thoracentesis ordered for therapeutic and diagnostic purposes. Pleural effusion most likely secondary to heart failure. Patient does have mild to moderate ascites most likely secondary to heart failure as well. ? Check echo to assess for worsening cardiac function. Echo from May 2024 shows reduced LV systolic functions LVEF 30%, right systolic function mildly reduced. Mild to moderate mitral regurgitation. ? Consult cardiology Full code DVT prophylaxis: Heparin SQ twice daily July 11, 2024 Patient is a 63-year-old male with a past medical history of coronary artery disease, CKD, ICD in place, hypertension, GERD, ischemic cardiomyopathy with last known ejection fraction of 30% from May 2024. Severe hypokinesis of the anterolateral and apical wall segments. Elevated RV pulmonary pressures of 49 mmHg. He has a history of systolic heart failure exacerbation in May 2024 at which point he was admitted for IV diuresis. He has remained on oral Bumex. He presented to the hospital yesterday on July 10, 2024 with increasing shortness of breath over the past 1 week. Additionally he noted swelling over the lower extremities and weight gain. His last stent placement per review of chart was in 2021. Currently clinical impression is that of acute on chronic systolic heart failure exacerbation. Cardiology service was consulted and patient was initiated on IV diuresis with Lasix which she is undergoing at this time. There was additionally noted to be a large pleural effusion which may be related to heart failure however diagnostic thoracentesis was ordered for today. Unfortunately patient is unable to undergo the thoracentesis today as he has been on aspirin and Plavix. Will discuss with cardiology if discontinuation of these medications may be considered to safely undergo the procedure as recommended by radiology. No arrhythmias noted. Upon admission there was additionally a concern for acute cholecystitis given her moderate edema of the gallbladder. He underwent a HIDA scan this morning which noted a normal gallbladder. Patient would like to his advance his diet and has been changed to a GI soft diet. He does report some epigastric discomfort which may be related to a history of GERD versus gastritis. Will optimize Protonix to 40 mg p.o. twice daily. Hemoglobin is currently at 9.7 which is close to his baseline since December 2023. His creatinine today is noted to be at 2.5, which again is his baseline. Continue iv diuresis with lasix 40mg iv every 12 hrs. Monitor urine output and creat. Patient reports edema is improving. D/c Zosyn as cholecystitis ruled out. avoid nephrotoxic medications. Hold insulin as blood sugar this afternoon at 73. Sinus bradycardia with HR 50s, asymptomatic, continue current dose metoprolol at 25 BID. Cotninue amiodarone 200mg po daily. July 12, 2024 Renal function stable today with creatinine at 2.5 on Lasix 40 mg IV every 12 hours. Total output 1500 cc last 24 hours. Net -1 L so far. Lower extremity edema is improving. Continues to be on supplemental O2. Echocardiogram showing reduced LVEF of 34%. Global left ventricular hypokinesia grade 2 diastolic dysfunction. Moderate right-sided pleural effusion awaiting thoracentesis. Aspirin and Plavix placed on hold for 48 hours per radiology recommendation. Last received on 4:14 AM. Anticipate thoracentesis on 07/14/2024. Blood sugar uncontrolled this morning. Changed to high-dose sliding scale. PDMP PDMP Reviewed: Not Reviewed Attestations Medical Necessity Statement*: Awaiting right-sided thoracentesis Coding Level of Care Code Acute Code for [facility] Fwd Diagnoses Ischemic cardiomyopathy I25.5 Acute exacerbation of congestive heart failure I50.9 Orthopnea R06.01 AICD (automatic cardioverter/defibrillator) present Z95.810 Type 2 diabetes mellitus with other circulatory complication, with long-term current use of insulin E11.59; Z79.4 Diabetes mellitus type: type 2 Diabetes mellitus group home insulin use: with terminal makeup operator 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
[2024-07-12 16:10] LABS: Glucose Point of Care 320 mg/dL (70-110)
[2024-07-12 20:27] LABS: Glucose Point of Care 143 mg/dL (70-110)
[2024-07-12] MEDS: atorvastatin 40 mg Tablet 80 MG PO (20:58)
--- NOTE | 2024-07-12 21:07 | PC.NURSE ---
Patient is currently on high dose sliding scale, he was on low dose last night with a blood sugar of 299 and was given 8 units of insulin, and was 89 this AM. Contacted physician due to concern that a dose of 6 units for a blood sugar of 143 would bottom him out. Doctor papito ordered to give 3 units of insulin and recheck bood glucoe in 1 hour.
[2024-07-12 22:21] LABS: Glucose Point of Care 104 mg/dL (70-110)
[2024-07-13] VITALS (9 sets, daily range): BP systolic 105–137; BP diastolic 48–71; PULSE 55–68; RESP 18–22; TEMP 36.6–36.9; O2SAT 93–99
[2024-07-13 05:57] LABS: Basophils # 0.1 10^3/uL (0.0-0.1); Basophils % 0.6 %; Eosinophils # 0.2 10^3/uL (0.0-0.8); Eosinophils % 1.6 %; Hematocrit 31.6 % (37-53); Lymphocytes # 1.1 10^3/uL (0.8-4.8); Lymphocytes % 11.5 %; Mean Corpuscular HGB Conc 30.4 g/dL (30-55); Mean Corpuscular Hemoglobin 26.4 pg (27-33); Mean Corpuscular Volume 87.1 fl (82-101); Mean Platelet Volume 10.7 fL (7.4-10.4); Monocytes # 1.1 10^3/uL (0.2-0.9); Neutrophils # 7.37 10^3/uL (1.8-7.7); Neutrophils % 74.9 %; Nucleated Red Blood Cells % 0 %; Platelet Count 221 10^3/cmm (157-399); Red Blood Count 3.63 10^6/uL (3.85-5.65); Red Cell Distribution Width 19.1 % (12.1-15.1); White Blood Count 9.84 10^3/uL (3.29-11.43)
[2024-07-13 06:06] LABS: Glucose Point of Care 192 mg/dL (70-110)
[2024-07-13 06:08] LABS: Alanine Aminotransferase 17 U/L (0-41); Albumin Level 3.7 g/dL (3.5-5.2); Alkaline Phosphatase 170 U/L (40-130); Anion Gap 17.9 (5-19); Aspartate Amino Transferase 15 U/L (0-40); Blood Urea Nitrogen 46 mg/dL (8-23); Calcium 8.9 mg/dL (8.5-10.5); Carbon Dioxide 25 mmol/L (22-29); Chloride 101 mmol/L (98-107); Creatinine Clr Calc Pharmacy 34.9499; Glomerular Filtration Rate 25.1 mL/min (90-130); Glucose 170 mg/dL (65-115); Osmolality Calculated 306 mOsm/kg (285-295); Potassium 3.9 mmol/L (3.5-5.1); Sodium 140 mmol/L (136-145); Total Bilirubin 1.1 mg/dL (0.15-1.2); Total Protein 6.7 g/dL (6.6-8.7)
[2024-07-13] MEDS: FUROsemide 10 mg/mL SDV 4mL 40 MG IVP (06:22)
[2024-07-13] MEDS: citalopram 20 mg Tablet PO (06:22)
[2024-07-13] MEDS: insulin lispro 100 unit/1 mL SUBCUT ×4 (08:02→20:52)
[2024-07-13] MEDS: hyDRALAzine 25 mg Tablet PO ×3 (08:02→20:52)
[2024-07-13] MEDS: isosorbide mononitrate ER 30 mg Tablet PO (08:03)
[2024-07-13] MEDS: pantoprazole DR 40 mg Tablet PO ×2 (08:03→17:38)
[2024-07-13] MEDS: metoprolol tartrate 25 mg Tablet PO ×2 (08:03→17:38)
--- NOTE | 2024-07-13 10:57 | P.PN_ITS ---
Subjective 2 Subjective: Intermittent epigastric pain Vitals/I&O/Wt Last Vital Signs Temp 97.9 F 07/13/24 07:13 Pulse 68 07/13/24 08:57 Resp 18 07/13/24 08:57 BP 135/71 07/13/24 07:13 Pulse Ox 98 07/13/24 08:57 O2 Del Method Nasal Cannula 07/13/24 08:57 O2 Flow Rate 1 07/13/24 08:57 07/12/24 07/13/24 07/13/24 22:59 06:59 14:59 Intake Total 540 / 1140 0 / 1140 240 / 240 Output Total 1175 / 1625 100 / 1725 430 / 430 Balance -635 / -485 -100 / -585 -190 / -190 Weight last 48 hrs Weight 219 lb 4.8 oz Weight 219 lb 1.6 oz Physical Exam 2 Narrative: Chest: Unlabored breathing room air. No lymphadenopathy. Heart: Regular rate and rhythm. Abdomen: Soft, nontender, nondistended. No masses or lymphadenopathy. Data 07/14/24 04:45 07/14/24 04:45 A&P Assessment and plan (1) Peptic ulcer disease: Plan 63-year-old male consulted to rule out cholecystitis. Epigastric pain most consistent with gastritis. Continue PPI. PDMP PDMP Reviewed: Not Reviewed Attestations 2 Medical Necessity Statement*: N/A Coding Level of Care Code 41845 Diagnoses Peptic ulcer disease K27.9
--- NOTE | 2024-07-13 11:29 | P.PN_ITS ---
<Statement entered by Tony Donnelly M.D - 07/13/24 22:45> Patient was cared for in conjunction with an advanced practice practitioner. I reviewed the chart and all pertinent data including imaging, telemetry, and laboratory results. I discussed the patient in detail with the advanced practice practitioner. Please see their note for complete progress note, results and agreed upon plan of care for the patient. Subjective 2 Subjective: Patient doing well this morning. Still requiring oxygen but overall stable. He is going to get a thoracentesis either today or tomorrow. He is -805 over 24 hours. He continues to be on Lasix 40 mg every 12. Creatinine is stable at 2.6. He has CKD at baseline. Vitals/I&O/Wt Last Vital Signs Temp 97.9 F 07/13/24 11:07 Pulse 55 L 07/13/24 11:07 Resp 18 07/13/24 11:07 BP 105/48 07/13/24 11:07 Pulse Ox 98 07/13/24 08:57 O2 Del Method Nasal Cannula 07/13/24 11:07 O2 Flow Rate 1 07/13/24 08:57 07/12/24 07/13/24 07/13/24 22:59 06:59 14:59 Intake Total 540 / 1140 0 / 1140 240 / 240 Output Total 1175 / 1625 100 / 1725 430 / 430 Balance -635 / -485 -100 / -585 -190 / -190 Weight last 48 hrs Weight 219 lb 4.8 oz Weight 219 lb 1.6 oz Physical Exam 2 Narrative: General: No apparent distress, healthy appearing, well nourished Muskuloskeletal: Full ROM Respiratory: Normal respiratory effort, clear on the left upper and lower anterior and posterior, right middle and lower posterior and anterior lung sounds diminished, no use of accessory muscles Cardio: No JVD, regular rate, regular rhythm, S1 S2 normal, no murmurs, peripheral pulses 2+ radial palpated bilaterally GI: Normal to inspection, nondistended Extremities: Full ROM, normal, normal capillary refill, no cyanosis or edema Neuro: Alert and oriented x4, no focal motor deficits Psych: Affect normal, mental status grossly normal Skin: Bilateral lower extremities with wounds that seem to be healing slight redness but no signs of cellulitis Data 07/13/24 04:40 07/13/24 04:40 A&P Assessment and plan (1) Acute exacerbation of congestive heart failure: (2) Pleural effusion: (3) Essential hypertension: (4) AICD (automatic cardioverter/defibrillator) present: (5) Coronary artery disease due to type 2 diabetes mellitus: (6) Cardiomyopathy: (7) CKD (chronic kidney disease) stage 4, GFR 15-29 ml/min: Plan Continue diuretic therapy and closely monitor I & O and creatinine. Creat stable at 2.6. Can hold dual antiplatelet therapy for thoracocentesis for pleural effusion. Restart as soon as possible. Once euvolemic we will ask for stress test to assess ischemia burden triggering recurrence of heart failure. Will plan on doing this Thursday. PDMP PDMP Reviewed: Not Reviewed Attestations 2 Medical Necessity Statement*: Patient stay expected to cross 2 midnights due to above defined care Coding Level of Care Code Acute Code for Chg Fwd Diagnoses Acute exacerbation of congestive heart failure I50.9 Pleural effusion J90 Essential hypertension I10 AICD (automatic cardioverter/defibrillator) present Z95.810 Coronary artery disease due to type 2 diabetes mellitus E11.59; I25.10 Cardiomyopathy I42.9 CKD (chronic kidney disease) stage 4, GFR 15-29 ml/min N18.4
[2024-07-13 11:39] LABS: Glucose Point of Care 196 mg/dL (70-110)
[2024-07-13 16:39] LABS: Glucose Point of Care 199 mg/dL (70-110)
--- NOTE | 2024-07-13 17:06 | P.PN_ITS ---
Subjective 2 Subjective: no acute interim events. Awaiting thoracentesis tomorrow. Plan for stress test tomorrow. Medications: Reviewed: Yes Vitals/I&O/Wt Last Vital Signs Temp 98.0 F 07/13/24 15:12 Pulse 60 07/13/24 15:12 Resp 18 07/13/24 15:12 BP 112/56 07/13/24 15:12 Pulse Ox 99 07/13/24 15:12 O2 Del Method Nasal Cannula 07/13/24 15:12 O2 Flow Rate 1 07/13/24 08:57 07/13/24 07/13/24 07/13/24 06:59 14:59 22:59 Intake Total 0 / 1140 720 / 720 Output Total 100 / 1725 430 / 430 150 / 580 Balance -100 / -585 290 / 290 -150 / 140 Weight last 48 hrs Weight 99.473 kg Weight 99.382 kg Physical Exam 2 Narrative: General: No acute distress, AO x3 HEENT: PERRLA, pupils bilaterally equal and reactive, pallors not present Chest: Normal vesicular breath sounds, no added sounds, equal good air entry bilaterally CVS: S1-S2 regular, no murmurs, no tachycardia, no gallops, no rubs Abdomen: Soft, nontender, no organomegaly, bowel sounds present Neuro: No focal deficits, no facial deformity, AO x3, power 5/5 in all limbs Extremities: shallow ulcerations involving bilateral mid shins and the left heel posteriorly unchanged over previous Data 07/13/24 04:40 07/13/24 04:40 A&P Assessment and plan (1) Ischemic cardiomyopathy: (2) Acute exacerbation of congestive heart failure: (3) Orthopnea: (4) AICD (automatic cardioverter/defibrillator) present: (5) Diabetes mellitus: Qualifiers: Diabetes mellitus type: type 2 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 Diabetes mellitus complication status: with circulatory complication Diabetes mellitus complication detail: with other circulatory complications Qualified Code(s): E11.59 - Type 2 diabetes mellitus with other circulatory complications; 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 tach status post AICD placement, history of cardiac arrest #CKD, creatinine at baseline today #CAD/ischemic cardiomyopathy history of cardiac arrest. #Recurrent admission for anasarca #Diabetes mellitus, insulin-dependent ? Patient received Lasix 40 IV x 1 in the ER and has had 1 L of urine output so far. ? Placed on Lasix 40 IV twice daily ? Strict I's and O's ? Hold home Lantus at this time. Placed on monitors and 27 scale insulin. ? Discussed with general surgery. Will check HIDA scan in AM. Questionable cholecystitis?. ? Patient's right upper quadrant pain can be secondary to right pleural effusion and congestive hepatopathy explaining elevated bilirubin. Common bile duct appears to be normal. Biliary colic not ruled out. Consult general surgery. ? BNP 28,000 today. Patient does have anasarca. ? Continue to diurese at this time. ? Will monitor on telemetry on cardiac stepdown unit. ? Continue aspirin Plavix atorvastatin, Imdur, metoprolol tartrate ? Continue Protonix 40 IV daily ? N.p.o. at midnight for HIDA scan in a.m. ? Thoracentesis ordered for therapeutic and diagnostic purposes. Pleural effusion most likely secondary to heart failure. Patient does have mild to moderate ascites most likely secondary to heart failure as well. ? Check echo to assess for worsening cardiac function. Echo from May 2024 shows reduced LV systolic functions LVEF 30%, right systolic function mildly reduced. Mild to moderate mitral regurgitation. ? Consult cardiology Full code DVT prophylaxis: Heparin SQ twice daily July 11, 2024 Patient is a 63-year-old male with a past medical history of coronary artery disease, CKD, ICD in place, hypertension, GERD, ischemic cardiomyopathy with last known ejection fraction of 30% from May 2024. Severe hypokinesis of the anterolateral and apical wall segments. Elevated RV pulmonary pressures of 49 mmHg. He has a history of systolic heart failure exacerbation in May 2024 at which point he was admitted for IV diuresis. He has remained on oral Bumex. He presented to the hospital yesterday on July 10, 2024 with increasing shortness of breath over the past 1 week. Additionally he noted swelling over the lower extremities and weight gain. His last stent placement per review of chart was in 2021. Currently clinical impression is that of acute on chronic systolic heart failure exacerbation. Cardiology service was consulted and patient was initiated on IV diuresis with Lasix which she is undergoing at this time. There was additionally noted to be a large pleural effusion which may be related to heart failure however diagnostic thoracentesis was ordered for today. Unfortunately patient is unable to undergo the thoracentesis today as he has been on aspirin and Plavix. Will discuss with cardiology if discontinuation of these medications may be considered to safely undergo the procedure as recommended by radiology. No arrhythmias noted. Upon admission there was additionally a concern for acute cholecystitis given her moderate edema of the gallbladder. He underwent a HIDA scan this morning which noted a normal gallbladder. Patient would like to his advance his diet and has been changed to a GI soft diet. He does report some epigastric discomfort which may be related to a history of GERD versus gastritis. Will optimize Protonix to 40 mg p.o. twice daily. Hemoglobin is currently at 9.7 which is close to his baseline since December 2023. His creatinine today is noted to be at 2.5, which again is his baseline. Continue iv diuresis with lasix 40mg iv every 12 hrs. Monitor urine output and creat. Patient reports edema is improving. D/c Zosyn as cholecystitis ruled out. avoid nephrotoxic medications. Hold insulin as blood sugar this afternoon at 73. Sinus bradycardia with HR 50s, asymptomatic, continue current dose metoprolol at 25 BID. Cotninue amiodarone 200mg po daily. July 12, 2024 Renal function stable today with creatinine at 2.5 on Lasix 40 mg IV every 12 hours. Total output 1500 cc last 24 hours. Net -1 L so far. Lower extremity edema is improving. Continues to be on supplemental O2. Echocardiogram showing reduced LVEF of 34%. Global left ventricular hypokinesia grade 2 diastolic dysfunction. Moderate right-sided pleural effusion awaiting thoracentesis. Aspirin and Plavix placed on hold for 48 hours per radiology recommendation. Last received on 4:14 AM. Anticipate thoracentesis on 07/14/2024. Blood sugar uncontrolled this morning. Changed to high-dose sliding scale. 07/13/2024 Renal function remaining stable at 2.6 today. Reduce Lasix to 40 mg IV daily. Aim to transition to p.o. for the next 24 to 48 hours. Plan thoracentesis tomorrow. Additionally plan for stress test per cardiology tomorrow morning. Fingersticks are better controlled after transitioning to high-dose insulin sliding scale. PDMP PDMP Reviewed: Not Reviewed Attestations 2 Medical Necessity Statement*: Awaiting thoracentesis and stress test Coding Level of Care Code Acute Code for Chg Fwd Diagnoses Ischemic cardiomyopathy I25.5 Acute exacerbation of congestive heart failure I50.9 Orthopnea R06.01 AICD (automatic cardioverter/defibrillator) present Z95.810 Type 2 diabetes mellitus with other circulatory complication, with long-term current use of insulin E11.59; Z79.4 Diabetes mellitus type: type 2 Diabetes mellitus long-term insulin use: with long-term 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
[2024-07-13] MEDS: atorvastatin 40 mg Tablet 80 MG PO (20:52)
[2024-07-14] VITALS (11 sets, daily range): BP systolic 116–137; BP diastolic 64–83; PULSE 56–70; RESP 16–20; TEMP 36.4–37; O2SAT 92–100
[2024-07-14 05:55] LABS: Basophils % 0.4 %; Eosinophils # 0.3 10^3/uL (0.0-0.8); Eosinophils % 2.9 %; Hematocrit 31.6 % (37-53); Lymphocytes # 1.4 10^3/uL (0.8-4.8); Lymphocytes % 14.9 %; Mean Corpuscular HGB Conc 30.7 g/dL (30-55); Mean Corpuscular Hemoglobin 26.9 pg (27-33); Mean Corpuscular Volume 87.5 fl (82-101); Mean Platelet Volume 10.6 fL (7.4-10.4); Monocytes % 11.3 %; Neutrophils # 6.37 10^3/uL (1.8-7.7); Neutrophils % 70.1 %; Nucleated Red Blood Cells % 0 %; Platelet Count 221 10^3/cmm (157-399); Red Blood Count 3.61 10^6/uL (3.85-5.65); Red Cell Distribution Width 19.3 % (12.1-15.1)
[2024-07-14] MEDS: citalopram 20 mg Tablet PO (06:00)
[2024-07-14 06:11] LABS: INR 1.13 (0.8-1.2)
[2024-07-14 06:13] LABS: Glucose Point of Care 126 mg/dL (70-110)
[2024-07-14 06:24] LABS: Alanine Aminotransferase 16 U/L (0-41); Albumin Level 3.8 g/dL (3.5-5.2); Alkaline Phosphatase 166 U/L (40-130); Anion Gap 18.2 (5-19); Aspartate Amino Transferase 18 U/L (0-40); Blood Urea Nitrogen 54 mg/dL (8-23); Calcium 9.2 mg/dL (8.5-10.5); Carbon Dioxide 25 mmol/L (22-29); Chloride 103 mmol/L (98-107); Creatinine Clr Calc Pharmacy 39.6437; Globulin 2.9 g/dL (1.3-4.6); Glomerular Filtration Rate 28.9 mL/min (90-130); Glucose 129 mg/dL (65-115); Osmolality Calculated 310 mOsm/kg (285-295); Potassium 4.2 mmol/L (3.5-5.1); Sodium 142 mmol/L (136-145); Total Bilirubin 0.9 mg/dL (0.15-1.2); Total Protein 6.7 g/dL (6.6-8.7)
[2024-07-14] MEDS: regadenoson 0.4 Mg/5 ml Syringe IVP (07:31)
--- NOTE | 2024-07-14 08:01 | NMCV_ITS ---
NM mireya perf SPECT r/s* [id number] Fuad Priest Age: 63 Gender: M : 1960 Exam Date: 07/14/2024 07:07 Ordering Phys: Silvia Moya NP Technologist: FUAD Miles Exam Location: [facility] Indications: cp STRESS TEST Please see separate stress test report in [facility] for full findings IMAGE PROTOCOL Rest/Stress 1 Lexiscan Day Radiopharmaceutical Dose (mCi) Administration Site Administered by Rest: Tc-99m 10.5 IV Delphine Duckworth, ANALYST SALES Sestamibi Stress:Tc-99m 33 IV Delphine Gucci, ANALYST SALES Sestamibi Rest: 14-Jul-2024 60 Discovery 630 Stress: 14-Jul-2024 30 Discovery 630 0.4mg Lexiscan. Supine position only as patient was unable to lay prone. SPECT RESULTS Technical Quality: Good Raw Data Analysis: Normal Image Corrections: No attenuation or motion correction applied Summed Stress Score: 25 Summed Rest Score: 22 Summed Difference Score: 3 PERFUSION FINDINGS There is large area of mostly fixed perfusion defect seen in apical, apical inferior, inferior and septal browne. This is consistent with large areas of prior infarcts with some reversibility in all three coronary artery territories. FUNCTIONAL RESULTS (calculated via Gated SPECT) Stress Image LV EF (%): 22 Stress EDV (mL):349 TID: 0.98 Stress ESV (mL):271 FUNCTIONAL FINDINGS: LV systolic function is severely reduced with EF of 22% IMPRESSIONS 1. Abnormal Myocardial perfusion imaging with large areas of prior infarct with the some scot-infarct ischemia seen in all 3 coronary artery territories. 2. LV systolic function is severely reduced with EF of 22% Tony Donnelly MD (Electronically Signed) Final Date: 14 July 2024 09:48 S
--- NOTE | 2024-07-14 08:01 | ECG_ITS ---
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
--- NOTE | 2024-07-14 11:09 | P.PN_ITS ---
<Statement entered by Tony Donnelly M.D - 07/16/24 19:07> Patient was evaluated and cared for in conjunction with an advanced practice practitioner. I personally examined the patient and reviewed the chart and all pertinent data including imaging, telemetry, and laboratory results. I discussed the patient in detail with the advanced practice practitioner. Please see their note for complete progress note, results and agreed upon plan of care for the patient. Patient feeling better after thoracentesis. Stress test shows mostly prior scarring. Given no chest pain and renal function and no large area of ischemia, medical management will be appropriate at this time. GENERAL: Patient is alert and oriented HEART: Regular S1 and S2 LUNGS: Diminished air entry EXTREMITIES: Lower extremities with 1+ edema Subjective 2 Subjective: Patient doing well this morning no complaints. He is not short of breath. He is saturating 100% on room air not requiring any oxygen at this time. Blood pressure and heart rate controlled. No edema bilaterally. He did have a stress test this morning that was reviewed with Dr. Donnelly. Vitals/I&O/Wt Last Vital Signs Temp 97.5 F L 07/14/24 08:32 Pulse 69 07/14/24 08:32 Resp 18 07/14/24 08:32 BP 137/83 07/14/24 08:32 Pulse Ox 100 07/14/24 08:32 O2 Del Method Room Air 07/14/24 08:32 O2 Flow Rate 1 07/13/24 08:57 07/13/24 07/14/24 07/14/24 22:59 06:59 14:59 Intake Total 460 / 1180 0 / 1180 236 / 236 Output Total 375 / 805 150 / 955 Balance 85 / 375 -150 / 225 236 / 236 Weight last 48 hrs Weight 220 lb 14.4 oz Weight 219 lb 4.8 oz Physical Exam 2 Narrative: General: No apparent distress, healthy appearing, well nourished Muskuloskeletal: Full ROM Respiratory: Normal respiratory effort, clear on the left upper and lower anterior and posterior, right middle and lower posterior and anterior lung sounds diminished, no use of accessory muscles Cardio: No JVD, regular rate, regular rhythm, S1 S2 normal, no murmurs, peripheral pulses 2+ radial palpated bilaterally GI: Normal to inspection, nondistended Extremities: Full ROM, normal, normal capillary refill, no cyanosis or edema Neuro: Alert and oriented x4, no focal motor deficits Psych: Affect normal, mental status grossly normal Skin: Bilateral lower extremities with wounds that seem to be healing slight redness but no signs of cellulitis Data 07/14/24 04:45 07/14/24 04:45 A&P Assessment and plan (1) Acute exacerbation of congestive heart failure: (2) Pleural effusion: (3) Essential hypertension: (4) AICD (automatic cardioverter/defibrillator) present: (5) Coronary artery disease due to type 2 diabetes mellitus: (6) Cardiomyopathy: (7) CKD (chronic kidney disease) stage 4, GFR 15-29 ml/min: Plan Continue diuretic therapy and closely monitor I & O and creatinine. Creat stable at 2.3. Can hold dual antiplatelet therapy for thoracocentesis for pleural effusion. Restart as soon as possible. Patient has had stress test this morning that was reviewed with Dr. Donnelly. This showed abnormal myocardial perfusion imaging with large areas of prior infarct with some scot-infarct ischemia seen in all 3 coronary arteries. At this time, patient is asymptomatic w/o chest pain. Will continue GDMP for this. Most of patient's symptoms are most likely related to pleural effusion. Possibly go home tomorrow. PDMP PDMP Reviewed: Not Reviewed Attestations 2 Medical Necessity Statement*: Deferred to primary. Coding Level of Care Code Acute Code for Chg Fwd Diagnoses Acute exacerbation of congestive heart failure I50.9 Pleural effusion J90 Essential hypertension I10 AICD (automatic cardioverter/defibrillator) present Z95.810 Coronary artery disease due to type 2 diabetes mellitus E11.59; I25.10 Cardiomyopathy I42.9 CKD (chronic kidney disease) stage 4, GFR 15-29 ml/min N18.4
[2024-07-14 11:40] LABS: Glucose Point of Care 204 mg/dL (70-110)
--- NOTE | 2024-07-14 11:45 | PM.PN ---
Subjective Subjective: No new complaints today. Underwent cardiac stress test this morning. Which showed abnormal myocardial perfusion with large areas of prior infarct with some scot-infarct ischemia seen in all 3 coronary artery distribution. Currently patient is chest pain-free. Recommendation to continue medical therapy. Medications: Reviewed: Yes Vitals/I&O/Wt Last Vital Signs Temp 97.5 F L 07/14/24 08:32 Pulse 70 07/14/24 10:00 Resp 17 07/14/24 10:00 BP 137/83 07/14/24 08:32 Pulse Ox 98 07/14/24 10:00 O2 Del Method Nasal Cannula 07/14/24 10:00 O2 Flow Rate 2 07/14/24 10:00 07/13/24 07/14/24 07/14/24 22:59 06:59 14:59 Intake Total 460 / 1180 0 / 1180 236 / 236 Output Total 375 / 805 150 / 955 Balance 85 / 375 -150 / 225 236 / 236 Weight last 48 hrs Weight 100.199 kg Weight 99.473 kg Physical Exam Narrative: General: No acute distress, AO x3 HEENT: PERRLA, pupils bilaterally equal and reactive, pallors not present Chest: Normal vesicular breath sounds, no added sounds, equal good air entry bilaterally CVS: S1-S2 regular, no murmurs, no tachycardia, no gallops, no rubs Abdomen: Soft, nontender, no organomegaly, bowel sounds present Neuro: No focal deficits, no facial deformity, AO x3, power 5/5 in all limbs Extremities: shallow ulcerations involving bilateral mid shins and the left heel posteriorly unchanged over previous Data 07/14/24 04:45 07/14/24 04:45 A&P Assessment and plan (1) Ischemic cardiomyopathy: (2) Acute exacerbation of congestive heart failure: (3) Orthopnea: (4) AICD (automatic cardioverter/defibrillator) present: (5) Diabetes mellitus: Qualifiers: Diabetes mellitus type: type 2 Diabetes mellitus senior living insulin use: with intermediate school teacher use Diabetes mellitus complication status: with circulatory complication Diabetes mellitus complication detail: with other circulatory complications Qualified Code(s): E11.59 - Type 2 diabetes mellitus with other circulatory complications; 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 tach status post AICD placement, history of cardiac arrest #CKD, creatinine at baseline today #CAD/ischemic cardiomyopathy history of cardiac arrest. #Recurrent admission for anasarca #Diabetes mellitus, insulin-dependent ? Patient received Lasix 40 IV x 1 in the ER and has had 1 L of urine output so far. ? Placed on Lasix 40 IV twice daily ? Strict I's and O's ? Hold home Lantus at this time. Placed on monitors and 27 scale insulin. ? Discussed with general surgery. Will check HIDA scan in AM. Questionable cholecystitis?. ? Patient's right upper quadrant pain can be secondary to right pleural effusion and congestive hepatopathy explaining elevated bilirubin. Common bile duct appears to be normal. Biliary colic not ruled out. Consult general surgery. ? BNP 28,000 today. Patient does have anasarca. ? Continue to diurese at this time. ? Will monitor on telemetry on cardiac stepdown unit. ? Continue aspirin Plavix atorvastatin, Imdur, metoprolol tartrate ? Continue Protonix 40 IV daily ? N.p.o. at midnight for HIDA scan in a.m. ? Thoracentesis ordered for therapeutic and diagnostic purposes. Pleural effusion most likely secondary to heart failure. Patient does have mild to moderate ascites most likely secondary to heart failure as well. ? Check echo to assess for worsening cardiac function. Echo from May 2024 shows reduced LV systolic functions LVEF 30%, right systolic function mildly reduced. Mild to moderate mitral regurgitation. ? Consult cardiology Full code DVT prophylaxis: Heparin SQ twice daily July 11, 2024 Patient is a 63-year-old male with a past medical history of coronary artery disease, CKD, ICD in place, hypertension, GERD, ischemic cardiomyopathy with last known ejection fraction of 30% from May 2024. Severe hypokinesis of the anterolateral and apical wall segments. Elevated RV pulmonary pressures of 49 mmHg. He has a history of systolic heart failure exacerbation in May 2024 at which point he was admitted for IV diuresis. He has remained on oral Bumex. He presented to the hospital yesterday on July 10, 2024 with increasing shortness of breath over the past 1 week. Additionally he noted swelling over the lower extremities and weight gain. His last stent placement per review of chart was in 2021. Currently clinical impression is that of acute on chronic systolic heart failure exacerbation. Cardiology service was consulted and patient was initiated on IV diuresis with Lasix which she is undergoing at this time. There was additionally noted to be a large pleural effusion which may be related to heart failure however diagnostic thoracentesis was ordered for today. Unfortunately patient is unable to undergo the thoracentesis today as he has been on aspirin and Plavix. Will discuss with cardiology if discontinuation of these medications may be considered to safely undergo the procedure as recommended by radiology. No arrhythmias noted. Upon admission there was additionally a concern for acute cholecystitis given her moderate edema of the gallbladder. He underwent a HIDA scan this morning which noted a normal gallbladder. Patient would like to his advance his diet and has been changed to a GI soft diet. He does report some epigastric discomfort which may be related to a history of GERD versus gastritis. Will optimize Protonix to 40 mg p.o. twice daily. Hemoglobin is currently at 9.7 which is close to his baseline since December 2023. His creatinine today is noted to be at 2.5, which again is his baseline. Continue iv diuresis with lasix 40mg iv every 12 hrs. Monitor urine output and creat. Patient reports edema is improving. D/c Zosyn as cholecystitis ruled out. avoid nephrotoxic medications. Hold insulin as blood sugar this afternoon at 73. Sinus bradycardia with HR 50s, asymptomatic, continue current dose metoprolol at 25 BID. Cotninue amiodarone 200mg po daily. July 12, 2024 Renal function stable today with creatinine at 2.5 on Lasix 40 mg IV every 12 hours. Total output 1500 cc last 24 hours. Net -1 L so far. Lower extremity edema is improving. Continues to be on supplemental O2. Echocardiogram showing reduced LVEF of 34%. Global left ventricular hypokinesia grade 2 diastolic dysfunction. Moderate right-sided pleural effusion awaiting thoracentesis. Aspirin and Plavix placed on hold for 48 hours per radiology recommendation. Last received on 4:14 AM. Anticipate thoracentesis on 07/14/2024. Blood sugar uncontrolled this morning. Changed to high-dose sliding scale. 07/13/2024 Renal function remaining stable at 2.6 today. Reduce Lasix to 40 mg IV daily. Aim to transition to p.o. for the next 24 to 48 hours. Plan thoracentesis tomorrow. Additionally plan for stress test per cardiology tomorrow morning. Fingersticks are better controlled after transitioning to high-dose insulin sliding scale. 07/14/2024: No new complaints today. Stress test completed, findings as above. Recommended to continue medical management. Aim to resume aspirin and Plavix after thoracentesis this afternoon. Clinically appearing to be euvolemic today. Lasix reduced to 40 mg IV daily. Aim to transition to oral. PDMP PDMP Reviewed: Not Reviewed Attestations Medical Necessity Statement*: Plan thoracentesis today, completed stress test Coding Level of Care Code Acute Code for [facility] Fwd Diagnoses Ischemic cardiomyopathy I25.5 Acute exacerbation of congestive heart failure I50.9 Orthopnea R06.01 AICD (automatic cardioverter/defibrillator) present Z95.810 Type 2 diabetes mellitus with other circulatory complication, with long-term current use of insulin E11.59; Z79.4 Diabetes mellitus type: type 2 Diabetes mellitus senior living insulin use: with intermediate school teacher 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
[2024-07-14] MEDS: pantoprazole DR 40 mg Tablet PO ×2 (12:01→17:55)
[2024-07-14] MEDS: insulin lispro 100 unit/1 mL SUBCUT ×3 (12:02→20:58)
--- NOTE | 2024-07-14 13:03 | XR_ITS ---
WS: [id number] CHEST XRAY TECHNIQUE: Portable chest. CLINICAL INFORMATION: s/p thoracentesis COMPARISON: 07/10/2024 FINDINGS: AICD. Heart: Cardiomegaly. Lungs: Post RIGHT thoracentesis. No visualized RIGHT pleural fluid. No pneumothorax. Bones: Normal visualized bony structures. XR/XR chest 1V portable [id number] IMPRESSION: RIGHT pleural effusion appears improved and essentially resolved post thoracent esis. No pneumothorax.
[2024-07-14 13:39] LABS: Cyto Order Verification No Order
[2024-07-14 14:05] LABS: Albumin Body Fluid 2.1 g/dL; LDH Pleural Fluid 88 U/L; Total Protein Pleural Fluid 3.2 g/dL
--- NOTE | 2024-07-14 15:49 | PC.NURSE ---
Pt asleep Apnea noted on the tele monitor. HR-58-59, pt is on 2 L NC while sleeping, SpO2-97% with oxygen on.
[2024-07-14 17:16] LABS: Glucose Point of Care 189 mg/dL (70-110)
[2024-07-14] MEDS: isosorbide mononitrate ER 30 mg Tablet PO (17:54)
[2024-07-14] MEDS: metoprolol tartrate 25 mg Tablet PO (17:55)
--- NOTE | 2024-07-14 19:38 | US_ITS ---
WS: [id number] ULTRASOUND-GUIDED THORACENTESIS CLINICAL INFORMATION: Right pleural effusion COMPARISON: None. PROCEDURE: Informed consent: The risks, benefits, and alternatives of the procedure were discussed with the patient. Verbal and written consent was obtained. Timeout: A timeout was performed to confirm the correct patient, procedure, and site. Site: RIGHT chest Preparation: A suitable skin site was identified. The patient was prepped and draped in usual sterile fashion. Lidocaine 1% was used for local anesthesia. Catheter: 4 Danish One-Step catheter. Fluid Volume: 1000 ml Color: Clear yellow Discarded safely. Sent to the laboratory for analysis. Complications: None. / thoracentesis [id number] IMPRESSION: 1. Uncomplicated ultrasound-guided RIGHT thoracentesis. 2. Removal of 1000 cc
--- NOTE | 2024-07-14 20:13 | PC.NURSE ---
Family concerns Pt and and friends at bedside, telling the nurse that they can't take the pt home without oxygen due to his shortness of breath and fatigued at home. Educated pt and family that pt has had fluid around the lungs and post thoracentesis they took 1 L off the right lung. Informed pt that he also has chf due to his cardiomyopathy. Dr Donnelly came at bedside as well and talked to pt and family. Pt had home o2 eval which nurse inform that he does not qualify but oxygen was put back by RT afterwards due to his complains of shortness of breath.
[2024-07-14] MEDS: hyDRALAzine 25 mg Tablet PO (20:22)
[2024-07-14] MEDS: atorvastatin 40 mg Tablet 80 MG PO (20:22)
[2024-07-14 20:25] LABS: Glucose Point of Care 299 mg/dL (70-110)
[2024-07-15 04:00] VITALS: BP 106/59; PULSE 62; RESP 19; TEMP 36.7; O2SAT 98
[2024-07-15] MEDS: amiodarone 200 mg Tablet PO (05:05)
[2024-07-15] MEDS: citalopram 20 mg Tablet PO (05:05)
[2024-07-15 05:49] LABS: Basophils # 0.1 10^3/uL (0.0-0.1); Basophils % 0.7 %; Eosinophils # 0.2 10^3/uL (0.0-0.8); Eosinophils % 2.2 %; Hematocrit 30.2 % (37-53); Lymphocytes # 1.2 10^3/uL (0.8-4.8); Lymphocytes % 12.4 %; Mean Corpuscular HGB Conc 30.8 g/dL (30-55); Mean Corpuscular Hemoglobin 26.8 pg (27-33); Mean Platelet Volume 10.4 fL (7.4-10.4); Monocytes # 1.1 10^3/uL (0.2-0.9); Monocytes % 11.7 %; Neutrophils # 6.81 10^3/uL (1.8-7.7); Neutrophils % 72.6 %; Nucleated Red Blood Cells % 0 %; Platelet Count 209 10^3/cmm (157-399); Red Blood Count 3.47 10^6/uL (3.85-5.65); Red Cell Distribution Width 19.1 % (12.1-15.1); White Blood Count 9.39 10^3/uL (3.29-11.43)
[2024-07-15 05:52] VITALS: PULSE 60
[2024-07-15 06:12] LABS: Glucose Point of Care 106 mg/dL (70-110)
[2024-07-15 06:13] LABS: Alanine Aminotransferase 20 U/L (0-41); Albumin Level 3.6 g/dL (3.5-5.2); Alkaline Phosphatase 155 U/L (40-130); Anion Gap 17.2 (5-19); Aspartate Amino Transferase 23 U/L (0-40); Blood Urea Nitrogen 61 mg/dL (8-23); Calcium 9.2 mg/dL (8.5-10.5); Carbon Dioxide 24 mmol/L (22-29); Chloride 104 mmol/L (98-107); Creatinine Clr Calc Pharmacy 39.7469; Globulin 2.8 g/dL (1.3-4.6); Glomerular Filtration Rate 28.9 mL/min (90-130); Glucose 88 mg/dL (65-115); Osmolality Calculated 309 mOsm/kg (285-295); Potassium 4.2 mmol/L (3.5-5.1); Sodium 141 mmol/L (136-145); Total Bilirubin 0.9 mg/dL (0.15-1.2); Total Protein 6.4 g/dL (6.6-8.7)
[2024-07-15 08:00] VITALS: BP 118/62; PULSE 59; RESP 13; TEMP 36.6; O2SAT 97
[2024-07-15 08:49] VITALS: PULSE 66; RESP 18; O2SAT 98
[2024-07-15] MEDS: hyDRALAzine 25 mg Tablet PO (09:01)
[2024-07-15] MEDS: metoprolol tartrate 25 mg Tablet PO (09:01)
[2024-07-15] MEDS: FUROsemide 40 mg Tablet PO (09:01)
[2024-07-15] MEDS: pantoprazole DR 40 mg Tablet PO (09:01)
[2024-07-15] MEDS: isosorbide mononitrate ER 30 mg Tablet PO (09:01)
--- NOTE | 2024-07-15 10:16 | PC.NURSE ---
Nurse asked patient to removed o2 and lie completely flat in bed. Patient did for several minutes and never dropped below 97%. Dr Herrera notified.
[2024-07-15 11:22] LABS: Glucose Point of Care 265 mg/dL (70-110)
[2024-07-15 11:46] VITALS: BP 122/66; PULSE 58; RESP 19; TEMP 36.7; O2SAT 96
--- NOTE | 2024-07-15 12:04 | PM.DCS ---
Discharge Providers Date of Admission: 07/10/24 17:15 Date of Discharge: July 15, 2024 Attending Provider at Admission: Marlen Fernando MD Attending Provider at Discharge: Christina Herrera MD Primary Care Provider: Paula Hammond MD Diagnoses at Discharge Discharge Diagnosis (1) Peptic ulcer disease: Status: Acute (2) Acute on chronic systolic heart failure: Status: Acute (3) Acute exacerbation of congestive heart failure: Status: Acute (4) Ischemic cardiomyopathy: Status: Chronic Permanent problem details: last ECHO 08/2021 EF 25% (5) Diabetes mellitus: Status: Acute Qualifiers: Diabetes mellitus type: type 2 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 Ambrose (7) Large pleural effusion: Status: Acute (8) Dyspnea: Status: Acute Reason for Visit Reason for Visit: SOB Hospital Course Hospital Course Patient is a 63-year-old male with a past medical history of coronary artery disease, CKD, ICD in place, hypertension, GERD, ischemic cardiomyopathy with last known ejection fraction of 30% from May 2024. Severe hypokinesis of the anterolateral and apical wall segments. Elevated RV pulmonary pressures of 49 mmHg. . He presented to the hospital on July 10, 2024 with increasing shortness of breath over the past 1 week. Additionally he noted swelling over the lower extremities and weight gain. His last stent placement per review of chart was in 2021. clinical impression is that of acute on chronic systolic heart failure exacerbation. Cardiology service was consulted and patient was initiated on IV diuresis with Lasix transitioned to oral Bumex at the time of discharge. There was additionally noted to be a large right pleural effusion for which he underwent thoracentesis with removal of 1L fluid. Light's criteria suggesting transudative effusion. Most likely related to CHF. He feels better after undergoing thoracentesis. Currently he has been able to be weaned down to room air. Home O2 evaluation was completed and patient did not qualify for supplemental O2. He requested a sleep study as outpatient and referral was provided for the same. Results to be followed up by patient's primary care physician. Upon admission there was additionally a concern for acute cholecystitis given moderate edema of the gallbladder. He underwent a HIDA scan which noted a normal gallbladder. His epigastric discomfort may be related to a history of GERD versus gastritis. Will optimize Protonix to 40 mg p.o. daily. Hemoglobin is currently at 9.7 which is close to his baseline since December 2023. His creatinine today is noted to be at 2.3, which again is his baseline. Overall patient did well with diuresis and thoracentesis in the hospital and is being discharged today in improved condition. Recommended to follow-up with his primary care physician and cardiology in 7 to 10 days. Hydralazine has been added to his regimen per cardiology recommendations. Dose of insulin was reduced to 25 units of Lantus daily based on the 24-hour requirements in the hospital. Physical Exam Narrative: General: No acute distress, AO x3 HEENT: PERRLA, pupils bilaterally equal and reactive, pallors not present Chest: Normal vesicular breath sounds, no added sounds, equal good air entry bilaterally CVS: S1-S2 regular, no murmurs, no tachycardia, no gallops, no rubs Abdomen: Soft, nontender, no organomegaly, bowel sounds present Neuro: No focal deficits, no facial deformity, AO x3, power 5/5 in all limbs Discharge Data Studies Completed and Pending Completed Studies During Hospitalization Category Date Time Status CT chest abdomen [place] [id number] Cat Scan 07/10/24 14:49 Completed ] Stat Cardiac Stress Test MIBI [Sestamibi Stress Test Request Exams 07/14/24 08:01 Draft ] Routine XR chest 1V portable [id number] Stat Exams 07/10/24 13:36 Completed XR chest 1V portable [id number] Stat Exams 07/14/24 13:03 Completed NM hepatobiliary w phar* [id number] Routine Nuc Med 07/11/24 19:38 Completed NM mireya perf SPECT r/s* [id number] Routine Nuc Med 07/14/24 08:01 Completed CV echo complete* [id number] Stat Ultrasound 07/11/24 18:13 Completed US gall bladder [id number] Stat Ultrasound 07/10/24 15:53 Completed US thoracentesis [id number] Routine Ultrasound 07/14/24 19:38 Completed Pending at discharge Category Date Time Status Cardiac Stress Test MIBI [Sestamibi Stress Test Request Exams 07/13/24 08:01 Stop Req ] Routine Cardiac Stress Test MIBI [Sestamibi Stress Test Request Exams 07/15/24 08:01 Stop Req ] Routine Body Fluid Culture & GS Routine Lab 07/10/24 19:38 Results Radiology Impressions Chest/Abdomen/Pelvis CT 07/10/24 14:49 IMPRESSION: 1. Large right and small left pleural effusions with compressive atelectasis in the right middle lobe and right lower lobe and to a lesser extent the left lower lobe. 3. Incidental/nonacute findings are listed in the report. IMPRESSION: 1. Mildly increased density layering in the gallbladder. This could represent noncalcified gallstones and/or gallbladder sludge. Ultrasound of the gallbladder may be obtained for further evaluation as clinically indicated. 2. Indeterminate hyperdense foci in both right and left kidneys. Follow-up nonemergent contrasted CT scan or MRI of the kidneys is recommended. 3. Diffuse, mild bladder wall thickening. In the correct clinical setting, this may suggest cystitis. Recommend correlation with laboratory findings. Alternatively, this may be secondary to chronic outlet obstruction. 4. Scattered diverticula in the colon. No evidence for diverticulitis. 5. Small amount of free fluid in the lower abdomen and pelvis. 6. Mild body wall edema. 7. Incidental/nonacute findings are listed in the report. Gallbladder Ultrasound 07/10/24 15:53 IMPRESSION: 1. Cholelithiasis and small amount of intraluminal gallbladder sludge with findings suspicious for cholecystitis. 2. Mild fatty infiltration of the liver. 3. Small volume ascites around the liver. 4. Large right pleural effusion with compressive atelectasis in the visualized right lower lung. These findings were seen on previous CT scan. Hepatobiliary Scan Nuclear Medicine 07/11/24 19:38 IMPRESSION: 1. Normal HIDA scan. 2. Normal gallbladder ejection fraction. Chest X-Ray 07/14/24 13:03 IMPRESSION: RIGHT pleural effusion appears improved and essentially resolved post thoracentesis. No pneumothorax. Thoracentesis Ultrasound 07/14/24 19:38 IMPRESSION: 1. Uncomplicated ultrasound-guided RIGHT thoracentesis. 2. Removal of 1000 cc Laboratory Results WBC 9.39 10^3/uL (3.29-11.43) 07/15/24 04:59 RBC 3.47 10^6/uL (3.85-5.65) L 07/15/24 04:59 Hgb 9.30 g/dL (11.27-16.99) L 07/15/24 04:59 Hct 30.2 % (37-53) L 07/15/24 04:59 MCV 87.0 fl (82-101) 07/15/24 04:59 MCH 26.8 pg (27-33) L 07/15/24 04:59 MCHC 30.8 g/dL (30-55) 07/15/24 04:59 RDW 19.1 % (12.1-15.1) H 07/15/24 04:59 Plt Count 209 10^3/cmm (157-399) 07/15/24 04:59 MPV 10.4 fL (7.4-10.4) 07/15/24 04:59 Neut % (Auto) 72.6 % 07/15/24 04:59 Lymph % (Auto) 12.4 % 07/15/24 04:59 Meagher % (Auto) 11.7 % 07/15/24 04:59 Eos % (Auto) 2.2 % 07/15/24 04:59 Baso % (Auto) 0.7 % 07/15/24 04:59 Neut # (Auto) 6.81 10^3/uL (1.8-7.7) 07/15/24 04:59 Lymph # (Auto) 1.2 10^3/uL (0.8-4.8) 07/15/24 04:59 Meagher # (Auto) 1.1 10^3/uL (0.2-0.9) H 07/15/24 04:59 Eos # (Auto) 0.2 10^3/uL (0.0-0.8) 07/15/24 04:59 Baso # (Auto) 0.1 10^3/uL (0.0-0.1) 07/15/24 04:59 Nucleated RBC % (auto) 0 % 07/15/24 04:59 Nucleated RBCs # 0.0 /100WBC 07/15/24 04:59 PT 15.30 SECONDS (12.1-14.9) H 07/14/24 04:45 INR 1.13 (0.8-1.2) 07/14/24 04:45 APTT 35.5 SECONDS (23.9-36.7) 07/10/24 14:07 Sodium 141 mmol/L (136-145) 07/15/24 04:59 Potassium 4.2 mmol/L (3.5-5.1) 07/15/24 04:59 Chloride 104 mmol/L (98-107) 07/15/24 04:59 Carbon Dioxide 24 mmol/L (22-29) 07/15/24 04:59 Anion Gap 17.2 (5-19) 07/15/24 04:59 BUN 61 mg/dL (8-23) H 07/15/24 04:59 Creatinine 2.3 mg/dL (0.7-1.2) H 07/15/24 04:59 GFR Calculation 28.9 mL/min (90-130) L 07/15/24 04:59 Glucose 88 mg/dL (65-115) 07/15/24 04:59 POC Glucose 265 mg/dL (70-110) H 07/15/24 11:14 Estimat Average Glucose 200 07/10/24 14:07 Hemoglobin A1c 8.6 % (4.0-6.0) H 07/10/24 14:07 Calculated Osmolality 309 mOsm/kg (285-295) H 07/15/24 04:59 Lactic Acid 1.6 mmol/L (0.5-2.2) 07/10/24 19:06 Calcium 9.2 mg/dL (8.5-10.5) 07/15/24 04:59 Magnesium 2.4 mg/dL (1.7-2.3) H 07/11/24 02:43 Total Bilirubin 0.9 mg/dL (0.15-1.2) 07/15/24 04:59 AST 23 U/L (0-40) 07/15/24 04:59 ALT 20 U/L (0-41) 07/15/24 04:59 Alkaline Phosphatase 155 U/L (40-130) H 07/15/24 04:59 Lactate Dehydrogenase 159 U/L (135-225) 07/12/24 03:55 NT-Pro-B Natriuret Pep 56099 pg/mL (0-125) H 07/11/24 02:43 Total Protein 6.4 g/dL (6.6-8.7) L 07/15/24 04:59 Albumin 3.6 g/dL (3.5-5.2) 07/15/24 04:59 Globulin 2.8 g/dL (1.3-4.6) 07/15/24 04:59 Lipase 57 U/L (13-60) 07/10/24 14:07 Urine Color Yellow (Yellow) 07/10/24 21:14 Urine Appearance Clear (CLEAR) 07/10/24 21:14 Urine pH 6 (5-7) 07/10/24 21:14 Ur Specific [place] 1.005 (1.005-1.030) 07/10/24 21:14 Urine Protein Trace (Negative) 07/10/24 21:14 Urine Glucose (UA) Norm (Normal) 07/10/24 21:14 Urine Ketones Negative (Negative) 07/10/24 21:14 Urine Blood 2+ (Negative) H 07/10/24 21:14 Urine Nitrate Negative (Negative) 07/10/24 21:14 Urine Bilirubin Neg (Negative) 07/10/24 21:14 Urine Urobilinogen Norm mg/dL (Negative) 07/10/24 21:14 Ur Leukocyte Esterase Negative (Negative) 07/10/24 21:14 Urine RBC 6-10 /hpf (0-2) 07/10/24 21:14 Urine WBC 0-5 /hpf (0-5) 07/10/24 21:14 Ur Squamous Epith Cells 0-5 /hpf (0-5) 07/10/24 21:14 Amorphous Sediment Not Reportable 07/10/24 21:14 Urine Bacteria None seen /hpf (NONE) 07/10/24 21:14 Hyaline Casts 1.65 /lpf 07/10/24 21:14 Fluid Albumin 2.1 g/dL 07/14/24 13:15 Pleural pH 7.50 (6.5-7.5) 07/14/24 13:15 Pleural Total Protein 3.2 g/dL 07/14/24 13:15 Pleural LDH 88 U/L 07/14/24 13:15 Pleural Glucose 176.0 mg/dL 07/14/24 13:15 Vitals Last Vital Signs Temp 98.0 F 07/15/24 11:46 Pulse 58 L 07/15/24 11:46 Resp 19 H 07/15/24 11:46 BP 122/66 07/15/24 11:46 Pulse Ox 96 07/15/24 11:46 O2 Del Method Room Air 07/15/24 11:46 O2 Flow Rate 2 07/15/24 08:49 Discharge Plan Discharge Patient Disposition: Home Condition: Stable Prescriptions: New hydralazine 25 mg Tablet 25 mg PO TID 30 Days Qty: 90 0RF Continued clopidogrel [Plavix] 75 mg tablet 75 mg PO QAM Qty: 90 3RF nitroglycerin [Nitrostat] 0.3 mg Tablet, Sublingual 0.3 mg SUBLINGUAL Q5M PRN (Reason: Chest Pain) potassium chloride 20 mEq tablet,ER particles/crystals 20 meq PO Q12H isosorbide mononitrate 30 mg tablet extended release 24 hr 30 mg PO DAILY Rx Instructions: Take 1 tablet by mouth once daily bumetanide 1 mg tablet 1 mg PO BID Rx Instructions: Take 1 tablets by mouth in morning and 1 tablet in afternoon. atorvastatin 80 mg tablet 80 mg PO BEDTIME amiodarone 200 mg tablet 200 mg PO QAM aspirin 81 mg tablet,delayed release (DR/EC) 81 mg PO QAM citalopram 20 mg tablet 20 mg PO QAM metoprolol tartrate 25 mg tablet 25 mg PO BID Changed pantoprazole 20 mg tablet,delayed release (DR/EC) 40 mg PO DAILY 30 Days Qty: 30 0RF insulin glargine [Lantus Solostar U-100 Insulin] 100 unit/mL (3 mL) insulin pen 25 unit SUBCUT DAILY 30 Days Qty: 0 0RF Discharge Orders: Discharge Order (Routine); Ordered 07/15/24 Ordered By: Christina Herrera Referrals: Silvia Moya NP [Nurse Practitioner] - 07/25/24 4:00 pm Paula Hammond MD [Primary Care Provider] - 07/28/24 3:00 pm (hospital discharge follow up ) Discharge Diet: Usual diet Discharge Activity: Resume usual activity Patient Instructions: Heart Failure (DC), Peptic Ulcer (DC), Chronic Kidney Disease (DC), Opioid Safety Discharge Attestations Time Spent in Discharge Care*: greater than 30 min Status at Discharge: Cognitive status at discharge: cognitively intact, Behavioral status at discharge: cooperative, Quality Metrics Clinical Quality Measures [ No reported AMI, CVA or VTE this stay] Coding Level of Care Code Acute Code for [facility] Fwd Diagnoses Peptic ulcer disease K27.9 Acute on chronic systolic heart failure I50.23 Acute exacerbation of congestive heart failure I50.9 Ischemic cardiomyopathy I25.5 Type 2 diabetes mellitus with other circulatory complication, with long-term current use of insulin E11.59; Z79.4 Diabetes mellitus type: type 2 Diabetes mellitus 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
[2024-07-15 12:50] VITALS: BP 161/85; PULSE 70; RESP 20; TEMP 37; O2SAT 99
== END 2024-07-15 12:05 | disposition home or self-care (01) | DRG 291 ==
LOC: ER 15:28 → CSU 17:45
PROVIDERS: Emergency Medicine; Admitting Provider Internal Medicine; Emergency Provider Emergency Medicine; PCP Family Medicine; Visit Provider Student in an Organized Health Care Education/Training Program
DX: I11.0 Hypertensive heart disease with heart failure (principal); I50.23 Acute on chronic systolic (congestive) heart failure; N18.4 Chronic kidney disease, stage 4 (severe); J90 Pleural effusion, not elsewhere classified; I47.20 Ventricular tachycardia, unspecified; K27.9 Peptic ulcer, site unspecified, unspecified as acute or chronic, without hemorrhage or perforation; I25.5 Ischemic cardiomyopathy; E11.22 Type 2 diabetes mellitus with diabetic chronic kidney disease; Z79.4 Long term (current) use of insulin; I25.10 Atherosclerotic heart disease of native coronary artery without angina pectoris; E78.2 Mixed hyperlipidemia; Z95.810 Presence of automatic (implantable) cardiac defibrillator; Z95.5 Presence of coronary angioplasty implant and graft; Z86.74 Personal history of sudden cardiac arrest; Z79.82 Long term (current) use of aspirin; Z79.02 Long term (current) use of antithrombotics/antiplatelets
CPT/HCPCS: 32555; 36415; 36416; 71045; 71250; 74176; 76705; 78227; 78452; 80053; 80503; 81001; 82042; 82945; 82962; 83036; 83605; 83615; 83690; 83735; 83880; 83986; 84157; 85025; 85610; 85730; 87070; 87075; 87205; 93005; 93017; 93306; 94664; 94760; 96372; 96374; 96375; 96376; 99285; A9270; A9500; A9537; J1644; J1815; J1940; J2470; J2543; J2785; J9999

== ENCOUNTER → 2024-07-18 09:35 | Outpatient (BNVA) | payer BC, SELFPAY | PROVIDERS: PCP Family Medicine; Visit Provider Family Medicine | DX: I42.9 Cardiomyopathy, unspecified (principal); I50.23 Acute on chronic systolic (congestive) heart failure; R06.01 Orthopnea; I10 Essential (primary) hypertension | CPT/HCPCS: 80048 ==

== ENCOUNTER 2024-08-24 20:00 | Outpatient (CLI) | payer BC, SELFPAY | END 2024-08-24 20:01 | disposition home or self-care (01) | LOC: SLEEP 08-25 05:12 | PROVIDERS: PCP Family Medicine; Referring Provider Student in an Organized Health Care Education/Training Program; Visit Provider Internal Medicine Pulmonary Disease | DX: G47.33 Obstructive sleep apnea (adult) (pediatric) (principal); G47.36 Sleep related hypoventilation in conditions classified elsewhere | CPT/HCPCS: 95810 ==

== ENCOUNTER 2024-12-27 10:54 | Outpatient (CLI) | payer BC, SELFPAY ==
[2024-12-27 12:10] LABS: Estmated Average Glucose 166; Hemoglobin A1C 7.4 % (4.0-6.0)
[2024-12-27 12:18] LABS: Alanine Aminotransferase 30 U/L (0-41); Albumin Level 4.3 g/dL (3.5-5.2); Alkaline Phosphatase 110 U/L (40-130); Anion Gap 17.0 (5-19); Aspartate Amino Transferase 45 U/L (0-40); Blood Urea Nitrogen 53 mg/dL (8-23); Calcium 9.4 mg/dL (8.5-10.5); Carbon Dioxide 27 mmol/L (22-29); Chloride 103 mmol/L (98-107); Cholesterol 167 mg/dL (0-200); Globulin 3.6 g/dL (1.3-4.6); Glucose 122 mg/dL (65-115); HDL Cholesterol 45 mg/dL (60-100); Osmolality Calculated 312 mOsm/kg (285-295); Potassium 4.0 mmol/L (3.5-5.1); Sodium 143 mmol/L (136-145); Total Protein 7.9 g/dL (6.6-8.7); Triglycerides 178 mg/dL (0-150)
[2024-12-27 12:21] LABS: Creatinine Urine, Random 37 mg/dL (39-259)
[2024-12-27 12:22] LABS: Microalbum Creatinine Ratio Ur 135 mg/dL (0-20)
== END 2024-12-27 10:55 | disposition home or self-care (01) ==
PROVIDERS: PCP Family Medicine; Visit Provider Internal Medicine
DX: E11.22 Type 2 diabetes mellitus with diabetic chronic kidney disease (principal); N18.4 Chronic kidney disease, stage 4 (severe); E78.2 Mixed hyperlipidemia; E11.59 Type 2 diabetes mellitus with other circulatory complications; Z79.4 Long term (current) use of insulin; I25.10 Atherosclerotic heart disease of native coronary artery without angina pectoris
CPT/HCPCS: 36415; 80053; 80061; 82044; 83036

== ENCOUNTER 2025-01-09 11:56 | Outpatient (CLI) | payer BC, SELFPAY ==
[2025-01-09 12:55] LABS: Hematocrit 39.1 % (37-53); Hemoglobin 12.40 g/dL (11.27-16.99); Mean Corpuscular HGB Conc 31.7 g/dL (30-55); Mean Corpuscular Hemoglobin 30.0 pg (27-33); Mean Corpuscular Volume 94.7 fl (82-101); Nucleated Red Blood Cells % 0 %; Platelet Count 218 10^3/cmm (157-399); Red Blood Count 4.13 10^6/uL (3.85-5.65); White Blood Count 9.99 10^3/uL (3.29-11.43)
[2025-01-09 13:16] LABS: Albumin Level 4.1 g/dL (3.5-5.2); Anion Gap 17.0 (5-19); Blood Urea Nitrogen 35 mg/dL (8-23); Calcium 8.9 mg/dL (8.5-10.5); Calcium 9.0 mg/dL (8.5-10.5); Carbon Dioxide 26 mmol/L (22-29); Chloride 106 mmol/L (98-107); Glucose 149 mg/dL (65-115); Potassium 4.0 mmol/L (3.5-5.1); Sodium 145 mmol/L (136-145)
[2025-01-09 13:19] LABS: Creatinine Urine, Random 57 mg/dL (39-259)
[2025-01-09 13:21] LABS: Microalbum Creatinine Ratio Ur 88 mg/dL (0-20)
== END 2025-01-09 11:57 | disposition home or self-care (01) ==
LOC: LAB 11:57
PROVIDERS: PCP Family Medicine; Visit Provider Registered Nurse
DX: N18.32 Chronic kidney disease, stage 3b (principal)
CPT/HCPCS: 36415; 80069; 82044; 82310; 83970; 85025